=== PATIENT | male | born 1960 | race Caucasian/White ===

== ENCOUNTER 2016-07-01 17:03 | Emergency (ER) | payer MEDICARE, MEDICAID ==
[~2016-07-01] VITALS: Ht 185.4 cm; Wt 153.0 kg
[2016-07-01 17:03] VITALS: Ht 185.4 cm; Wt 153.0 kg
[~2016-07-01 17:03] MED LIST: ATOR20TA18 PO; BACL10TA PO; BETH25TA PO; DIVA500T55 PO; FURO80TA88 PO; GABA-305 PO; HYDR4TAB84 PO; HYDR8TAB27 PO; LEVO100T12 PO; LUBI24CA7 PO; MENT113P3 TOP; METH1TAB46 PO; MICO113C TOP; MORP15TA43 PO; POTA20TA10 PO; RIVA20TA PO; [UNRECOGNIZED DRUG - CODE] PO
--- OUTSIDE RECORDS SUMMARY | 2016-07-01 17:08 | XMS REPORT | Summary of Care ---
Author Author Nadiya Timmons Unknown Address [address], [place] [id number] Phone Unavailable Care Team Providers Care High School Director Name Role Phone Jon Kirkland, FACS, ,, M Unavailable Unavailable Mena Kirkland, Ritesh Unavailable Unavailable Kelin Kirkland, A Unavailable Unavailable Lena Fountain, Andreia Unavailable Unavailable Nic Kirkland, G Unavailable Unavailable Paresh Kirkland, T Unavailable Unavailable Carlos Neville PP Unavailable [facility] ([place]) Unavailable Unavailable Unavailable Functional Status Functional Status Health Issues* Name Dates Details Functional status health issues are not documented Status: Cognitive Status Health Issues* Name Dates Details Cognitive status health issues are not documented Status: Problems Name Dates Details Heartburn Frequently (Weekly / Daily) Status: Active Shortness of breath (786.05, R06.02) Status: Active Edema (782.3, R60.9) Status: Active Cough (786.2, R05) Status: Active Respiratory tract infection (519.8, J98.8) Status: Active Anemia (285.9, D64.9) Status: Active Constipation (564.00, K59.00) Status: Active Pain, low back (724.2, M54.5) Status: Active Pre-operative exam (V72.84, Z01.818) Status: Active Left knee pain (719.46, M25.562) Status: Active Pain and swelling of right lower leg (729.5, M79.661) Status: Active Meningitis (322.9, G03.9) Status: Active Hyperlipidemia (272.4, E78.5) Status: Active Urinary retention (788.20, R33.9) Status: Active Esophageal reflux (530.81, K21.9) Status: Active Hypothyroidism (244.9, E03.9) Status: Active 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 Hypertension (401.9, I10) Status: Active Vena Caval Thrombosis Status: Active Latex allergy, contact dermatitis (692.4, L25.3) Status: Active Depression (311, F32.9) Status: Active BPH (benign prostatic hyperplasia) (600.00, N40.0) Status: Active Insomnia (780.52, G47.00) Status: Active Neurogenic bladder (596.54, N31.9) Status: Active Spinal cord stimulator status (V45.89, Z96.89) Status: Active Cognitive impairment (294.9, R41.89) Status: Active Intractable back pain (724.5, M54.9) Status: Active 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 Quantity: 90 Carlos Neville M.D.* Started 20-Dec-2012 ActiveDivalproex Sodium ER 500 MG Oral Tablet Extended Release 24 Hour TAKE TWO TABLETS BY MOUTH EVERY DAY * Quantity: 60 Refills: 2 Ritesh San M.D.* Started 20-Dec-2012 ActiveAtorvastatin Calcium 20 MG Oral Tablet take one tablet by mouth every day * Quantity: 30 Refills: 10 Ritesh San M.D.* Started 20-Dec-2012 ActiveHYDROmorphone HCl - 2 MG Oral Tablet TAKE 1 TABLET TID FOR LBP * Quantity: 20 Refills: 0 Carlos Neville M.D.* Started 01-Feb-2013 ActiveKlor-Con M20 20 MEQ Oral Tablet Extended Release TAKE 2 TABLET Daily * Quantity: 60 Refills: 11 Ritesh San M.D.* Started 15-Mar-2013 ActiveGabapentin 300 MG Oral Capsule TAKE TWO CAPSULES in the morning, 1 capusle at noon, and 2 capusules at night. * Quantity: 150 Refills: 2 Anderia Paredes* Started 03-May-2013 ActiveFurosemide 80 MG Oral Tablet Take 1 tablet twice daily * Quantity: 60 Refills: 11 Ritesh San M.D.* Started 19-Jun-2013 ActiveXarelto 20 MG Oral Tablet take one tablet by mouth every day * Quantity: 30 Refills: 1 Ritesh San M.D.* Started ActiveMorphine Sulfate ER 15 MG Oral Tablet Extended Release Si PO every 12 hours with a max of 2 per day. Script must last [address] Lucero. MDD:2 per day * Quantity: 60 Refills: 0 Javi Lucero M.D.* Started 28-Mar-2015 ActiveBaclofen 20 MG Oral Tablet TAKE ONE TABLET BY MOUTH THREE TIMES A DAY NEEDED * Quantity: 90 Refills: 2 Javi Lucero M.D.* Started 13-Feb-2014 ActiveAmitiza 24 MCG Oral Capsule TAKE 1 CAPSULE TWICE DAILY WITH FOOD. * Quantity: 60 Refills: 6 Calos Yoder M.D.* Started 20-Feb-2014 ActiveMethenamine Hippurate 1 GM Oral Tablet TAKE 1 TABLET TWICE DAILY. * Quantity: 180 Refills: 3 Chan Webb M.D., FACS, , * Started 10-Apr-2014 ActiveQUEtiapine Fumarate 50 MG Oral Tablet * Refills: 0 ActiveBethanechol Chloride 25 MG Oral Tablet TAKE 1 TABLET 2 TIMES DAILY. 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 Cognitive impairment (294.9, R41.89) Status: Active Degenerative disc disease, lumbar (722.52, M51.36) Status: Active Depression (311, F32.9) Status: Active DVT (deep venous thrombosis) (453.40, I82.409) Status: Active Esophageal reflux (530.81, K21.9) Status: Active 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, M96.1) Status: Active Hyperlipidemia (272.4, E78.5) Status: Active Hypertension (401.9, I10) Status: Active Hypothyroidism (244.9, E03.9) Status: Active Insomnia (780.52, G47.00) Status: Active Intractable back pain (724.5, M54.9) Status: Active Latex allergy, contact dermatitis (692.4, L25.3) Status: Active Meningitis (322.9, G03.9) Status: Active Neurogenic bladder (596.54, N31.9) Status: Active Spinal cord stimulator status (V45.89, Z96.89) Status: Active Urinary retention (788.20, R33.9) Status: Active Vena Caval Thrombosis Status: Active Procedures Procedure Dates Details History of Biopsy Intraspinal Laminectomy Extradural, Sacral History of Skin Debridement Left Leg History of Hip Surgery Left History of Arthroscopy Knee Right History of Hip Surgery Right History of Cath Stent Placement History of Laminectomy Lumbar History of Laminectomy, Excision Intradural Intraspinal Lesion Sacral Procedures not documented Immunization Name Dates Details Pneumo (Pneumovax) Administered on:15-Mar-2013 Flulaval Quadrivalent Intramuscular Suspension Lot #: [id number] Administered on:26-Dec-2013 Zostavax [id number] UNT/0.65ML Subcutaneous Solution Reconstituted Lot #: [id number] Administered on:26-Dec-2013 Prevnar 13 Intramuscular Suspension Lot #: [id number] Administered on:21-May-2014 Family History Mother* Name Dates Details Family history of malignant neoplasm of breast (V16.3, Z80.3) Status: Active Father* Name Dates Details Family history of acute myocardial infarction (V17.3, Z82.49) Status: Active Family history of Prostate cancer (185, C61) Status: Active Social History Name Dates Details Smoking Status* Former smoker Vital Signs Date Test Result Details 11-Apr-2015 10:55 BP Systolic 109 mm[Hg] Status: BP Diastolic 62 mm[Hg] Status: Temperature 97.3 f Status: Heart Rate 96 /min Status: Respiration Rate 18 /min Status: Weight 274 lb Status: Results Date Description Value Details Results not documented Plan of Care Planned Observations* Name Dates Details Planned Goals not documented Goal Planned Encounters* Appointment; Provider: Carlos Neville On 10-Jul-2015 13:30 * Appointment; Provider: Javi Lucero On 11-Jun-2015 13:30 * Appointment; Provider: Chan Webb On 02-May-2015 06:45 * Appointment; Provider: Javi Lucero On 18-Apr-2015 09:30 * Appointment; Provider: Nadiya Dinh On 11-Apr-2015 13:00 * Appointment; Provider: Schedule Radiology On 04-Mar-2015 16:30 * Appointment; Provider: Chan Webb On 08-Feb-2014 11:30 * Appointment; Provider: Carlos Neville On 22-Nov-2007 07:00 * Appointment; Provider: Carlos Neville On 20-Nov-2007 07:00 Instructions * Instructions not documented Encounters Appointment; Chan Webb Encounter Diagnosis: Problem not documented On 01-Apr-2015 07:30 Appointment; Javi Lucero Encounter Diagnosis: Problem not documented On 12-Mar-2015 13:30 Appointment; Misael Colbert Encounter Diagnosis: Problem not documented On 04-Mar-2015 15:55 Appointment; Chan Webb Encounter Diagnosis: Problem not documented On 28-Feb-2015 07:15 Appointment; Chan Webb Encounter Diagnosis: Problem not documented On 29-Jan-2015 16:45 Appointment; Carlos Neville Encounter Diagnosis: Problem not documented On 07-Jan-2015 13:30 Appointment; Chan Webb Encounter Diagnosis: Problem not documented On 25-Dec-2014 07:00 Appointment; Andreia Paredes Encounter Diagnosis: Problem not documented On 04-Dec-2014 11:30 Appointment; Chan Webb Encounter Diagnosis: Problem not documented On 23-Nov-2014 17:15 Appointment; Chan Webb Encounter Diagnosis: Problem not documented On 12:45 Appointment; Carlos Neville Encounter Diagnosis: Problem not documented On 14:45 Appointment; Chan Webb Encounter Diagnosis: Problem not documented On 07:15 Appointment; Andreia Paredes Encounter Diagnosis: Problem not documented On 13:15 Appointment; Andreia Paredes Encounter Diagnosis: Problem not documented On 11:30 Appointment; Carlos Neville Encounter Diagnosis: Problem not documented On 13:30 Appointment; Chan Webb Encounter Diagnosis: Problem not documented On 16-Aug-2014 07:00 Appointment; Carlos Neville Encounter Diagnosis: Problem not documented On 02-Aug-2014 11:15 Appointment; Chan Webb Encounter Diagnosis: Problem not documented On 10-Jul-2014 07:00 Appointment; Carlos Neville Encounter Diagnosis: Problem not documented On 29-Jun-2014 13:15 Appointment; Chan Webb Encounter Diagnosis: Problem not documented On 21-Jun-2014 07:15 Appointment; Carlos Neville Encounter Diagnosis: Problem not documented On 19-Jun-2014 14:00 Appointment; Javi Lucero Encounter Diagnosis: Problem not documented On 31-May-2014 13:45 Appointment; Ritesh San Encounter Diagnosis: Problem not documented On 21-May-2014 13:45 Appointment; Chan Webb Encounter Diagnosis: Problem not documented On 17-May-2014 17:00 Appointment; Ritesh San Encounter Diagnosis: Problem not documented On 03-May-2014 14:00 Appointment; Javi Lucero Encounter Diagnosis: Problem not documented On 24-Apr-2014 08:00 Appointment; Ritesh San Encounter Diagnosis: Problem not documented On 23-Apr-2014 13:15 Appointment; Chan Webb Encounter Diagnosis: Problem not documented On 10-Apr-2014 14:00 Appointment; Ritesh San Encounter Diagnosis: Problem not documented On 21-Feb-2014 13:15 Appointment; Estella Glass Encounter Diagnosis: Problem not documented On 20-Feb-2014 13:15 Appointment; Ritesh San Encounter Diagnosis: Problem not documented On 29-Jan-2014 13:45 Appointment; Ritesh San Encounter Diagnosis: Problem not documented On 26-Dec-2013 14:30 Appointment; Ritesh San Encounter Diagnosis: Problem not documented On 13-Dec-2013 15:30 Appointment; Javi Lucero Encounter Diagnosis: Problem not documented On 20-Nov-2013 11:00 Appointment; Javi Lucero Encounter Diagnosis: Problem not documented On 13-Nov-2013 12:00 Appointment; Ritesh San Encounter Diagnosis: Problem not documented On 07-Nov-2013 13:45 Appointment; Chan Webb Encounter Diagnosis: Problem not documented On 12:45 Appointment; Javi Lucero Encounter Diagnosis: Problem not documented On 11:30 Appointment; Javi Lucero Encounter Diagnosis: Problem not documented On 11:15 Appointment; Ritesh San Encounter Diagnosis: Problem not documented On 11:30 Appointment; Javi Lucero Encounter Diagnosis: Problem not documented On 10:30 Appointment; Ritesh San Encounter Diagnosis: Problem not documented On 13:00 Appointment; Javi Lucero Encounter Diagnosis: Problem not documented On 11:15 Appointment; Javi Lucero Encounter Diagnosis: Problem not documented On 09:00 Appointment; Ritesh San Encounter Diagnosis: Problem not documented On 10:00 Appointment; Ritesh San Encounter Diagnosis: Problem not documented On 16-Aug-2013 10:30 Appointment; Ritesh San Encounter Diagnosis: Problem not documented On 10-Aug-2013 11:15 Appointment; Ritesh San Encounter Diagnosis: Problem not documented On 24-Jul-2013 15:15 Appointment; Javi Lucero Encounter Diagnosis: Problem not documented On 13-Jul-2013 08:00 Appointment; Ritesh San Encounter Diagnosis: Problem not documented On 13-Jun-2013 13:30 Appointment; Ritesh San Encounter Diagnosis: Problem not documented On 03-May-2013 13:00 Appointment; Chan Webb Encounter Diagnosis: Problem not documented On 25-Apr-2013 13:15
--- OUTSIDE RECORDS SUMMARY | 2016-07-01 17:08 | XMS REPORT | Summary of Care ---
Author Author Carlos Neville M.D. Organization Unknown Address [address], [place] [id number] Phone Unavailable Care Team Providers Care Flocculator Operator Name Role Phone Jon Kirkland, FACS, ,, M Unavailable Unavailable Mena Kirkland, Ritesh Unavailable Unavailable Kelin Kirkland, A Unavailable Unavailable Lena Fountain, Andreia Unavailable Unavailable Nic Kirkland, G Unavailable Unavailable Paresh Kirkland, T Unavailable Unavailable Carlos Neville PP Unavailable Unavailable Unavailable Functional Status Functional Status [...] Respiratory tract infection (519.8, J98.8) Status: Active Anticoagulant long-term use (V58.61, Z79.01) Status: Active Anemia (285.9, D64.9) Status: Active Deep vein thrombosis of lower extremity (453.40, I82.409) Status: Active Constipation (564.00, K59.00) Status: Active Pain, low back (724.2, M54.5) Status: Active Pre-operative exam (V72.84, Z01.818) Status: Active Left knee pain (719.46, M25.562) Status: Active Pain and swelling of right lower leg (729.5, M79.604) Status: Active Chronic pain (338.29, G89.29) Status: Active Meningitis (322.9, G03.9) Status: Active Hyperlipidemia (272.4, E78.5) Status: Active Urinary retention (788.20, R33.9) Status: Active Esophageal reflux (530.81, K21.9) Status: Active Hypothyroidism (244.9, E03.9) Status: Active 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 Lucero. * Quantity: 52 Refills: 0 Javi Lucero M.D.* Started 01-Feb-2013 ActiveKlor-Con M20 20 MEQ Oral Tablet Extended Release TAKE 2 TABLET Daily * Quantity: 60 Refills: 11 Ritesh San M.D.* Started 15-Mar-2013 ActiveGabapentin 300 MG Oral Capsule TAKE TWO CAPSULES in the morning, 1 capusle at noon, and 2 capusules at night. * Quantity: 150 Refills: 2 Andreia Paredes* Started 03-May-2013 ActiveFurosemide 80 MG Oral [...] Webb M.D., FACS, , * Started 10-Apr-2014 ActiveEscitalopram Oxalate 10 MG Oral Tablet TAKE 1 TABLET DAILY. * Quantity: 90 Refills: 0 Ritesh San M.D.* Started 04-May-2014 ActiveQUEtiapine Fumarate 50 MG Oral Tablet * [...] on:15-Mar-2013 Flulaval Quadrivalent Intramuscular Suspension Lot #: [id number] Administered on:26-Dec-2013 Zostavax 72361 UNT/0.65ML Subcutaneous Solution Reconstituted Lot #: [id number] Administered on:26-Dec-2013 Prevnar 13 Intramuscular Suspension Lot #: [id number] Administered on:21-May-2014 Family History Mother* Name Dates Details Family history of malignant neoplasm of breast (V16.3, Z80.3) Status: Active Father* Name Dates Details Family history of acute myocardial infarction (V17.3, Z82.49) Status: Active Family history of Prostate cancer (185, C61) Status: Active Social History Name Dates Details Smoking Status* Former smoker Vital Signs Date Test Result Details 04-Mar-2015 16:08 BP Systolic 90 mm[Hg] Status: BP Diastolic 62 mm[Hg] Status: Temperature 97.5 f Status: Heart Rate 90 /min Status: O2 SAT 98 % Status: Results Date Description Value Details 04-Mar-2015 16:42 ULTRASOUND LEG VEINS RIGHT Comments: Exam Date: 2014 16:27Dictation Date: 03/04/2015 16:42 XS LEG VEINS RIGHT (Better) Plan of Care Planned Observations* Name Dates Details Planned Goals not documented Goal Planned Encounters* Appointment; Provider: Carlos Neville On 10-Jul-2015 13:30 * Appointment; Provider: Javi Lucero On 11-Jun-2015 13:30 * Appointment; Provider: Chan Webb On 01-Apr-2015 07:30 * Appointment; Provider: Schedule Radiology On 04-Mar-2015 16:30 * Appointment; Provider: Chan Webb On 08-Feb-2014 11:30 * Appointment; Provider: Carlos Neville On 22-Nov-2007 07:00 * Appointment; Provider: Carlos Neville On 20-Nov-2007 07:00 Instructions * Instructions not documented Encounters Appointment; Javi Lucero Encounter Diagnosis: Problem not [...] not documented On 20-Feb-2014 13:15 Appointment; Ritesh aSn Encounter Diagnosis: Problem not documented On 29-Jan-2014 [...]
--- OUTSIDE RECORDS SUMMARY | 2016-07-01 17:09 | XMS REPORT | Summary of Care ---
Author Author Elizabeth Gonsalez APRN Organization Unknown Address [address], [place] [id number] Phone Unavailable Care Team Providers Care Shaker Repairer Name Role Phone GaryMusa mendez Unavailable Unavailable Archana Stein PA-C Unavailable Unavailable Mena Kirkland, Ritesh Unavailable Unavailable Kelin Kirkland, Nataly Unavailable Unavailable Nixon Kirkland, Lance Unavailable Unavailable Nic Kirkland, G Unavailable Unavailable Paresh Kirkland, T Unavailable Unavailable PCP Not Assigned Unavailable Unavailable [facility] ([place]) Unavailable Unavailable Unavailable Unavailable Functional Status Name Dates Details Functional status health issues are not documented Status: Name Dates Details Cognitive status health issues are not documented Status: Problems Name Dates Details Heartburn Frequently (Weekly / Daily) Status: Active Meningitis (322.9, G03.9) Status: Active Esophageal reflux (530.81, K21.9) Status: Active 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 Vena Caval Thrombosis Status: Active Latex allergy, contact dermatitis (692.4, L25.3) Status: Active Spinal cord stimulator status (V45.89, Z96.89) Status: Active 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2, M54.5) Status: Active Intractable back pain (724.5, M54.9) Status: Active Hyperlipidemia (272.4, E78.5) Status: Active Abnormal glucose (790.29, R73.09) Status: Active Difficulty in walking (719.7, R26.2) Status: Active Peripheral neuropathy (356.9, G62.9) Status: Active Suprapubic catheter (V44.59, Z93.59) Status: Active BPH (benign prostatic hyperplasia) (600.00, N40.0) Status: Active Depression (311, F32.9) Status: Active Hypertension (401.9, I10) Status: Active Hypothyroidism (244.9, E03.9) Status: Active Preop examination (V72.84, Z01.818) Status: Active Neurogenic bladder (596.54, N31.9) Status: Active Anticoagulant long-term use (V58.61, Z79.01) Status: Active Medications Name Dates Details Levothyroxine Sodium 100 MCG Oral Tablet TAKE 1 TABLET DAILY. Quantity: 90 Kelin Kirkland, Carlos A * Start 20-Dec-2012 Active Divalproex Sodium ER 500 MG Oral Tablet Extended Release 24 Hour TAKE TWO TABLETS BY MOUTH EVERY DAY * Quantity: 60 Refills: 2 Ritesh San M.D. * Start 20-Dec-2012 Active Atorvastatin Calcium 20 MG Oral Tablet take one tablet by mouth every day * Quantity: 30 Refills: 10 Ritesh San M.D. * Start 20-Dec-2012 Active Klor-Con M20 20 MEQ Oral Tablet Extended Release TAKE 2 TABLET Daily * Quantity: 60 Refills: 11 Ritesh San M.D. * Start 15-Mar-2013 Active Furosemide 80 MG Oral Tablet Take 1 tablet twice daily * Quantity: 60 Refills: 11 Ritesh San M.D. * Start 19-Jun-2013 Active Morphine Sulfate ER 15 MG Oral Tablet Extended Release Si PO every 12 hours with a max of 2 per day. Script must last 30 days. MDD:2 per day * Quantity: 60 Refills: 0 Carlos Neville M.D. * Start 15-Jan-2014 Active Baclofen 20 MG Oral Tablet TAKE ONE TABLET BY MOUTH THREE TIMES A DAY NEEDED * Quantity: 90 Refills: 2 Nic KirklandJavi * Start 13-Feb-2014 Active Amitiza 24 MCG Oral Capsule TAKE 1 CAPSULE TWICE DAILY WITH FOOD. * Quantity: 60 Refills: 6 Paresh Kirkland, Calos Herrera * Start 20-Feb-2014 Active Methenamine Hippurate 1 GM Oral Tablet TAKE 1 TABLET TWICE DAILY. * Quantity: 180 Refills: 3 Chan Webb * Start 10-Apr-2014 Active Bethanechol Chloride 25 MG Oral Tablet Take one tablet three times daily * Quantity: 270 Refills: 3 Emil VEGAS Amanda * Start 02-Aug-2014 Active HYDROmorphone HCl - 8 MG Oral Tablet TAKE 1 TABLET BID (AM & PM)qty 60 max 2 a day * Quantity: 60 Refills: 0 Carlos Neville M.D. * Start 18-Apr-2015 Active HYDROmorphone HCl - 4 MG Oral Tablet 1 TABLET DAILY (MID-DAY) * Quantity: 30 Refills: 0 Carlos Neville M.D. * Start 07-Aug-2015 Active Simethicone 40 MG/0.6ML Oral Suspension TAKE DIRECTED. * Quantity: 1 Refills: 0 Lance Alicea M.D. * Start Active 30 ML Bottle MiraLax Oral Powder MIX 1 CAPFUL (17GM) IN 8 OUNCES OF WATER, JUICE, OR TEA AND DRINK DAILY. * Refills: 0 Carlos Neville M.D. * Start 07-May-2016 Active Xarelto 20 MG Oral Tablet * Refills: 0 Carlos Neville M.D. * Start 07-May-2016 Active Furosemide 80 MG Oral Tablet TAKE 1 TABLET TWICE DAILY. * Refills: 0 Carlos Neville M.D. * Start 07-May-2016 Active Tylenol 325 MG Oral Tablet ONE TABLET BY MOUTH EVERY FOUR HOURS NEEDED FOR MODERATE PAIN * Refills: 0 Carlos Neville M.D. * Start 07-May-2016 Active Milk of Magnesia 400 MG/5ML Oral Suspension USE DIRECTED. * Refills: 0 Carlos Neville M.D. * Start 07-May-[address] 400-400-40 MG/5ML Oral Suspension USE DIRECTED. * Refills: 0 Carlos Neville M.D. 07-May-2016 Active Allergies and Adverse Reactions Name Dates Details Abilify (Allergy) Status: Active aspirin (Allergy) Status: Active Bactrim (Allergy) Status: Active doxycycline (Allergy) Status: Active ibuprofen (Allergy) Status: Active Keflex TABS (Allergy) Status: Active naproxen (Allergy) Status: Active Novocain SOLN (Allergy) Status: Active nystatin (Allergy) Status: Active Paxil (Allergy) Status: Active Tylenol (Allergy) Status: Active Zithromax TABS (Allergy) Status: Active Zoloft (Allergy) Status: Active Latex (Allergy) Status: Active Past Medical History Name Dates Details Affective bipolar disorder (296.80, F31.9) Status: Active BPH (benign prostatic hyperplasia) (600.00, N40.0) Status: Active Chronic pain (338.29, G89.29) Status: [...] Status: Active Hypothyroidism (244.9, E03.9) Status: Active Intractable back pain (724.5, M54.9) Status: Active Latex allergy, contact dermatitis (692.4, L25.3) Status: Active Meningitis (322.9, G03.9) Status: Active Neurogenic bladder (596.54, N31.9) Status: Active Spinal cord stimulator status (V45.89, Z96.89) Status: Active Vena Caval Thrombosis Status: Active [...] documented Immunization Name Dates Details Pneumo (Pneumovax) on: 15-Mar-2013 Flulaval Quadrivalent Intramuscular Suspension Lot #: [id number] on: 26-Dec-2013 Zostavax 71186 UNT/0.65ML Subcutaneous Solution Reconstituted Lot #: [id number] on: 26-Dec-2013 Prevnar 13 Intramuscular Suspension Lot #: [id number] on: 21-May-2014 Tdap (Adacel) Lot #: [id number] on: 07-Aug-2015 Family History Name Dates Details Family history of malignant neoplasm of breast (V16.3, Z80.3) Status: Active Name Dates Details Family history of acute myocardial infarction (V17.3, Z82.49) Status: Active Family history of Prostate cancer (185, C61) Status: Active Social History Name Dates Details - Status: Name Dates Details Former smoker Vital Signs Date Test Result Details 15-Jun-2016 15:34 BP Systolic 120 mm[Hg] Status: Comments: Location: ; Position: BP Diastolic 76 mm[Hg] Status: Comments: Location: ; Position: Heart Rate 75 /min Status: Comments: Location: ; Weight 325.0 lb Status: Physical Findings 97 Status: Comments: O2 Saturation Body Mass Index Calculated 42.88 kg/m2 Status: Body Surface Area Calculated 2.64 m2 Status: Results Date Description Value Details 15-Jun-2016 14:00 Comprehensive Metabolic Panel 1212 SODIUM 140 mmol/L Range: 133-144 POTASSIUM 3.9 mmol/L Range: 3.5-5.1 CHLORIDE 102 mmol/L Range: 98-110 CARBON DIOXIDE 33.0 mmol/L Range: 23.0-33.0 ANION GAP 5 mmol/L (Below low threshold) Range: 6-16 BUN 11 mg/dL Range: 7-18 CREATININE, SERUM 0.78 mg/dL Range: 0.70-1.30 BUN:CREATININE RATIO 14 EST GFR, >60 ml/min Range: >60 EST GFR, NON-AFR TUVALUAN >60 ml/min Range: >60 Comments: EST GFR is reported in ml/min per 1.73 m2 of body surface area. ----- GLUCOSE 118 mg/dL (Above high threshold) Range: 70-100 ALK PHOSPHATASE 77 U/L Range: 46-116 TOTAL BILIRUBIN 0.50 mg/dL Range: 0.20-1.00 AST 20 U/L Range: 8-35 ALT 33 U/L Range: 16-63 ALBUMIN 3.1 g/dL (Below low threshold) Range: 3.4-5.0 TOTAL PROTEIN 7.2 g/dL Range: 6.4-8.2 A/G RATIO 0.8 units (Below low threshold) Range: 1.0-1.8 CALCIUM 8.2 mg/dL (Below low threshold) Range: 8.5-10.1 14:32 ECG/ EKG Preop Electro CardioGram 14:42 Urinalysis, Reflex to Microscopic or Culture PRN 8005 pH 7.5 Range: 5.0-7.5 SP GRAVITY 1.015 Range: 1.010-1.030 APPEARANCE CLEAR Range: Clear COLOR YELLOW Range: Straw-Yellow PROTEIN NEGATIVE mg/dL Range: Negative-Trace GLUCOSE NEGATIVE mg/dL Range: Negative KETONE NEGATIVE mg/dL Range: Negative BILIRUB NEGATIVE Range: Negative BLOOD NEGATIVE Range: Negative UROBIL 1.0 EU/dL Range: 0.2-1.0 NITRITE NEGATIVE Range: Negative LEUK MODERATE (Abnormal) Range: Negative 14:42 Urine Microscopic UMIC WBC 3-5 /HPF Range: 0-5 RBC 0-2 /HPF Range: 0-2 15:35 CBC w/ Auto Diff 7150 WBC 6.6 K/uL Range: 4.5-11.0 RBC 4.75 mil/uL Range: 4.20-5.40 HGB 14.2 g/dL Range: 14.0-18.0 HCT 42.3 % Range: 42.0-53.0 MCV 89.1 fL Range: 80.0-99.0 MCH 29.9 pg Range: 27.3-32.5 MCHC 33.6 % Range: 32.0-36.0 RDW 16.4 % (Above high threshold) Range: 11.6-14.8 PLATELETS 321 K/uL Range: 150-400 MPV 7.2 fL Range: 6.0-11.0 %NEUTRO 55.0 % Range: 37.0-80.0 %LYMPHS 30.1 % Range: 13.0-50.0 %MONO 7.0 % Range: 0.0-12.0 %EOS 4.5 % Range: 0.0-7.0 %BASO 0.9 % Range: 0.0-2.5 %ENDY 2.5 % Range: 0.0-5.0 NEUTRO 3.6 K/uL Range: 2.0-6.9 LYMPHS 2.0 K/uL Range: 0.6-3.4 MONOS 0.5 K/uL Range: 0.0-0.9 EOS 0.3 K/uL Range: 0.0-0.7 BASO 0.1 K/uL Range: 0.0-0.2 15:52 XRay CHEST-PA & LAT Comments: Exam Date: 06/15/2016 13:13Dictation Date: 06/15/2016 15:52 X CHEST PA & LAT Plan of Care Name Dates Details Planned Observations Planned Goals not documented Planned Encounters Appointment; Provider: Carlos Neville M.D. On 06-Aug-2016 08:15 Appointment; Provider: Chan Webb M.D., FACS, On 18-Jun-2016 11:30 Interventions Provided Labs/Procedures/Imaging* CBC w/ Auto Diff 7150; Done: 15Jun2016 03:15PM * XRay CHEST-PA & LAT; Done: 15Jun2016 03:52PM Instructions Name Dates Details Instructions not documented Encounters Appointment; Elizabeth Gonsalez A.P.R.N. Encounter Diagnosis: Problem not documented On 15-Jun-2016 14:30 Appointment; Carlos Neville M.D. Encounter Diagnosis: Problem not documented On 07-May-2016 08:00 Appointment; Chan Webb M.D., FACS, Encounter Diagnosis: Problem not documented On 06-May-2016 13:30 Appointment; Chan Webb M.D., FACS, Encounter Diagnosis: Problem not documented On 01-May-2016 07:00 Appointment; Carmine Geronimo DPM Encounter Diagnosis: Problem not documented On 17-Apr-2016 11:30 Appointment; Carlos Neville M.D. Encounter Diagnosis: Problem not documented On 09-Apr-2016 10:00 Appointment; Chan Webb M.D., FACS, Encounter Diagnosis: Problem not documented On 02-Mar-2016 17:15 Appointment; Carlos Neville M.D. Encounter Diagnosis: Problem not documented On 27-Feb-2016 08:45 Appointment; Carlos Neville M.D. Encounter Diagnosis: Problem not documented On 10-Feb-2016 13:00 Appointment; Carmine Geronimo DPM Encounter Diagnosis: Problem not documented On 07-Feb-2016 08:00 Appointment; Carmine Geronimo DPM Encounter Diagnosis: Problem not documented On 31-Jan-2016 13:30 Appointment; Chan Webb M.D., FACS, Encounter Diagnosis: Problem not documented On 27-Jan-2016 13:30 Appointment; Carlos Neville M.D. Encounter Diagnosis: Problem not documented On 14-Jan-2016 13:30 Appointment; Chan Webb M.D., FACS, Encounter Diagnosis: Problem not documented On 23-Dec-2015 13:30 Appointment; Carlos Neville M.D. Encounter Diagnosis: Problem not documented On 03-Dec-2015 13:30 Appointment; Carlos Neville M.D. Encounter Diagnosis: Problem not documented On 18-Nov-2015 14:15 Appointment; Chan Webb M.D., FACS, Encounter Diagnosis: Problem not documented On 18-Nov-2015 13:30 Appointment; Chan Webb M.D., FACS, Encounter Diagnosis: Problem not documented On 10:45 Appointment; Chan Webb M.D., FACS, Encounter Diagnosis: Problem not documented On 06:45 Appointment; Carlos Neville M.D. Encounter Diagnosis: Problem not documented On 14:00 Appointment; Chan Webb M.D., FACS, Encounter Diagnosis: Problem not documented On 09:30 Appointment; Chan Webb M.D., FACS, Encounter Diagnosis: Problem not documented On 17:00 Appointment; Elijah Dang D.O. Encounter Diagnosis: Problem not documented On 10:25 Appointment; Carlos Neville M.D. Encounter Diagnosis: Problem not documented On 07-Aug-2015 13:30 Appointment; Chan Webb M.D., FACS, Encounter Diagnosis: Problem not documented On 05-Aug-2015 17:00 Appointment; Carlos Neville M.D. Encounter Diagnosis: Problem not documented On 10-Jul-2015 13:00 Appointment; Chan Webb M.D., FACS, Encounter Diagnosis: Problem not documented On 08-Jul-2015 13:30 Appointment; Carlos Neville M.D. Encounter Diagnosis: Problem not documented On 17-Jun-2015 13:00 Appointment; Javi Lucero M.D. Encounter Diagnosis: Problem not documented On 11-Jun-2015 13:30 Appointment; Chan Webb M.D., FACS, Encounter Diagnosis: Problem not documented On 11-Jun-2015 07:30 Appointment; Calos Yoder M.D. Encounter Diagnosis: Problem not documented On 01-May-2015 13:45 Appointment; Javi Lucero M.D. Encounter Diagnosis: Problem not documented On 18-Apr-2015 09:30 Appointment; Chan Webb M.D., FACS, Encounter Diagnosis: Problem not documented On 01-Apr-2015 07:30 Appointment; Javi Lucero M.D. Encounter Diagnosis: Problem not documented On 12-Mar-2015 13:30 Appointment; Misael Colbert M.D. Encounter Diagnosis: Problem not documented On 04-Mar-2015 15:55 Appointment; Chan Webb M.D., FACS, Encounter Diagnosis: Problem not documented On 28-Feb-2015 07:15 Appointment; Chan Webb M.D., FACS, Encounter Diagnosis: Problem not documented On 29-Jan-2015 16:45 Appointment; Carlos Neville M.D. Encounter Diagnosis: Problem not documented On 07-Jan-2015 13:30 Appointment; Chan Webb M.D., FACS, Encounter Diagnosis: Problem not documented On 25-Dec-2014 07:00 Appointment; Andreia Paredes P.A. Encounter Diagnosis: Problem not documented On 04-Dec-2014 11:30 Appointment; Chan Webb M.D., FACS, Encounter Diagnosis: Problem not documented On 23-Nov-2014 17:15 Appointment; Chan Webb M.D., FACS, Encounter Diagnosis: Problem not documented On 12:45 Appointment; Carlos Neville M.D. Encounter Diagnosis: Problem not documented On 14:45 Appointment; Chan Webb M.D.,BEREKET, Encounter Diagnosis: Problem not documented On 07:15 Appointment; Andreia Paredes P.A. Encounter Diagnosis: Problem not documented On 13:15 Appointment; Andreia Paredes P.A. Encounter Diagnosis: Problem not documented On 11:30 Appointment; Carlos Neville M.D. Encounter Diagnosis: Problem not documented On 13:30 Appointment; Chan Webb M.D.,BEREKET, Encounter Diagnosis: Problem not documented On 16-Aug-2014 07:00 Appointment; Carlos Neville M.D. Encounter Diagnosis: Problem not documented On 02-Aug-2014 11:15 Appointment; hCan Webb M.D.,BEREKET, Encounter Diagnosis: Problem not documented On 10-Jul-2014 07:00 Appointment; Carlos Neville M.D. Encounter Diagnosis: Problem not documented On 29-Jun-2014 13:15 Appointment; Chan Webb M.D.,BEREKET, Encounter Diagnosis: Problem not documented On 21-Jun-2014 07:15 Appointment; Carlos Neville M.D. Encounter Diagnosis: Problem not documented On 19-Jun-2014 14:00
--- OUTSIDE RECORDS SUMMARY | 2016-07-01 17:09 | XMS REPORT | Summary of Care ---
Author Author Kelin Kirkland, Carlos Ingram Organization Unknown Address [address], [place] [id number] Phone Unavailable Care Team Providers Care Location Manager Name Role Phone Jon Kirkland, BEREKET, ,, M Unavailable Unavailable Emil VEGAS, Archana Unavailable Unavailable Mena Kirkland, Ritesh Unavailable Unavailable Kelin Kirkland, A Unavailable Unavailable Nixon Kirkland, Lance Unavailable Unavailable Nic Kirkland, G Unavailable Unavailable Paresh Kirkland, T Unavailable Unavailable Carlos Neville Unavailable Unavailable [facility] ([place]) Unavailable Unavailable Unavailable Unavailable Functional Status Name [...] Active Chronic pain (338.29, G89.29) Status: Active Depression (311, F32.9) Status: Active Former smoker (V15.82, Z87.891) Status: Active Neurogenic bladder (596.54, N31.9) Status: Active Cognitive impairment (294.9, R41.89) Status: Active Affective bipolar disorder (296.80, F31.9) Status: Active Acute embolism and thrombosis of unspecified deep veins of unspecified lower extremity (453.40, I82.409) Status: Active BPH (benign prostatic hyperplasia) (600.00, N40.0) Status: Active Anticoagulant long-term use (V58.61, Z79.01) Status: Active Opioid dependence (304.00, F11.20) Status: Active Low back pain (724.2, M54.5) Status: Active Intractable back pain (724.5, M54.9) Status: Active Difficulty in walking (719.7, R26.2) Status: Active Great toe pain, right (729.5, M79.674) Status: Active Ingrowing nail (703.0, L60.0) Status: Active Hyperlipidemia (272.4, E78.5) Status: Active Hypertension (401.9, I10) Status: Active Hypothyroidism (244.9, E03.9) Status: Active Abnormal glucose (790.29, R73.09) Status: Active Medications Name Dates Details Levothyroxine Sodium 100 MCG Oral Tablet TAKE 1 TABLET DAILY. Quantity: 90 Carlos Neville M.D. A * Start 20-Dec-2012 Active Divalproex Sodium [...] Quantity: 60 Refills: 0 Carlos Neville M.D. Start 15-Jan-2014 Active Baclofen 20 MG Oral Tablet TAKE ONE TABLET BY MOUTH THREE TIMES A DAY NEEDED * Quantity: 90 Refills: 2 Javi Lucero M.D. * Start 13-Feb-2014 Active Amitiza 24 MCG Oral Capsule TAKE 1 CAPSULE TWICE DAILY WITH FOOD. * Quantity: 60 Refills: 6 Calos Yoder M.D. * Start 20-Feb-2014 Active Methenamine Hippurate 1 GM Oral Tablet TAKE 1 TABLET TWICE DAILY. * Quantity: 180 Refills: 3 Jon Kirkland, BEREKET, , , Chan Vigil * Start 10-Apr-2014 Active Bethanechol Chloride 25 MG Oral Tablet Take one tablet three times daily * Quantity: 270 Refills: 3 Archana Stein PA-C * Start 02-Aug-2014 Active HYDROmorphone HCl - 8 MG Oral Tablet TAKE 1 TABLET BID (AM & PM)qty 60 max 2 a day * Quantity: 60 Refills: 0 Carlos Neville M.D. * Start 18-Apr-2015 Active Fetzima 40 MG Oral Capsule Extended Release 24 Hour Take one tablet daily * Refills: 0 Calos Yoder M.D. * Start 01-May-2015 Active HYDROmorphone HCl - 4 MG Oral Tablet 1 TABLET DAILY (MID-DAY) * Quantity: 30 Refills: 0 Carlos Neville M.D. * Start 07-Aug-2015 Active Simethicone 40 MG/0.6ML Oral Suspension TAKE DIRECTED. * Quantity: 1 Refills: 0 Lance Alicea M.D. * Start Active 30 ML Bottle Allergies and Adverse Reactions Name Dates Details [...] of Laminectomy, Excision Intradural Intraspinal Lesion Sacral CBC w/ Auto Diff 7150 Ordered: 10-Feb-2016 Comprehensive Metabolic Panel 1212 Ordered: 10-Feb-2016 HEMOGLOBIN A1C 3507 Ordered: 10-Feb-2016 Immunization Name Dates Details Pneumo (Pneumovax) on: 15-Mar-2013 Flulaval Quadrivalent Intramuscular Suspension Lot #: [id number] on: 26-Dec-2013 Zostavax 09456 UNT/0.65ML Subcutaneous Solution Reconstituted Lot #: [id number] on: 26-Dec-2013 Prevnar 13 Intramuscular Suspension Lot #: [id number] on: 21-May-2014 Tdap (Adacel) Lot #: [id number] on: 07-Aug-2015 Family History Name Dates Details Family history of malignant neoplasm of breast (V16.3, Z80.3) Status: Active Name Dates Details Family history of acute myocardial infarction (V17.3, Z82.49) Status: Active Family history of Prostate cancer (185, C61) Status: Active Social History Name Dates Details - Status: Name Dates Details Former smoker Vital Signs Date Test Result Details 08-Apr-2016 13:08 BP Systolic 131 mm[Hg] Status: Comments: Location: ; Position: BP Diastolic 89 mm[Hg] Status: Comments: Location: ; Position: Temperature 98.6 f Status: Comments: Method: Heart Rate 81 /min Status: Comments: Location: ; Physical Findings 18 Status: Comments: Respiration Weight 330.4 lb Status: Body Mass Index Calculated 43.59 kg/m2 Status: Body Surface Area Calculated 2.66 m2 Status: Results Date Description Value Details Results not documented Plan of Care Name Dates Details Planned Observations Planned Goals not documented Planned Encounters Appointment; Provider: Chan Webb M.D.|CarlC.SAkhil|BEREKET Kirkland|Marita,BEREKET, On 06-May-2016 13:30 Appointment; Provider: Chan Webb M.D.|Nathaniel.C.SAkhil|Marita,BEREKET|BEREKET Kirkland, On 06-May-2016 07:30 Appointment; Provider: Carmine Geronimo DPM On 17-Apr-2016 11:30 Instructions Name Dates Details Instructions not documented Encounters Appointment; Chan Webb M.D.|CarlC.SAkhil|Marita,BEREKET|Marita,BEREKET, Encounter Diagnosis: Problem not documented On 02-Mar-2016 17:15 Appointment; Carlos Neville M.D. Encounter Diagnosis: Problem not documented On 27-Feb-2016 08:45 Appointment; Carlos Neville M.D. Encounter Diagnosis: Problem not documented On 10-Feb-2016 13:00 Appointment; Carmine Geronimo DPM Encounter Diagnosis: Problem not documented On 07-Feb-2016 08:00 Appointment; Carmine Geronimo DPM Encounter Diagnosis: Problem not documented On 31-Jan-2016 13:30 Appointment; Chan Webb M.D.|Nathaniel.C.S.|Marita,FACS|Marita,FACS, Encounter Diagnosis: Problem not documented On 27-Jan-2016 13:30 Appointment; Carlos Neville M.D. Encounter Diagnosis: Problem not documented On 14-Jan-2016 13:30 Appointment; Chan Webb M.D.|F.A.C.S.|M.DAkhil,BEREKET|MAkhilDAkhil,FACS, Encounter Diagnosis: Problem not documented On 23-Dec-2015 13:30 Appointment; Carlos Neville M.D. Encounter Diagnosis: Problem not documented On 03-Dec-2015 13:30 Appointment; Carlos Neville M.D. Encounter Diagnosis: Problem not documented On 18-Nov-2015 14:15 Appointment; Chan Webb M.D.|F.A.C.S.|Marita,BEREKET|Marita,BEREKET, Encounter Diagnosis: Problem not documented On 18-Nov-2015 13:30 Appointment; Chan Webb M.D.|F.A.C.S.|M.DAkhil,BEREKET|MEun,FACS, Encounter Diagnosis: Problem not documented On 10:45 Appointment; Chan Webb M.D.|F.A.C.S.|M.DAkhil,BEREKET|MEun,FACS, Encounter Diagnosis: Problem not documented On 06:45 Appointment; Carlos Neville M.D. Encounter Diagnosis: Problem not documented On 14:00 Appointment; Chan Webb M.D.|F.A.C.S.|M.DAkhil,BEREKET|MAkhilDAkhil,FACS, Encounter Diagnosis: Problem not documented On 09:30 Appointment; Chan Webb M.D.|F.A.C.S.|MAkhilDAkhil,BEREKET|MAkhilDAkihl,FACS, Encounter Diagnosis: Problem not documented On 17:00 Appointment; Elijah Dang D.O. Encounter Diagnosis: Problem not documented On 10:25 Appointment; Carlos Neville M.D. Encounter Diagnosis: Problem not documented On 07-Aug-2015 13:30 Appointment; Chan Webb M.D.|F.A.C.S.|MAkhilDAkhil,BEREKET|Marita,BEREKET, Encounter Diagnosis: Problem not documented On 05-Aug-2015 17:00 Appointment; Carlos Neville M.D. Encounter Diagnosis: Problem not documented On 10-Jul-2015 13:00 Appointment; Chan Webb M.D.|F.A.C.S.|MkAhilDAkhil,BEREKET|Marita,BEREKET, Encounter Diagnosis: Problem not documented On 08-Jul-2015 13:30 Appointment; Carlos Neville M.D. Encounter Diagnosis: Problem not documented On 17-Jun-2015 13:00 Appointment; Javi Lucero M.D. Encounter Diagnosis: Problem not documented On 11-Jun-2015 13:30 Appointment; Chan Webb M.D.|F.A.C.S.|Marita,BEREKET|Marita,BEREKET, Encounter Diagnosis: Problem not documented On 11-Jun-2015 07:30 Appointment; Calos Yoder M.D. Encounter Diagnosis: Problem not documented On 01-May-2015 13:45 Appointment; Javi Lucero M.D. Encounter Diagnosis: Problem not documented On 18-Apr-2015 09:30 Appointment; Chan Webb M.D.|F.A.C.S.|Marita,JOHANNE,BEREKET, Encounter Diagnosis: Problem not documented On 01-Apr-2015 07:30 Appointment; Javi Lucero M.D. Encounter Diagnosis: Problem not documented On 12-Mar-2015 13:30 Appointment; Misael Colbert M.D. Encounter Diagnosis: Problem not documented On 04-Mar-2015 15:55 Appointment; Chan Webb M.D.|F.A.C.S.|MEun,BEREKET|Marita,BEREKET, Encounter Diagnosis: Problem not documented On 28-Feb-2015 07:15 Appointment; Chan Webb M.D.|F.A.C.S.|ArtemioDAkhil,BEREKET|Marita,BEREKET, Encounter Diagnosis: Problem not documented On 29-Jan-2015 16:45 Appointment; Carlos Neville M.D. Encounter Diagnosis: Problem not documented On 07-Jan-2015 13:30 Appointment; Chan Webb M.D.|F.A.C.S.|MAkhilDAkhil,BEREKET|Marita,BEREKET, Encounter Diagnosis: Problem not documented On 25-Dec-2014 07:00 Appointment; Andreia Paredes P.A. Encounter Diagnosis: Problem not documented On 04-Dec-2014 11:30 Appointment; Chan Webb M.D.|F.A.C.S.|MEun,BEREKET|Marita,FACS, Encounter Diagnosis: Problem not documented On 23-Nov-2014 17:15 Appointment; Chan Webb M.D.|F.A.C.S.|Marita,BEREKET|Marita,BEREKET, Encounter Diagnosis: Problem not documented On 12:45 Appointment; Carlos Neville M.D. Encounter Diagnosis: Problem not documented On 14:45 Appointment; Chan Webb M.D.|F.A.C.S.|Marita,BEREKET|Marita,BEREKET, Encounter Diagnosis: Problem not documented On 07:15 Appointment; Andreia Paredes P.A. Encounter Diagnosis: Problem not documented On 13:15 Appointment; Andreia Paredes P.A. Encounter Diagnosis: Problem not documented On 11:30 Appointment; Carlos Neville M.D. Encounter Diagnosis: Problem not documented On 13:30 Appointment; Chan Webb M.D.|F.A.C.S.|Marita,BEREKET|Marita,BEREKET, Encounter Diagnosis: Problem not documented On 16-Aug-2014 07:00 Appointment; Carlos Neville M.D. Encounter Diagnosis: Problem not documented On 02-Aug-2014 11:15 Appointment; Chan Webb M.D.|F.A.C.S.|Marita,BEREKET|Marita,BEREKET, Encounter Diagnosis: Problem not documented On 10-Jul-2014 07:00 Appointment; Crater, Carlos, M.D. Encounter Diagnosis: Problem not documented On 29-Jun-2014 13:15 Appointment; Chan Webb M.D.|Baldomero|Marita,JOHANNE,BEREKET, Encounter Diagnosis: Problem not documented On 21-Jun-2014 07:15 Appointment; Carlos Neville M.D. Encounter Diagnosis: Problem not documented On 19-Jun-2014 14:00 Appointment; Javi Lucero M.D. Encounter Diagnosis: Problem not documented On 31-May-2014 13:45 Appointment; Ritesh San M.D. Encounter Diagnosis: Problem not documented On 21-May-2014 13:45 Appointment; Chan Webb M.D.|Baldomero|Marita,JOHANNE,BEREKET, Encounter Diagnosis: Problem not documented On 17-May-2014 17:00 Appointment; Ritesh San M.D. Encounter Diagnosis: Problem not documented On 03-May-2014 14:00 Appointment; Javi Lucero M.D. Encounter Diagnosis: Problem not documented On 24-Apr-2014 08:00 Appointment; Ritesh San M.D. Encounter Diagnosis: Problem not documented On 23-Apr-2014 13:15 Appointment; Chan Webb M.D.|Baldomero|Marita,JOHANNE,BEREKET, Encounter Diagnosis: Problem not documented On 10-Apr-2014 14:00"
--- OUTSIDE RECORDS SUMMARY | 2016-07-01 17:09 | XMS REPORT | Summary of Care ---
Author Author Kelin Kirkland, Carlos Ingram Organization Unknown Address [address], [place] [id number] Phone Unavailable Care Team Providers Care Deckhand Name Role Phone Jon Kirkland, FACS, ,, M Unavailable Unavailable Emil VEGAS, Archana Unavailable Unavailable Mena Kirkland, Ritesh Unavailable Unavailable Kelin Kirkland, A Unavailable Unavailable Lena Fountain, Andreia Unavailable Unavailable Nixon Kirkland, Lance Unavailable Unavailable Nic Kirkland, G Unavailable Unavailable Paresh Kirkland, T Unavailable Unavailable Carlos Neville Unavailable Unavailable [facility]) Unavailable Unavailable Unavailable Unavailable Functional Status Name Dates Details Functional status health issues are not documented Status: Name Dates Details Cognitive status health issues are not documented Status: Problems Name Dates Details Heartburn Frequently (Weekly / Daily) Status: Active Anemia (285.9, D64.9) Status: Active Meningitis (322.9, G03.9) Status: Active Esophageal reflux (530.81, K21.9) Status: Active 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 Vena Caval Thrombosis Status: Active Latex allergy, contact dermatitis (692.4, L25.3) Status: Active BPH (benign prostatic hyperplasia) (600.00, N40.0) Status: Active Insomnia (780.52, G47.00) Status: Active Spinal cord stimulator status (V45.89, Z96.89) Status: Active Intractable back pain (724.5, M54.9) Status: Active 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, M96.1) Status: Active Anticoagulant long-term use (V58.61, Z79.01) Status: Active Deep vein thrombosis of lower extremity (453.40, I82.409) Status: Active DVT (deep venous thrombosis) (453.40, I82.409) Status: Active 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11) Status: Active Acute non-recurrent sinusitis, unspecified location (461.9, J01.90) Status: Active Acute bronchitis, unspecified organism (466.0, J20.9) Status: Active Wheezing (786.07, R06.2) Status: Active Edema (782.3, R60.9) Status: Active Affective bipolar disorder (296.80, F31.9) Status: Active CHF (congestive heart failure) (428.0, I50.9) Status: Active Cognitive impairment (294.9, R41.89) Status: Active Neurogenic bladder (596.54, N31.9) Status: Active Medications Name Dates Details Levothyroxine Sodium 100 MCG Oral Tablet TAKE 1 TABLET DAILY. Quantity: 90 Carlos Neville M.D. * Start 20-Dec-2012 Active Divalproex Sodium ER 500 MG Oral Tablet Extended Release 24 Hour TAKE TWO TABLETS BY MOUTH EVERY DAY * Quantity: 60 Refills: 2 Ritesh San M.D. Start 20-Dec-2012 Active Atorvastatin Calcium 20 MG Oral Tablet take one tablet by mouth every day * Quantity: 30 Refills: 10 Ritesh San M.D. * Start 20-Dec-2012 Active Klor-Con M20 20 MEQ Oral Tablet Extended Release TAKE 2 TABLET Daily * Quantity: 60 Refills: 11 Ritesh San M.D. * Start 15-Mar-2013 Active Gabapentin 300 MG Oral Capsule TAKE TWO CAPSULES in the morning, 1 capusle at noon, and 2 capusules at night. * Quantity: 150 Refills: 2 Andreia Castellano * Start 03-May-2013 Active Furosemide 80 MG Oral Tablet Take [...] 8 MG Oral Tablet TAKE 1 TABLET EVERY 12 HOURS NEEDED.qty 60 max 2 a day * Quantity: 60 Refills: 0 Carlos Neville M.D. * Start 18-Apr-2015 Active Fetzima 40 MG Oral Capsule Extended Release 24 Hour Take one tablet daily * Refills: 0 Calos Yoder M.D. * Start 01-May-2015 Active HYDROmorphone HCl - 4 MG Oral Tablet 1 TABLET AT NOON ALONG W/ 8 MG EVERY 12 HOURS PRN * Quantity: 30 Refills: 0 Carlos Neville [...] 15-Mar-2013 Flulaval Quadrivalent Intramuscular Suspension Lot #: [id number] on: 26-Dec-2013 Zostavax 48603 UNT/0.65ML Subcutaneous Solution Reconstituted Lot #: [id number] on: 26-Dec-2013 Prevnar 13 Intramuscular Suspension Lot #: [id number] on: 21-May-2014 Tdap (Adacel) Lot #: [id number] on: 07-Aug-2015 Family History Name Dates Details Family history of malignant neoplasm of breast (V16.3, Z80.3) Status: Active Name Dates Details Family history of acute myocardial infarction (V17.3, Z82.49) Status: Active Family history of Prostate cancer (185, C61) Status: Active Social History Name Dates Details - Status: Name Dates Details Former smoker Vital Signs Date Test Result Details No Known Vitals to report Results Date Description Value Details Results not documented Plan of Care Name Dates Details Planned Observations Planned Goals not documented Planned Encounters Appointment; Provider: Calos Yoder M.D. On 30-Apr-2016 13:30 Appointment; Provider: Chan Webb M.D.|BEREKET Estrada|BEREKET Kirkland, On 29-Apr-2016 13:15 Appointment; Provider: Carlos Neville M.D. On 10-Feb-2016 13:00 Appointment; Provider: Chan Webb M.D.|HarveySBEREKET Garnett|BEREKET Kirkland, On 18-Nov-2015 13:30 Interventions Provided Medication Changes* HYDROmorphone HCl - 8 MG Oral Tablet - Renew Instructions Name Dates Details Instructions not documented Encounters Appointment; Chan Webb M.D.|Baldomero|BEREKET Kirkland|BEREKET Kirkland, Encounter Diagnosis: Problem not documented On 10:45 Appointment; Chan Webb M.D.|F.A.C.S.|MAkhilDAkhil,BEREKET|Marita,FACS, Encounter Diagnosis: Problem not documented On 06:45 Appointment; Carlos Neville M.D. Encounter Diagnosis: Problem not documented On 14:00 Appointment; Chan Webb M.D.|F.A.C.S.|MEun,BEREKET|Marita,FACS, Encounter Diagnosis: Problem not documented On 09:30 Appointment; Chan Webb M.D.|F.A.C.S.|Marita,BEREKET|Marita,FACS, Encounter Diagnosis: Problem not documented On 17:00 Appointment; Elijah Dang D.O. Encounter Diagnosis: Problem not documented On 10:25 Appointment; Carlos Neville M.D. Encounter Diagnosis: Problem not documented On 07-Aug-2015 13:30 Appointment; Chan Webb M.D.|F.A.C.S.|Marita,BEREKET|Marita,BEREKET, Encounter Diagnosis: Problem not documented On 05-Aug-2015 17:00 Appointment; Carlos Neville M.D. Encounter Diagnosis: Problem not documented On 10-Jul-2015 13:00 Appointment; Chan Webb M.D.|F.A.C.S.|Marita,BEREKET|Marita,BEREKET, Encounter Diagnosis: Problem not documented On 08-Jul-2015 13:30 Appointment; Carlos Neville M.D. Encounter Diagnosis: Problem not documented On 17-Jun-2015 13:00 Appointment; Javi Lucero M.D. Encounter Diagnosis: Problem not documented On 11-Jun-2015 13:30 Appointment; Chan Webb M.D.|F.A.C.S.|Marita,JOHANNE,BEREKET, Encounter Diagnosis: Problem not documented On 11-Jun-2015 07:30 Appointment; Calos Yoder M.D. Encounter Diagnosis: Problem not documented On 01-May-2015 13:45 Appointment; Javi Lucero M.D. Encounter Diagnosis: Problem not documented On 18-Apr-2015 09:30 Appointment; Chan Webb M.D.|F.A.C.S.|M.D.,FACS|MEun,FACS, Encounter Diagnosis: Problem not documented On 01-Apr-2015 07:30 Appointment; Javi Lucero M.D. Encounter Diagnosis: Problem not documented On 12-Mar-2015 13:30 Appointment; Misael Colbert M.D. Encounter Diagnosis: Problem not documented On 04-Mar-2015 15:55 Appointment; Chan Webb M.D.|F.A.C.S.|M.DAkhil,FACS|Marita,FACS, Encounter Diagnosis: Problem not documented On 28-Feb-2015 07:15 Appointment; Chan Webb M.D.|F.A.C.S.|MAkhilDAkhil,FACS|MEun,FACS, Encounter Diagnosis: Problem not documented On 29-Jan-2015 16:45 Appointment; Carlos Neville M.D. Encounter Diagnosis: Problem not documented On 07-Jan-2015 13:30 Appointment; Chan Webb M.D.|F.A.C.S.|M.DAkhil,FACS|MAkhilDAkhil,FACS, Encounter Diagnosis: Problem not documented On 25-Dec-2014 07:00 Appointment; Andreia Paredes, Essie Encounter Diagnosis: Problem not documented On 04-Dec-2014 11:30 Appointment; Chan Webb M.D.|F.A.C.S.|M.D.,FACS|MAkhilD.,FACS, Encounter Diagnosis: Problem not documented On 23-Nov-2014 17:15 Appointment; Chan Webb M.D.|F.A.C.S.|M.DAkhil,FACS|MAkhilDAkhil,FACS, Encounter Diagnosis: Problem not documented On 12:45 Appointment; Carlos Neville M.D. Encounter Diagnosis: Problem not documented On 14:45 Appointment; Chan eWbb M.D.|F.A.C.S.|M.D.,FACS|MAkhilDAkhil,FACS, Encounter Diagnosis: Problem not documented On 07:15 Appointment; Anderia Paredes P.A. Encounter Diagnosis: Problem not documented On 13:15 Appointment; Andreia Paredes P.A. Encounter Diagnosis: Problem not documented On 11:30 Appointment; Carlos Neville M.D. Encounter Diagnosis: Problem not documented On 13:30 Appointment; Chan Webb M.D.|F.A.C.S.|MAkhilDAkhil,BEREKET|Marita,BEREKET, Encounter Diagnosis: Problem not documented On 16-Aug-2014 07:00 Appointment; Carlos Neville M.D. Encounter Diagnosis: Problem not documented On 02-Aug-2014 11:15 Appointment; Chan Webb M.D.|F.A.C.S.|Marita,BEREKET|Marita,BEREKET, Encounter Diagnosis: Problem not documented On 10-Jul-2014 07:00 Appointment; Carlos Neville M.D. Encounter Diagnosis: Problem not documented On 29-Jun-2014 13:15 Appointment; Chan Webb M.D.|F.A.C.S.|Marita,BEREKET|Marita,BEREKET, Encounter Diagnosis: Problem not documented On 21-Jun-2014 07:15 Appointment; Carlos Neville M.D. Encounter Diagnosis: Problem not documented On 19-Jun-2014 14:00 Appointment; Javi Lucero M.D. Encounter Diagnosis: Problem not documented On 31-May-2014 13:45 Appointment; Ritesh San M.D. Encounter Diagnosis: Problem not documented On 21-May-2014 13:45 Appointment; Chan Webb M.D.|F.A.C.S.|Marita,BEREKET|Marita,BEREKET, Encounter Diagnosis: Problem not documented On 17-May-2014 17:00 Appointment; Ritesh San M.D. Encounter Diagnosis: Problem not documented On 03-May-2014 14:00 Appointment; Javi Lucero M.D. Encounter Diagnosis: Problem not documented On 24-Apr-2014 08:00 Appointment; Ritesh San M.D. Encounter Diagnosis: Problem not documented On 23-Apr-2014 13:15 Appointment; Chan Webb M.D.|Baldomero|Marita,BEREKET|Marita,BEREKET, Encounter Diagnosis: Problem not documented On 10-Apr-2014 14:00 Appointment; Ritesh San M.D. Encounter Diagnosis: Problem not documented On 21-Feb-2014 13:15 Appointment; Estella Glass M.D. Encounter Diagnosis: Problem not documented On 20-Feb-2014 13:15 Appointment; Ritesh San M.D. Encounter Diagnosis: Problem not documented On 29-Jan-2014 13:45 Appointment; Ritesh San M.D. Encounter Diagnosis: Problem not documented On 26-Dec-2013 14:30 Appointment; Ritesh San M.D. Encounter Diagnosis: Problem not documented On 13-Dec-2013 15:30 Appointment; Javi Lucero M.D. Encounter Diagnosis: Problem not documented On 20-Nov-2013 11:00 Appointment; Javi Lucero M.D. Encounter Diagnosis: Problem not documented On 13-Nov-2013 12:00 Appointment; Ritesh San M.D. Encounter Diagnosis: Problem not documented On 07-Nov-2013 13:45"
--- OUTSIDE RECORDS SUMMARY | 2016-07-01 17:10 | XMS REPORT | Summary of Care ---
Author Author Kelin Kirkland, Carlos Ingram Organization Unknown Address [address], [place] [id number] Phone Unavailable Care Team Providers Care Or Assistant Name Role Phone Jon Kirkland, FACS, ,, M Unavailable Unavailable Emil VEGAS, Archana Unavailable Unavailable Mena Kirkland, Ritesh Unavailable Unavailable Kelin Kirkland, A Unavailable Unavailable Lena Fountain, Andreia Unavailable Unavailable Nixon Kirkland, Lance Unavailable Unavailable Nic Kirkland, G Unavailable Unavailable Paresh Kirkland, T Unavailable Unavailable Carlos Neville Unavailable Unavailable [facility]) Unavailable Unavailable Unavailable Unavailable Functional Status Name [...] Ritesh San M.D. * Start 19-Jun-2013 Active Amitiza 24 MCG Oral Capsule TAKE 1 CAPSULE TWICE DAILY WITH FOOD. * Quantity: 60 Refills: 6 Calos Yoder M.D. * Start 20-Feb-2014 Active Methenamine Hippurate 1 GM Oral Tablet TAKE 1 TABLET TWICE DAILY. * Quantity: 180 Refills: 3 Jon Kirkland, BEREKET, , , Chan Vigil * Start 10-Apr-2014 Active Gabapentin 300 MG Oral Capsule TAKE TWO CAPSULES in the morning, 1 capusle at noon, and 2 capusules at night. * Quantity: 150 Refills: 2 Andreia Castellano * Start 03-May-2013 Active Baclofen 20 MG Oral Tablet TAKE ONE TABLET BY MOUTH THREE TIMES A DAY NEEDED * Quantity: 90 Refills: 2 Javi Lucero M.D. * Start 13-Feb-2014 Active Fetzima 40 MG Oral Capsule Extended Release 24 Hour Take one tablet daily * Refills: 0 Calos Yoder M.D. * Start 01-May-2015 Active Simethicone 40 MG/0.6ML Oral Suspension TAKE DIRECTED. * Quantity: 1 Refills: 0 Lance Alicea M.D. * Start Active 30 ML Bottle Bethanechol Chloride 25 MG Oral Tablet Take one tablet three times daily * Quantity: 270 Refills: 3 Archana Stein PA-C * Start 02-Aug-2014 Active HYDROmorphone HCl - 8 MG Oral Tablet TAKE 1 TABLET EVERY 12 HOURS NEEDED.qty 60 max 2 a day * Quantity: 60 Refills: 0 Carlos Neville M.D. * Start 18-Apr-2015 Active Morphine Sulfate ER 15 MG Oral Tablet Extended Release Si PO every 12 hours with a max of 2 per day. Script must last 30 days. MDD:2 per day * Quantity: 60 Refills: 0 Carlos Neville M.D. * Start 15-Jan-2014 Active HYDROmorphone HCl - 4 MG Oral Tablet 1 TABLET DAILY (MID-DAY) * Quantity: 30 Refills: 0 Carlos Neville M.D. * Start 07-Aug-2015 Active Allergies and Adverse Reactions Name Dates [...] 15-Mar-2013 Flulaval Quadrivalent Intramuscular Suspension Lot #: [id number] on: 26-Dec-2013 Zostavax [id number] UNT/0.65ML Subcutaneous Solution Reconstituted Lot #: [id number] on: 26-Dec-2013 Prevnar 13 Intramuscular Suspension Lot #: [id number] on: 21-May-2014 Tdap (Adacel) Lot #: [id number] on: 07-Aug-2015 Family History Name Dates Details [...] documented Planned Encounters Appointment; Provider: Chan Webb M.D.|JOHANNE Estrada FACS, On 04-May-2016 11:15 Appointment; Provider: Calos Yoder M.D. On 30-Apr-2016 13:30 Appointment; Provider: Carlos Neville M.D. On 10-Feb-2016 13:00 Appointment; Provider: Chan Webb M.D.|JOHANNE Estrada FACS, On 18-Nov-2015 13:30 Interventions Provided Medication Changes* HYDROmorphone HCl - 4 MG Oral Tablet - Renew Instructions Name Dates Details Instructions not documented Encounters Appointment; Chan Webb M.D.|JOHANNE Estrada FACS, Encounter Diagnosis: Problem not documented On 10:45 Appointment; Chan Webb M.D.|LANCE Estrada.,BEREKET, Encounter Diagnosis: Problem not documented On 06:45 Appointment; Calros Neville M.D. Encounter Diagnosis: Problem not documented On 14:00 Appointment; Chan Webb M.D.|FTrupti.C.S.|Marita,BEREKET|Marita,FACS, Encounter Diagnosis: Problem not documented On 09:30 Appointment; Chan Webb M.D.|F.A.C.S.|Marita,BEREKET|Marita,BEREKET, Encounter Diagnosis: Problem not documented On 17:00 Appointment; Elijah Dang D.O. Encounter Diagnosis: Problem not documented On 10:25 Appointment; Carlos Neville M.D. Encounter Diagnosis: Problem not documented On 07-Aug-2015 13:30 Appointment; Chan Webb M.D.|FAkhilA.C.S.|Marita,BEREKET|Marita,BEREKET, Encounter Diagnosis: Problem not documented On 05-Aug-2015 17:00 Appointment; Carlos Neville M.D. Encounter Diagnosis: Problem not documented On 10-Jul-2015 13:00 Appointment; Chan Webb M.D.|Nathaniel.C.S.|Marita,JOHANNE,BEREKET, Encounter Diagnosis: Problem not documented On 08-Jul-2015 [...] documented On 18-Apr-2015 09:30 Appointment; Chan Webb M.D.|F.A.C.S.|M.D.,FACS|MViolet.,FACS, Encounter Diagnosis: Problem not documented On 01-Apr-2015 07:30 Appointment; Javi Lucero M.D. Encounter Diagnosis: Problem not documented On 12-Mar-2015 13:30 Appointment; Misael Colbert M.D. Encounter Diagnosis: Problem not documented On 04-Mar-2015 15:55 Appointment; Chan Webb M.D.|F.A.C.S.|M.DAkhil,FACS|MEun,FACS, Encounter Diagnosis: Problem not documented On 28-Feb-2015 07:15 Appointment; Chan Webb M.D.|F.A.C.S.|MEun,BEREKET|Marita,FACS, Encounter Diagnosis: Problem not documented On 29-Jan-2015 16:45 Appointment; Carlos Neville M.D. Encounter Diagnosis: Problem not documented On 07-Jan-2015 13:30 Appointment; Chan Webb M.D.|F.A.C.S.|MAkhilDAkhil,BEREKET|Marita,FACS, Encounter Diagnosis: Problem not documented On 25-Dec-2014 07:00 Appointment; Andreia Paredes, Essie Encounter Diagnosis: Problem not documented On 04-Dec-2014 11:30 Appointment; Cahn Webb M.D.|F.A.C.S.|M.D.,FACS|MAkhilDAkhil,FACS, Encounter Diagnosis: Problem not documented On 23-Nov-2014 17:15 Appointment; Chan Webb M.D.|F.A.C.S.|M.DAkhil,BEREKET|MEun,FACS, Encounter Diagnosis: Problem not documented On 12:45 Appointment; Carlos Neville M.D. Encounter Diagnosis: Problem not documented On 14:45 Appointment; Chan Webb M.D.|F.A.C.S.|M.D.,FACS|MAkhilDAkhil,FACS, Encounter Diagnosis: Problem not documented On 07:15 Appointment; Andreia Paredes P.A. Encounter Diagnosis: Problem not documented On 13:15 Appointment; Andreia Paredes P.A. Encounter Diagnosis: Problem not documented On 11:30 Appointment; Carlos Neville M.D. Encounter Diagnosis: Problem not documented On 13:30 Appointment; Chan Webb M.D.|F.A.C.S.|MEun,BEREKET|Marita,BEREKET, Encounter Diagnosis: Problem not documented On 16-Aug-2014 07:00 Appointment; Carlos Neville M.D. Encounter Diagnosis: Problem not documented On 02-Aug-2014 11:15 Appointment; Chan Webb M.D.|F.A.C.S.|Marita,BEREKET|Marita,BEREKET, Encounter Diagnosis: Problem not documented On 10-Jul-2014 07:00 Appointment; Carlos Neville M.D. Encounter Diagnosis: Problem not documented On 29-Jun-2014 13:15 Appointment; Chan Webb M.D.|F.A.C.S.|MEun,BEREKET|Marita,BEREKET, Encounter Diagnosis: Problem not documented On 21-Jun-2014 [...] Encounter Diagnosis: Problem not documented On 13-Nov-2013 12:00"
--- OUTSIDE RECORDS SUMMARY | 2016-07-01 17:10 | XMS REPORT | Summary of Care ---
Author Author Carlos Neville M.D. Organization Unknown Address [address], [place] [id number] Phone Unavailable Care Team Providers Care Sample Carrier Name Role Phone Jon Kirkland, FACS, ,, M Unavailable Unavailable Mena Kirkland, Ritesh Unavailable Unavailable Kelin Kirkland, Nataly Unavailable Unavailable Lena Fountain, Andreia Unavailable Unavailable Nic Kirkland, G Unavailable Unavailable Paresh Kirkland, T Unavailable Unavailable Carlos Neville PP Unavailable [facility] [place] Unavailable Unavailable Unavailable Functional Status Functional Status [...] (congestive heart failure) (428.0, I50.9) Status: Active Deep vein thrombosis of lower extremity (453.40, I82.409) Status: Active DVT (deep venous thrombosis) (453.40, I82.409) Status: Active 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, 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: Active Low back pain (724.2, M54.5) Status: Active Degenerative disc disease, lumbar (722.52, M51.36) Status: Active Chronic pain (338.29, G89.29) Status: Active Constipation (564.00, K59.00) Status: Active Edema (782.3, R60.9) Status: Active Opioid dependence (304.00, F11.20) Status: Active Affective bipolar disorder (296.80, F31.9) Status: Active Hypertension (401.9, I10) Status: Active Depression (311, F32.9) Status: Active Hyperlipidemia (272.4, E78.5) Status: Active Medications Name Dates Details Levothyroxine [...] Refills: 10 Ritesh San M.D.* Started 20-Dec-2012 ActiveKlor-Con M20 20 MEQ Oral Tablet Extended [...] Refills: 11 Ritesh San M.D.* Started 19-Jun-2013 ActiveMorphine Sulfate ER 15 MG Oral Tablet Extended Release Si PO every 12 hours with a max of 2 per day. Script must last [address] Lucero. MDD:2 per day * Quantity: 60 Refills: 0 Javi Lucero M.D.* Started 11-Jul-2015 ActiveBaclofen 20 MG Oral Tablet TAKE ONE [...] Webb M.D., FACS, , * Started 10-Apr-2014 ActiveHYDROmorphone HCl - 8 MG Oral Tablet TAKE 1 TABLET EVERY 12 HOURS NEEDED.qty 60 max 2 a day * Quantity: 60 Refills: 0 Javi Lucero M.D.* Started 17-Jul-2015 ActiveCoumadin 5 MG Oral Tablet TAKE 1 TABLET DAILY. * Refills: 0 Carlos Neville M.D.* Started 19-Apr-2015 ActiveLovenox 120 MG/0.8ML Subcutaneous Solution * Refills: 0 Carlos Neville M.D.* Started 19-Apr-2015 ActiveFetzima 40 MG Oral Capsule Extended Release 24 Hour Take one tablet daily * Refills: 0 Calos Yoder M.D.* Started 01-May-2015 Active Allergies and Adverse Reactions Name Dates [...] of Laminectomy, Excision Intradural Intraspinal Lesion Sacral Comprehensive Metabolic Panel 1212 Ordered:17-Jun-2015 Immunization Name Dates Details Pneumo (Pneumovax) Administered on:15-Mar-2013 Flulaval Quadrivalent Intramuscular Suspension Lot #: [id number] Administered on:26-Dec-2013 Zostavax [id number] UNT/0.65ML Subcutaneous Solution Reconstituted Lot #: [id number] Administered on:26-Dec-2013 Prevnar 13 Intramuscular Suspension Lot #: [id number] Administered on:21-May-2014 Family History Mother* Name Dates Details Family history of malignant neoplasm of breast (V16.3, Z80.3) Status: Active Father* Name Dates Details Family history of acute myocardial infarction (V17.3, Z82.49) Status: Active Family history of Prostate cancer (185, C61) Status: Active Social History Name Dates Details Smoking Status* Former smoker Vital Signs Date Test Result Details 10-Jul-2015 13:01 BP Systolic 110 mm[Hg] Status: BP Diastolic 70 mm[Hg] Status: Heart Rate 89 /min Status: O2 SAT 95 % Status: 17-Jun-2015 12:58 BP Systolic 130 mm[Hg] Status: BP Diastolic 72 mm[Hg] Status: Heart Rate 106 /min Status: Weight 281 lb Status: O2 SAT 95 % Status: Body Mass Index Calculated 37.07 kg/m2 Status: Body Surface Area Calculated 2.49 m2 Status: Results Date Description Value Details 08-Jul-2015 14:38 Comprehensive Metabolic Panel 1212 SODIUM 136 mmol/L (Better) Range: 133-144 POTASSIUM 3.4 mmol/L (Below low threshold) Range: 3.5-5.1 CHLORIDE 98 mmol/L (Better) Range: 98-110 CARBON DIOXIDE 30.8 mmol/L (Better) Range: 23.0-33.0 ANION GAP 7 mmol/L (Better) Range: 6-16 BUN 10 mg/dL (Better) Range: 7-18 CREATININE, SERUM 0.81 mg/dL (Better) Range: 0.70-1.30 Comments: Please note new reference ranges effective 2014.----- BUN:CREATININE RATIO 12 (Better) EST GFR, >60 ml/min (Better) Range: >60 EST GFR, NON-AFR MACEDONIAN >60 ml/min (Better) Range: >60 Comments: EST GFR is reported in ml/min per 1.73 m2 of body surface area. For -Bhutanese, please multiple result by 1.2.----- GLUCOSE 110 mg/dL (Above high threshold) Range: 70-100 ALK PHOSPHATASE 102 U/L (Better) Range: 46-116 TOTAL BILIRUBIN 0.50 mg/dL (Better) Range: 0.20-1.00 AST 15 U/L (Better) Range: 8-35 ALT 37 U/L (Better) Range: 16-63 Comments: Please note new reference ranges. Effective 06/07/2014.----- ALBUMIN 3.4 g/dL (Better) Range: 3.4-5.0 TOTAL PROTEIN 7.1 g/dL (Better) Range: 6.4-8.2 A/G RATIO 0.9 units (Below low threshold) Range: 1.0-1.8 CALCIUM 8.8 mg/dL (Better) Range: 8.5-10.1 Plan of Care Planned Observations* Name Dates Details Planned Goals not documented Goal Planned Encounters* Appointment; Provider: Calos Yoder On 30-Apr-2016 13:30 * Appointment; Provider: Javi Lucero On 07-Aug-2015 13:45 * Appointment; Provider: Carlos Neville On 07-Aug-2015 13:30 * Appointment; Provider: Chan Webb On 05-Aug-2015 13:30 * Appointment; Provider: Nadiya Dinh On 11-Apr-2015 13:00 * Appointment; Provider: Schedule Radiology On 04-Mar-2015 16:30 * Appointment; Provider: Chan Webb On 08-Feb-2014 11:30 * Appointment; Provider: Carlos Neville On 22-Nov-2007 07:00 * Appointment; Provider: Carlos Neville On 20-Nov-2007 07:00 Instructions * Instructions not documented Encounters Appointment; Carlos Neville Encounter Diagnosis: Problem not documented On 10-Jul-2015 13:00 Appointment; Chan Webb Encounter Diagnosis: Problem not documented On 08-Jul-2015 13:30 Appointment; Carlos Neville Encounter Diagnosis: Problem not documented On 17-Jun-2015 13:00 Appointment; Javi Lucero Encounter Diagnosis: Problem not documented On 11-Jun-2015 13:30 Appointment; Chan Webb Encounter Diagnosis: Problem not documented On 11-Jun-2015 07:30 Appointment; Calos Yoder Encounter Diagnosis: Problem not documented On 01-May-2015 13:45 Appointment; Javi Lucero Encounter Diagnosis: Problem not documented On 18-Apr-2015 09:30 Appointment; Chan Webb Encounter Diagnosis: Problem not [...] documented On 24-Jul-2013 15:15 Appointment; Javi Lucero Diagnosis: Problem not documented On 13-Jul-2013 08:00
--- OUTSIDE RECORDS SUMMARY | 2016-07-01 17:10 | XMS REPORT ---
Author Author GENERATED, SYSTEM Organization Unknown Address Unknown Phone Unavailable Care Team Providers Care Communications Agent Name Role Phone MD BRYSON, RUDI DAVID [phone] Reason For Visit Reason for Visit from 02/08/2014 10:00 AM:* Pt Stated Reason for Adm : supra pubic catheter placement Chief Complaint NEURO GENIC BLADDER,URINARY RETENTION,SUPRAPUBIC CATHERERI Social History Social History from 02/08/2014 12:41 PM:* Tobacco Use? : Former Smoker Social History from 02/08/2014 10:00 AM:* Tobacco Use? : Former Smoker Functional Status Functional Status from 02/08/2014 1:18 PM:* LOC : Alert Functional Status from 02/08/2014 1:02 PM:* LOC : Alert * Oriented To : Person,Place,Time,Event Functional Status from 02/08/2014 11:33 AM:* LOC : Irritable Functional Status from 02/08/2014 10:00 AM:* LOC : Alert * Oriented To : Person,Place,Time,Event * Weight Bearing Status : Full * Assist Level : Independent * # Assists : Independent Vital Signs Hospital Vital Signs from 02/08/2014 2:30 PM:* Height : 6/1 ft,in * Temperature : 98.5 F * Pulse : 69 * Respirations : 16 * BP : 109/59 Hospital Vital Signs from 02/08/2014 2:25 PM:* Height : 6/1 ft,in Hospital Vital Signs from 02/08/2014 2:00 PM:* Height : 6/1 ft,in * Pulse : 67 * Respirations : 16 * BP : 96/60 Hospital Vital Signs from 02/08/2014 1:45 PM:* Height : 6/1 ft,in * Height : 6/1 ft,in * Pulse : 65 * Pulse : 65 * Respirations : 16 * Respirations : 16 * BP : 97/65 * BP : 97/65 Hospital Vital Signs from 02/08/2014 1:30 PM:* Height : 6/1 ft,in * Pulse : 65 * Respirations : 16 * BP : 102/64 Hospital Vital Signs from 02/08/2014 1:15 PM:* Height : 6/1 ft,in * Pulse : 70 * Respirations : 16 * BP : 102/66 Hospital Vital Signs from 02/08/2014 1:07 PM:* Height : 6/1 ft,in * Temperature : 97.3 F * Pulse : 64 * Respirations : 16 * BP : 102/63 Hospital Vital Signs from 02/08/2014 1:00 PM:* Heart Rate : 59 * Resp Rate : 14 * Systolic BP (mmHg) : 99 * Diastolic BP (mmHg) : 69 * Mean BP (mmHg) : 81 * O2 Saturation (%) : 98 Hospital Vital Signs from 02/08/2014 12:50 PM:* Heart Rate : 64 * Resp Rate : 14 * Systolic BP (mmHg) : 94 * Diastolic BP (mmHg) : 71 * Mean BP (mmHg) : 82 * O2 Saturation (%) : 99 Hospital Vital Signs from 02/08/2014 12:45 PM:* Heart Rate : 61 * Resp Rate : 14 * Systolic BP (mmHg) : 99 * Diastolic BP (mmHg) : 68 * Mean BP (mmHg) : 79 * O2 Saturation (%) : 99 Hospital Vital Signs from 02/08/2014 12:40 PM:* Temp : 98.1 * Heart Rate : 69 * Resp Rate : 9 * Systolic BP (mmHg) : 97 * Diastolic BP (mmHg) : 62 * Mean BP (mmHg) : 76 * O2 Saturation (%) : 99 Hospital Vital Signs from 02/08/2014 12:35 PM:* Heart Rate : 63 * Resp Rate : 12 * Systolic BP (mmHg) : 99 * Diastolic BP (mmHg) : 61 * Mean BP (mmHg) : 74 * O2 Saturation (%) : 99 Hospital Vital Signs from 02/08/2014 12:30 PM:* Heart Rate : 66 * Resp Rate : 12 * Systolic BP (mmHg) : 97 * Diastolic BP (mmHg) : 62 * Mean BP (mmHg) : 71 * O2 Saturation (%) : 98 Hospital Vital Signs from 02/08/2014 12:25 PM:* Heart Rate : 69 * Resp Rate : 12 * Systolic BP (mmHg) : 86 * Diastolic BP (mmHg) : 60 * Mean BP (mmHg) : 72 * O2 Saturation (%) : 97 Hospital Vital Signs from 02/08/2014 12:20 PM:* Heart Rate : 68 * Resp Rate : 10 * Systolic BP (mmHg) : 99 * Diastolic BP (mmHg) : 63 * Mean BP (mmHg) : 73 * O2 Saturation (%) : 98 Hospital Vital Signs from 02/08/2014 12:15 PM:* Heart Rate : 70 * Resp Rate : 8 * Systolic BP (mmHg) : 93 * Diastolic BP (mmHg) : 61 * Mean BP (mmHg) : 72 * O2 Saturation (%) : 96 Hospital Vital Signs from 02/08/2014 12:10 PM:* Heart Rate : 65 * Resp Rate : 6 * Systolic BP (mmHg) : 93 * Diastolic BP (mmHg) : 61 * Mean BP (mmHg) : 70 * O2 Saturation (%) : 98 Hospital Vital Signs from 02/08/2014 12:05 PM:* Heart Rate : 66 * Resp Rate : 9 * Systolic BP (mmHg) : 81 * Diastolic BP (mmHg) : 59 * Mean BP (mmHg) : 60 * O2 Saturation (%) : 97 Hospital Vital Signs from 02/08/2014 12:00 PM:* Temp : 97.8 * Heart Rate : 65 * Resp Rate : 8 * Systolic BP (mmHg) : 87 * Diastolic BP (mmHg) : 60 * Mean BP (mmHg) : 69 * O2 Saturation (%) : 98 Hospital Vital Signs from 02/08/2014 11:55 AM:* Heart Rate : 66 * Resp Rate : 7 * Systolic BP (mmHg) : 99 * Diastolic BP (mmHg) : 62 * Mean BP (mmHg) : 74 * O2 Saturation (%) : 97 Hospital Vital Signs from 02/08/2014 11:50 AM:* Heart Rate : 69 * Resp Rate : 10 * Systolic BP (mmHg) : 91 * Diastolic BP (mmHg) : 61 * Mean BP (mmHg) : 73 * O2 Saturation (%) : 99 Hospital Vital Signs from 02/08/2014 11:45 AM:* Heart Rate : 70 * Resp Rate : 10 * Systolic BP (mmHg) : 104 * Diastolic BP (mmHg) : 70 * Mean BP (mmHg) : 86 * O2 Saturation (%) : 100 Hospital Vital Signs from 02/08/2014 11:40 AM:* Heart Rate : 79 * Resp Rate : 16 * Systolic BP (mmHg) : 96 * Diastolic BP (mmHg) : 68 * Mean BP (mmHg) : 83 * O2 Saturation (%) : 100 Hospital Vital Signs from 02/08/2014 11:35 AM:* Heart Rate : 75 * Resp Rate : 11 * Systolic BP (mmHg) : 111 * Diastolic BP (mmHg) : 101 * Mean BP (mmHg) : 104 * O2 Saturation (%) : 99 Hospital Vital Signs from 02/08/2014 11:33 AM:* Temp : 97.2 * Heart Rate : 79 * Resp Rate : 10 * Systolic BP (mmHg) : 112 * Diastolic BP (mmHg) : 80 * Mean BP (mmHg) : 100 * O2 Saturation (%) : 99 Hospital Vital Signs from 02/08/2014 10:02 AM:* Weight : 110.6/ kg * Height : 6/1 ft,in * Temperature : 97.4 F * Pulse : 58 * Respirations : 18 * BP : 102/77 Hospital Vital Signs from 02/08/2014 10:00 AM:* Weight : 110.6/ kg * Height : 6/1 ft,in Results Problems Encounter Diagnosis No relevant problems exist. Additional Problems * Dizziness Comment:Problem resolved by [facility] upon Discharge, Status: Resolved. * Edema Comment:Problem resolved by [facility] upon Discharge, Status: Resolved. * Edema of Lower Extremity Comment:Problem resolved by [facility] upon Discharge, Status:Resolved. * General Health Deterioration Comment:Problem resolved by [facility] upon Discharge, Status:Resolved. Encounters Encounter Diagnosis No relevant problems exist. Plan of Care Follow-up Appointments from 02/08/2014 12:41 PM:* #1 Office appointment: : Dr. Lerma * #1 Date/Time : 03/20/2014 1:00 PM * Address # 1 : [facility]: [facility], [place], [place]- or Procedures * Completed suprapubic catheter insertion, by MD REZA LERMA, on 2013 11:01 AM * Completed , on 10/21/2012 12:00 AM * Completed , on 10/21/2012 12:00 AM * Completed , on 10/21/2012 12:00 AM * Completed , on 10/21/2012 12:00 AM Immunizations No immunizations administered or ordered. Hospital Course Hospital Discharge Instructions How to care for yourself at home from 02/08/2014 12:41 PM:* Discharge Activity : Activity as tolerated,Do not engage in sports, heavy work or heavy lifting until your physician gives permission * Do not drive or operate machinery for: : 24 hours * Discharge Diet : As before hospitalization,Diet as tolerated * Discharge Wound Care : Keep dressings dry,Notify your physician if the following develops: redness, swelling, drainage or color of drainage changes, odor or increased pain. * Remove dressing in: : Wednesday then leave open to air * Call your doctor if: : Fever over 101 F or severe chills,You have persistent or worsening symptoms * Specific Discharge Teaching Instructions provided: : No * Discharge on Warfarin : No Allergies, Adverse Reactions, Alerts * nystatin causes Severe Hives. * Latex causes Unknown. Onset unsure. * Keflex causes unspecified. * Novocain causes unspecified. * No IV Contrast Allergy. * No Known Food Allergies. Medication Medication reconciliation has not been performed.
--- OUTSIDE RECORDS SUMMARY | 2016-07-01 17:11 | XMS REPORT | Summary of Care ---
Author Author Kelin Kirkland, Carlos Ingram Organization Unknown Address [address], [place] [id number] Phone Unavailable Care Team Providers Care Industrial Order Clerk Name Role Phone Musa Webb Unavailable Unavailable Archana Stein PA-C Unavailable Unavailable Mena Kirkland, Ritesh Unavailable Unavailable Kelin Kirkland, Nataly Unavailable Unavailable Nixon Kirkland, Lance Unavailable Unavailable Nic Kirkland, G Unavailable Unavailable Paresh Kirkland, T Unavailable Unavailable Carlos Neville Unavailable Unavailable [facility] ([place]) Unavailable Unavailable Unavailable Unavailable Functional Status Name [...] Active Peripheral neuropathy (356.9, G62.9) Status: Active Neurogenic bladder (596.54, N31.9) Status: Active Suprapubic catheter (V44.59, Z93.59) Status: Active Depression (311, F32.9) Status: Active Medications Name Dates Details Levothyroxine [...] a day * Quantity: 60 Refills: 0 Kelin Kirkland, Carlos Ingram * Start 18-Apr-2015 Active HYDROmorphone HCl - 4 MG Oral Tablet 1 TABLET DAILY (MID-DAY) * Quantity: 30 Refills: 0 Carlos Neville M.D. * Start 07-Aug-2015 Active Simethicone 40 MG/0.6ML Oral Suspension TAKE DIRECTED. * Quantity: 1 Refills: 0 Nixon Kirkland, Lance * Start Active 30 ML Bottle MiraLax Oral Powder MIX 1 CAPFUL (17GM) IN 8 OUNCES OF WATER, JUICE, OR TEA AND DRINK DAILY. * Refills: 0 Kelin Vigil.Rene.Carlos * Start 07-May-2016 Active Xarelto 20 MG Oral Tablet * Refills: 0 Carlos Neville M.D. * Start 07-May-2016 Active Furosemide 80 MG Oral Tablet TAKE 1 TABLET TWICE DAILY. * Refills: 0 Kelin Vigil.Rene., Carlos Ingram * Start 07-May-2016 Active Tylenol 325 MG Oral Tablet ONE TABLET BY MOUTH EVERY FOUR HOURS NEEDED FOR MODERATE PAIN * Refills: 0 Kelin Vigil.Rene.Carlos * Start 07-May-2016 Active Milk of Magnesia 400 MG/5ML Oral Suspension USE DIRECTED. * Refills: 0 Kelin Vigil.Rene.Carlos * Start 07-May-[address] 400-400-40 MG/5ML Oral Suspension USE DIRECTED. * Refills: 0 Kelin Kirkland, Carlos Ingram * Start 07-May-2016 Active Allergies and Adverse Reactions Name [...] 15-Mar-2013 Flulaval Quadrivalent Intramuscular Suspension Lot #: [id number] on: 26-Dec-2013 Zostavax [id number] UNT/0.65ML Subcutaneous Solution Reconstituted Lot #: [id number] on: 26-Dec-2013 Prevnar 13 Intramuscular Suspension Lot #: [id number] on: 21-May-2014 Tdap (Adacel) Lot #: [id number] on: 07-Aug-2015 Family History Name Dates Details [...] Neville M.D. On 06-Aug-2016 08:15 Appointment; Provider: Cony Buchanan A.P.R.N. On 19-Jun-2016 13:00 Instructions Name Dates Details Instructions not documented Encounters Appointment; Chan Webb M.D.,BEREKET, Encounter Diagnosis: Problem not documented On 06-May-2016 [...] documented On 04-Mar-2015 15:55 Appointment; Chan Webb M.D.,BEREKET, Encounter Diagnosis: Problem not documented On 28-Feb-2015 07:15 Appointment; Chan Webb M.D.,BEREKET, Encounter Diagnosis: Problem not documented On 29-Jan-2015 16:45 Appointment; Carlos Neville M.D. Encounter Diagnosis: Problem not documented On 07-Jan-2015 13:30 Appointment; Chan Webb M.D.,BEREKET, Encounter Diagnosis: Problem not documented On 25-Dec-2014 07:00 Appointment; Andreia Paredes, PSean Encounter Diagnosis: Problem not documented On 04-Dec-2014 11:30 Appointment; Chan Webb M.D., FACS, Encounter Diagnosis: Problem not documented On 23-Nov-2014 17:15 Appointment; Chan Webb M.D.,BEREKET, Encounter Diagnosis: Problem not documented On 12:45 [...] documented On 02-Aug-2014 11:15 Appointment; Chan Webb M.D.,BEREKET, Encounter Diagnosis: Problem not documented On 10-Jul-2014 07:00 Appointment; Carlos Neville M.D. Encounter Diagnosis: Problem not documented On 29-Jun-2014 13:15 Appointment; Chan Webb M.D.,BEREKET, Encounter Diagnosis: Problem not documented On 21-Jun-2014 07:15 Appointment; Carlos Nevlile M.D. Encounter Diagnosis: Problem not documented On 19-Jun-2014 14:00 Appointment; Javi Lucero M.D. Encounter Diagnosis: Problem not documented On 31-May-2014 13:45
--- OUTSIDE RECORDS SUMMARY | 2016-07-01 17:11 | XMS REPORT | Summary of Care ---
Author Author Kelin Kirkland, Carlos Ingram Organization Unknown Address [address] [place], [place] [id number] Phone Unavailable Care Team Providers Care Boat Deckhand Name Role Phone Jon Kirkland, BEREKET, ,, M Unavailable Unavailable Emil VEGAS, Archana Unavailable Unavailable Mena Kirkland, Ritesh Unavailable Unavailable Kelin Kirkland, A Unavailable Unavailable Nixon Kirkland, Lance Unavailable Unavailable Nic Kirkland, G Unavailable Unavailable Paresh Kirkland, T Unavailable Unavailable Carlos Neville Unavailable Unavailable [facility] ([place]) Unavailable Unavailable Unavailable Unavailable Functional Status Name [...] Active Cognitive impairment (294.9, R41.89) Status: Active Hypertension (401.9, I10) Status: Active Hypothyroidism (244.9, E03.9) Status: Active Hyperlipidemia (272.4, E78.5) Status: Active Affective bipolar disorder (296.80, F31.9) Status: Active Acute embolism and thrombosis of unspecified deep veins of unspecified lower extremity (453.40, I82.409) Status: Active BPH (benign prostatic hyperplasia) (600.00, N40.0) Status: Active Anticoagulant long-term use (V58.61, Z79.01) Status: Active Opioid dependence (304.00, F11.20) Status: Active Low back pain (724.2, M54.5) Status: Active Medications Name Dates Details Levothyroxine [...] Quantity: 30 Refills: 10 Ritesh San M.D. Start 20-Dec-2012 Active Klor-Con M20 20 MEQ [...] Quantity: 90 Refills: 2 Javi Lucero M.D. Start 13-Feb-2014 Active Amitiza 24 MCG Oral Capsule TAKE 1 CAPSULE TWICE DAILY WITH FOOD. * Quantity: 60 Refills: 6 Calos Yoder M.D. Start 20-Feb-2014 Active Methenamine Hippurate 1 GM Oral Tablet TAKE 1 TABLET TWICE DAILY. * Quantity: 180 Refills: 3 Jon Kirkland, BEREKET, , , Chan M * Start 10-Apr-2014 Active Bethanechol Chloride 25 [...] Lance * Start Active 30 ML Bottle Allergies [...] 15-Mar-2013 Flulaval Quadrivalent Intramuscular Suspension Lot #: [id number] on: 26-Dec-2013 Zostavax 86383 UNT/0.65ML Subcutaneous Solution Reconstituted Lot #: [id number] on: 26-Dec-2013 Prevnar 13 Intramuscular Suspension Lot #: [id number] on: 21-May-2014 Tdap (Adacel) Lot #: [id number] on: 07-Aug-2015 Family History Name Dates Details [...] documented Planned Encounters Appointment; Provider: Chan Webb M.D.|F.A.C.S.|MEun,BEREKET|Marita,BEREKET, On 04-May-2016 11:15 Appointment; Provider: Calos Yoder M.D. On 30-Apr-2016 13:30 Appointment; Provider: Carlos Neville M.D. On 10-Feb-2016 13:00 Appointment; Provider: Carlos Neville M.D. On 14-Jan-2016 13:30 Interventions Provided Medication Changes* HYDROmorphone HCl - 4 MG Oral Tablet - Renew Instructions Name Dates Details Instructions not documented Encounters Appointment; Chan Webb M.D.|F.A.C.S.|Marita,BEREKET|Marita,BEREKET, Encounter Diagnosis: Problem not documented On 23-Dec-2015 13:30 Appointment; Carlos Neville M.D. Encounter Diagnosis: Problem not documented On 03-Dec-2015 13:30 Appointment; Carlos Neville M.D. Encounter Diagnosis: Problem not documented On 18-Nov-2015 14:15 Appointment; Chan Webb M.D.|F.Nataly.C.S.|Marita,BEREKET|Marita,BEREKET, Encounter Diagnosis: Problem not documented On 18-Nov-2015 13:30 Appointment; Chan Webb M.D.|F.A.C.S.|Marita,BEREKET|Marita,BEREKET, Encounter Diagnosis: Problem not documented On 10:45 Appointment; Chan Webb M.D.|F.A.C.S.|MEun,BEREKET|Marita,BEREKET, Encounter Diagnosis: Problem not documented On 06:45 Appointment; Carlos Neville M.D. Encounter Diagnosis: Problem not documented On 14:00 Appointment; Chan Webb M.D.|F.A.C.S.|aMrita,JOHANNE,BEREKET, Encounter Diagnosis: Problem not documented On 09:30 Appointment; Chan Webb M.D.|F.A.C.S.|Marita,JOHANNE,BEREKET, Encounter Diagnosis: Problem not documented On 17:00 [...] documented On 18-Apr-2015 09:30 Appointment; Chan Webb M.D.|F.A.C.S.|Marita,BEREKET|Marita,BEREKET, Encounter Diagnosis: Problem not documented On 01-Apr-2015 07:30 Appointment; Javi Lucero M.D. Encounter Diagnosis: Problem not documented On 12-Mar-2015 13:30 Appointment; Misael Colbert M.D. Encounter Diagnosis: Problem not documented On 04-Mar-2015 15:55 Appointment; Chan Webb M.D.|F.A.C.S.|Marita,BEREKET|Marita,FACS, Encounter Diagnosis: Problem not documented On 28-Feb-2015 07:15 Appointment; Chan Webb M.D.|F.A.C.S.|M.D.,BEREKET|MAkhilDAkhil,FACS, Encounter Diagnosis: Problem not documented On 29-Jan-2015 16:45 Appointment; Carlos Neville M.D. Encounter Diagnosis: Problem not documented On 07-Jan-2015 13:30 Appointment; Chan Webb M.D.|F.A.C.S.|M.D.,FACS|MAkhilDAkhil,FACS, Encounter Diagnosis: Problem not documented On 25-Dec-2014 07:00 Appointment; Andreia Paredes P.A. Encounter Diagnosis: Problem not documented On 04-Dec-2014 11:30 Appointment; Chan Webb M.D.|F.A.C.S.|M.DAkhil,BEREKET|MEun,FACS, Encounter Diagnosis: Problem not documented On 23-Nov-2014 17:15 Appointment; Chan Webb M.D.|F.A.C.S.|M.DAkhil,BEREKET|MAkhilDAkhil,FACS, Encounter Diagnosis: Problem not documented On 12:45 Appointment; Carlos Neville M.D. Encounter Diagnosis: Problem not documented On 14:45 Appointment; Chan Webb M.D.|F.A.C.S.|M.DAkhil,BEREKET|MAkhilDAkhil,FACS, Encounter Diagnosis: Problem not documented On 07:15 Appointment; Andreia Paredes P.A. Encounter Diagnosis: Problem not documented On 13:15 Appointment; Andreia Paredes P.A. Encounter Diagnosis: Problem not documented On 11:30 Appointment; Carlos Neville M.D. Encounter Diagnosis: Problem not documented On 13:30 Appointment; Chan Webb M.D.|F.A.C.S.|M.DAkhil,BEREKET|MAkhilDAkhil,FACS, Encounter Diagnosis: Problem not documented On 16-Aug-2014 07:00 Appointment; Carlos Neville M.D. Encounter Diagnosis: Problem not documented On 02-Aug-2014 11:15 Appointment; Chan Webb M.D.|Nathaniel.C.SAkhil|Marita,BEREKET|Marita,BEREKET, Encounter Diagnosis: Problem not documented On 10-Jul-2014 07:00 Appointment; Carlos Neville M.D. Encounter Diagnosis: Problem not documented On 29-Jun-2014 13:15 Appointment; Chan Webb M.D.|Logan.A.C.S.|Marita,BEREKET|Marita,BEREKET, Encounter Diagnosis: Problem not documented On 21-Jun-2014 07:15 Appointment; Carlos Neville M.D. Encounter Diagnosis: Problem not documented On 19-Jun-2014 14:00 Appointment; Javi Lucero M.D. Encounter Diagnosis: Problem not documented On 31-May-2014 13:45 Appointment; Ritesh San M.D. Encounter Diagnosis: Problem not documented On 21-May-2014 13:45 Appointment; Chan Webb M.D.|CarlC.S.|Marita,BEREKET|Marita,BEREKET, Encounter Diagnosis: Problem not documented On 17-May-2014 17:00 Appointment; Ritesh San M.D. Encounter Diagnosis: Problem not documented On 03-May-2014 14:00 Appointment; Javi Lucero M.D. Encounter Diagnosis: Problem not documented On 24-Apr-2014 08:00 Appointment; Ritesh San M.D. Encounter Diagnosis: Problem not documented On 23-Apr-2014 13:15 Appointment; Chan Webb M.D.|Nathaniel.C.S.|Marita,BEREKET|Marita,BEREKET, Encounter Diagnosis: Problem not documented On 10-Apr-2014 14:00 Appointment; Ritesh San M.D. Encounter Diagnosis: Problem not documented On 21-Feb-2014 13:15 Appointment; Estella Glass M.D. Encounter Diagnosis: Problem not documented On 20-Feb-2014 13:15 Appointment; Ritesh San M.D. Encounter Diagnosis: Problem not documented On 29-Jan-2014 13:45"
--- OUTSIDE RECORDS SUMMARY | 2016-07-01 17:11 | XMS REPORT ---
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 : Former Smoker Social History from 02/23/2014 2:45 PM:* Tobacco Use? : Former Smoker Social History from 02/21/2014 2:42 PM:* Tobacco Use? : Former Smoker Functional Status Functional Status from 02/23/2014 7:12 AM:* LOC : Alert * Oriented To : Person,Place,Time,Event * Weight Bearing Status : Partial * Assist Level : Partial * # Assists : 1 Functional Status from 02/22/2014 7:40 PM:* LOC : Alert * Oriented To : Person * Weight Bearing Status : Full * Assist Level : Partial * # Assists : 1 Functional Status from 02/22/2014 9:30 AM:* LOC : Alert * Oriented To : Person,Place,Time,Event * Weight Bearing Status : Full * Assist Level : Independent * # Assists : Independent Functional Status from 02/21/2014 9:56 PM:* LOC : Alert * Oriented To : Person,Place,Time * Weight Bearing Status : Full * Assist Level : Partial * # Assists : 2 Functional Status from 02/21/2014 2:42 PM:* LOC : Alert * Oriented To : Person,Place,Event * Weight Bearing Status : Full * Assist Level : Partial * # Assists : 1 Vital Signs Hospital Vital Signs from 02/23/2014 7:16 AM:* Weight : 111.4/ kg * Height : 6/1 ft,in Hospital Vital Signs from 02/23/2014 6:55 AM:* Weight : 111.4/ kg * Height : 6/1 ft,in Hospital Vital Signs from 02/23/2014 4:23 AM:* Height : 6/1 ft,in * Temperature : 97.6 F * Pulse : 62 * BP : 121/77 Hospital Vital Signs from 02/22/2014 5:08 AM:* Height : 6/1 ft,in * Temperature : 97.8 F * Pulse : 65 * Respirations : 20 * BP : 102/69 Hospital Vital Signs from 02/21/2014 2:42 PM:* Weight : 110/ kg * Height : 6/1 ft,in Hospital Vital Signs from 02/21/2014 2:35 PM:* Weight : 110.7/ kg * Height : 6/1 ft,in * Temperature : 97.6 F * Pulse : 60 * Respirations : 16 * BP : 107/71 Results Chemistry from 02/22/2014 11:39 AMVALPROIC ACID 67 MCG/ML (50-100 MCG/ML) Chemistry from 02/22/2014 6:20 AMSODIUM 138 MMOL/L (136-145 MMOL/L) POTASSIUM 3.6 MMOL/L (3.5-5.1 MMOL/L) CHLORIDE 103 MMOL/L (98-107 MMOL/L) TCO2 30.6 MMOL/L (21.0-32.0 MMOL/L) ANION GAP 4.4 MMOL/L L (8.0-16.0 MMOL/L) BUN 10 MG/DL (7-18 MG/DL) CREATININE 0.67 MG/DL (0.63-1.13 MG/DL) BUN/CREATININE RATIO 14.9 (9.1-17.0 ) GLUCOSE 97 MG/DL (65-99 MG/DL) GFR EST NON AFR BHUTANESE >90 ML/MIN GFRA EST AFR AMER >90 ML/MIN CALCIUM 8.8 MG/DL (8.5-10.1 MG/DL) ALBUMIN 3.1 GM/DL L (3.4-5.0 GM/DL) PHOSPHORUS 3.3 MG/DL (2.5-4.9 MG/DL) Chemistry from 02/21/2014 4:24 PMSODIUM 141 MMOL/L (136-145 MMOL/L) POTASSIUM 3.2 MMOL/L L (3.5-5.1 MMOL/L) CHLORIDE 105 MMOL/L (98-107 MMOL/L) TCO2 33.5 MMOL/L H (21.0-32.0 MMOL/L) ANION GAP 2.5 MMOL/L L (8.0-16.0 MMOL/L) BUN 10 MG/DL (7-18 MG/DL) CREATININE 0.82 MG/DL (0.63-1.13 MG/DL) BUN/CREATININE RATIO 12.2 (9.1-17.0 ) GLUCOSE 94 MG/DL (65-99 MG/DL) GFR EST NON AFR BHUTANESE >90 ML/MIN GFRA EST AFR AMER >90 ML/MIN CALCIUM 8.8 MG/DL (8.5-10.1 MG/DL) BILIRUBIN TOTAL 0.40 MG/DL (0.20-1.00 MG/DL) TOTAL PROTEIN 6.5 GM/DL (6.4-8.2 GM/DL) ALBUMIN 3.3 GM/DL L (3.4-5.0 GM/DL) GLOBULIN 3.2 GM/DL (2.3-3.5 GM/DL) A/G RATIO 1.0 MG/DL L (1.5-2.2 MG/DL) ALK PHOS 65 U/L (46-116 U/L) ALT (SGPT) 10 U/L L (12-78 U/L) AST (SGOT) 10 U/L L (15-37 U/L) TSH 2.65 UIU/ML (0.34-4.82 UIU/ML) THYROXINE FREE 0.80 NG/DL (0.59-1.19 NG/DL) VITAMIN B12 401 PG/ML (180-914 PG/ML) Hematology from 02/21/2014 4:24 PMWBC 6.3 X10e3/UL (3.6-11.2 X10e3/UL) RBC 4.35 X10e6/UL (4.06-5.63 X10e6/UL) HEMOGLOBIN 13.3 G/DL (12.5-16.3 G/DL) HEMATOCRIT 40.0 % (36.7-47.1 %) MCV 91.9 FL (80.0-100.0 FL) MCH 30.6 PG (27.0-33.0 PG) MCHC 33.3 G/DL (32.0-36.0 G/DL) RDW 14.3 % (12.3-17.0 %) RDWSD 45.9 (37.1-47.8 ) PLATELET 248 X10e3/UL (159-386 X10e3/UL) MPV 7.6 FL (7.4-10.4 FL) Urinalysis from 02/21/2014 10:00 PMURINE COLOR YELLOW (STRAW/YELL/DK YELL ) URINE APPEARANCE CLEAR (CLEAR ) URINE PH 7.0 (5.0-8.0 ) URINE SPECIFIC GRAVITY <1.005 (<=1.005->=1.030 ) URINE GLUCOSE NEGATIVE MG/DL (NEGATIVE MG/DL) URINE BILIRUBIN NEGATIVE (NEGATIVE ) URINE KETONES NEGATIVE MG/DL (NEGATIVE MG/DL) URINE BLOOD SMALL A (NEGATIVE ) URINE PROTEIN NEGATIVE MG/DL (NEGATIVE MG/DL) URINE UROBILINOGEN 0.2 EU/DL (0.2-1.0 EU/DL) URINE NITRITES NEGATIVE (NEGATIVE ) *URINE LEUKOCYTES LARGE A (NEGATIVE ) MICROSCOPIC EXAM PERFORMED PERFORMED WBC PACKED FIELD /HPF A (0-5 /HPF) RBC 0-1 /HPF (0-1 /HPF) SQUAMOUS EP. CELLS FEW /LPF (NEG-FEW /LPF) MUCOUS THREADS FEW /LPF A (NEGATIVE /LPF) BACTERIA FEW /HPF A (NEGATIVE /HPF) Coagulation from 02/22/2014 6:20 AMPROTHROMBIN TIME 10.9 SECONDS (9.4-11.5 SECONDS) INR 1.0 Microbiology from 02/21/2014 10:00 PM* CULTURE URINE (Preliminary Result) Specimen Number: [id number] Sample Collection Date/Time: 02/21/2014 10:00 PM Specimen Source: Urine Catheter Problems Encounter Diagnosis No relevant problems exist. [...] No relevant problems exist. Plan of Care Procedures * Completed suprapubic catheter insertion, by MD REZA LERMA on 2013 11:01 AM * Completed , on 10/21/2012 12:00 AM * Completed , on 10/21/2012 12:00 AM * Completed , on 10/21/2012 12:00 AM * Completed , on 10/21/2012 12:00 AM Immunizations No immunizations administered or ordered. Hospital Course Hospital Discharge Instructions How to care for yourself at home from 02/23/2014 2:45 PM:* Discharge Activity : Activity as tolerated * Discharge Diet : Modification as given by physician * Discharge Diet: : 4gm Na+ * Call your doctor if: : Fever over 101 F or severe chills,Chest pain or other unexplained symptoms,Tingling or numbness develops,A sudden increase or decrease in weight,You have persistent or worsening symptoms,If you have Heart Failure and you gain 3 pounds within 1 week or your symptoms worsen. (Weigh at home tomorrow morning) Allergies, Adverse Reactions, Alerts * nystatin causes Severe Hives. * Latex causes Unknown. Onset unsure. * Keflex causes unspecified. * Novocain causes unspecified. * IV Contrast Allergy has not been assessed. * No Known Food Allergies. Medication It is the responsibility of the patient or patient technical support representative to confirm the list of medications with either the patient's personal care provider or the patient's follow-up care provider to ensure the patient has an appropriate list of medications to take at home. Discharge medications New medications* ALPRAZolam 0.25 mg Tablet, Ordered By: SIERRA MISHRA RN Directions: 1 tablet oral every four hours PRN anxiety * A NOTE TO / FROM NURSING 1 EACH=1 ORDER Miscellaneous UD, Clinician Dir:DC PREVIOUS ORDER FOR NYSTATIN POWDER DUE TO ALLERGY Additional Instructions: DC PREVIOUS ORDER FOR NYSTATIN POWDER DUE TO ALLERGY * acetaminophen (Mapap (acetaminophen)) 325 mg Tablet, Ordered By: SIERRA MISHRA RN Directions: 2 tablet oral every four hours PRN PAIN * calcium carbonate (Calcium Antacid) 200 mg calcium (500 mg) tablet,chewable, Ordered By: SIERRA MISHRA RN Directions: 2 tab oral three times a day PRN INDIGESTION * calcium acetate-aluminum sulf ([place]) 952 mg-1,347 mg Powder in Packet, Ordered By: SIERRA MISHRA RN Directions: 1 each topical twice a day Additional Instructions: MIX 1 PACKET IN 1 CUP OF WATER APPLY TO GAUZE AND APPLY TO AREA AND LET DRY * cranberry gdni-B-[id number] coag (Azo Cranberry + Probiotic) 250 mg-30 mg-50 million cell Tablet, Ordered By: SIERRA MISHRA RN Directions: 1 tablet oral three times a day Additional Instructions: AUTOSUB * levetiracetam 250 mg Tablet, Ordered By: SIERRA MISHRA RN Directions: 1 tablet oral twice a day Additional Instructions: DO NOT CHEW, BREAK, OR CRUSH. * levofloxacin 500 mg Tablet, Ordered By: SIERRA MISHRA RN Directions: 1 tablet oral daily Additional Instructions: DO NOT GIVE DAIRY PRODUCTS, ANTACIDS, MVI, DIET AIDS OR SUCRALFATE WITHIN 2 HOURS OF * LORazepam 2 mg/mL Syringe, Ordered By: SIERRA MISHRA RN Directions: 0.5 mL intravenous eveery for to six hours for ANXIETY Additional Instructions: GIVE NEEDED FOR SEIZURE ACTIVITY * magnesium hydroxide (Milk of Magnesia) 400 mg/5 mL Suspension, Ordered By: SIERRA MISHRA RN Directions: 30 mL oral daily PRN CONSTIPATION * nicotine (polacrilex) (Nicorelief) 2 mg Gum, Ordered By: SIERRA MISHRA RN Directions: 1 gum oral every one hour for SMOKING CESSATION Additional Instructions: DO NOT GIVE IF PATIENT UNDER AGE 18 OR . * pantoprazole 40 mg tablet,delayed release (DR/EC), Ordered By: SIERRA MISHRA RN Directions: 1 tablet oral daily before breakfast Additional Instructions: AUTOSUB * peg 400-propylene glycol (PF) (Systane (PF)) 0.3 %-0.4 % Dropperette, Ordered By: SIERRA MISHRA RN Directions: 1 drop ophthalmic, both eyes twice a day * peg 400-propylene glycol (PF) (Systane (PF)) 0.3 %-0.4 % Dropperette, Ordered By: SIERRA MISHRA RN Directions: 1 drop ophthalmic, both eyes every four hours PRN * TAMSULOSIN SR CAP (FLOMAX SR CAP) 0.4 MG=1 CAPSULE By Mouth DAILY First Dose Now Directions: oral daily Continued medications* polyethylene glycol 3350 (Miralax) 17 gram Powder in Packet, Ordered By: SIERRA MISHRA RN Directions: 1 packet oral daily * rivaroxaban (Xarelto) 20 mg Tablet, Ordered By: SIERRA MISHRA RN Directions: 1 tablet oral daily * baclofen 20 mg Tablet, Ordered By: SIERRA MISHRA RN Directions: 1 tablet oral three times a day PRN pain * atorvastatin 20 mg Tablet, Ordered By: SIERRA MISHRA RN Directions: 1 tablet oral daily at bedtime * baclofen 10 mg Tablet, Ordered By: SIERRA MISHRA RN Directions: 1 tablet oral three times a day * bethanechol chloride 25 mg Tablet, Ordered By: SIERRA MISHRA RN Directions: 1 tablet oral four times daily * divalproex (Depakote ER) 500 mg Tablet Extended Release 24 hr, Ordered By: SIERRA MISHRA RN Directions: 2 tablet oral daily at bedtime * furosemide 80 mg Tablet, Ordered By: SIERRA MISHRA RN Directions: 1 tablet oral twice a day * gabapentin 300mg Tablet, Ordered By: SIERRA MISHRA RN Directions: 1 tablet oral three times a day * HYDROmorphone 4 mg Tablet, Ordered By: SIERRA MISHRA RN Directions: 1 tablet oral every 6-8 hours PRN low back pain Additional Instructions: 1 po every 6-8 hours with a max of 3 per day * lansoprazole 30 mg capsule,delayed release(DR/EC), Ordered By: SIERRA MISHRA RN Directions: 1 capsule oral daily * levothyroxine 50 mcg Tablet, Ordered By: SIERRA MISHRA RN Directions: 1 tablet oral daily before breakfast * lubiprostone (Amitiza) 24 mcg Capsule, Ordered By: SIERRA MISHRA RN Directions: 1 capsule oral twice a day * morphine (MS Contin) 15 mg Tablet Extended Release, Ordered By: SIERRA MISHRA RN Directions: 1 tablet oral every twelve hours PRN Chronic pain Additional Instructions: 1 PO every 12 hours with a max of 2 per day * potassium chloride (Klor-Con M20) 20 mEq tablet,ER particles/crystals, Ordered By: SIERRA MISHRA RN Directions: 1 tablet oral daily with breakfast * spironolactone 25 mg Tablet, Ordered By: SIERRA MISHRA RN Directions: 1 tablet oral twice a day * tamsuLOSIN 0.4 mg capsule,extended release 24hr, Ordered By: SIERRA MISHRA RN Directions: 1 capsule oral daily * traZODone 50 mg Tablet, Ordered By: SIERRA MISHRA RN Directions: 1 tablet oral daily at bedtime * zolpidem 12.5 mg Tablet,Ext Release Multiphase, Ordered By: SIERRA MISHRA RN Directions: 1 tablet oral daily at bedtime PRN insomnia * ondansetron HCl (Zofran) 4 mg Tablet, Ordered By: SIERRA MISHRA RN Directions: 1 tablet oral every eight hours PRN nausea or vomiting * cranberry conc-ascorbic acid (Cranberry Plus Vitamin C) 500 mg Capsule, Ordered By: SIERRA MISHRA RN Directions: 1 capsule oral three times a day * bethanechol chloride 25 mg Tablet, Ordered By: SIERRA MISHRA RN Directions: 1 tablet oral four times daily * furosemide 80 mg Tablet, Ordered By: SIERRA MISHRA RN Directions: 1 tablet oral twice a day * divalproex 500 mg Tablet Extended Release 24 hr, Ordered By: SIERRA MISHRA RN Directions: 2 tablet oral daily at bedtime * levothyroxine (Synthroid) 50 mcg Tablet, Ordered By: SIERRA MISHRA RN Directions: 1 tablet oral daily before breakfast * lubiprostone (Amitiza) 24 mcg Capsule, Ordered By: SIERRA MISHRA RN Directions: 1 capsule oral twice a day * potassium chloride 20 mEq tablet,ER particles/crystals, Ordered By: SIERRA MISHRA RN Directions: 1 tablet oral daily with breakfast * traZODone 50 mg Tablet, Ordered By: SIERRA MISHRA RN Directions: 1 tablet oral daily at bedtime Changed medications* atorvastatin 20 mg Tablet, Ordered By: SIERRA MISHRA RN Directions: 1 tablet oral daily with dinner * baclofen 20 mg Tablet, Ordered By: SIERRA MISHRA RN Directions: 1 tablet oral three times a day for PAIN * gabapentin 300 mg Capsule, Ordered By: SIERRA MISHRA RN Directions: 2 capsule oral three times a day * HYDROmorphone (Dilaudid) 4 mg Tablet, Ordered By: SIERRA MISHRA RN Directions: 1 tablet oral three times a day for LOW BACK PAIN * morphine 15 mg Tablet Extended Release, Ordered By: SIERRA MISHRA RN Directions: 1 tablet oral twice a day for CHRONIC PAIN * ondansetron HCl 4 mg Tablet, Ordered By: SIERRA MISHRA RN Directions: 1 tablet oral every eight hours PRN NAUSEA OR VOMITING * zolpidem 10 mg Tablet, Ordered By: SIERRA MISHRA RN Directions: 1 tablet oral daily at bedtime Additional Instructions: AUTOSUB FOR FERNANDA MATTSON Stopped medications* None
--- OUTSIDE RECORDS SUMMARY | 2016-07-01 17:11 | XMS REPORT | Continuity of Care Document ---
Author Author [facility] Organization [facility] Address Unknown Phone Unavailable Allergies Active Description Code Type Severity Reaction Onset Reported/Identified Relationship to Patient Clinical Status Yes NKA Drug Allergy N/A N/A Yes KEFLEX 01246 Skin Rashes/Hives 09/19/2012 Yes NOVOCAIN 03476 3 cardiac arrest 09/19/2012 Yes Keflex Drug Allergy Moderate Urticaria (hives) 09/29/2012 Yes No Known Food Allergies Food Allergy N/A N/A 09/29/2012 Yes Novocain Drug Allergy Severe Anaphylaxis 09/29/2012 Yes LATEX 24310 3 Skin Rashes/Hives 06/01/2013 Yes NYSTATIN 85572 2 Skin Rashes/Hives 06/01/2013 Yes ABILIFY 76665 TREMORS 12/25/2015 Yes ASA 04893 2 CONTRAINDICATED WITH XARELTO 12/25/2015 Yes BACTRIM 91998 3 Skin Rashes/Hives 12/25/2015 Yes DOXYCYCLINE 66449 3 Skin Rashes/Hives 12/25/2015 Yes IBUPROFEN 80889 2 CONTRAINDICATED WITH XARELTO 12/25/2015 Yes PAXIL 23607 3 TREMORS 12/25/2015 Yes ZITHROMAX 43976 3 Skin Rashes/Hives 12/25/2015 Yes ZOLOFT 11469 3 TREMORS 12/25/2015 Medications Medication Packaging Start Date Stop Date Route Dosage Sig *FUROSEMIDE 80MG TABLET 12/25/2015 12/24/2016 PO BID&0900, 1600 SODIUM CHLORIDE 0.9% 10ML FLUSH SYRINGE SYR 01/02/20162016 IVP BID&0900,2100 POLYETHYLENE GLYCOL 17GM PKT PKT 01/02/2016 01/01/2017 PO QD& 0900 DOCUSATE SODIUM 100MG CAPSULE CAP 01/02/2016 01/01/2017 PO BID& 0900,2100 LACTATED RINGERS 1000 ML IV SOLN BAG 01/02/2016 01/02/2016 IV PRE-OP MIDAZOLAM 2MG/2ML INJ VL 01/02/2016 01/02/2016 IV PRE-OP fentaNYL 100 MCG/2ML INJ AMP 01/02/2016 01/02/2016 IV PRE-OP LACTATED RINGERS 1000 ML IV SOLN BAG 01/02/2016 01/03/2016 IV PRE-OP VANCOMYCIN 1GM INJ VL 01/02/2016 01/02/2016 IV PRE-OP MIDAZOLAM 2MG/2ML INJ VL 01/02/2016 01/02/2016 IV PRE-OP fentaNYL 100 MCG/2ML INJ AMP 01/02/2016 01/02/2016 IV PRE-OP LIDOCAINE 2% SYRINGE [100MG/5ML] SYR 01/02/2016 01/02/2016 IVP ONCE PROPOFOL 200MG/20ML INJ VL 01/02/2016 01/02/2016 IVP ONCE ONDANSETRON 4MG/2ML INJ VL 01/02/2016 01/02/2016 IVP ONCE ROCURONIUM 50MG/5ML INJ VL 01/02/2016 01/02/2016 IVP ONCE LACTATED RINGERS 1000 ML IV SOLN BAG 01/02/2016 01/02/2016 IV ONCE SODIUM CHLORIDE 0.9% 1000ML IRRIG SOLN EA 01/02/20162015 IRR ONCE BUPIVACAINE W/ EPI 0.25% INJ [10 ML] VL 01/02/2016 01/02/2016 ID ONCE MAGNESIUM HYDROXIDE 2400MG/30ML SUSP EA 01/02/2016 01/01/2017 PO PRN SODIUM CHLORIDE 0.9% W/ KCL 20MEQ 1000ML IV SOLN BAG 01/02/2016 01/01/2017 IV 100ML/HR BISACODYL 10MG SUPPOS. SUP 01/02/2016 01/01/2017 TX* PRN LORazepam 0.5MG TABLET TAB 01/02/2016 01/01/2017 PO Q4HPRN FAMOTIDINE 20 MG TABLET TAB 01/02/2016 01/01/2017 PO BIDPRNN BISACODYL 5MG TABLET TAB 01/02/2016 01/01/2017 PO PRN METOCLOPRAMIDE 10MG/2ML INJ VL 01/02/2016 01/01/2017 IVP [id number] SODIUM CHLORIDE 0.9% 10ML FLUSH SYRINGE SYR 01/02/20162016 IVP PRN SODIUM CHLORIDE 0.9% 5ML FLUSH SYRINGE SYR 01/02/20162016 IVP PRN CEPACOL (BENZOCAINE/MENTHOL) LOZENGE LORRAINE 01/02/2016 01/02/2016 BC Q4HPRN diphenhydrAMINE 50MG/1ML INJ VL 01/02/2016 01/01/2017 IVP Q6HPRN ACETAMINOPHEN 325MG TABLET TAB 01/02/2016 01/01/2017 PO Q4HPRN PHENOL 1.4% THROAT SPRAY [118ML] EA 01/02/2016 01/01/2017 PO PRN hydroMORPHONE 2MG/1ML INJ ML 01/02/2016 01/01/2017 IV [id number] * Ready to Reconcile EA 01/02/2016 01/02/2016 PO ASDIR *METHENAMINE 1GM TABLET 01/02/2016 01/01/2017 PO BID&0900, 2100 *DIVALPROEX ER 500MG TABLET TAB 01/02/2016 01/01/2017 PO HS& 2200 *MORPHINE ER 15MG TABLET TAB 01/02/2016 01/01/2017 PO BID&0900, 2100 *BETHANECHOL 25MG TABLET TAB 01/02/2016 01/01/2017 PO TID&0900, 1500,2200 *hydroMORPHONE 2MG TABLET TAB 01/02/2016 01/01/2017 PO BID&0900 ,2100 *LEVOTHYROXINE 100 MCG TABLET TAB 01/02/2016 01/01/2017 PO QD& 1200 *BACLOFEN 10MG TABLET TAB 01/02/2016 01/03/2016 PO TID&0900,1500 ,2200 *ATORVASTATIN 20MG TABLET TAB 01/02/2016 01/01/2017 PO HS&2200 fentaNYL 100 MCG/2ML INJ AMP 01/02/2016 01/02/2016 IV ONCE hydroMORPHONE 2MG/1ML INJ ML 01/02/2016 01/02/2016 IV ONCE hydroMORPHONE 2MG/1ML INJ ML 01/02/2016 01/02/2016 IV POST-OP hydroMORPHONE 2MG TABLET TAB 01/02/2016 01/02/2016 PO ONCE MORPHINE ER 15MG TABLET TAB 01/02/2016 01/02/2016 PO ONCE VANCOMYCIN 1GM INJ VL 01/03/2016 01/03/2016 PB Q12H&0800,2000 VANCOMYCIN 1GM INJ VL 01/03/2016 01/03/2016 PB Q12H&0800,2000 *BACLOFEN 20MG TABLET 01/03/2016 01/02/2017 PO TID&0900,1500, 2200 VANCOMYCIN 1GM INJ VL 01/03/2016 01/03/2016 PB Q12H&0800,2000 *FUROSEMIDE 80MG TABLET 01/03/2016 01/02/2017 PO BID&0900, 1600 *POTASSIUM CHLORIDE 20MEQ TABLET TAB 01/03/2016 01/02/2017 PO BID&0900,2100 *METHENAMINE 1GM TABLET 01/24/2016 01/02/2016 PO BID&0900, 2100 *BETHANECHOL 25MG TABLET TAB 01/24/2016 01/02/2016 PO TID&0900, 1500,2200 *hydroMORPHONE 2MG TABLET TAB 01/24/2016 01/02/2016 PO BID&0900 ,2100 *POTASSIUM CHLORIDE 20MEQ TABLET TAB 01/24/2016 01/23/2017 PO BID&0900,2100 *LEVOTHYROXINE 100 MCG TABLET TAB 01/24/2016 01/02/2016 PO QD& 1200 *RIVAROXABAN 20MG TABLET 01/24/2016 01/23/2017 PO QD&0900 *DIVALPROEX ER 500MG TABLET TAB 01/24/2016 01/02/2016 PO HS& 2200 *MORPHINE ER 15MG TABLET TAB 01/24/2016 01/02/2016 PO BID&0900, 2100 *BACLOFEN 10MG TABLET TAB 01/24/2016 01/02/2016 PO TID&0900,1500 ,2200 *ATORVASTATIN 20MG TABLET TAB 01/24/2016 01/02/2016 PO HS&2200 * DONT RECONCILE--CHANGE PENDING EA 01/24/2016 01/02/2016 PO PRN Problems Date Dx Coded Attending Type Code Diagnosis Diagnosed By 09/29/2012 Brooke MCCARTHY, Javi Coles 041.49 E. COLI INFECT NEC NOS 09/29/2012 Brooke MCCARTHY, Javi Coles 244.9 HYPOTHYROIDISM NOS 09/29/2012 Javi Cox MD 272.4 HYPERLIPIDEMIA NEC NOS 09/29/2012 Javi Cox MD 276.8 HYPOPOTASSEMIA 09/29/2012 Javi Cox MD 285.1 ACUTE POSTHEMOR ANEMIA 09/29/2012 Javi Cox MD Final 300.00 ANXIETY STATE NOS 09/29/2012 Javi Cox MD Final 311 DEPRESSIVE DISORDER NEC 09/29/2012 Javi Cox MD Final 320.82 GRAM NEG MENINGITIS NEC 09/29/2012 Javi Cox MD Admitting 322.9 MENINGITIS NOS 09/29/2012 Javi Cox MD Final 327.23 OBSTRUCTIVE SLEEP APNEA 09/29/2012 Javi Cox MD Final 530.81 ESOPHAGEAL REFLUX 09/29/2012 Javi Cox MD Final 560.1 PARALYTIC ILEUS 09/29/2012 Javi Cox MD Final 599.0 URINARY TRACT INF NOS 09/29/2012 aJvi Cox MD Final 788.20 RETENTION OF URINE NOS 09/29/2012 Javi Cox MD Final 997.09 NERV SYST SURG COMP NEC 09/29/2012 Javi Cox MD Final 998.59 POSTOP INFECTION NEC 02/27/2015 BRISA VILLARREAL E876 Hypokalemia 02/27/2015 BRISA VILLARREAL G8929 Other chronic pain 02/27/2015 BRISA VILLARREAL M549 Dorsalgia, unspecified 02/27/2015 BRISA VILLARREAL R197 Diarrhea, unspecified 02/27/2015 BRISA VILLARREAL R55 Syncope and collapse 01/03/2016 OCHOA TORRES DF E03.9 Hypothyroidism, unspecified 01/03/2016 OCHOA TORRES DF E66.01 Morbid (severe) obesity due to excess ca 01/03/2016 OCHOA TORRES DF E78.5 Hyperlipidemia, unspecified 01/03/2016 OCHOA TORRES DF G43.909 Migraine, unspecified, not intractable, 01/03/2016 OCHOA TORRES DF I25.10 Atherosclerotic heart disease of [place] 01/03/2016 OCHOA TORRES DF I87.8 Other specified disorders of veins 01/03/2016 OCHOA TORRES DF K21.9 Gastro-esophageal reflux disease without 01/03/2016 OCHOA TORRES DF Z45.42 Encounter for adjustment and management 01/03/2016 OCHOA TORRES DF Z68.41 Body mass index (BMI) 40.0-44.9, adult Procedures Code Description Performed By Performed On SPINAL STRUCT REPAIR NEC Javi Cox MD 10/02/2012 03.02 REOPEN LAMINECTOMY SITE Javi Cox MD 10/11/2012 [id number] 02/20/2015 13620 02/20/2015 42923 02/20/2015 07824 02/20/2015 31418 02/20/2015 56383 02/20/2015 17936 02/20/2015 A9270 02/20/2015 A9270 02/21/2015 [id number] Insertion of Single Array Stimulator Gen OCHOA TORRES Rene 01/02/2016 [id number] Removal of Stimulator Generator from Isai TORRES OCHOA López 01/02/2016 Results Test Result Range CULTURE WOUND - 03/18/16 09:14 CULTURE WOUND Heavy growth NRG ISOLATE1 - 03/18/16 09:14 ORGANISM Klebsiella pneumoniae NRG Ampicillin >=32 NRG Ampicillin/sulbactam =8 NRG Cefazolin <=4 NRG Cefepime <=1 NRG Ceftazidime <=1 NRG Ceftriaxone <=1 NRG Ertapenem <=0.5 NRG ESBL Neg NRG Gentamicin <=1 NRG Levofloxacin <=0.12 NRG Meropenem <=0.25 NRG Piperacillin/tazobactam =8 NRG Tobramycin <=1 NRG Trimethoprim/Sulfa <=20 NRG Aztreonam <=1 NRG Tigecycline =1 NRG ISOLATE2 - 03/18/16 09:14 ORGANISM Pseudomonas aeruginosa NRG Cefepime <=1 NRG Ceftazidime <=1 NRG Gentamicin <=1 NRG Levofloxacin >=8 NRG Meropenem <=0.25 NRG Piperacillin/tazobactam <=4 NRG Tobramycin <=1 NRG URINALYSIS (CULTURE PRN) - 06/11/16 16:10 *URINE APPEARANCE CLOUDY CLEAR *URINE BILIRUBIN NEGATIVE NEGATIVE *URINE BLOOD LARGE NEGATIVE *URINE GLUCOSE NEGATIVE NEGATIVE *URINE KETONES NEGATIVE NEGATIVE *URINE LEUKOCYTES MODERATE NEGATIVE *URINE NITRITES NEGATIVE NEGATIVE URINE PH 7.0 5.0-8.0 *URINE PROTEIN 100 NEGATIVE URINE SPECIFIC GRAVITY 1.015 <=1.005->= 1.030 *URINE UROBILINOGEN 0.2 0.2-1.0 *URINE COLOR YELLOW STRAW/YELL/DK YELL URINE MICROSCOPIC - 06/11/16 16:10 WBC PACKED FIELD /[HPF] 0-5 RBC PACKED FIELD /[HPF] 0-1 MICROSCOPIC EXAM PERFORMED PERFORMED NRG SQUAMOUS EP. CELLS FEW /[LPF] NEG-FEW BACTERIA MODERATE /[HPF] NEGATIVE CULTURE URINE - 06/11/16 16:10 CULTURE URINE 50,000-100,000 cfu/ml NRG ISOLATE1 - 06/11/16 16:10 ORGANISM Pseudomonas aeruginosa NRG Cefepime =2 NRG Ceftazidime =4 NRG Gentamicin =8 NRG Levofloxacin =2 NRG Meropenem <=0.25 NRG Piperacillin/tazobactam <=4 NRG Tobramycin <=1 NRG Encounters ACCT No. Visit Date/Time Discharge Status Pt. Type Provider Facility Loc./Unit Complaint [id number] 03/11/2012 00:00:00 2011 00:00:00 JESU Brenner MD [facility] JUAN A [id number] 01/13/2012 00:00:00 2011 00:00:00 JESU Brenner MD [facility] JUAN A
--- NOTE | 2016-07-01 17:12 | NUR ---
PROVIDER DR Patria ODELL IN TO SEE PATIENT.
--- OUTSIDE RECORDS SUMMARY | 2016-07-01 17:12 | XMS REPORT | Summary of Care ---
Author Author Kelin Kirkland, Carlos Ingram Organization Unknown Address [address] [place], [place] [id number] Phone Unavailable Care Team Providers Care Blindmaker Name Role Phone Jon Kirkland, FACS, ,, M Unavailable Unavailable Mena Kirkland, Ritesh Unavailable Unavailable Kelin Kirkland, Nataly Unavailable Unavailable Lena Fountain, Andreia Unavailable Unavailable Alton Davidson, L Unavailable Unavailable Nixon Kirkland, Lance Unavailable Unavailable Nic Kirkland, G Unavailable Unavailable Paresh Kirkland, T Unavailable Unavailable Carlos Neville PP Unavailable [facility] (MD) RP Unavailable Unavailable Unavailable Functional Status Functional Status [...] Affective bipolar disorder (296.80, F31.9) Status: Active Depression (311, F32.9) Status: Active [...] Status: Active Wheezing (786.07, R06.2) Status: Active Medications Name Dates Details Levothyroxine [...] * Quantity: 60 Refills: 0 Carlos Neville M.D.* Started 15-Jan-2014 ActiveBaclofen 20 MG Oral Tablet TAKE ONE [...] * Quantity: 60 Refills: 0 Carlos Neville M.D.* Started 18-Apr-2015 ActiveFetzima 40 MG Oral Capsule Extended Release 24 Hour Take one tablet daily * Refills: 0 Calos Yoder M.D.* Started 01-May-2015 ActiveHYDROmorphone HCl - 4 MG Oral Tablet 1 TABLET AT NOON ALONG W/ 8 MG EVERY 12 HOURS PRN * Quantity: 30 Refills: 0 Carlos Neville M.D.* Started 07-Aug-2015 ActivePEG-3350/Electrolytes 236 GM Oral Solution Reconstituted MIX AND DRINK DIRECTED PER COLONOSCOPY INSTRUCTIONS. * Quantity: 1 Refills: 0 Lance Alicea M.D.* Started 19-Aug-2015 [id number] ML Bottle Xarelto 20 MG Oral Tablet Take 1 tablet daily * Quantity: 1 Refills: 0 Elijah Dang D.O.* Started Ended ActivePEG 3350/Electrolytes 240 GM Oral Solution Reconstituted TAKE DIRECTED. * Quantity: 1 Refills: 0 Lance Alicea M.D.* Started [id number] ML Bottle Simethicone 40 MG/0.6ML Oral Suspension TAKE DIRECTED. * Quantity: 1 Refills: 0 Lance Alicea M.D.* Started [id number] ML Bottle Allergies and Adverse Reactions Name Dates Details Abilify Status: Active aspirin Status: Active Bactrim Status: Active doxycycline Status: Active ibuprofen Status: Active Keflex TABS Status: Active naproxen Status: Active Novocain SOLN Status: Active nystatin Status: Active Paxil Status: Active Tylenol Status: Active Zithromax TABS Status: Active Zoloft Status: Active Latex Status: Active Past Medical [...] of Laminectomy, Excision Intradural Intraspinal Lesion Sacral Colonoscopy- Screening or Dx Ordered:07-Aug-2015 ULTRASOUND RENAL SONO Ordered: Immunization Name Dates Details Pneumo (Pneumovax) Administered on:15-Mar-2013 Flulaval Quadrivalent Intramuscular Suspension Lot #: [id number] Administered on:26-Dec-2013 Zostavax 51878 UNT/0.65ML Subcutaneous Solution Reconstituted Lot #: [id number] Administered on:26-Dec-2013 Prevnar 13 Intramuscular Suspension Lot #: [id number] Administered on:21-May-2014 Tdap (Adacel) Lot #: [id number] Administered on:07-Aug-2015 Family History Mother* Name Dates Details Family history of malignant neoplasm of breast (V16.3, Z80.3) Status: Active Father* Name Dates Details Family history of acute myocardial infarction (V17.3, Z82.49) Status: Active Family history of Prostate cancer (185, C61) Status: Active Social History Name Dates Details Smoking Status* Former smoker Vital Signs Date Test Result Details 10:34 BP Systolic 112 mm[Hg] Status: BP Diastolic 70 mm[Hg] Status: Temperature 98.6 f Status: Heart Rate 102 /min Status: O2 SAT 97 % Status: Results Date Description Value Details Results not documented Plan of Care Planned Observations* Name Dates Details Planned Goals not documented Goal Planned Encounters* Appointment; Provider: Calos Yoder On 30-Apr-2016 13:30 * Appointment; Provider: Chan Webb On 06:45 * Appointment; Provider: Carlos Neville On 14:00 * Appointment; Provider: Lance Alicea On 08:00 * Appointment; Provider: Chan Webb On 09:30 * Appointment; Provider: Schedule Radiology On 09:00 * Appointment; Provider: aNdiya Dinh On 11-Apr-2015 13:00 * Appointment; Provider: [facility] On 04-Mar-2015 16:30 * Appointment; Provider: Chan Webb On 08-Feb-2014 11:30 * Appointment; Provider: Carlos Neville On 22-Nov-2007 07:00 * Appointment; Provider: Carlos Neville On 20-Nov-2007 07:00 Instructions * Instructions not documented Encounters Appointment; Chan Webb Encounter Diagnosis: Problem not documented On 17:00 Appointment; Elijah Dang Encounter Diagnosis: Problem not documented On 10:25 Appointment; Carlos Neville Encounter Diagnosis: Problem not documented On 07-Aug-2015 13:30 Appointment; Chan Webb Encounter Diagnosis: Problem not documented On 05-Aug-2015 17:00 Appointment; Carlos Neville Encounter Diagnosis: Problem not [...] not documented On 12:45 Appointment; Javi Lucero Diagnosis: Problem not documented On 11:30 Appointment; Javi Lucreo Encounter Diagnosis: Problem not documented On 11:15 Appointment; Ritesh San Encounter Diagnosis: Problem not documented On 11:30 Appointment; Javi Lucero Diagnosis: Problem not documented On 10:30 Appointment; Ritesh San Encounter Diagnosis: Problem not documented On 13:00 Appointment; Javi Lucero Encounter Diagnosis: Problem not documented On 11:15
--- OUTSIDE RECORDS SUMMARY | 2016-07-01 17:12 | XMS REPORT ---
Author Author GENERATED, SYSTEM Organization Unknown Address Unknown Phone Unavailable Care Team Providers Care Cloth Beamer Name Role Phone MD NEVILLE TIMOTHY [phone] Reason For Visit Reason for Visit from 12/23/2015 9:11 PM:* Pt Stated Reason for Adm : Cellulitis , Reccuring LLE Wound Chief Complaint CELLULITIS LEFT LEG Social History Social History from 12/30/2015 12:11 PM:* Tobacco Use? : Former Smoker Social History from 12/24/2015 11:45 AM:* Tobacco Use? : Former Smoker Social History from 12/23/2015 9:11 PM:* Tobacco Use? : Former Smoker Functional Status Functional Status from 12/30/2015 12:02 PM:* Oriented To : Person,Place,Time, Event Functional Status from 12/30/2015 8:05 AM:* LOC : Alert * Oriented To : Person,Place,Time * Weight Bearing Status : Full * Assist Level : Partial * # Assists : 1 Functional Status from 12/29/2015 7:51 PM:* LOC : Alert * Oriented To : Person,Place,Time * Weight Bearing Status : Partial * Assist Level : Partial * # Assists : 1 Functional Status from 12/29/2015 7:21 AM:* LOC : Alert * Oriented To : Person,Place,Time,Event * Weight Bearing Status : Full * Assist Level : Partial * # Assists : 2 Functional Status from 12/28/2015 7:47 PM:* LOC : Alert * Oriented To : Person,Place,Time,Event * Weight Bearing Status : Full * Assist Level : Partial * # Assists : 1 Functional Status from 12/28/2015 8:53 AM:* LOC : Alert * Oriented To : Person,Place,Time,Event * Weight Bearing Status : Full * Assist Level : Partial * # Assists : 1 Functional Status from 12/27/2015 7:59 PM:* LOC : Alert * Oriented To : Person,Place,Time,Event * Weight Bearing Status : Full * Assist Level : Partial * # Assists : 1 Functional Status from 12/27/2015 8:55 AM:* LOC : Alert * Oriented To : Person,Place,Time,Event * Weight Bearing Status : Full * Assist Level : Partial * # Assists : 1 Functional Status from 12/26/2015 6:50 PM:* LOC : Alert * Oriented To : Person,Place,Time,Event * Weight Bearing Status : Full * Assist Level : Partial * # Assists : 1 Functional Status from 12/26/2015 9:15 AM:* LOC : Alert * Oriented To : Person,Place,Time,Event * Weight Bearing Status : Full * Assist Level : Independent * # Assists : 1 Functional Status from 12/25/2015 7:10 PM:* LOC : Alert * Oriented To : Person,Place,Time,Event * Weight Bearing Status : Full * Assist Level : Partial * # Assists : 1 Functional Status from 12/25/2015 8:37 AM:* LOC : Alert * Oriented To : Person,Place,Time,Event * Weight Bearing Status : Full * Assist Level : Independent * # Assists : 1 Functional Status from 12/24/2015 11:33 PM:* LOC : Alert * Oriented To : Person,Place,Time,Event * Weight Bearing Status : Full * Assist Level : Partial * # Assists : 2 Functional Status from 12/24/2015 4:07 PM:* LOC : Alert * Oriented To : Person,Place,Time,Event * Weight Bearing Status : Full * Assist Level : Partial * # Assists : 2 Functional Status from 12/24/2015 9:15 AM:* # Assists : 1 Functional Status from 12/24/2015 7:52 AM:* LOC : Alert * Oriented To : Person,Place,Time * Weight Bearing Status : Full * Assist Level : Partial * # Assists : 2 Functional Status from 12/24/2015 7:17 AM:* # Assists : 1 Functional Status from 12/23/2015 9:11 PM:* LOC : Alert * Oriented To : Person,Place,Time,Event * Weight Bearing Status : Full * Assist Level : Independent * # Assists : 1 Vital Signs Hospital Vital Signs from 12/30/2015 10:57 AM:* Height : 6/1 ft,in * Temperature : 96.3 F * Pulse : 75 * Respirations : 18 * BP : 125/56 Hospital Vital Signs from 12/30/2015 8:43 AM:* Height : 6/1 ft,in * Temperature : 98.2 F * Pulse : 90 * Respirations : 16 * BP : 134/86 Hospital Vital Signs from 12/29/2015 11:00 PM:* Height : 6/1 ft,in * Temperature : 98.0 F * Pulse : 81 * Respirations : 16 * BP : 133/68 Hospital Vital Signs from 12/29/2015 5:26 PM:* Height : 6/1 ft,in * Temperature : 97.9 F * Pulse : 74 * Respirations : 16 * BP : 132/96 Hospital Vital Signs from 12/29/2015 2:15 PM:* Height : 6/1 ft,in * Temperature : 97.3 F * Pulse : 88 * Respirations : 16 * BP : 95/54 Hospital Vital Signs from 12/29/2015 10:29 AM:* Height : 6/1 ft,in * Temperature : 97.36 F * Pulse : 90 * Respirations : 16 * BP : 122/98 Hospital Vital Signs from 12/29/2015 7:28 AM:* Height : 6/1 ft,in * Temperature : 97.1 F * Pulse : 76 * Respirations : 18 * BP : 113/66 Hospital Vital Signs from 12/29/2015 2:57 AM:* Height : 6/1 ft,in * Temperature : 97.1 F * Pulse : 78 * Respirations : 18 * BP : 127/72 Hospital Vital Signs from 12/28/2015 10:49 PM:* Height : 6/1 ft,in * Temperature : 97.8 F * Pulse : 72 * Respirations : 18 * BP : 127/59 Hospital Vital Signs from 12/28/2015 6:28 PM:* Height : 6/1 ft,in * Temperature : 98.2 F * Pulse : 88 * Respirations : 18 * BP : 124/83 Hospital Vital Signs from 12/28/2015 2:29 PM:* Height : 6/1 ft,in * Temperature : 97.2 F * Pulse : 79 * Respirations : 18 * BP : 135/86 Hospital Vital Signs from 12/28/2015 10:27 AM:* Height : 6/1 ft,in * Temperature : 97.0 F * Pulse : 86 * Respirations : 18 * BP : 138/86 Hospital Vital Signs from 12/28/2015 7:36 AM:* Height : 6/1 ft,in * Temperature : 96.5 F * Pulse : 84 * Respirations : 18 * BP : 123/83 Hospital Vital Signs from 12/28/2015 3:57 AM:* Height : 6/1 ft,in * Temperature : 97 F * Pulse : 70 * Respirations : 18 * BP : 120/79 Hospital Vital Signs from 12/27/2015 9:41 PM:* Height : 6/1 ft,in * Temperature : 96.6 F * Pulse : 84 * Respirations : 22 * BP : 140/75 Hospital Vital Signs from 12/27/2015 7:46 PM:* Height : 6/1 ft,in * Temperature : 98.1 F * Pulse : 86 * Respirations : 21 * BP : 132/74 Hospital Vital Signs from 12/27/2015 1:51 PM:* Height : 6/1 ft,in * Temperature : 98.6 F * Pulse : 90 * Respirations : 20 * BP : 127/71 Hospital Vital Signs from 12/27/2015 11:42 AM:* Height : 6/1 ft,in * Temperature : 97.3 F * Pulse : 83 * Respirations : 18 * BP : 130/70 Hospital Vital Signs from 12/27/2015 7:22 AM:* Height : 6/1 ft,in * Temperature : 97.8 F * Pulse : 68 * Respirations : 20 * BP : 138/78 Hospital Vital Signs from 12/27/2015 2:42 AM:* Height : 6/1 ft,in * Temperature : 97.4 F * Pulse : 70 * Respirations : 16 * BP : 115/63 Hospital Vital Signs from 12/26/2015 10:13 PM:* Height : 6/1 ft,in * Temperature : 96.9 F * Pulse : 74 * Respirations : 16 * BP : 123/60 Hospital Vital Signs from 12/26/2015 7:39 PM:* Height : 6/1 ft,in * Temperature : 97.6 F * Pulse : 76 * Respirations : 18 * BP : 125/69 Hospital Vital Signs from 12/26/2015 4:11 PM:* Height : 6/1 ft,in * Temperature : 97.5 F * Pulse : 71 * Respirations : 18 * BP : 125/70 Hospital Vital Signs from 12/26/2015 1:25 PM:* Height : 6/1 ft,in * Temperature : 96.7 F * Pulse : 75 * Respirations : 18 * BP : 136/77 Hospital Vital Signs from 12/26/2015 10:07 AM:* Height : 6/1 ft,in Hospital Vital Signs from 12/26/2015 7:18 AM:* Height : 6/1 ft,in * Temperature : 97.2 F * Pulse : 78 * Respirations : 18 * BP : 145/83 Hospital Vital Signs from 12/25/2015 10:02 PM:* Height : 6/1 ft,in * Temperature : 97.0 F * Pulse : 83 * Respirations : 18 * BP : 113/69 Hospital Vital Signs from 12/25/2015 7:18 PM:* Height : 6/1 ft,in * Temperature : 96.9 F * Pulse : 84 * Respirations : 18 * BP : 120/73 Hospital Vital Signs from 12/25/2015 2:28 PM:* Height : 6/1 ft,in * Temperature : 97.6 F * Pulse : 85 * Respirations : 18 * BP : 118/61 Hospital Vital Signs from 12/25/2015 10:17 AM:* Height : 6/1 ft,in * Temperature : 96.3 F * Pulse : 78 * Respirations : 14 * BP : 116/67 Hospital Vital Signs from 12/25/2015 7:15 AM:* Height : 6/1 ft,in * Temperature : 96.7 F * Pulse : 76 * Respirations : 14 * BP : 137/75 Hospital Vital Signs from 12/25/2015 2:57 AM:* Height : 6/1 ft,in * Temperature : 97.5 F * Pulse : 91 * Respirations : 14 * BP : 102/69 Hospital Vital Signs from 12/24/2015 10:52 PM:* Height : 6/1 ft,in * Temperature : 96.1 F * Pulse : 86 * Respirations : 18 * BP : 111/59 Hospital Vital Signs from 12/24/2015 6:35 PM:* Height : 6/1 ft,in * Temperature : 97.6 F * Pulse : 79 * Respirations : 18 * BP : 118/69 Hospital Vital Signs from 12/24/2015 2:13 PM:* Height : 6/1 ft,in * Temperature : 97.6 F * Pulse : 77 * Respirations : 18 * BP : 110/69 Hospital Vital Signs from 12/24/2015 10:53 AM:* Height : 6/1 ft,in Hospital Vital Signs from 12/24/2015 10:36 AM:* Height : 6/1 ft,in * Temperature : 97.5 F * Pulse : 74 * Respirations : 18 * BP : 118/73 Hospital Vital Signs from 12/24/2015 7:19 AM:* Height : 6/1 ft,in * Temperature : 97.6 F * Pulse : 82 * Respirations : 18 * BP : 131/88 Hospital Vital Signs from 12/23/2015 10:40 PM:* Height : 6/1 ft,in * Temperature : 97.7 F * Pulse : 82 * Respirations : 18 * BP : 129/77 Hospital Vital Signs from 12/23/2015 9:11 PM:* Weight : 153.5/ kg * Height : 6/1 ft,in Hospital Vital Signs from 12/23/2015 9:00 PM:* Weight : 153.5/ kg * Height : 6/1 ft,in * Temperature : 98.9 F * Pulse : 78 * Respirations : 18 * BP : 172/77 Results Chemistry from 12/30/2015 5:45 AMSODIUM 138 MMOL/L (136-145 MMOL/L) POTASSIUM 3.7 MMOL/L (3.5-5.1 MMOL/L) CHLORIDE 101 MMOL/L (98-107 MMOL/L) TCO2 30.0 MMOL/L (21.0-32.0 MMOL/L) *ANION GAP 7.0 MMOL/L L (8.0-16.0 MMOL/L) BUN 18 MG/DL (7-18 MG/DL) CREATININE 0.89 MG/DL (0.70-1.30 MG/DL) *BUN/CREATININE RATIO 20.2 H (9.1-17.0 ) GLUCOSE 91 MG/DL (65-99 MG/DL) *GFR EST NON AFR TRINIDADIAN >90 ML/MIN *GFR EST AFR AMER >90 ML/MIN CALCIUM 9.3 MG/DL (8.5-10.1 MG/DL) Chemistry from 12/29/2015 11:47 AMVANCOMYCIN TROUGH 15.6 MCG/ML H (5.0-10.0 MCG/ ML) Chemistry from 12/29/2015 6:33 AMSODIUM 140 MMOL/L (136-145 MMOL/L) POTASSIUM 4.0 MMOL/L (3.5-5.1 MMOL/L) CHLORIDE 102 MMOL/L (98-107 MMOL/L) TCO2 33.1 MMOL/L H (21.0-32.0 MMOL/L) *ANION GAP 4.9 MMOL/L L (8.0-16.0 MMOL/L) BUN 17 MG/DL (7-18 MG/DL) CREATININE 1.05 MG/DL (0.70-1.30 MG/DL) *BUN/CREATININE RATIO 16.2 (9.1-17.0 ) GLUCOSE 91 MG/DL (65-99 MG/DL) *GFR EST NON AFR TRINIDADIAN 80 ML/MIN *GFR EST AFR AMER >90 ML/MIN CALCIUM 8.6 MG/DL (8.5-10.1 MG/DL) Chemistry from 12/28/2015 6:24 AMSODIUM 140 MMOL/L (136-145 MMOL/L) POTASSIUM 3.3 MMOL/L L (3.5-5.1 MMOL/L) CHLORIDE 102 MMOL/L (98-107 MMOL/L) TCO2 32.6 MMOL/L H (21.0-32.0 MMOL/L) *ANION GAP 5.4 MMOL/L L (8.0-16.0 MMOL/L) BUN 18 MG/DL (7-18 MG/DL) CREATININE 0.95 MG/DL (0.70-1.30 MG/DL) *BUN/CREATININE RATIO 18.9 H (9.1-17.0 ) GLUCOSE 90 MG/DL (65-99 MG/DL) *GFR EST NON AFR TRINIDADIAN 90 ML/MIN *GFR EST AFR AMER >90 ML/MIN CALCIUM 9.1 MG/DL (8.5-10.1 MG/DL) Chemistry from 12/27/2015 6:49 PMVANCOMYCIN TROUGH 25.5 MCG/ML H (5.0-10.0 MCG/ML ) Chemistry from 12/27/2015 6:29 AMSODIUM 141 MMOL/L (136-145 MMOL/L) POTASSIUM 3.6 MMOL/L (3.5-5.1 MMOL/L) CHLORIDE 104 MMOL/L (98-107 MMOL/L) TCO2 31.4 MMOL/L (21.0-32.0 MMOL/L) *ANION GAP 5.6 MMOL/L L (8.0-16.0 MMOL/L) BUN 15 MG/DL (7-18 MG/DL) CREATININE 0.82 MG/DL (0.70-1.30 MG/DL) *BUN/CREATININE RATIO 18.3 H (9.1-17.0 ) GLUCOSE 96 MG/DL (65-99 MG/DL) *GFR EST NON AFR TRINIDADIAN >90 ML/MIN *GFR EST AFR AMER >90 ML/MIN CALCIUM 8.8 MG/DL (8.5-10.1 MG/DL) Chemistry from 12/26/2015 6:05 AMSODIUM 140 MMOL/L (136-145 MMOL/L) POTASSIUM 3.6 MMOL/L (3.5-5.1 MMOL/L) CHLORIDE 104 MMOL/L (98-107 MMOL/L) TCO2 32.7 MMOL/L H (21.0-32.0 MMOL/L) *ANION GAP 3.3 MMOL/L L (8.0-16.0 MMOL/L) BUN 17 MG/DL (7-18 MG/DL) CREATININE 0.94 MG/DL (0.70-1.30 MG/DL) *BUN/CREATININE RATIO 18.1 H (9.1-17.0 ) GLUCOSE 100 MG/DL H (65-99 MG/DL) *GFR EST NON AFR TRINIDADIAN >90 ML/MIN *GFR EST AFR AMER >90 ML/MIN CALCIUM 8.6 MG/DL (8.5-10.1 MG/DL) Chemistry from 12/25/2015 7:06 PMVANCOMYCIN TROUGH 13.8 MCG/ML H (5.0-10.0 MCG/ML ) Problems Encounter Diagnosis * Cellulitis Status:Active. * Chronic Pain Status:Active. * Fall Risk Status:Active. Additional Problems * Bipolar Disorder Comment:Problem resolved by [facility] upon Discharge, Status:Resolved. * Bipolar Disorder Comment:Problem resolved by [facility] upon Discharge, Status:Resolved. * Candidiasis Comment:Problem resolved by [facility] upon Discharge, Status:Resolved. * Congestive Heart Failure Comment:Problem resolved by [facility] upon Discharge, Status:Resolved. * Depression Comment:Problem resolved by [facility] upon Discharge, Status :Resolved. * Dizziness Comment:Problem resolved by [facility] upon Discharge, Status: Resolved. * Edema Comment:Problem resolved by [facility] upon Discharge, Status: Resolved. * Edema of Lower Extremity Comment:Problem resolved by [facility] upon Discharge, Status:Resolved. * General Health Deterioration Comment:Problem resolved by [facility] upon Discharge, Status:Resolved. * Generalized-onset Seizures Comment:Problem resolved by [facility] upon Discharge, Status:Resolved. * History of Deep Vein Thrombosis Comment:Problem resolved by [facility] upon Discharge, Status:Resolved. * History of Hypothyroidism Comment:Problem resolved by [facility] upon Discharge, Status:Resolved. Encounters Encounter Diagnosis * Cellulitis Status:Active. * Chronic Pain Status:Active. * Fall Risk Status:Active. Plan of Care Follow-up Appointments from 12/30/2015 12:11 PM:* #1 Office appointment: : Dr Neville * Address # 1 : [facility] Millicent Pulido MD- [phone] or * #2 Office appointment: : Dr Simmons Treatment Plan from 12/30/2015 12:15 PM:* Care Management Note : still have yet to get CO orders back. 2nd message left for Dr Neville. Treatment Plan from 12/30/2015 10:45 AM:* Care Management Note : Patient scheduled discharge today to [facility] in [place]. Patient and his spouse aware of discharge plan and spouse plans to provide transportation when patient is able to discharge. MANISH phoned and spoke with Tari at [facility] who also in aware of discharge and gave MANISH a fax number of [phone] which was relayed to unit aid. No other needs or concerns at this time. Patient is a high risk for hospital readmit. Treatment Plan from 12/30/2015 9:53 AM:* Care Management Note : Dr Neville is discharging back to the CO. Elizabeth FUNES stopped IV antibiotics. CO orders faxed to Dr Neville's office and called ad left a message for nurse. await orders back . patient must get 1200 antibiotics before discharge. Minor HAMMOND aware. Treatment Plan from 12/27/2015 1:08 PM:* Care Management Note : labs and vital signs noted. 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 continues IV Vancomycin. Infectious Disease still following - Minor HAMMOND states that she talked with Elizabeth FUNES and he maybe able to switch to PO antibiotics on Wednesday and discharge. Treatment Plan from 12/27/2015 10:45 AM:* Care Management Note : SW spoke with patient's spouse per phone call regarding options for snf placement. Plan at this time would be for patient to return to [facility] as that is where patient is from currently. Spouse requested that SW look for placement closer to [place] as the distance was wearing on them both. SW phoned all facilities in [facility], [facility], [facility] and received a no response from them. SW made multiple calls to [facility] with no call back. Spouse aware of situation and will continue with plan at this time for patient to return to [place] at discharge. Contact information remains in room, SW will continue to assist as needed. Treatment Plan from 12/25/2015 8:37 AM:* Care Management Note : talked with Dr Neville - he is not anticipating discharge today. patient still is requiring IV antibiotics (Vancomycin and Zosyn) and monitoring for cellulitis. Infectious Disease following. meets inpatient status for further treatment of cellulitis with a stay extending past 2 midnights. See orders. Treatment Plan from 12/24/2015 10:35 AM:* Care Management Note : SW spoke with patient regarding possible needs at discharge. Patient stated that he was a resident at [facility] and he plans to return there at discharge. SW phoned [facility] and spoke with Tari Greene who stated they anticipated being able to readmit patient. SW sent per fax requested information to Tari. No other needs or concerns at this time. Contact information left in patient's room, SW will continue to assist as needed. Treatment Plan from 12/24/2015 10:00 AM:* Care Management Note : Admission status: Outpatient observation Patient presented to ER for complaints of a reoccurring open wound LLE with edema - started with in the last 3 days. Patient does have significant history of infection, etc - see H&P/ER record. labs and vital signs noted. K+ 3.3. Glucose 132. Ca 8.4. Consulted Infectious Disease and skin/wound for evaluation. SP cath. Monitor I/ o. Cultures pending. Follow labs. IV Vancomycin. IV Lasix BID for edema. Tylenol given in addition to scheduled meds for pain management. patient meets outpatient observation status at this time. Procedures * Completed Screening Colonoscopy, by MD FERNIE BRIDGES, on 09/23/2015 8:34 AM * Completed Procedure Code: 38607 Procedure Name: not valued, on 09/23/2015 12: 00 AM * Completed suprapubic catheter insertion, by MD REZA LERMA, on 2013 11:01 AM * Completed Procedure Code: 47849 Procedure Name: not valued, on 02/08/2014 12: 00 AM * Completed , on 10/21/2012 12:00 AM * Completed , on 10/21/2012 12:00 AM Immunizations * INFLUEN VACC 2015-(GLAXO) (FLUARIX 2015-17 (GLAXO), [facility], Lot # [id number]); Administered 12/30/2015 2:10 PM; 1 DOSE=0.5 ML, INTRAMUSCL Hospital Course Hospital Discharge Instructions How to care for yourself at home from 12/30/2015 12:11 PM:* Discharge Activity : Activity as tolerated,May Shower * Do not drive or operate machinery for: : with a walker/cane * Discharge Diet : Modification as given by physician * Discharge Diet: : low fat,low cholesterol, no added salt * Call your doctor if: : Fever over 101 F or severe chills,Chest pain or other unexplained symptoms,Tingling or numbness develops,A sudden increase or decrease in weight,You have persistent or worsening symptoms,If you have Heart Failure and you gain 3 pounds within 1 week or your symptoms worsen. (Weigh at home tomorrow morning) * Specific Discharge Teaching Instructions provided: : No * Discharge on Warfarin : No Allergies, Adverse Reactions, Alerts * naproxen causes Moderate Diarrhea. Onset moderate. * ibuprofen causes Moderate Diarrhea. Onset moderate. * aspirin causes Moderate Diarrhea. Onset Moderate. * Zithromax causes Severe Hives. Onset acute. * Bactrim causes Severe Hives. Onset acute. * doxycycline causes Severe Hives. Onset Acute. * Zoloft causes tremors. * Paxil causes tremors. * Abilify causes pass out. * nystatin causes Severe Hives. * Latex causes Unknown. Onset unsure. * Keflex causes unspecified. * Novocain causes unspecified. * No IV Contrast Allergy. * No Known Food Allergies. Medication It is the responsibility of the patient or patient sales representative education courses to confirm the list of medications with either the patient's personal care provider or the patient's follow-up care provider to ensure the patient has an appropriate list of medications to take at home. Discharge medications Continued medications* atorvastatin 20 mg Tablet, Ordered By: BHAKTI NEVILLE MD Directions: 1 tablet oral daily at bedtime * baclofen 20 mg Tablet, Ordered By: BHAKTI NEVILLE MD Directions: 1 tablet oral three times a day for pain * bethanechol chloride 25 mg Tablet, Ordered By: BHAKTI NEVILLE MD Directions: 1 tablet oral three times a day * Clortrimazole Amtofungal cream 1% topically BID to mouth sores PRN * divalproex 500 mg Tablet Extended Release 24 hr, Ordered By: BHAKTI NEVILLE MD Directions: 2 tablet oral daily at bedtime * furosemide 80 mg Tablet, Ordered By: BHAKTI NEVILLE MD Directions: 1 tablet oral twice a day for htn * morphine 15 mg Tablet Extended Release, Ordered By: BHAKTI NEVILLE MD Directions: 1 tablet oral every twelve hours * methenamine hippurate 1 gram Tablet, Ordered By: BHAKTI NEVILLE MD Directions: 1 tablet oral twice a day * potassium chloride 20 mEq tablet,ER particles/crystals, Ordered By: BHAKTI NEVILLE MD Directions: 1 tablet oral twice a day * rivaroxaban (Xarelto) 20 mg Tablet, Ordered By: BHAKTI NEVILLE MD Directions: 1 tablet oral daily with dinner Changed medications* hedswwct-vntwobngrAt-ksxxucnuT (Triple Antibiotic) 3.5 mg- 400 unit-5,000 unit/gram Ointment, Ordered By: BHAKTI NEVILLE MD Directions: 1 application topical twice a day PRN SP catheter site Stopped medications* HYDROmorphone 4 mg Tablet Directions: 1 tablet oral daily mid day * HYDROmorphone 8 mg Tablet Directions: 1 tablet oral twice a day morning and evening * levothyroxine (Synthroid) 100 mcg Tablet Directions: 1 tablet oral daily afternoon for hypothyroidism * Gold shi powder topiclly as needed for rash in groin * Jergens Ultra Healing Lotion topically as needed to facial/scalp dryness after shaving and Lower left leg dryness * lubiprostone (Amitiza) 24 mcg Capsule Directions: 1 capsule oral twice a day
--- OUTSIDE RECORDS SUMMARY | 2016-07-01 17:12 | XMS REPORT | Summary of Care ---
Author Author Kelin Kirkland, Carlos Ingram Organization Unknown Address [address], [place] [id number] Phone Unavailable Care Team Providers Care Desizing Machine Offbearer Name Role Phone Jon Kirkland, FACS, ,, M Unavailable Unavailable Emil VEGAS, Archana Unavailable Unavailable Mena Kirkland, Ritesh Unavailable Unavailable Kelin Kirkland, A Unavailable Unavailable Lena Fountain, Andreia Unavailable Unavailable Nixon Kirkland, Lance Unavailable Unavailable Nic Kirkland, G Unavailable Unavailable Paresh Kirkland, T Unavailable Unavailable Carlos Neville Unavailable Unavailable [facility]) Unavailable Unavailable Unavailable Unavailable Functional Status [...] Anticoagulant long-term use (V58.61, Z79.01) Status: Active DVT (deep venous thrombosis) (453.40, I82.409) Status: Active 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, 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: Active Low back pain (724.2, M54.5) Status: Active Degenerative disc disease, lumbar (722.52, M51.36) Status: Active Chronic pain (338.29, G89.29) Status: Active Constipation (564.00, K59.00) Status: Active Opioid dependence (304.00, F11.20) Status: Active Depression (311, F32.9) Status: Active Former smoker (V15.82, Z87.891) Status: Active Encounter for screening colonoscopy (V76.51, Z12.11) Status: Active Colon cancer screening (V76.51, Z12.11) Status: Active Acute non-recurrent sinusitis, unspecified location (461.9, J01.90) Status: Active Acute bronchitis, unspecified organism (466.0, J20.9) Status: Active Wheezing (786.07, R06.2) Status: Active Edema (782.3, R60.9) Status: Active Neurogenic bladder (596.54, N31.9) Status: Active Affective bipolar disorder (296.80, F31.9) Status: Active Cognitive impairment (294.9, R41.89) Status: Active Acute embolism and thrombosis of unspecified deep veins of unspecified lower extremity (453.40, I82.409) Status: Active Hypertension (401.9, I10) Status: Active Hypothyroidism (244.9, E03.9) Status: Active Hyperlipidemia (272.4, E78.5) Status: Active Pre-operative exam (V72.84, Z01.818) Status: Active Medications Name Dates Details Levothyroxine [...] TABLET Daily * Quantity: 60 Refills: 11 Ritseh San M.D. * Start 15-Mar-2013 Active Gabapentin [...] , Chan Vigil * Start 10-Apr-2014 Active Baclofen 20 MG Oral Tablet TAKE [...] per day * Quantity: 60 Refills: 0 Kelin Kirkland, Carlos Ingram * Start 15-Jan-2014 Active HYDROmorphone HCl - 4 MG Oral Tablet 1 TABLET DAILY (MID-DAY) * Quantity: 30 Refills: 0 Crater Carlos Kirkland Start 07-Aug-2015 Active Allergies and Adverse Reactions [...] of Laminectomy, Excision Intradural Intraspinal Lesion Sacral ECG/ EKG Preop Pendin21-Nov-2015 CBC w/ Auto Diff 7150 Ordered: 21-Nov-2015 Comprehensive Metabolic Panel 1212 Ordered: 21-Nov-2015 PROTIME PANEL 7000 Ordered: 21-Nov-2015 PTT 7500 Ordered: 21-Nov-2015 Urinalysis, Reflex to Microscopic or Culture PRN 8005 Ordered: 21-Nov-2015 Immunization Name Dates Details Pneumo (Pneumovax) on: 15-Mar-2013 Flulaval Quadrivalent Intramuscular Suspension Lot #: [id number] on: 26-Dec-2013 Zostavax 75036 UNT/0.65ML Subcutaneous Solution Reconstituted Lot #: [id number] on: 26-Dec-2013 Prevnar 13 Intramuscular Suspension Lot #: [id number] on: 21-May-2014 Tdap (Adacel) Lot #: [id number] on: 07-Aug-2015 Family History Name Dates Details Family history of malignant neoplasm of breast (V16.3, Z80.3) Status: Active Name Dates Details Family history of acute myocardial infarction (V17.3, Z82.49) Status: Active Family history of Prostate cancer (185, C61) Status: Active Social History Name Dates Details - Status: Name Dates Details Former smoker Vital Signs Date Test Result Details 18-Nov-2015 14:03 BP Systolic 130 mm[Hg] Status: Comments: Location: ; Position: BP Diastolic 84 mm[Hg] Status: Comments: Location: ; Position: Heart Rate 86 /min Status: Comments: Location: ; Physical Findings 97 Status: Comments: O2 Saturation Results Date Description Value Details Results not documented Plan of Care Name Dates Details Planned Observations Planned Goals not documented Planned Encounters Appointment; Provider: Chan Webb M.D.|BEREKET Estrada|Marita,BEREKET, On 04-May-2016 11:15 Appointment; Provider: Calos Yoder M.D. On 30-Apr-2016 13:30 Appointment; Provider: Carlos Neville M.D. On 10-Feb-2016 13:00 Appointment; Provider: Carlos Neville M.D. On 30-Dec-2015 13:30 Appointment; Provider: Chan Webb M.D.|F.A.C.S.|MEun,BEREKET|Marita,BEREKET, On 23-Dec-2015 13:30 Appointment; Provider: Carlos Neville M.D. On 03-Dec-2015 13:30 Interventions Provided Medication Changes* HYDROmorphone HCl - 4 MG Oral Tablet - Renew Instructions Name Dates Details Instructions not documented Encounters Appointment; Carlos Neville M.D. Encounter Diagnosis: Problem not documented On 18-Nov-2015 14:15 Appointment; Chan Webb M.D.|F.A.C.S.|Marita,BEREKET|Marita,FACS, Encounter Diagnosis: Problem not documented On 18-Nov-2015 13:30 Appointment; Chan Webb M.D.|F.A.C.S.|Marita,BEREKET|Marita,FACS, Encounter Diagnosis: Problem not documented On 10:45 Appointment; Chan Webb M.D.|F.A.C.S.|MEun,BEREKET|Marita,FACS, Encounter Diagnosis: Problem not documented On 06:45 Appointment; Carlos Neville M.D. Encounter Diagnosis: Problem not documented On 14:00 Appointment; Chan Webb M.D.|F.A.C.S.|Marita,BEREKET|MEun,FACS, Encounter Diagnosis: Problem not documented On 09:30 Appointment; Chan Webb M.D.|F.A.C.S.|MEun,BEREKET|MEun,FACS, Encounter Diagnosis: Problem not documented On 17:00 Appointment; Elijah Dang D.O. Encounter Diagnosis: Problem not documented On 10:25 Appointment; Carlos Neville M.D. Encounter Diagnosis: Problem not documented On 07-Aug-2015 13:30 Appointment; Chan Webb M.D.|F.A.C.S.|MAkhilDAkhil,BEREKET|Marita,FACS, Encounter Diagnosis: Problem not documented On 05-Aug-2015 17:00 Appointment; Carlos Neville M.D. Encounter Diagnosis: Problem not documented On 10-Jul-2015 13:00 Appointment; Chan Webb M.D.|F.A.C.S.|MEun,BEREKET|Marita,BEREKET, Encounter Diagnosis: Problem not documented On 08-Jul-2015 13:30 Appointment; Carlos Neville M.D. Encounter Diagnosis: Problem not documented On 17-Jun-2015 13:00 Appointment; Javi Lucero M.D. Encounter Diagnosis: Problem not documented On 11-Jun-2015 13:30 Appointment; Chan Webb M.D.|F.A.C.S.|MEun,BEREKET|Marita,BEREKET, Encounter Diagnosis: Problem not documented On 11-Jun-2015 [...] documented On 28-Feb-2015 07:15 Appointment; Chan Webb M.D.|F.A.C.S.|MAkhilDAkhil,BEREKET|Marita,BEREKET, Encounter Diagnosis: Problem not documented On 29-Jan-2015 16:45 Appointment; Carlos Neville M.D. Encounter Diagnosis: Problem not documented On 07-Jan-2015 13:30 Appointment; Chan Webb M.D.|F.A.C.S.|MAkhilDAkhil,BEREKET|Marita,FACS, Encounter Diagnosis: Problem not documented On 25-Dec-2014 07:00 Appointment; Andreia Paredes P.A. Encounter Diagnosis: Problem not documented On 04-Dec-2014 11:30 Appointment; Chan Webb M.D.|F.A.C.S.|Marita,BEREKET|Marita,BEREKET, Encounter Diagnosis: Problem not documented On 23-Nov-2014 17:15 Appointment; Chan Webb M.D.|F.A.C.S.|Marita,BEREKET|Marita,BEREKET, Encounter Diagnosis: Problem not documented On 12:45 Appointment; Carlos Neville M.D. Encounter Diagnosis: Problem not documented On 14:45 Appointment; Chan Webb M.D.|F.Nataly.C.S.|Marita,JOHANNE,BEREKET, Encounter Diagnosis: Problem not documented On 07:15 Appointment; Andreia Paredes P.A. Encounter Diagnosis: Problem not documented On 13:15 Appointment; Andreia Paredes P.A. Encounter Diagnosis: Problem not documented On 11:30 Appointment; Carlos Neville M.D. Encounter Diagnosis: Problem not documented On 13:30 Appointment; Chan Webb M.D.|Logan.A.C.S.|Marita,JOHANNE,BEREKET, Encounter Diagnosis: Problem not documented On 16-Aug-2014 07:00 Appointment; Carlos Neville M.D. Encounter Diagnosis: Problem not documented On 02-Aug-2014 11:15 Appointment; Chan Webb M.D.|F.A.C.S.|Marita,JOHANNE,BEREKET, Encounter Diagnosis: Problem not documented On 10-Jul-2014 07:00 Appointment; Carlos Neville M.D. Encounter Diagnosis: Problem not documented On 29-Jun-2014 13:15 Appointment; Chan Webb M.D.|F.A.C.S.|Marita,JOHANNE,BEREKET, Encounter Diagnosis: Problem not documented On 21-Jun-2014 07:15 Appointment; Carlos Neville M.D. Encounter Diagnosis: Problem not documented On 19-Jun-2014 14:00 Appointment; Javi Lucero M.D. Encounter Diagnosis: Problem not documented On 31-May-2014 13:45 Appointment; Ritesh San M.D. Encounter Diagnosis: Problem not documented On 21-May-2014 13:45 Appointment; Chan Webb M.D.|Nathaniel.C.SAkhil|Marita,BEREKET|Marita,BEREKET, Encounter Diagnosis: Problem not documented On 17-May-2014 17:00 Appointment; Ritesh San M.D. Encounter Diagnosis: Problem not documented On 03-May-2014 14:00 Appointment; Javi Lucero M.D. Encounter Diagnosis: Problem not documented On 24-Apr-2014 08:00 Appointment; Ritesh San M.D. Encounter Diagnosis: Problem not documented On 23-Apr-2014 13:15 Appointment; Chan Webb M.D.|Logan.A.C.SAkhil|Marita,BEREKET|Marita,FACS, Encounter Diagnosis: Problem not documented On 10-Apr-2014 [...] Encounter Diagnosis: Problem not documented On 13-Dec-2013 15:30"
--- OUTSIDE RECORDS SUMMARY | 2016-07-01 17:12 | XMS REPORT | Summary of Care ---
Author Author Nic Kirkland, Javi Harrison Unknown Address [address], [place] [id number] Phone Unavailable Care Team Providers Care Senior Net Web Developer Name Role Phone Jon Kirkland, FACS, ,, M Unavailable Unavailable Mena Kirkland, Ritesh Unavailable Unavailable Kelin Kirkland, A Unavailable Unavailable Lena Fountain, Andreia Unavailable Unavailable Nic Kirkland, Henry Unavailable Unavailable Paresh Kirkland, T Unavailable Unavailable Carlos Neville PP Unavailable Unavailable Unavailable Functional Status Functional Status Health Issues* Name Dates Details Functional status health issues are not documented Status: Cognitive Status Health Issues* Name Dates Details Cognitive status health issues are not documented Status: Problems Name Dates Details 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 Vena Caval Thrombosis Status: Active Heartburn Frequently (Weekly / Daily) Status: Active Meningitis (322.9, G03.9) Status: Active Shortness of breath (786.05, R06.02) Status: Active Hyperlipidemia (272.4, E78.5) Status: Active Hypothyroidism (244.9, E03.9) Status: Active Latex allergy, contact dermatitis (692.4, L25.3) Status: Active Insomnia (780.52, G47.00) Status: Active Edema (782.3, R60.9) Status: Active Cough (786.2, R05) Status: Active Respiratory tract infection (519.8, J98.8) Status: Active Anticoagulant long-term use (V58.61, Z79.01) Status: Active Hypertension (401.9, I10) Status: Active BPH (benign prostatic hyperplasia) (600.00, N40.0) Status: Active Anemia (285.9, D64.9) Status: Active Deep vein thrombosis of lower extremity (453.40, I82.409) Status: Active Cognitive impairment (294.9, R41.89) Status: Active Spinal cord stimulator status (V45.89, Z96.89) Status: Active Esophageal reflux (530.81, K21.9) Status: Active Constipation (564.00, K59.00) Status: Active CHF (congestive heart failure) (428.0, I50.9) Status: Active DVT (deep venous thrombosis) (453.40, I82.409) Status: Active Chronic pain (338.29, G89.29) Status: Active Affective bipolar disorder (296.80, F31.9) Status: Active Depression (311, F32.9) Status: Active Intractable back pain (724.5, M54.9) Status: Active Neurogenic bladder (596.54, N31.9) Status: Active Urinary retention (788.20, R33.9) Status: Active Pain, low back (724.2, M54.5) Status: Active 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 May use 1 po TID prn for breakthrough pain for total dose of 12 mg/day or 6 tablets in [address] Lucero * Quantity: 180 Refills: 0 Javi Lucero M.D.* Started 23-Jan-2015 ActiveKlor-Con M20 20 MEQ Oral Tablet Extended [...] 60 Refills: 0 Javi Lucero M.D.* Started 26-Feb-2015 ActiveBaclofen 20 MG Oral Tablet TAKE ONE TABLET BY MOUTH THREE TIMES A DAY NEEDED * Quantity: 90 Refills: 0 Andreia Paredes* Started 13-Feb-2014 ActiveAmitiza 24 MCG Oral Capsule [...] Zithromax TABS Status: Active Latex Status: Active Procedures Procedure Dates Details History [...] on:15-Mar-2013 Flulaval Quadrivalent Intramuscular Suspension Lot #: [id number] Administered on:26-Dec-2013 Zostavax 18907 UNT/0.65ML Subcutaneous Solution Reconstituted Lot #: [id number] Administered on:26-Dec-2013 Prevnar 13 Intramuscular Suspension Lot #: [id number] Administered on:21-May-2014 Family History Mother* Name Dates [...] 13:30 * Appointment; Provider: Javi Lucero On 12-Mar-2015 13:30 * Appointment; Provider: Chan Webb On 28-Feb-2015 07:15 * Appointment; Provider: Chan Webb On 08-Feb-2014 [...] Diagnosis: Problem not documented On 25-Apr-2013 13:15 Appointment; Ritesh San Encounter Diagnosis: Problem not documented On 15-Mar-2013 14:00 Appointment; Chan Webb Encounter Diagnosis: Problem not documented On 07-Mar-2013 10:00
--- OUTSIDE RECORDS SUMMARY | 2016-07-01 17:13 | XMS REPORT ---
Author Author GENERATED, SYSTEM Organization Unknown Address Unknown Phone Unavailable Care Team Providers Care Straw Hat Plunger Operator Name Role Phone MD MIKAYLA BHAKTI PP [phone] Reason For Visit Chief Complaint PROBLEMS WITH CATH Social History Functional Status Vital Signs Results Urinalysis from 06/11/2016 4:10 PM*URINE COLOR YELLOW (STRAW/YELL/DK YELL ) *URINE APPEARANCE CLOUDY A (CLEAR ) URINE PH 7.0 (5.0-8.0 ) URINE SPECIFIC GRAVITY 1.015 (<=1.005->=1.030 ) *URINE GLUCOSE NEGATIVE MG/DL (NEGATIVE MG/DL) *URINE BILIRUBIN NEGATIVE (NEGATIVE ) *URINE KETONES NEGATIVE MG/DL (NEGATIVE MG/DL) *URINE BLOOD LARGE A (NEGATIVE ) *URINE PROTEIN 100 MG/DL A (NEGATIVE MG/DL) *URINE UROBILINOGEN 0.2 EU/DL (0.2-1.0 EU/DL) *URINE NITRITES NEGATIVE (NEGATIVE ) *URINE LEUKOCYTES MODERATE A (NEGATIVE ) *MICROSCOPIC EXAM PERFORMED PERFORMED *WBC URINE PACKED FIELD /HPF A (0-5 /HPF) *RBC URINE PACKED FIELD /HPF A (0-1 /HPF) *SQUAMOUS EP. CELLS FEW /LPF (NEG-FEW /LPF) *BACTERIA MODERATE /HPF A (NEGATIVE /HPF) Problems Encounter Diagnosis No relevant problems exist. Additional Problems * Bipolar Disorder Comment:Problem resolved by [facility] upon Discharge, Status:Resolved. * Bipolar Disorder Comment:Problem resolved by [facility] upon Discharge, Status:Resolved. * Candidiasis Comment:Problem resolved by [facility] upon Discharge, Status:Resolved. * Cellulitis Comment:Problem resolved by [facility] upon Discharge, Status :Resolved. * Chronic Pain Comment:Problem resolved by [facility] upon Discharge, [...] by [facility] upon Discharge, Status:Resolved. * Fall Risk Comment:Problem resolved by [facility] upon Discharge, Status: Resolved. * Fall Risk Comment:Problem resolved by [facility] upon Discharge, Status: Resolved. * General Health Deterioration Comment:Problem resolved by [facility] upon Discharge, Status:Resolved. * Generalized-onset Seizures Comment:Problem resolved by [facility] upon Discharge, Status:Resolved. * History of Deep Vein Thrombosis Comment:Problem resolved by [facility] upon Discharge, Status:Resolved. * History of Hypothyroidism Comment:Problem resolved by [facility] upon Discharge, Status:Resolved. Encounters Encounter Diagnosis No relevant problems exist. Plan of Care Procedures * Completed Procedure Code: 1879384 Procedure Name: not valued, on 03/31/2016 12: 00 AM * Completed Procedure Code: 7200433 Procedure Name: not valued, on 03/24/2016 12:00 AM * Completed Procedure Code: 4P1913T Procedure Name: not valued, on 12/30/2015 12 :00 AM * Completed Screening Colonoscopy, by MD YULIANA FERNIE, on 09/23/2015 8:34 AM * Completed Procedure Code: 75924 Procedure Name: not valued, on 09/23/2015 12: 00 AM * Completed suprapubic catheter insertion, by MD REZA LERMA, on 2013 11:01 AM * Completed Procedure Code: 89224 Procedure Name: not valued, on 02/08/2014 12: 00 AM * Completed , on 10/21/2012 12:00 AM * Completed , on 10/21/2012 12:00 AM Immunizations * Influenza, seasonal, injectable ([employer]ARM, Lot # [id number]); Administered 12/29 2:10 PM; 1 DOSE=0.5 ML, INTRAMUSCL Hospital Course Hospital Discharge Instructions Allergies, Adverse Reactions, Alerts * naproxen causes [...] assessed. * No Known Food Allergies. Medication Medication reconciliation has not been performed.
--- OUTSIDE RECORDS SUMMARY | 2016-07-01 17:13 | XMS REPORT ---
Author Author GENERATED, SYSTEM Organization Unknown Address Unknown Phone Unavailable Care Team Providers Care Assistant Plant Control Operator Name Role Phone MD DEGROOT TIMOTHY [phone] Reason For Visit Chief Complaint LT LOWER LEG Social History Functional Status Vital Signs Results Microbiology from 03/18/2016 9:14 AM* CULTURE WOUND Specimen Number: [id number] Sample Collection Date/Time: 03/18/2016 9:14 AM Specimen Source: Leg Left Lower *GRAM STAIN: Moderate Epithelial cells Few WBC's Rare Gram negative bacilli CULTURE WOUND: Klebsiella pneumoniae Heavy growth Pseudomonas aeruginosa Heavy growth *ISOLATE1: Klebsiella pneumoniae *ISOLATE2: Pseudomonas aeruginosa 1 2 Comment Result Value Klebsiella pneumoniae Pseudomonas aeruginosa Result Status Final Result Final Result Ampicillin >=32 R Ampicillin/sulbactam =8 S Aztreonam <=1 S Cefazolin <=4 S Cefepime <=1 S <=1 S Ceftazidime <=1 S <=1 S Ceftriaxone <=1 S Ertapenem <=0.5 S ESBL Neg - Gentamicin <=1 S <=1 S Levofloxacin <=0.12 S >=8 R Meropenem <=0.25 S <=0.25 S Piperacillin/tazobactam =8 S <=4 S Tigecycline =1 S Tobramycin <=1 S <=1 S Trimethoprim/Sulfa <=20 S * *GRAM STAIN Specimen Number: [id number] Sample Collection Date/Time: 03/18/2016 9:14 AM Specimen Source: Leg Left Lower *GRAM STAIN: Moderate Epithelial cells Few WBC's Rare Gram negative bacilli CULTURE WOUND: Klebsiella pneumoniae Heavy growth Pseudomonas aeruginosa Heavy growth *ISOLATE1: Klebsiella pneumoniae *ISOLATE2: Pseudomonas aeruginosa 1 2 Comment Result Value Klebsiella pneumoniae Pseudomonas aeruginosa Result Status Final Result Final Result Ampicillin >=32 R Ampicillin/sulbactam =8 S Aztreonam <=1 S Cefazolin <=4 S Cefepime <=1 S <=1 S Ceftazidime <=1 S <=1 S Ceftriaxone <=1 S Ertapenem <=0.5 S ESBL Neg - Gentamicin <=1 S <=1 S Levofloxacin <=0.12 S >=8 R Meropenem <=0.25 S <=0.25 S Piperacillin/tazobactam =8 S <=4 S Tigecycline =1 S Tobramycin <=1 S <=1 S Trimethoprim/Sulfa <=20 S Problems Encounter Diagnosis No relevant problems exist. [...] of Care Procedures * Completed Procedure Code: [id number] Procedure Name: not valued, on 12/30/2015 12 :00 AM * Completed Screening Colonoscopy, by MD FERNIE BRIDGES, on 09/23/2015 8:34 AM * Completed Procedure Code: 29380 Procedure Name: not valued, on 09/23/2015 12: 00 AM * Completed suprapubic catheter insertion, by MD REZA LERMA on 2013 11:01 AM * Completed Procedure Code: 15094 Procedure Name: not valued, on 02/08/2014 12: 00 AM * Completed , on 10/21/2012 12:00 AM * Completed , on 10/21/2012 12:00 AM Immunizations * Influenza, seasonal, injectable ([employer] PHARM, Lot # [id number]); Administered 12/29 2:10 [...]
--- OUTSIDE RECORDS SUMMARY | 2016-07-01 17:13 | XMS REPORT | Summary of Care ---
Author Author Carlos Neville M.D. Organization Unknown Address [address], [place] [id number] Phone Unavailable Care Team Providers Care Cushion Filler Name Role Phone Jon Kirkland, FACS, ,, M Unavailable Unavailable Mena Kirkland, Ritesh Unavailable Unavailable Kelin Kirkland, Nataly Unavailable Unavailable Lena Fountain, Andreia Unavailable Unavailable Nic Kirkland, G Unavailable Unavailable Paresh Kirkland, T Unavailable Unavailable Carlos Neville PP Unavailable [facility] Unavailable Unavailable Unavailable Functional Status Functional Status [...] DAY * Quantity: 60 Refills: 2 Ritesh aSn M.D.* Started 20-Dec-2012 ActiveAtorvastatin Calcium 20 MG Oral Tablet take one tablet by mouth every day * Quantity: 30 Refills: 10 Ritehs San M.D.* Started 20-Dec-2012 ActiveKlor-Con M20 20 [...] on:15-Mar-2013 Flulaval Quadrivalent Intramuscular Suspension Lot #: [id number] Administered on:26-Dec-2013 Zostavax 65849 UNT/0.65ML Subcutaneous Solution Reconstituted Lot #: [id number] Administered on:26-Dec-2013 Prevnar 13 Intramuscular Suspension Lot #: [id number] Administered on:21-May-2014 Family History Mother* Name Dates [...] /min Status: O2 SAT 95 % Status: Results Date Description Value Details 08-Jul-2015 [...] ml/min (Better) Range: >60 EST GFR, NON-AFR [place] >60 ml/min (Better) Range: >60 Comments: EST GFR is reported in ml/min per 1.73 m2 of body surface area. For -[place], please multiple result by 1.2.----- GLUCOSE 110 [...] * Appointment; Provider: Chan Webb On 05-Aug-2015 17:00 * Appointment; Provider: Nadiya Dinh On 11-Apr-2015 [...] not documented On 02-Aug-2014 11:15 Appointment; Chan eWbb Encounter Diagnosis: Problem not documented On 10-Jul-2014 [...]
--- OUTSIDE RECORDS SUMMARY | 2016-07-01 17:13 | XMS REPORT | Summary of Care ---
Author Author Kelin Kirkland, Carlos Ingram Organization Unknown Address [address], [place] [id number] Phone Unavailable Care Team Providers Care Busgirl Name Role Phone Musa Webb Unavailable Unavailable Archana Stein PA-C Unavailable Unavailable Mena Kirkland, Ritesh Unavailable Unavailable Kelin Kirkland, Nataly Unavailable Unavailable Nixon Kirkland, Lance Unavailable Unavailable Nic Kirkland, G Unavailable Unavailable Paresh Kirkland, T Unavailable Unavailable Carlos Neville Unavailable Unavailable [facility] Unavailable Unavailable Unavailable Unavailable Functional Status Name [...] 15-Mar-2013 Flulaval Quadrivalent Intramuscular Suspension Lot #: [id number] on: 26-Dec-2013 Zostavax 25492 UNT/0.65ML Subcutaneous Solution Reconstituted Lot #: [id number] on: 26-Dec-2013 Prevnar 13 Intramuscular Suspension Lot #: [id number] on: 21-May-2014 Tdap (Adacel) Lot #: [id number] on: 07-Aug-2015 Family History Name Dates Details [...]
--- OUTSIDE RECORDS SUMMARY | 2016-07-01 17:14 | XMS REPORT | Summary of Care ---
Author Author Misael Colbert M.D. Unknown Address [address], [place] [id number] Phone Unavailable Care Team Providers Care Water Control Supervisor Name Role Phone Jon Kirkland, FACS, ,, [...] right lower leg (729.5, M79.604) Status: Active Vena Caval Thrombosis Status: Active Urinary retention (788.20, R33.9) Status: Active Spinal cord stimulator status (V45.89, Z96.89) Status: Active Neurogenic bladder (596.54, N31.9) Status: Active Meningitis (322.9, G03.9) Status: Active Latex allergy, contact dermatitis (692.4, L25.3) Status: Active Intractable back pain (724.5, M54.9) Status: Active Insomnia (780.52, G47.00) Status: Active Hypothyroidism (244.9, E03.9) Status: Active Hypertension (401.9, I10) Status: Active Hyperlipidemia (272.4, E78.5) Status: Active 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, M96.1) Status: Active Esophageal reflux (530.81, K21.9) Status: Active DVT (deep venous thrombosis) (453.40, I82.409) Status: Active Depression (311, F32.9) Status: Active Degenerative disc disease, lumbar (722.52, M51.36) Status: Active Cognitive impairment (294.9, R41.89) Status: Active 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 * Quantity: 150 Refills: 2 Andreia ParedesAAkhil* Started 03-May-2013 ActiveFurosemide 80 MG Oral Tablet [...] NEEDED * Quantity: 90 Refills: 0 Andreia ParedesAAkhil* Started 13-Feb-2014 ActiveAmitiza 24 MCG Oral Capsule [...] on:15-Mar-2013 Flulaval Quadrivalent Intramuscular Suspension Lot #: [id number] Administered on:26-Dec-2013 Zostavax [id number] UNT/0.65ML Subcutaneous Solution Reconstituted Lot #: [id number] Administered on:26-Dec-2013 Prevnar 13 Intramuscular Suspension Lot #: [id number] Administered on:21-May-2014 Family History Mother* Name Dates [...] Neville On 10-Jul-2015 13:30 * Appointment; Provider: Chan Webb On 01-Apr-2015 07:30 * Appointment; Provider: Javi Lucero On 12-Mar-2015 13:30 * Appointment; Provider: Schedule Radiology On 04-Mar-2015 16:30 * Appointment; Provider: Chan Webb On 08-Feb-2014 11:30 * Appointment; Provider: Carlos Neville On 22-Nov-2007 07:00 * Appointment; Provider: Carlos Neville On 20-Nov-2007 07:00 Instructions * Instructions not documented Encounters Appointment; Misael Colbert Encounter Diagnosis: Problem not [...] Problem not documented On 29-Jun-2014 13:15 Appointment; Cahn Webb Encounter Diagnosis: Problem not documented On [...]
--- OUTSIDE RECORDS SUMMARY | 2016-07-01 17:14 | XMS REPORT | Summary of Care ---
Author Author Kelin Kirkland, Carlos Ingram Organization Unknown Address [address], [place] [id number] Phone Unavailable Care Team Providers Care Roll Forming Machine Operator Name Role Phone Musa Webb Unavailable Unavailable Archana Stein PA-C Unavailable Unavailable Mena Kirkland, Ritesh Unavailable Unavailable Kelin Kirkland, Nataly Unavailable Unavailable Nixon Kirkland, Lance Unavailable Unavailable Nic Kirkland, G Unavailable Unavailable Paresh Kirkland, T Unavailable Unavailable Carlos Neville Unavailable Unavailable [facility] ([place]) Unavailable Unavailable Unavailable Unavailable Functional Status Name [...] Active Suprapubic catheter (V44.59, Z93.59) Status: Active Medications Name Dates Details Levothyroxine [...] 15-Mar-2013 Flulaval Quadrivalent Intramuscular Suspension Lot #: [id number] on: 26-Dec-2013 Zostavax 39885 UNT/0.65ML Subcutaneous Solution Reconstituted Lot #: [id number] on: 26-Dec-2013 Prevnar 13 Intramuscular Suspension Lot #: [id number] on: 21-May-2014 Tdap (Adacel) Lot #: [id number] on: 07-Aug-2015 Family History Name Dates Details [...] Provider: Cony Buchanan A.P.R.N. On 19-Jun-2016 13:00 Interventions Provided Medication Changes* HYDROmorphone HCl - 4 MG Oral Tablet - Renew * HYDROmorphone HCl - 8 MG Oral Tablet - Renew * Morphine Sulfate ER 15 MG Oral Tablet Extended Release - Renew Instructions Name Dates Details Instructions not documented Encounters Appointment; Carlos Neville M.D. Encounter Diagnosis: Problem not documented On 07-May-2016 08:00 Appointment; Chan Webb M.D.,BEREKET, Encounter Diagnosis: Problem not documented On 06-May-2016 13:30 Appointment; Chan Webb M.D.,BEREKET, Encounter Diagnosis: Problem not documented On 01-May-2016 [...] not documented On 10:45 Appointment; Chan Webb M.D.,BEREKET, Encounter Diagnosis: Problem not documented On 06:45 [...] documented On 07-Aug-2015 13:30 Appointment; Chan Webb M.D.,BEREKET, Encounter Diagnosis: Problem not documented On 05-Aug-2015 [...] documented On 04-Dec-2014 11:30 Appointment; Chan Webb M.D.,BEREKET, Encounter Diagnosis: Problem not documented On 23-Nov-2014 17:15 Appointment; Chan Webb M.D., FACS, Encounter Diagnosis: Problem not documented On 12:45 Appointment; Carlos Neville M.D. Encounter Diagnosis: Problem not documented On 14:45 Appointment; Chan Webb M.D., FACS, Encounter Diagnosis: Problem not documented On 07:15 [...]
--- NOTE | 2016-07-01 17:15 | ERPDOC ---
Departure Disposition Decision Date: Jul 01, 2016 (SHADE ODELL MD) Disposition Decision Date: Jul 01, 2016 Disposition Decision Time: 20:04 (JANIYA BRIDGES MD) Disposition: 01 DISCHARGED HOME, SELF-CARE Impression Impression (SHADE ODELL MD) Impression: Primary Impression: Contusion Additional Impression: Fall Severity: Moderate (JANIYA BRIDGES MD) Condition: Improved Seen By: Physician only (JANIYA BRIDGES MD) Referrals: PIPER WELDON (PCP) BHAKTI DEGROOT (Family) Patient Instructions: Fall Prevention (ED) Problems/Meds/Labs Reviewed?: Yes Medications reviewed and manag: Yes (JANIYA BRIDGES MD) Additional Instructions: Follow-up as needed Follow up care ordered?: Yes Mental Status: Alert (JANIYA BRIDGES MD) HPI - Fall/Injury General Chief Complaint: Fall Stated Complaint: FALL Time Seen by Provider: 17:08 Source: patient, EMS, RN notes reviewed, old records Exam Limitations: no limitations (SHADE ODELL MD) Time Seen by Provider: 20:03 (JANIYA BRIDGES MD) HPI - Fall/Injury Initial Comments This patient who is well known to me comes in via EMS after having a fall. He is quite disabled from severe osteoarthritis and degenerative disc disease in his back as resides in a care home. He was in his recliner and was trying to get up when the recliner slipped backwards and he suddenly fell down. landing on his left hip/buttocks. He complains of severe left hip pain, mostly posteriorly and severe lumbar back pain. He has had both hips previously replaced. His pain radiates from his spine down to his left posterior leg. Occurred At: home Onset: Rapid Pain Scale: Now & Worst: 10/10 Injuries/Pain Location: back, lower extremity Context: slipped Modifying Factors: IMPROVES WITH: pain medication, WORSE WITH: movement Associated Symptoms: trouble walking Hx of Similar Symptoms: Yes (SHADE ODELL MD) Allergies: Coded Allergies: procaine (Verified Allergy, Severe, HEART STOPPED, 07/01/16) Cephalexin Monohydrate (Verified Allergy, Unknown, HIVES, 07/01/16) azithromycin (Unverified Allergy, Unknown, 07/01/16) PER H&P DATED 06-29-14 latex (Unverified Allergy, Unknown, HIVES, 07/01/16) nystatin (Unverified Allergy, Unknown, HIVES, 07/01/16) NSAIDS (Non-Steroidal Anti-Inflamma (Verified Adverse Reaction, Unknown, contraindicated due to other meds he is on, 07/01/16) acetaminophen (Unverified Adverse Reaction, Unknown, CONTRAINDICATED DUE TO MEDS HE IS ON, 07/01/16) aripiprazole (Unverified Adverse Reaction, Unknown, ALTERED MENTAL STATUS , 07/01/16) fluoxetine (Unverified Adverse Reaction, Unknown, DIMINISHED COGNITION, 07/01/16) paroxetine (Unverified Adverse Reaction, Unknown, ALTERED MENTAL STATUS, ) sertraline (Unverified Adverse Reaction, Unknown, ALTERED MENTAL STATUS, ) Uncoded Allergies: NOVACAINE (Allergy, Severe, CARDIAC ARREST, 01/04/08) Past History Patient Surgical History S/P Bilat ALISON S/P R TKA Hx of Laminectomy of lumbar spine. Hx of Laminectomy with excision of intradural spinal lesion / sacral level. Hx of Cardiac Stent placment. Arthroscopy Rt knee. Debridement of left lower extremity wound with hx of MRSA. 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 - - took over a year to close up in wound care) Hematologic: DVT Psychological: bipolar, dementia, depression (SHADE ODELL MD) Surgical History General: back Cardiac: cardiac cath Joint: hip, knee (SHADE ODELL MD) Family History Family PMH: FOUND: [place], diabetes, hypertension (SHADE ODELL MD) Vaccines Hx Influenza Vaccination: Yes (NOV 2013/APR 2014) Hx Pneumococcal Vaccination: Yes (APR 2013) (SHADE ODELL MD) Social History Smoking Status: Unknown if ever smoked Substance Use Type: does not use Alcohol Intake: none Sexuality: female partner Housing: care home (SHADE ODELL MD) Record Review Pertinent history updated: Yes (SHADE ODELL MD) Review of Systems Constitutional Constitutional: DENIES: appetite decrease, chills, dizziness, fever, weakness ( SHADE ODELL MD) Eyes General: DENIES: pain Lids/Accessories: DENIES: erythema Vision: DENIES: blurring (SHADE ODELL MD) ENMT Ears: DENIES: pain Hearing: DENIES: hearing loss Balance: DENIES: vertigo Sinuses: DENIES: congestion, rhinorrhea Mouth/Throat: DENIES: sore throat Teeth: DENIES: pain (SHADE ODELL MD) Cardiovascular Cardiac: DENIES: chest pain Rhythm/Rate: DENIES: palpitations Vascular: DENIES: pedal edema, unilateral swelling (SHADE ODELL MD) Pulmonary Respiratory: DENIES: cough, dyspnea, sputum (SHADE ODELL MD) GI Upper Abdomen: DENIES: heartburn/indigestion, nausea, vomiting Lower Abdomen: DENIES: blood in stool, constipation, diarrhea (SHADE ODELL MD) General: other (chronic Diaz), DENIES: dysuria, hematuria Male: DENIES: hesitancy (SHADE ODELL MD) Musculoskeletal General: pain, see HPI Comments complains of generalized osteoarthritis that is so severe he is on Dilaudid 8 mg TID and Morphine 15 mg BID for pain. (SHADE ODELL MD) Integumentary Skin: rash Comments rash on abdomen and extremities that he thinks is from allergy to the detergent that his care home is using on his clothes. (SHADE ODELL MD) Neurological General: DENIES: headache, memory disturbances, seizures, syncope (SHADE ODELL MD) Psychiatric Psychiatric: DENIES: anxiety, depression (SHADE ODELL MD) Endocrine Endocrine: DENIES: heat/cold intolerance (SHADE ODELL MD) Hematologic/Lymphatic Hematologic/Lymphatic: DENIES: anemia, easy bruising (SHADE ODELL MD) Allergic/Immunological Allergic/Immunoligical: DENIES: hives (SHADE ODELL MD) All other Systems All Other Systems: Reviewed and Negative (SHADE ODELL MD) Physical Exam General General Nourishment: well nourished, well developed, appears stated age, adult , obese, acute distress General Body Habitus: well groomed (SHADE ODELL MD) Vitals and Pain First Documented Vital Signs Date Time Temp Pulse Resp B/P Pulse Ox O2 Delivery O2 Flow Rate FiO2 07/01/16 17:03 97.9 79 16 134/84 98 Room Air (JANIYA BRIDGES MD) Vitals and Pain Weight: Kilograms: Height (feet): 6 Height (inches): 1.00 Triage Pain Scale: (SHADE ODELL MD) RN VS reviewed by Provider: Yes Comments in obvious distress despite MS 7.5 mg en route (SHADE ODELL MD) Normal Exams: Head: Normocephalic w/o trauma Eyes: Pupils are PERRLA w/ EOMI, No scleral icterus, irritation, or foreign bodies noted ENMT: No facial trauma, nasal exudates, pharyngeal erythema, or exudates are noted Dental: No fractured, loose, or missing teeth noted Chest/Resp: Clear all to, with good airflow, and symmetry bilaterally CV: Regular rate and rhythm, without murmur or gallop, Pulses 2+ all extremities, capillary refill, <2 seconds all ext., no pedal edema noted Abdomen: Bowel sounds positive, soft, non-tender, non-distended, no hepatosplenomegaly, masses or bruits noted Neurologic: Patient is alert, and oriented, cranial nerves, motor/sensory/ cerebellar, exams w/o gross deficits, to observation Psychiatric: Patient exhibits, appropriate attention, emotion and affect (SHADE ODELL MD) Musculoskeletal (brief) Musculoskeletal Brief: FOUND: spasm, tenderness Comments tender over lumbar spine midline, paravertebral spasm. Tender over posterior hip and with lateral pressure on iliac crests. Mild tenderness with palpation over symphysis pubis. (SHADE ODELL MD) Progress Results/Orders Orders Procedure Category Date Status Time Hip Left 2 View RAD 07/01/[address] Lumbar Spine W/O CT 07/01/16 Taken Contrast Normal Saline (Normal PHA 07/01/16 Complete Saline Iv) 17:30 Hydromorphone PHA 07/01/16 Complete (Dilaudid) 17:30 Ondansetron Inj PHA 07/01/16 Complete (Zofran) 17:30 Hydromorphone PHA 07/01/16 Complete (Dilaudid) 18:45 (JANIYA BRIDGES MD) Medications Current ED Medications Sodium Chloride (Normal Saline IV) 1,000 ml @ 500 mls/hr Q2H ONCE IV Last administered on 07/01/16 17:33; Start 07/01/16 at 17:30; Stop 07/01/16 at 19:29; Status DC Hydromorphone HCl (Dilaudid) 2 mg O ONCE IV Last administered on 07/01/16 17: 32; Start 07/01/16 at 17:30; Stop 07/01/16 at 17:31; Status DC Ondansetron HCl (Zofran) 4 mg O ONCE IV Last administered on 07/01/16 17:32; Start 07/01/16 at 17:30; Stop 07/01/16 at 17:31; Status DC Hydromorphone HCl (Dilaudid) 8 mg O ONCE PO Last administered on 07/01/16 18: 49; Start 07/01/16 at 18:45; Stop 07/01/16 at 18:46; Status DC (JANIYA BRIDGES MD) Progress Progress Imaging ordered. Pain meds given. Care transferred to Dr Bridges at 1800. (SHADE ODELL MD) Progress CT scan returned negative. X-ray returned negative. Patient was given Dilaudid 8 mg oral dose for his evening dose. He normally takes this 3 times daily. He is being discharged back to assisted care. Follow-up as needed. (JANIYA BRIDGES MD) SHADE ODELL MD Jul 01, 2016 17:15 JANIYA BRIDGES MD Jul 01, 2016 20:05
--- OUTSIDE RECORDS SUMMARY | 2016-07-01 17:15 | XMS REPORT | Summary of Care ---
Author Author Kelin Kirkland, Carlos Ingram Organization Unknown Address [address] [place], [place] [id number] Phone Unavailable Care Team Providers Care Manager Ui Name Role Phone Jon Kirkland, BEREKET, ,, M Unavailable Unavailable Emil VEGAS, Archana Unavailable Unavailable Mena Kirkland, Ritesh Unavailable Unavailable Kelin Kirkland, A Unavailable Unavailable Nixon Kirkland, Lance Unavailable Unavailable Grazyna HUNTER, Carmine Unavailable Unavailable Nic Kirkland, G Unavailable Unavailable Paresh Kirkland, T Unavailable Unavailable Carlos Neville Unavailable Unavailable [facility] ([place]) Unavailable Unavailable Unavailable Unavailable Functional Status Name [...] Low back pain (724.2, M54.5) Status: Active Hypertension (401.9, I10) Status: Active Hyperlipidemia (272.4, E78.5) Status: Active Hypothyroidism (244.9, E03.9) Status: Active Intractable back pain (724.5, M54.9) Status: Active Difficulty in walking (719.7, R26.2) Status: Active Great toe pain, right (729.5, M79.674) Status: Active Ingrowing nail (703.0, L60.0) Status: Active Medications Name Dates Details Levothyroxine [...] NEEDED * Quantity: 90 Refills: 2 Nic Kirkland Javi Figueroa * Start 13-Feb-2014 Active Amitiza 24 MCG Oral Capsule TAKE 1 CAPSULE TWICE DAILY WITH FOOD. * Quantity: 60 Refills: 6 Paresh KirklandCalos Javier * Start 20-Feb-2014 Active Methenamine Hippurate 1 GM Oral Tablet TAKE 1 TABLET TWICE DAILY. * Quantity: 180 Refills: 3 Jon Kirkland, BEREKET, , , Chan M * Start 10-Apr-2014 Active Fetzima 40 MG Oral Capsule Extended Release 24 Hour Take one tablet daily * Refills: 0 Paresh Kirkland Calos Javier * Start 01-May-2015 Active Simethicone 40 MG/0.6ML Oral Suspension TAKE DIRECTED. * Quantity: 1 Refills: 0 Lance Alicea M.D. * Start Active 30 ML Bottle HYDROmorphone HCl - 8 MG Oral Tablet TAKE 1 TABLET BID (AM & PM)qty 60 max 2 a day * Quantity: 60 Refills: 0 Carlos Neville M.D. * Start 18-Apr-2015 Active HYDROmorphone HCl - 4 MG Oral Tablet 1 TABLET DAILY (MID-DAY) * Quantity: 30 Refills: 0 Carlos Neville M.D. * Start 07-Aug-2015 Active Bethanechol Chloride 25 MG Oral Tablet Take one tablet three times daily * Quantity: 270 Refills: 3 Archana Stein PA-C * Start 02-Aug-2014 Active Allergies and Adverse Reactions Name [...] Intraspinal Lesion Sacral Comprehensive Metabolic Panel 1212 Ordered: 31-Jan-2016 LIPID PROFILE 1184 Ordered: 31-Jan-2016 PSA ( PROSTATE SPECIFIC ANTIGEN) 3100 Ordered: 31-Jan-2016 THYROID STIM. HORMONE 3602 Ordered: 31-Jan-2016 Immunization Name Dates Details Pneumo (Pneumovax) on: 15-Mar-2013 Flulaval Quadrivalent Intramuscular Suspension Lot #: [id number] on: 26-Dec-2013 Zostavax 86019 UNT/0.65ML Subcutaneous Solution Reconstituted Lot #: [id number] on: 26-Dec-2013 Prevnar 13 Intramuscular Suspension Lot #: [id number] on: 21-May-2014 Tdap (Adacel) Lot #: [id number] on: 07-Aug-2015 Family History Name Dates Details Family history of malignant neoplasm of breast (V16.3, Z80.3) Status: Active Name Dates Details Family history of acute myocardial infarction (V17.3, Z82.49) Status: Active Family history of Prostate cancer (185, C61) Status: Active Social History Name Dates Details - Status: Name Dates Details Former smoker Vital Signs Date Test Result Details 14-Jan-2016 13:19 BP Systolic 114 mm[Hg] Status: Comments: Location: ; Position: BP Diastolic 68 mm[Hg] Status: Comments: Location: ; Position: Heart Rate 90 /min Status: Comments: Location: ; Physical Findings 96 Status: Comments: O2 Saturation Results Date Description Value Details 03-Feb-2016 08:51 CBC w/ Manual Diff 7225 Comments: SIGNED ORDER FILED IN HOUSECALL FOLDER. TO BE DRAWN AT [facility] WBC 5.9 K/uL Range: 4.5-11.0 RBC 4.89 mil/uL Range: 4.20-5.40 HGB 14.2 g/dL Range: 14.0-18.0 HCT 43.1 % Range: 42.0-53.0 MCV 88.2 fL Range: 80.0-99.0 MCH 29.1 pg Range: 27.3-32.5 MCHC 33.0 % Range: 32.0-36.0 RDW 14.9 % (Above high threshold) Range: 11.6-14.8 PLATELETS 240 K/uL Range: 150-400 MPV 7.1 fL Range: 6.0-11.0 NEUTRO 3.3 K/uL Range: 2.0-6.9 SEGS 49 % Range: 37-80 BANDS 0 % Range: 0-7 LYMPH 37 % Range: 13-50 MONO 9 % Range: 0-12 EOSIN 5 % Range: 0-7 BASO 0 % Range: 0-3 ASHLEE LYMPH 0 % Range: 0-0 META 0 % Range: 0-0 MYELO 0 % Range: 0-0 PRO 0 % Range: 0-0 BLAST 0 % Range: 0-0 NUC RBC 0 /100 WBC Range: 0-0 SMUDGE 0 /100 WBC PLATELET Adequate Range: Adequate 09:02 C REACTIVE PROTEIN, CRP 2030 Comments: SIGNED ORDER FILED IN HOUSECALL FOLDER. TO BE DRAWN AT [facility] C REACTIVE PROTEIN 2.7 mg/dL (Above high threshold) Range: 0.0-0.9 09:02 VANCOMYCIN 3016 Comments: SIGNED ORDER FILED IN HOUSECALL FOLDER. TO BE DRAWN AT [facility] VANCOMYCIN 10.1 ng/mL Range: 0.0-50.0 Comments: TROUGH RANGE: 5-10 ng/mLA wider trough reference range of 5-20 may be appropriate in some clinical situations.----- 09:02 BASIC METABOLIC PROFILE 1210 Comments: SIGNED ORDER FILED IN HOUSECALL FOLDER. TO BE DRAWN AT [facility] SODIUM 138 mmol/L Range: 133-144 POTASSIUM 3.8 mmol/L Range: 3.5-5.1 CHLORIDE 100 mmol/L Range: 98-110 CARBON DIOXIDE 30.8 mmol/L Range: 23.0-33.0 ANION GAP 7 mmol/L Range: 6-16 BUN 13 mg/dL Range: 7-18 CREATININE, SERUM 0.85 mg/dL Range: 0.70-1.30 EST GFR, >60 ml/min Range: >60 EST GFR, NON-AFR [place] >60 ml/min Range: >60 Comments: EST GFR is reported in ml/min per 1.73 m2 of body surface area. ----- BUN:CREATININE RATIO 15 GLUCOSE 87 mg/dL Range: 70-100 CALCIUM 8.7 mg/dL Range: 8.5-10.1 09:08 ERYTHROCYTE SED RATE 7800 Comments: SIGNED ORDER FILED IN HOUSECALL FOLDER. TO BE DRAWN AT [facility] ERYTHROCYTE SED RATE 6 mm/60 min. Range: 0-15 Plan of Care Name Dates Details Planned Observations Planned Goals not documented Planned Encounters Appointment; Provider: Chan Webb M.D.|[place] Garnett|BEREKET Kirkland, On 04-May-2016 11:15 Appointment; Provider: Calos Yoder M.D. On 30-Apr-2016 13:30 Appointment; Provider: Carmine Geronimo DPM On 17-Apr-2016 11:30 Appointment; Provider: Chan Webb M.D.|BEREKET Estrada|BEREKET Kirkland, On 02-Mar-2016 17:15 Appointment; Provider: Carlos Neville M.D. On 10-Feb-2016 13:00 Interventions Provided Labs/Procedures/Imaging* Comprehensive Metabolic Panel 1212; To be Done: 31 Jan 2016 * LIPID PROFILE 1184; To be Done: 31 Jan 2016 * PSA ( PROSTATE SPECIFIC ANTIGEN) 3100; To be Done: 31 Jan 2016 * THYROID STIM. HORMONE 3602; To be Done: 31 Jan 2016 Instructions Name Dates Details Instructions not documented Encounters Appointment; Chan Webb M.D.|F.Nataly.C.S.|Marita,JOHANNE,BEREKET, Encounter Diagnosis: Problem not documented On 27-Jan-2016 13:30 Appointment; Carlos Neville M.D. Encounter Diagnosis: Problem not documented On 14-Jan-2016 13:30 Appointment; Chan Webb M.D.|F.A.C.S.|Marita,JOHANNE,BEREKET, Encounter Diagnosis: Problem not documented On 23-Dec-2015 13:30 Appointment; Carlos Neville M.D. Encounter Diagnosis: Problem not documented On 03-Dec-2015 13:30 Appointment; Carlos Neville M.D. Encounter Diagnosis: Problem not documented On 18-Nov-2015 14:15 Appointment; Chan Webb M.D.|F.Nataly.C.S.|Marita,JOHANNE,BEREKET, Encounter Diagnosis: Problem not documented On 18-Nov-2015 13:30 Appointment; Chan Webb M.D.|F.Nataly.C.S.|Marita,BEREKET|Marita,BEREKET, Encounter Diagnosis: Problem not documented On 10:45 Appointment; Chan Webb M.D.|F.A.C.S.|Marita,JOHANNE,BEREKET, Encounter Diagnosis: Problem not documented On 06:45 Appointment; Carlos Neville M.D. Encounter Diagnosis: Problem not documented On 14:00 Appointment; Chan Webb M.D.|F.A.C.S.|Marita,JOHANNE,BEREKET, Encounter Diagnosis: Problem not documented On 09:30 Appointment; Chan Webb M.D.|F.A.C.S.|MAkihlDAkhil,BEREKET|Marita,BEREKET, Encounter Diagnosis: Problem not documented On 17:00 Appointment; Elijah Dang D.O. Encounter Diagnosis: Problem not documented On 10:25 Appointment; Carlos Neville M.D. Encounter Diagnosis: Problem not documented On 07-Aug-2015 13:30 Appointment; Chan Webb M.D.|F.A.C.S.|MEun,BEREKET|Marita,BEREKET, Encounter Diagnosis: Problem not documented On 05-Aug-2015 [...] documented On 04-Mar-2015 15:55 Appointment; Chan Webb M.D.|F.A.C.S.|M.D.,BEREKET|Marita,FACS, Encounter Diagnosis: Problem not documented On 28-Feb-2015 07:15 Appointment; Chan Webb M.D.|F.A.C.S.|M.DAkhil,BEREKET|Marita,BEREKET, Encounter Diagnosis: Problem not documented On 29-Jan-2015 16:45 Appointment; Carlos Neville M.D. Encounter Diagnosis: Problem not documented On 07-Jan-2015 13:30 Appointment; Chan Webb M.D.|F.A.C.S.|M.DAkhil,BEREKET|Marita,FACS, Encounter Diagnosis: Problem not documented On 25-Dec-2014 07:00 Appointment; Andreia Paredes P.A. Encounter Diagnosis: Problem not documented On 04-Dec-2014 11:30 Appointment; Chan Webb M.D.|F.A.C.S.|MAkhilDAkhil,BEREKET|Marita,FACS, Encounter Diagnosis: Problem not documented On 23-Nov-2014 17:15 Appointment; Chan Webb M.D.|F.A.C.S.|M.D.,BEREKET|Marita,BEREKET, Encounter Diagnosis: Problem not documented On 12:45 Appointment; Carlos Neville M.D. Encounter Diagnosis: Problem not documented On 14:45 Appointment; Chan Webb M.D.|F.A.C.S.|M.DAkhil,BEREKET|Marita,BEREKET, Encounter Diagnosis: Problem not documented On 07:15 Appointment; Andreia Paredes P.A. Encounter Diagnosis: Problem not documented On 13:15 Appointment; Andreia Paredes P.A. Encounter Diagnosis: Problem not documented On 11:30 Appointment; Carlos Neville M.D. Encounter Diagnosis: Problem not documented On 13:30 Appointment; Chan Webb M.D.|F.A.C.S.|M.DAkhil,BEREKET|Marita,BEREKET, Encounter Diagnosis: Problem not documented On 16-Aug-2014 [...] documented On 23-Apr-2014 13:15 Appointment; Chan Webb M.D.|F.A.C.S.|Marita,BEREKET|Marita,BEREKET, Encounter Diagnosis: Problem not documented On 10-Apr-2014 14:00 Appointment; Ritesh San M.D. Encounter Diagnosis: Problem not documented On 21-Feb-2014 13:15 Appointment; Estella Glass M.D. Encounter Diagnosis: Problem not documented On 20-Feb-2014 13:15"
--- OUTSIDE RECORDS SUMMARY | 2016-07-01 17:15 | XMS REPORT | Summary of Care ---
Author Author Kelin Kirkland, Carlos Ingram Organization Unknown Address [address], [place] [address] Phone Unavailable Care Team Providers Care Hot Patcher Name Role Phone Musa Webb Unavailable Unavailable Emil VEGAS, Archana Unavailable Unavailable Mena Kirkland, Ritesh Unavailable Unavailable Kelin Kirkland, Nataly Unavailable Unavailable Nixon Kirkland, Lance Unavailable Unavailable Nic Kirkland, G Unavailable Unavailable Paresh Kirkland, T Unavailable Unavailable Carlos Neville Unavailable Unavailable [facility] ([place]) Unavailable Unavailable Unavailable Unavailable Functional Status [...] Active Peripheral neuropathy (356.9, G62.9) Status: Active Medications Name Dates Details Levothyroxine [...] 3 Chan Webb * Start 10-Apr-2014 Active Baclofen 20 MG Oral Tablet TAKE ONE TABLET BY MOUTH THREE TIMES A DAY NEEDED * Quantity: 90 Refills: 2 Nic KirklandJavi * Start 13-Feb-2014 Active Fetzima 40 MG Oral Capsule Extended Release 24 Hour Take one tablet daily * Refills: 0 Paresh Kirkland Calos Herrera * Start 01-May-2015 Active Simethicone 40 MG/0.6ML Oral Suspension TAKE DIRECTED. * Quantity: 1 Refills: 0 Nixon KirklandLance * Start Active 30 ML Bottle Bethanechol Chloride 25 MG Oral Tablet Take one tablet three times daily * Quantity: 270 Refills: 3 Archana Stein PA-C * Start 02-Aug-2014 Active HYDROmorphone HCl - 4 MG Oral Tablet 1 TABLET DAILY (MID-DAY) * Quantity: 30 Refills: 0 Carlos Neville M.D. * Start 07-Aug-2015 Active Morphine Sulfate ER 15 MG Oral Tablet Extended Release Si PO every 12 hours with a max of 2 per day. Script must last 30 days. MDD:2 per day * Quantity: 60 Refills: 0 Carlos Neville M.D. * Start 15-Jan-2014 Active HYDROmorphone HCl - 8 MG Oral Tablet TAKE 1 TABLET BID (AM & PM)qty 60 max 2 a day * Quantity: 60 Refills: 0 Carlos Neville M.D. * Start 18-Apr-2015 Active Allergies and Adverse Reactions Name Dates [...] 15-Mar-2013 Flulaval Quadrivalent Intramuscular Suspension Lot #: [id number] on: 26-Dec-2013 Zostavax 33431 UNT/0.65ML Subcutaneous Solution Reconstituted Lot #: [id number] on: 26-Dec-2013 Prevnar 13 Intramuscular Suspension Lot #: [id number] on: 21-May-2014 Tdap (Adacel) Lot #: [id number] on: 07-Aug-2015 Family History Name Dates Details [...] Encounters Appointment; Provider: Carlos Neville M.D. On 02-Jul-2016 10:15 Appointment; Provider: Chan Webb M.D., FACS, On 06-May-2016 13:30 Appointment; Provider: Chan Webb M.D.,BEREKET, On 06-May-2016 07:30 Interventions Provided Medication Changes* HYDROmorphone HCl - 8 MG Oral Tablet - Renew * Morphine Sulfate ER 15 MG Oral Tablet Extended Release - Renew Instructions Name Dates Details Instructions not documented Encounters Appointment; Carmine Geronimo DPM Encounter Diagnosis: Problem [...] documented On 18-Apr-2015 09:30 Appointment; Chan Webb M.D.,BEREKET, Encounter Diagnosis: Problem not documented On 01-Apr-2015 [...] not documented On 07:15 Appointment; Andreia Paredes PAkhilAAkhil Encounter Diagnosis: Problem not documented On 13:15 Appointment; Andreia Paredes PAkhilAAkhil Encounter Diagnosis: Problem not documented On 11:30 Appointment; Carlos Neville M.D. Encounter Diagnosis: Problem not documented On 13:30 Appointment; Chan Webb M.D., FACS, Encounter Diagnosis: Problem not documented On 16-Aug-2014 [...] documented On 21-May-2014 13:45 Appointment; Chan Webb M.D.,BEREKET, Encounter Diagnosis: Problem not documented On 17-May-2014 17:00 Appointment; Ritesh San M.D. Encounter Diagnosis: Problem not documented On 03-May-2014 14:00 Appointment; Javi Lucero M.D. Encounter Diagnosis: Problem not documented On 24-Apr-2014 08:00 Appointment; Ritesh San M.D. Encounter Diagnosis: Problem not documented On 23-Apr-2014 13:15
--- OUTSIDE RECORDS SUMMARY | 2016-07-01 17:15 | XMS REPORT | Summary of Care ---
Author Author Kelin Kirkland, Carlos Ingram Organization Unknown Address [address], [place] [id number] Phone Unavailable Care Team Providers Care Contact Lens Technician Name Role Phone Jon Kirkland, BEREKET, ,, M Unavailable Unavailable Emil VEGAS, Archana Unavailable Unavailable Mena Kirkland, Ritesh Unavailable Unavailable Kelin Kirkland, A Unavailable Unavailable Nixon Kirkland, Lance Unavailable Unavailable Nic Kirkland, G Unavailable Unavailable Paresh Kirkland, T Unavailable Unavailable Carlos Neville Unavailable Unavailable [facility] ([place]) Unavailable Unavailable Unavailable Unavailable Functional Status Name [...] Intractable back pain (724.5, M54.9) Status: Active Medications Name Dates Details Levothyroxine Sodium 100 MCG Oral Tablet TAKE 1 TABLET DAILY. Quantity: 90 Carlso Neville M.D. * Start 20-Dec-2012 Active Divalproex [...] 15-Mar-2013 Flulaval Quadrivalent Intramuscular Suspension Lot #: [id number] on: 26-Dec-2013 Zostavax 61313 UNT/0.65ML Subcutaneous Solution Reconstituted Lot #: [id number] on: 26-Dec-2013 Prevnar 13 Intramuscular Suspension Lot #: [id number] on: 21-May-2014 Tdap (Adacel) Lot #: [id number] on: 07-Aug-2015 Family History Name Dates Details [...] documented Planned Encounters Appointment; Provider: Chan Webb M.D.|CarlCAkhilSAkhil|JOHANNE Kirkland FACS, On 04-May-2016 11:15 Appointment; Provider: Calos Yoder M.D. On 30-Apr-2016 13:30 Appointment; Provider: Carlos Neville M.D. On 10-Feb-2016 13:00 Appointment; Provider: Chan Webb M.D.|CarlCAkhilSJOHANNE Garnett FACS, On 27-Jan-2016 13:30 Interventions Provided Medication Changes* HYDROmorphone HCl - 4 MG Oral Tablet - Renew * HYDROmorphone HCl - 8 MG Oral Tablet - Renew Instructions Name Dates Details Instructions not documented Encounters Appointment; Carlos Neville M.D. Encounter Diagnosis: Problem not documented On 14-Jan-2016 13:30 Appointment; Chan Webb M.D.|CarlC.S.|JOHANNE Kirkland,BEREKET, Encounter Diagnosis: Problem not documented On 23-Dec-2015 13:30 Appointment; Carlos Neville M.D. Encounter Diagnosis: Problem not documented On 03-Dec-2015 13:30 Appointment; Carlos Neville M.D. Encounter Diagnosis: Problem not documented On 18-Nov-2015 14:15 Appointment; Chan Webb M.D.|CarlC.S.|JOHANNE Kirkland,BEREKET, Encounter Diagnosis: Problem not documented On 18-Nov-2015 13:30 Appointment; Chan Webb M.D.|Nathaniel.C.S.|JOHANNE Kirkland,BEREKET, Encounter Diagnosis: Problem not documented On 10:45 Appointment; Chan Webb M.D.|Nathaniel.C.S.|JOHANNE Kirkland,BEREKET, Encounter Diagnosis: Problem not documented On 06:45 Appointment; Carlos Neville M.D. Encounter Diagnosis: Problem not documented On 14:00 Appointment; Chan Webb M.D.|F.A.C.S.|Marita,BEREKET|Marita,BEREKET, Encounter Diagnosis: Problem not documented On 09:30 [...] documented On 18-Apr-2015 09:30 Appointment; Chan Webb M.D.|F.A.C.S.|M.D.,FACS|M.D.,FACS, Encounter Diagnosis: Problem not documented On 01-Apr-2015 07:30 Appointment; Javi Lucero M.D. Encounter Diagnosis: Problem not documented On 12-Mar-2015 13:30 Appointment; Misael Colbert M.D. Encounter Diagnosis: Problem not documented On 04-Mar-2015 15:55 Appointment; Chan Webb M.D.|F.Nataly.C.S.|MAkhilDAkhil,BEREKET|MEun,FACS, Encounter Diagnosis: Problem not documented On 28-Feb-2015 07:15 Appointment; Chan Webb M.D.|F.A.C.S.|MEun,BEREKET|Marita,FACS, Encounter Diagnosis: Problem not documented On 29-Jan-2015 16:45 Appointment; Carlos Neville M.D. Encounter Diagnosis: Problem not documented On 07-Jan-2015 13:30 Appointment; Chan Webb M.D.|F.A.C.S.|M.DAkhil,BEREKET|MAkhilDAkhil,FACS, Encounter Diagnosis: Problem not documented On 25-Dec-2014 07:00 Appointment; Andreia Paredes, PSean Encounter Diagnosis: Problem not documented On 04-Dec-2014 11:30 Appointment; Chan Webb M.D.|F.A.C.S.|MEun,BEREKET|MAkhilDAkhil,FACS, Encounter Diagnosis: Problem not documented On 23-Nov-2014 17:15 Appointment; Chan Webb M.D.|F.A.C.S.|M.DAkhil,BEREKET|MAkhilDAkhli,FACS, Encounter Diagnosis: Problem not documented On 12:45 Appointment; Carlos Neville M.D. Encounter Diagnosis: Problem not documented On 14:45 Appointment; Chan Webb M.D.|F.A.C.S.|MAkhilDAkhil,BEREKET|MEun,FACS, Encounter Diagnosis: Problem not documented On 07:15 [...] documented On 29-Jun-2014 13:15 Appointment; Chan Webb M.D.|F.Nataly.C.S.|Marita,BEREKET|Marita,BEREKET, Encounter Diagnosis: Problem not documented On 21-Jun-2014 [...]
--- OUTSIDE RECORDS SUMMARY | 2016-07-01 17:16 | XMS REPORT | Summary of Care ---
Author Author Archana Stein PA-C Organization Unknown Address [address], [place] [phone] Phone Unavailable Care Team Providers Care Gasket Inspector Name Role Phone Musa Webb Unavailable Unavailable Archana Stein PA-C Unavailable Unavailable Mena Kirkland, Ritesh Unavailable Unavailable Kelin Kirkland, A Unavailable Unavailable Nixon Kirkland, Lance Unavailable Unavailable Nic Kirkland, G Unavailable Unavailable Paresh Kirkland, T Unavailable Unavailable Carlos Neville Unavailable Unavailable [facility] ([place]) Unavailable Unavailable Unavailable Unavailable Functional Status Name [...] KirklandLance * Start Active 30 ML Bottle HYDROmorphone HCl - 4 MG Oral Tablet [...] 15-Mar-2013 Flulaval Quadrivalent Intramuscular Suspension Lot #: [id number] on: 26-Dec-2013 Zostavax 18352 UNT/0.65ML Subcutaneous Solution Reconstituted Lot #: [id number] on: 26-Dec-2013 Prevnar 13 Intramuscular Suspension Lot #: [id number] on: 21-May-2014 Tdap (Adacel) Lot #: [id number] on: 07-Aug-2015 Family History Name Dates Details [...] Provider: Carlos Neville M.D. On 02-Jul-2016 10:15 Instructions Name Dates Details Instructions not documented Encounters Appointment; Chan Webb M.D., FACS, Encounter Diagnosis: [...] documented On 18-Nov-2015 14:15 Appointment; Chan Webb M.D.,BEREKET, Encounter Diagnosis: Problem not documented On 18-Nov-2015 13:30 Appointment; Chan Webb M.D., FACS, Encounter Diagnosis: Problem not documented On 10:45 Appointment; Chan Webb M.D.,BEREKET, Encounter Diagnosis: Problem not documented On 06:45 Appointment; Carlos Neville M.D. Encounter Diagnosis: Problem not documented On 14:00 Appointment; Chan Wbeb M.D.,BEREKET, Encounter Diagnosis: Problem not documented On 09:30 [...] not documented On 25-Dec-2014 07:00 Appointment; Andreia Pardees P.A. Encounter Diagnosis: Problem not documented On 04-Dec-2014 11:30 Appointment; Chan Webb M.D.,BEREKET, Encounter Diagnosis: Problem not documented On 23-Nov-2014 17:15 Appointment; Chan Webb M.D.,BEREKET, Encounter Diagnosis: Problem not documented On 12:45 Appointment; Carlos Neville M.D. Encounter Diagnosis: Problem not documented On 14:45 Appointment; Chan Webb M.D.,BEREKET, Encounter Diagnosis: Problem not documented On 07:15 Appointment; Andreia Paredes PSean Encounter Diagnosis: Problem not documented On 13:15 [...]
--- OUTSIDE RECORDS SUMMARY | 2016-07-01 17:16 | XMS REPORT | Summary of Care ---
Author Author Archana Stein PA-C Organization Unknown Address [address] [place], [place] [id number] Phone Unavailable Care Team Providers Care Meter Reader Chief Name Role Phone Jon Kirkland, BEREKET, ,, M Unavailable Unavailable Archana Stein PA-C Unavailable Unavailable Mena Kirkland, Ritesh Unavailable Unavailable Kelin Kirkland, A Unavailable Unavailable Lena Fountain, Andreia Unavailable Unavailable Nixon Kirkland, Lance Unavailable Unavailable Nic Kirkland, G Unavailable Unavailable Paresh Kirkland, T Unavailable Unavailable Carlos Neville Unavailable Unavailable [facility] ([place]) Unavailable Unavailable Unavailable Unavailable Functional Status Name [...] Carlos Neville M.D. * Start 20-Dec-2012 Active Klor-Con M20 [...] Kirkland, Carlos Ingram * Start 15-Jan-2014 Active Baclofen 20 MG Oral Tablet TAKE ONE TABLET BY MOUTH THREE TIMES A DAY NEEDED * Quantity: 90 Refills: 2 Javi Lucero M.D. * Start 13-Feb-2014 Active Amitiza 24 MCG Oral Capsule TAKE 1 CAPSULE TWICE DAILY WITH FOOD. * Quantity: 60 Refills: 6 Paresh Kirkland, Calos Herrera * Start 20-Feb-2014 Active Bethanechol Chloride 25 MG Oral Tablet Take one tablet three times daily * Quantity: 270 Refills: 3 Archana Stein PA-C * Start 02-Aug-2014 Active Fetzima 40 MG Oral Capsule Extended Release 24 Hour Take one tablet daily * Refills: 0 Calos Yoder M.D. * Start 01-May-2015 Active PEG-3350/Electrolytes 236 GM Oral Solution Reconstituted MIX AND DRINK DIRECTED PER COLONOSCOPY INSTRUCTIONS. * Quantity: 1 Refills: 0 Nixon Kirkland, Lance * Start 19-Aug-2015 Active 4000 ML Bottle PEG 3350/Electrolytes 240 GM Oral Solution Reconstituted TAKE DIRECTED. * Quantity: 1 Refills: 0 Nixon Kirkland, Lance * Start Active 4000 ML Bottle Simethicone 40 MG/0.6ML Oral Suspension TAKE DIRECTED. * Quantity: 1 Refills: 0 Lance Alicea M.D. * Start Active 30 ML Bottle HYDROmorphone HCl - 4 MG Oral Tablet 1 TABLET AT NOON ALONG W/ 8 MG EVERY 12 HOURS PRN * Quantity: 30 Refills: 0 Carlos Neville M.D. * Start 07-Aug-2015 Active HYDROmorphone HCl - 8 MG Oral Tablet TAKE 1 TABLET EVERY 12 HOURS NEEDED.qty 60 max 2 a day * Quantity: 60 Refills: 0 Kelin Kirkland, Carlos Ingram * Start 18-Apr-2015 Active Methenamine Hippurate 1 GM Oral Tablet TAKE 1 TABLET TWICE DAILY. * Quantity: 180 Refills: 3 Jon Kirkland FACS, , , Chan M * Start 10-Apr-2014 Active Atorvastatin Calcium 20 MG Oral Tablet take one tablet by mouth every day * Quantity: 30 Refills: 10 Ritesh San M.D. * Start 20-Dec-2012 Active Divalproex Sodium ER 500 MG Oral Tablet Extended Release 24 Hour TAKE TWO TABLETS BY MOUTH EVERY DAY * Quantity: 60 Refills: 2 Ritesh San M.D. * Start 20-Dec-2012 Active Allergies and Adverse Reactions Name Dates [...] 15-Mar-2013 Flulaval Quadrivalent Intramuscular Suspension Lot #: [id number] on: 26-Dec-2013 Zostavax 13071 UNT/0.65ML Subcutaneous Solution Reconstituted Lot #: [id number] on: 26-Dec-2013 Prevnar 13 Intramuscular Suspension Lot #: [id number] on: 21-May-2014 Tdap (Adacel) Lot #: [id number] on: 07-Aug-2015 Family History Name Dates Details Family history of malignant neoplasm of breast (V16.3, Z80.3) Status: Active Name Dates Details Family history of acute myocardial infarction (V17.3, Z82.49) Status: Active Family history of Prostate cancer (185, C61) Status: Active Social History Name Dates Details - Status: Name Dates Details Former smoker Vital Signs Date Test Result Details 13:13 BP Systolic 118 mm[Hg] Status: Comments: Location: ; Position: BP Diastolic 68 mm[Hg] Status: Comments: Location: ; Position: Heart Rate 78 /min Status: Comments: Location: ; Weight 312 lb Status: Physical Findings 95 Status: Comments: O2 Saturation Body Mass Index Calculated 41.16 kg/m2 Status: Body Surface Area Calculated 2.6 m2 Status: Results Date Description Value Details 10:10 Colonoscopy Abnormal- Polyps Range: 0 11:14 CBC w/ Auto Diff 7150 Comments: Fastin hours WBC 5.4 K/uL Range: 4.5-11.0 RBC 4.90 mil/uL Range: 4.20-5.40 HGB 14.9 g/dL Range: 14.0-18.0 HCT 44.5 % Range: 42.0-53.0 MCV 90.6 fL Range: 80.0-99.0 MCH 30.4 pg Range: 27.3-32.5 MCHC 33.6 % Range: 32.0-36.0 RDW 15.5 % (Above high threshold) Range: 11.6-14.8 PLATELETS 309 K/uL Range: 150-400 MPV 6.9 fL Range: 6.0-11.0 %NEUTRO 58.0 % Range: 37.0-80.0 %LYMPHS 30.4 % Range: 13.0-50.0 %MONO 6.6 % Range: 0.0-12.0 %EOS 2.8 % Range: 0.0-7.0 %BASO 0.3 % Range: 0.0-2.5 %ENDY 1.9 % Range: 0.0-5.0 NEUTRO 3.1 K/uL Range: 2.0-6.9 LYMPHS 1.6 K/uL Range: 0.6-3.4 MONOS 0.4 K/uL Range: 0.0-0.9 EOS 0.2 K/uL Range: 0.0-0.7 BASO 0.0 K/uL Range: 0.0-0.2 11:34 Comprehensive Metabolic Panel 1212 Comments: Fastin hours SODIUM 138 mmol/L Range: 133-144 POTASSIUM 3.5 mmol/L Range: 3.5-5.1 CHLORIDE 98 mmol/L Range: 98-110 CARBON DIOXIDE 29.1 mmol/L Range: 23.0-33.0 ANION GAP 11 mmol/L Range: 6-16 BUN 10 mg/dL Range: 7-18 CREATININE, SERUM 0.82 mg/dL Range: 0.70-1.30 Comments: Please note new reference ranges effective 2014.----- BUN:CREATININE RATIO 12 EST GFR, >60 ml/min Range: >60 EST GFR, NON-AFR UGANDAN >60 ml/min Range: >60 Comments: EST GFR is reported in ml/min per 1.73 m2 of body surface area. For -Cymro, please multiple result by 1.2.----- GLUCOSE 103 mg/dL (Above high threshold) Range: 70-100 Comments: Variance from previous testing noted.----- ALK PHOSPHATASE 83 U/L Range: 46-116 TOTAL BILIRUBIN 0.90 mg/dL Range: 0.20-1.00 AST 23 U/L Range: 8-35 ALT 31 U/L Range: 16-63 Comments: Please note new reference ranges. Effective 06/07/2014.----- ALBUMIN 3.6 g/dL Range: 3.4-5.0 TOTAL PROTEIN 7.9 g/dL Range: 6.4-8.2 A/G RATIO 0.8 units (Below low threshold) Range: 1.0-1.8 CALCIUM 8.7 mg/dL Range: 8.5-10.1 Plan of Care Name Dates Details Planned Observations Planned Goals not documented Planned Encounters Appointment; Provider: Calos Yoder M.D. On 30-Apr-2016 13:30 Appointment; Provider: Chan Webb M.D.|CarlC.SJOHANNE Garnett,BEREKET, On 29-Apr-2016 13:15 Appointment; Provider: Carlos Neville M.D. On 10-Feb-2016 13:00 Appointment; Provider: Chan Webb M.D.|CarlC.SJOHANNE Garnett FACS, On 18-Nov-2015 13:30 Interventions Provided Medication Changes* Bethanechol Chloride 25 MG Oral Tablet - Renew with Changes Instructions Name Dates Details Instructions not documented Encounters Appointment; Chan Webb M.D.|CarlCAkhilSAkhil|JOHANNE Kirkland FACS, Encounter Diagnosis: Problem not documented On 06:45 Appointment; Carlos Neville M.D. Encounter Diagnosis: Problem not documented On 14:00 Appointment; Chan Webb M.D.|Kemal.SAkhil|JOHANNE Kirkland FACS, Encounter Diagnosis: Problem not documented On 09:30 Appointment; Chan Webb M.D.|CarlC.SAkhil|JOHANNE Kirkland,BEREKET, Encounter Diagnosis: Problem not documented On 17:00 [...] not documented On 01-May-2015 13:45 Appointment; Javi uLcero M.D. Encounter Diagnosis: Problem not documented On 18-Apr-2015 09:30 Appointment; Chan Webb M.D.|F.A.C.S.|MEun,BEREKET|Marita,BEREKET, Encounter Diagnosis: Problem not documented On 01-Apr-2015 07:30 Appointment; Javi Luceor M.D. Encounter Diagnosis: Problem not documented On 12-Mar-2015 13:30 Appointment; Misael Colbert M.D. Encounter Diagnosis: Problem not documented On 04-Mar-2015 15:55 Appointment; Chan Webb M.D.|F.A.C.S.|MAkhilDAkhil,BEREKET|Marita,BEREKET, Encounter Diagnosis: Problem not documented On 28-Feb-2015 07:15 Appointment; Chan Webb M.D.|F.A.C.S.|MAkhilDAkhil,BEREKET|Marita,BEREKET, Encounter Diagnosis: Problem not documented On 29-Jan-2015 16:45 Appointment; Carlos Neville M.D. Encounter Diagnosis: Problem not documented On 07-Jan-2015 13:30 Appointment; Chan Webb M.D.|F.A.C.S.|MAkhilDAkhil,BEREKET|Marita,FACS, Encounter Diagnosis: Problem not documented On 25-Dec-2014 07:00 Appointment; Andreia Paredes P.A. Encounter Diagnosis: Problem not documented On 04-Dec-2014 11:30 Appointment; Chan Webb M.D.|F.A.C.S.|MEun,BEREKET|Marita,BEREKET, Encounter Diagnosis: Problem not documented On 23-Nov-2014 17:15 Appointment; Chan Webb M.D.|F.A.C.S.|MEun,BEREKET|MEun,FACS, Encounter Diagnosis: Problem not documented On 12:45 Appointment; Carlos Neville M.D. Encounter Diagnosis: Problem not documented On 14:45 Appointment; Chan Webb M.D.|F.A.C.S.|MAkhilDAkhil,BEREKET|Marita,BEREKET, Encounter Diagnosis: Problem not documented On 07:15 Appointment; Andreia Paredes P.A. Encounter Diagnosis: Problem not documented On 13:15 Appointment; Andreia Paredes P.A. Encounter Diagnosis: Problem not documented On 11:30 Appointment; Carlos Nevilel M.D. Encounter Diagnosis: Problem not documented On 13:30 Appointment; Chan Webb M.D.|F.A.C.S.|MAkhilDAkhil,BEREKET|Marita,BEREKET, Encounter Diagnosis: Problem not documented On 16-Aug-2014 07:00 Appointment; Carlos Neville M.D. Encounter Diagnosis: Problem not documented On 02-Aug-2014 11:15 Appointment; Chan Webb M.D.|Logan.Nataly.C.S.|MEun,BEREKET|Marita,BEREKET, Encounter Diagnosis: Problem not documented On 10-Jul-2014 07:00 Appointment; Carlos Neville M.D. Encounter Diagnosis: Problem not documented On 29-Jun-2014 13:15 Appointment; Chan Webb M.D.|Logan.Nataly.C.SAkhil|Marita,BEREKET|Marita,BERKEET, Encounter Diagnosis: Problem not documented On 21-Jun-2014 07:15 Appointment; Carlos Neville M.D. Encounter Diagnosis: Problem not documented On 19-Jun-2014 14:00 Appointment; Javi Lucero M.D. Encounter Diagnosis: Problem not documented On 31-May-2014 13:45 Appointment; Ritesh San M.D. Encounter Diagnosis: Problem not documented On 21-May-2014 13:45 Appointment; Chan Webb M.D.|Logan.Nataly.C.S.|Marita,BEREKET|Marita,BEREKET, Encounter Diagnosis: Problem not documented On 17-May-2014 17:00 Appointment; Ritesh San M.D. Encounter Diagnosis: Problem not documented On 03-May-2014 14:00 Appointment; Javi Lucero M.D. Encounter Diagnosis: Problem not documented On 24-Apr-2014 08:00 Appointment; Ritesh San M.D. Encounter Diagnosis: Problem not documented On 23-Apr-2014 13:15 Appointment; Chan Webb M.D.|Logan.Nataly.C.S.|Marita,BEREKET|Marita,BEREKET, Encounter Diagnosis: Problem not documented On 10-Apr-2014 [...] documented On 07-Nov-2013 13:45 Appointment; Chan Webb M.D.|Baldomero|Marita,BEREKET|Marita,BEREKET, Encounter Diagnosis: Problem not documented On 12:45"
--- OUTSIDE RECORDS SUMMARY | 2016-07-01 17:17 | XMS REPORT | Summary of Care ---
Author Author Carlos Neville M.D. Organization Unknown Address [address] [place], [place] [id number] Phone Unavailable Care Team Providers Care Premium Cancellation Clerk Name Role Phone Jon Kirkland, FACS, ,, [...] right lower leg (729.5, M79.661) Status: Active Chronic pain (338.29, G89.29) Status: [...] on:15-Mar-2013 Flulaval Quadrivalent Intramuscular Suspension Lot #: [id number] Administered on:26-Dec-2013 Zostavax 71153 UNT/0.65ML Subcutaneous Solution Reconstituted Lot #: [id number] Administered on:26-Dec-2013 Prevnar 13 Intramuscular Suspension Lot #: [id number] Administered on:21-May-2014 Family History Mother* Name Dates [...] Problem not documented On 07-Jan-2015 13:30 Appointment; Chna Webb Encounter Diagnosis: Problem not documented On [...] not documented On 19-Jun-2014 14:00 Appointment; Javi Luecro Encounter Diagnosis: Problem not documented On 31-May-2014 [...]
--- OUTSIDE RECORDS SUMMARY | 2016-07-01 17:17 | XMS REPORT | Summary of Care ---
Author Author Elijah Dang D.O. Organization Unknown Address [address] [place], [place] [address] Phone Unavailable Care Team Providers Care District Sales Manager Name Role Phone Jon Kirkland, FACS, ,, M Unavailable Unavailable Mena Kirkland, Ritesh Unavailable Unavailable Kelin Kirkland, A Unavailable Unavailable Lena Fountain, Andreia Unavailable Unavailable Alton Davidson, Tomasa Unavailable Unavailable Nixon Kirkland, Lance Unavailable Unavailable Nic Kirkland, G Unavailable Unavailable Paresh Kirkland, T Unavailable Unavailable Carlos Neville PP Unavailable [facility] RP Unavailable Unavailable Unavailable Functional Status Functional [...] TAKE 1 TABLET DAILY. Quantity: 90 Carlos Nevilel M.D.* Started 20-Dec-2012 ActiveDivalproex Sodium ER 500 [...] Refills: 0 Lance Alicea M.D.* Started 19-Aug-2015 Ouaatx1854 ML Bottle Xarelto 20 MG Oral Tablet Take 1 tablet daily * Quantity: 1 Refills: 0 Elijah Dang D.O.* Started Ended ActiveLevofloxacin 500 MG Oral Tablet Take 1 tablet daily * Quantity: 7 Refills: 0 Elijah Dang D.O.* Started Ended Active Allergies and Adverse Reactions Name Dates [...] Lesion Sacral Colonoscopy- Screening or Dx Ordered:07-Aug-2015 Immunization Name Dates Details Pneumo (Pneumovax) Administered on:15-Mar-2013 Flulaval Quadrivalent Intramuscular Suspension Lot #: [id number] Administered on:26-Dec-2013 Zostavax 26081 UNT/0.65ML Subcutaneous Solution Reconstituted Lot #: [id number] Administered on:26-Dec-2013 Prevnar 13 Intramuscular Suspension Lot #: [id number] Administered on:21-May-2014 Tdap (Adacel) Lot #: [id number] Administered on:07-Aug-2015 Family History Mother* Name Dates [...] /min Status: O2 SAT 97 % Status: 07-Aug-2015 13:55 BP Systolic 114 mm[Hg] Status: BP Diastolic 72 mm[Hg] Status: Heart Rate 96 /min Status: O2 SAT 96 % Status: Results Date Description Value Details 05-Aug-2015 11:15 CBC w/ Auto Diff 7150 WBC 9.3 K/uL (Better) Range: 4.5-11.0 RBC 4.86 mil/uL (Better) Range: 4.20-5.40 HGB 14.9 g/dL (Better) Range: 14.0-18.0 HCT 43.7 % (Better) Range: 42.0-53.0 MCV 89.9 fL (Better) Range: 80.0-99.0 MCH 30.7 pg (Better) Range: 27.3-32.5 MCHC 34.2 % (Better) Range: 32.0-36.0 RDW 14.9 % (Above high threshold) Range: 11.6-14.8 PLATELETS 268 K/uL (Better) Range: 150-400 MPV 7.9 fL (Better) Range: 6.0-11.0 %NEUTRO 76.9 % (Better) Range: 37.0-80.0 %LYMPHS 14.2 % (Better) Range: 13.0-50.0 %MONO 6.0 % (Better) Range: 0.0-12.0 %EOS 1.6 % (Better) Range: 0.0-7.0 %BASO 0.2 % (Better) Range: 0.0-2.5 %ENDY 1.0 % (Better) Range: 0.0-5.0 NEUTRO 7.2 K/uL (Above high threshold) Range: 2.0-6.9 LYMPHS 1.3 K/uL (Better) Range: 0.6-3.4 MONOS 0.6 K/uL (Better) Range: 0.0-0.9 EOS 0.2 K/uL (Better) Range: 0.0-0.7 BASO 0.0 K/uL (Better) Range: 0.0-0.2 11:41 Comprehensive Metabolic Panel 1212 SODIUM 136 mmol/L (Better) Range: 133-144 POTASSIUM 3.7 mmol/L (Better) Range: 3.5-5.1 CHLORIDE 99 mmol/L (Better) Range: 98-110 CARBON DIOXIDE 26.8 mmol/L (Better) Range: 23.0-33.0 ANION GAP 10 mmol/L (Better) Range: 6-16 BUN 10 mg/dL (Better) Range: 7-18 CREATININE, SERUM 0.76 mg/dL (Better) Range: 0.70-1.30 Comments: Please note new reference ranges effective 2014.----- BUN:CREATININE RATIO 13 (Better) EST GFR, >60 ml/min (Better) Range: >60 EST GFR, NON-AFR VENEZUELAN >60 ml/min (Better) Range: >60 Comments: EST GFR is reported in ml/min per 1.73 m2 of body surface area. For -Qat[place], please multiple result by 1.2.----- GLUCOSE 99 mg/dL (Better) Range: 70-100 ALK PHOSPHATASE 80 U/L (Better) Range: 46-116 TOTAL BILIRUBIN 0.90 mg/dL (Better) Range: 0.20-1.00 AST 23 U/L (Better) Range: 8-35 ALT 30 U/L (Better) Range: 16-63 Comments: Please note new reference ranges. Effective 06/07/2014.----- ALBUMIN 3.4 g/dL (Better) Range: 3.4-5.0 TOTAL PROTEIN 7.5 g/dL (Better) Range: 6.4-8.2 A/G RATIO 0.8 units (Below low threshold) Range: 1.0-1.8 CALCIUM 8.6 mg/dL (Better) Range: 8.5-10.1 Plan of Care Planned Observations* Name Dates Details Planned Goals not documented Goal Planned Encounters* Appointment; Provider: Calos Yoder On 30-Apr-2016 13:30 * Appointment; Provider: Carlos Neville On 14:00 * Appointment; Provider: Lance Alicea On 08:00 * Appointment; Provider: Chan Webb On 17:00 * Appointment; Provider: Nadiya Dinh On 11-Apr-2015 13:00 * Appointment; Provider: [facility] On 04-Mar-2015 16:30 * Appointment; Provider: Chan Webb On 08-Feb-2014 11:30 * Appointment; Provider: Carlos Neville On 22-Nov-2007 07:00 * Appointment; Provider: Carlos Neville On 20-Nov-2007 07:00 Instructions * Instructions not documented Encounters Appointment; Elijah Dang Encounter Diagnosis: Problem not [...]
--- OUTSIDE RECORDS SUMMARY | 2016-07-01 17:18 | XMS REPORT ---
Author Author GENERATED, SYSTEM Organization Unknown Address Unknown Phone Unavailable Care Team Providers Care Weekend Caregiver Name Role Phone MD NEVILLE TIMOTHY [phone] Reason For Visit Reason for Visit from [...] Smoker Functional Status Functional Status from 12/30/2015 8:05 AM:* LOC [...] MG/DL (65-99 MG/DL) *GFR EST NON AFR EMIRATI >90 ML/MIN *GFR EST AFR AMER >90 [...] MG/DL (65-99 MG/DL) *GFR EST NON AFR EMIRATI 80 ML/MIN *GFR EST AFR AMER >90 [...] MG/DL (65-99 MG/DL) *GFR EST NON AFR EMIRATI 90 ML/MIN *GFR EST AFR AMER >90 [...] MG/DL (65-99 MG/DL) *GFR EST NON AFR EMIRATI >90 ML/MIN *GFR EST AFR AMER >90 [...] H (65-99 MG/DL) *GFR EST NON AFR EMIRATI >90 ML/MIN *GFR EST AFR AMER >90 [...] * Fall Risk Status:Active. Plan of Care Treatment Plan from 12/27/2015 1:08 PM:* Care Management Note : labs and vital signs noted. 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 continues IV Vancomycin. Infectious Disease still following - Minor MANISH states that she talked with Elizabeth FUNES and he maybe able to switch to PO antibiotics on Wednesday and discharge. Treatment Plan from 12/27/2015 10:45 AM:* Care Management Note : MANISH spoke with patient's spouse per phone call regarding options for [place] [facility] [place]. Plan at this time would be for patient to return to [facility] as that is where patient is from currently. Spouse requested that SW look for placement closer to [place] as the distance was wearing on them both. MANISH phoned all facilities in [facility], [facility] and received a no response from them. MANISH made multiple calls to [facility] with no call back. Spouse aware of situation and will continue with plan at this time for patient to return to [place] at discharge. Contact information remains in room, [...] 12/24/2015 10:35 AM:* Care Management Note : MANISH spoke with patient regarding possible needs at discharge. Patient stated that he was a resident at [facility] and he plans to return there at discharge. MANISH phoned [facility] and spoke with [facility] who stated they anticipated being able to readmit patient. MANISH sent per fax requested information to Tari. No other needs or concerns at this time. Contact information left in patient's room, MANISH will continue to assist as needed. Treatment [...] 09/23/2015 8:34 AM * Completed Procedure Code: 75706 Procedure Name: not valued, on 09/23/2015 12: 00 AM * Completed suprapubic catheter insertion, by MD REZA LERMA, on 2013 11:01 AM * Completed Procedure Code: 79486 Procedure Name: not valued, on 02/08/2014 12: 00 AM * Completed , on 10/21/2012 12:00 AM * Completed , on 10/21/2012 12:00 AM Immunizations No immunizations administered or ordered. Hospital Course Hospital Discharge Instructions How to care for yourself at home from 12/30/2015 12:11 PM:* Call your doctor if: : Fever over 101 F or severe chills,Chest pain or other unexplained symptoms, Tingling or numbness develops,A sudden increase or decrease in weight,You have persistent or worsening symptoms,If you have Heart Failure and you gain 3 pounds within 1 week or your symptoms worsen. (Weigh at home tomorrow morning) Allergies, Adverse Reactions, Alerts * naproxen causes [...] the responsibility of the patient or patient jewelry sales representative to confirm the list of medications [...] tablet oral daily with dinner Changed medications* matvkozd-zvymhlfixJu-hwlshykmK (Triple Antibiotic) 3.5 mg- 400 unit-5,000 unit/gram [...]
--- OUTSIDE RECORDS SUMMARY | 2016-07-01 17:18 | XMS REPORT | Summary of Care ---
Author Author Nic Kirkland, Javi Harrison Unknown Address [address] [place], [place] [address] Phone Unavailable Care Team Providers Care Deli Cutter Slicer Name Role Phone Jon Kirkland, FACS, ,, M Unavailable Unavailable Mena Kirkland, Ritesh Unavailable Unavailable Kelin Kirkland, A Unavailable Unavailable Lena Fountain, Andreia Unavailable Unavailable Nic Kirkland, Henry Unavailable Unavailable Paresh Kirkland, T Unavailable Unavailable Carlos Neville PP Unavailable [facility] [place] Unavailable Unavailable Unavailable Functional Status Functional [...] Status: Active Meningitis (322.9, G03.9) Status: Active Urinary retention (788.20, R33.9) Status: [...] 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, M96.1) Status: Active Affective bipolar disorder (296.80, F31.9) Status: Active Anticoagulant long-term use (V58.61, Z79.01) Status: Active CHF (congestive heart failure) (428.0, I50.9) Status: Active Chronic pain (338.29, G89.29) Status: Active Deep vein thrombosis of lower extremity (453.40, I82.409) Status: Active Opioid dependence (304.00, F11.20) Status: Active Low back pain (724.2, M54.5) Status: Active Degenerative disc disease, lumbar (722.52, M51.36) Status: Active DVT (deep venous thrombosis) (453.40, I82.409) Status: Active Hyperlipidemia (272.4, E78.5) Status: Active Hypertension (401.9, I10) Status: Active 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 * Refills: 0 * Started 02-Aug-2014 ActiveHYDROmorphone HCl - 8 MG Oral Tablet TAKE 1 TABLET EVERY 12 HOURS NEEDED.qty 60 max 2 a day * Quantity: 60 Refills: 0 Javi Lucero M.D.* Started 18-May-2015 ActiveCoumadin 5 MG Oral Tablet TAKE 1 TABLET DAILY. * Refills: 0 Carlos Neville M.D.* Started 19-Apr-2015 ActiveLovenox 120 MG/0.8ML Subcutaneous Solution * Refills: 0 Carlos Neville M.D.* Started 19-Apr-2015 ActiveFetzima 40 MG Oral Capsule Extended Release 24 Hour Take one tablet daily * Refills: 0 Calos Yoder M.D.* Started 01-May-2015 ActiveMS Contin 15 MG Oral Tablet Extended Release USE DIRECTED * Refills: 0 Calos Yoder M.D.* Started [...] of Laminectomy, Excision Intradural Intraspinal Lesion Sacral Drug Screen Pain Management 8400 Ordered:18-Apr-2015 Immunization Name Dates Details Pneumo (Pneumovax) Administered on:15-Mar-2013 Flulaval Quadrivalent Intramuscular Suspension Lot #: [id number] Administered on:26-Dec-2013 Zostavax 86265 UNT/0.65ML Subcutaneous Solution Reconstituted Lot #: [id number] Administered on:26-Dec-2013 Prevnar 13 Intramuscular Suspension Lot #: [id number] Administered on:21-May-2014 Family History Mother* Name Dates Details Family history of malignant neoplasm of breast (V16.3, Z80.3) Status: Active Father* Name Dates Details Family history of acute myocardial infarction (V17.3, Z82.49) Status: Active Family history of Prostate cancer (185, C61) Status: Active Social History Name Dates Details Smoking Status* Former smoker Vital Signs Date Test Result Details 01-May-2015 13:54 BP Systolic 102 mm[Hg] Status: BP Diastolic 70 mm[Hg] Status: Heart Rate 80 /min Status: Height 73 in Status: Weight 266 lb Status: Body Mass Index Calculated 35.09 kg/m2 Status: Body Surface Area Calculated 2.43 m2 Status: 11-Apr-2015 10:55 BP Systolic 109 mm[Hg] Status: BP Diastolic 62 mm[Hg] Status: Temperature 97.3 f Status: Heart Rate 96 /min Status: Respiration Rate 18 /min Status: Weight 274 lb Status: Results Date Description Value Details 22-Apr-2015 11:38 Drug Screen PM, Alcohol Metabolites [id number] Comments: [place] performed at: [facility], [address], [place], [address], Checker/Stocker: Kiersten Zuluaga Ph.D.[facility] Collection Date/Time: Results Received Date/Time: [id number] Reported Date/Time: Alcohol Metabolites NEGATIVE ng/mL (Better) Range: <500 Comments: [AP]----- Please note: SEE NOTE (Better) Comments: * These results are for medical treatment only Analysis was performed as non-forensic testing *For assistance with interpreting these drug results,please contact a [place] ToxicologySpecialist: [phone] ( ),M-F, 8am-6pm EST.[AP]----- 15:24 PROTIME PANEL 7000 PROTIME 15.1 secs (Above high threshold) Range: 12.0-14.9 INR 1.20 (Better) 16:47 Drug Screen PM, Tramadol [id number] Comments: [place] [facility] at: , [facility], [address] [place] [address], [address], [place], [address], Checker/Stocker: Kiersten Zuluaga Ph.D.[facility] Collection Date/Time: [id number] Results Received Date/Time : [id number] Reported Date/Time: [id number] performed at: , [facility], [address] [place] [address], [address], [place], [address], Checker/Stocker: Kiersten Zuluaga Ph.D.[facility] Collection Date/Time: [id number] Results Received Date/Time : [id number] Reported Date/Time: Desmethyltramadol NEGATIVE ng/mL (Better) Range: <100 Comments: [AP]----- Tramadol NEGATIVE ng/mL (Better) Range: <100 Comments: [AP]----- 23-Apr-2015 08:36 Drug Screen PM, Meperidine [id number] Comments: [facility] performed at: , [facility], [address] [place] [address], [address], [place], [address], Checker/Stocker: Kiersten Zuluaga Ph.D.[facility] Collection Date/Time: [id number] Results Received Date/Time: [id number] Reported Date/Time: [id number] performed at: , [facility], [address] [place] [address], [address], [place], [address], Checker/Stocker: Kiersten Zuluaga Ph.D.[facility] Collection Date/Time: [id number] Results Received Date/Time: [id number] Reported Date/Time: [id number] performed at: , [facility], [address] [place] [address], [address], [place], [address], Checker/Stocker: Kiersten Zuluaga Ph.D.[facility] Collection Date/Time: [id number] Results Received Date/Time: [id number] Reported Date/Time: Meperidine NEGATIVE ng/mL (Better) Range: <100 Comments: [AP]----- Normeperidine NEGATIVE ng/mL (Better) Range: <100 Comments: [AP]----- 14:55 Drug Screen PM, Fentanyl [id number] Comments: [facility] performed at: [facility], [address] [place] [address], [address], [place], [address], Checker/Stocker: Avaz Ph.D.[facility] Collection Date/Time: [id number] Results Received Date/Time : [id number] Reported Date/Time: [id number] performed at: [facility], [address] [place] [address], [address], [place], [place], [address] [place] [address], Checker/Stocker: Avaz Ph.D.[facility] Collection Date/Time: [id number] Results Received Date/Time : [id number] Reported Date/Time: [id number] performed at: [facility], [address] [place] [address], [address], [place], [address], Checker/Stocker: Avaz Ph.D.[facility] Collection Date/Time: [id number] Results Received Date/Time : [id number] Reported Date/Time: [id number] performed at: [facility], [address] [place] [address], [address], [place], [address], Checker/Stocker: Avaz Ph.D.[facility] Collection Date/Time: [id number] Results Received Date/Time : [id number] Reported Date/Time: [id number] Fentanyl NEGATIVE ng/mL (Better) Range: <0.5 Comments: [AP]----- Norfentanyl NEGATIVE ng/mL (Better) Range: <0.5 Comments: [AP]----- 24-Apr-2015 09:01 Drug Screen PM Profile 1 [id number] Comments: [facility] performed at: [facility], [address] [place] [address], [address], [place], [address], Checker/Stocker: Kiersten Zuluaga Ph.D.[facility] Collection Date/Time: [id number] Results Received Date/Time: [id number] Reported Date/Time: [id number] performed at: , [facility], [address] [place] [address], [address], [place], [place], [address] [place] [address], Checker/Stocker: Kiersten Zuluaga Ph.D.[facility] Collection Date/Time: [id number] Results Received Date/Time: [id number] Reported Date/Time: [id number] performed at: , [facility], [address] [place] [address], [address], [place], [place], [address] [place] [address], Checker/Stocker: Kiersten Zuluaga Ph.D.[facility] Collection Date/Time: [id number] Results Received Date/Time: [id number] Reported Date/Time: [id number] performed at: , [facility], [address] [place] [address], [address], [place], [place], [address] [place] [address], Checker/Stocker: Kiersten Zuluaga Ph.D.[facility] Collection Date/Time: [id number] Results Received Date/Time: [id number] Reported Date/Time: [id number] performed at: [facility], [address] [place] [address], [address], [place], [place], [address] [place] [address], Checker/Stocker: Kiersten Zuluaga Ph.D.[facility] Collection Date/Time: [id number] Results Received Date/Time: [id number] Reported Date/Time: [id number] Management Profile 1 w/ Confirmation, Urine Drug 1 MorphinePain Management Profile 1 w/ Confirmation, Urine Drug 2 DilaudidPain Management Profile 1 w/ Confirmation, Urine Drug 3 No Answer GivenPain Management Profile 1 w/ Confirmation, Urine Drug 4 No Answer GivenPain Management Profile 1 w/ Confirmation, Urine Drug 5 No Answer Given Prescribed Drug 1 Morphine (Better) Comments: [AP]----- Prescribed Drug 2 Dilaudid(TM) (Better) Comments: [AP]----- Creatinine 42.2 mg/dL (Better) Range: > or=20.0 Comments: [AP]----- pH 6.99 (Better) Range: 4.5 - 9.0 Comments: [AP]----- Oxidant NEGATIVE mcg/mL (Better) Range: <200 Comments: [AP]----- Amphetamines NEGATIVE ng/mL (Better) Range: <500 Comments: [AP]----- medMATCH Amphetamines CONSISTENT (Better) Comments: [AP]----- Barbiturates NEGATIVE ng/mL (Better) Range: <300 Comments: [AP]----- medMATCH Barbiturates CONSISTENT (Better) Comments: [AP]----- Benzodiazepines NEGATIVE ng/mL (Better) Range: <100 Comments: [AP]----- medMATCH Benzodiazepines CONSISTENT (Better) Comments: [AP]----- Marijuana Metabolite NEGATIVE ng/mL (Better) Range: <20 Comments: [AP]----- medMATCH Marijuana Metab CONSISTENT (Better) Comments: [AP]----- Cocaine Metabolite NEGATIVE ng/mL (Better) Range: <150 Comments: [AP]----- medMATCH Cocaine Metab CONSISTENT (Better) Comments: [AP]----- Methadone NEGATIVE ng/mL (Better) Range: <100 Comments: [AP]----- medMATCH Methadone CONSISTENT (Better) Comments: [AP]----- Opiates POSITIVE ng/mL (Abnormal) Range: <100 Comments: [AP]----- Codeine NEGATIVE ng/mL (Better) Range: <50 Comments: [AP]----- medMATCH Codeine CONSISTENT (Better) Comments: [AP]----- Hydrocodone NEGATIVE ng/mL (Better) Range: <50 Comments: [AP]----- medMATCH Hydrocodone CONSISTENT (Better) Comments: [AP]----- Hydromorphone 1266 ng/mL (Above high threshold) Range: <50 Comments: [AP]----- medMATCH Hydromorphone CONSISTENT (Better) Comments: Hydromorphone is a metabolite of hydrocodone as wellas a prescribed drug.[AP]----- Morphine 6877 ng/mL (Above high threshold) Range: <50 Comments: [AP]----- medMATCH Morphine CONSISTENT (Better) Comments: Morphine is a metabolite of codeine as well as a prescribed drug.Low concentrations of morphine have been observed followingingestion of products containing poppy seeds.[AP]----- Norhydrocodone NEGATIVE ng/mL (Better) Range: <50 Comments: [AP]----- medMATCH Norhydrocodone CONSISTENT (Better) Comments: [AP]----- Oxycodone NEGATIVE ng/mL (Better) Range: <100 Comments: [AP]----- medMATCH Oxycodone CONSISTENT (Better) Comments: [AP]----- Phencyclidine NEGATIVE ng/mL (Better) Range: <25 Comments: [AP]----- medMATCH Phencyclidine CONSISTENT (Better) Comments: [AP]----- COMMENT SEE NOTE (Better) Comments: medMATCH comments are: - present when drug test results may be the result of metabolism of one or more drugs or when results are inconsistent with prescribed medication(s) listed. - may be blank when drug results are consistent with prescribed medication(s) listed.[AP]----- 29-Apr-2015 10:29 PROTIME PANEL 7000 PROTIME 30.8 secs (Above high threshold) Range: 12.0-14.9 INR 2.94 (Better) 01-May-2015 08:48 PROTIME PANEL 7000 PROTIME 36.0 secs (Above high threshold) Range: 12.0-14.9 INR 3.57 (Better) Plan of Care Planned Observations* Name Dates Details Planned Goals not documented Goal Planned Encounters* Appointment; Provider: Calos Yoder On 30-Apr-2016 13:30 * Appointment; Provider: Carlos Neville On 10-Jul-2015 13:30 * Appointment; Provider: Javi Lucero On 11-Jun-2015 13:30 * Appointment; Provider: Javi Lucero On 21-May-2015 15:00 * Appointment; Provider: Nadiya Dinh On 11-Apr-2015 13:00 * Appointment; Provider: [facility] On 04-Mar-2015 16:30 * Appointment; Provider: Chan Webb On 08-Feb-2014 11:30 * Appointment; Provider: Carlos Neville On 22-Nov-2007 07:00 * Appointment; Provider: Carlos Neville On 20-Nov-2007 07:00 Instructions * Instructions not documented Encounters Appointment; Calos Yoder Encounter Diagnosis: Problem not [...]
--- OUTSIDE RECORDS SUMMARY | 2016-07-01 17:18 | XMS REPORT | Summary of Care ---
Author Author Grazyna HUNTER, Carmine Organization Unknown Address [address] [place], [place] [id number] Phone Unavailable Care Team Providers Care Loan Closer Name Role Phone Jon Kirkland, BEREKET, ,, M Unavailable Unavailable Emil VEGAS, Archana Unavailable Unavailable Mena Kirkland, Ritesh Unavailable Unavailable Kelin Kirkland, A Unavailable Unavailable Nixon Kirkland, Lance Unavailable Unavailable Carmine Geronimo DPM Unavailable Unavailable Nic Kirkland, G Unavailable Unavailable Paresh Kirkland, T Unavailable Unavailable Carlos Neville Unavailable Unavailable [facility] ([place]) Unavailable Unavailable Unavailable Unavailable Functional Status Name [...] Ritesh San M.D. * Start 20-Dec-2012 Active Furosemide 80 MG Oral Tablet Take [...] M.D. * Start Active 30 ML Bottle Klor-Con M20 20 MEQ Oral Tablet Extended Release TAKE 2 TABLET Daily * Quantity: 60 Refills: 11 Ritesh San M.D. * Start 15-Mar-2013 Active Allergies and Adverse Reactions Name Dates [...] 15-Mar-2013 Flulaval Quadrivalent Intramuscular Suspension Lot #: [id number] on: 26-Dec-2013 Zostavax 75461 UNT/0.65ML Subcutaneous Solution Reconstituted Lot #: [id number] on: 26-Dec-2013 Prevnar 13 Intramuscular Suspension Lot #: [id number] on: 21-May-2014 Tdap (Adacel) Lot #: [id number] on: 07-Aug-2015 Family History Name Dates Details [...] IN HOUSECALL FOLDER. TO BE DRAWN AT [facility] WBC 5.9 K/uL Range: 4.5-11.0 RBC 4.89 [...] IN HOUSECALL FOLDER. TO BE DRAWN AT [facility] C REACTIVE PROTEIN 2.7 mg/dL (Above high [...] >60 ml/min Range: >60 EST GFR, NON-AFR TONGAN >60 ml/min Range: >60 Comments: EST GFR [...] 17-Apr-2016 11:30 Appointment; Provider: Chan Webb M.D.|BEREKET Estrada|BEERKET Kirkland, On 02-Mar-2016 17:15 Appointment; Provider: Carlos Neville M.D. On 10-Feb-2016 13:00 Instructions Name Dates Details Instructions not documented Encounters Appointment; Carmine Geronimo DPM Encounter Diagnosis: Problem not documented On 31-Jan-2016 13:30 Appointment; Chan Webb M.D.|F.A.C.S.|Marita,BEREKET|Marita,BEREKET, Encounter Diagnosis: Problem not documented On 27-Jan-2016 13:30 Appointment; Carlos Neville M.D. Encounter Diagnosis: Problem not documented On 14-Jan-2016 13:30 Appointment; Chan Webb M.D.|F.A.C.S.|Marita,BEREKET|Marita,BEREKET, Encounter Diagnosis: Problem not documented On 23-Dec-2015 13:30 Appointment; Carlos Neville M.D. Encounter Diagnosis: Problem not documented On 03-Dec-2015 13:30 Appointment; Carlos Neville M.D. Encounter Diagnosis: Problem not documented On 18-Nov-2015 14:15 Appointment; Chan Webb M.D.|F.A.C.S.|Marita,BEREKET|Marita,BEREKET, Encounter Diagnosis: Problem not documented On 18-Nov-2015 13:30 Appointment; Chan Webb M.D.|F.A.C.S.|Marita,JOHANNE,BEREKET, Encounter Diagnosis: Problem not documented On 10:45 Appointment; Chan Webb M.D.|F.A.C.S.|MAkhilDAkhil,BEREKET|Marita,BEREKET, Encounter Diagnosis: Problem not documented On 06:45 Appointment; Carlos Neville M.D. Encounter Diagnosis: Problem not documented On 14:00 Appointment; Chan Webb M.D.|F.A.C.S.|MEun,JOHANNE,BEREKET, Encounter Diagnosis: Problem not documented On 09:30 Appointment; Chan Webb M.D.|F.A.C.S.|MAkhilDAkhil,BEREKET|Marita,BEREKET, Encounter Diagnosis: Problem not documented On 17:00 [...] documented On 18-Apr-2015 09:30 Appointment; Chan Webb M.D.|F.A.C.S.|MEun,JOHANNE,BEREKET, Encounter Diagnosis: Problem not documented On 01-Apr-2015 07:30 Appointment; Javi Lucero M.D. Encounter Diagnosis: Problem not documented On 12-Mar-2015 13:30 Appointment; Misael Colbert M.D. Encounter Diagnosis: Problem not documented On 04-Mar-2015 15:55 Appointment; Chan Webb M.D.|F.A.C.S.|MEun,BEREKET|Marita,BEREKET, Encounter Diagnosis: Problem not documented On 28-Feb-2015 07:15 Appointment; Chan Webb M.D.|F.A.C.S.|M.D.,BEREKET|Marita,BEREKET, Encounter Diagnosis: Problem not documented On 29-Jan-2015 [...] Diagnosis: Problem not documented On 14:45 Appointment; Cahn Webb M.D.|F.A.C.S.|MAkhilDAkhil,BEREKET|MEun,BEREKET, Encounter Diagnosis: Problem not documented On 07:15 [...] documented On 02-Aug-2014 11:15 Appointment; Chan Webb M.D.|F.A.C.S.|MEun,BEREKET|Marita,BEREKET, Encounter Diagnosis: Problem not documented On 10-Jul-2014 07:00 Appointment; Carlos Neville M.D. Encounter Diagnosis: Problem not documented On 29-Jun-2014 13:15 Appointment; Chan Webb M.D.|Logan.Nataly.C.S.|Marita,BEREKET|Marita,BEREKET, Encounter Diagnosis: Problem not documented On 21-Jun-2014 [...]
--- OUTSIDE RECORDS SUMMARY | 2016-07-01 17:18 | XMS REPORT | Summary of Care ---
Author Author Nic Kirkland, Javi Harrison Unknown Address [address] [place], [place] [id number] Phone Unavailable Care Team Providers Care Barrel Racer Name Role Phone Jon Kirkland, FACS, ,, [...] (deep venous thrombosis) (453.40, I82.409) Status: Active Medications Name Dates [...] per day*Must last [address] Luceor. * Quantity: 120 Refills: 0 Javi Lucero M.D.* Started 01-Feb-2013 [...] DAY NEEDED * Quantity: 90 Refills: 0 Javi Lucero M.D.* Started 13-Feb-2014 ActiveAmitiza 24 [...] on:15-Mar-2013 Flulaval Quadrivalent Intramuscular Suspension Lot #: [id number] Administered on:26-Dec-2013 Zostavax 07168 UNT/0.65ML Subcutaneous Solution Reconstituted Lot #: [id number] Administered on:26-Dec-2013 Prevnar 13 Intramuscular Suspension Lot #: [id number] Administered on:21-May-2014 Family History Mother* Name Dates [...]
--- OUTSIDE RECORDS SUMMARY | 2016-07-01 17:19 | XMS REPORT | Summary of Care ---
Author Author Kelin Kirkland, Carlos Ingram Organization Unknown Address [address] [place], [place] [address] Phone Unavailable Care Team Providers Care Direct Of Real Estate Name Role Phone Jon Kirkland, FACS, ,, M Unavailable Unavailable Mena Kirkland, Ritesh Unavailable Unavailable Kelin Kirkland, Nataly Unavailable Unavailable Lena Fountain, Andreia Unavailable Unavailable Alton Davidson, L Unavailable Unavailable Nixon Kirkland, Lacne Unavailable Unavailable Nic Kirkland, G Unavailable Unavailable Paresh Kirkland, T Unavailable Unavailable Carlos Neville PP Unavailable [facility] Unavailable Unavailable Unavailable Functional Status Functional [...] twice daily * Quantity: 60 Refills: 11 Ritseh San M.D.* Started 19-Jun-2013 ActiveMorphine Sulfate ER [...] Refills: 0 Lance Alicea M.D.* Started 19-Aug-2015 Egodit7065 ML Bottle Xarelto 20 MG Oral Tablet Take 1 tablet daily * Quantity: 1 Refills: 0 Elijah Dang D.O.* Started Ended ActiveLevofloxacin 500 MG Oral Tablet Take 1 tablet daily * Quantity: 7 Refills: 0 Elijah Dang D.O.* Started Ended ActivePEG 3350/Electrolytes 240 GM Oral Solution Reconstituted TAKE DIRECTED. * Quantity: 1 Refills: 0 Lance Alicea M.D.* Started Lryqgm2228 ML Bottle Simethicone 40 MG/0.6ML Oral Suspension TAKE DIRECTED. * Quantity: 1 Refills: 0 Lance Alicea M.D.* Started Jwqcxi36 ML Bottle Allergies and Adverse Reactions Name [...] on:15-Mar-2013 Flulaval Quadrivalent Intramuscular Suspension Lot #: [id number] Administered on:26-Dec-2013 Zostavax 20112 UNT/0.65ML Subcutaneous Solution Reconstituted Lot #: [id number] Administered on:26-Dec-2013 Prevnar 13 Intramuscular Suspension Lot #: [id number] Administered on:21-May-2014 Tdap (Adacel) Lot #: [id number] Administered on:07-Aug-2015 Family History Mother* Name Dates [...] not documented On 01-Apr-2015 07:30 Appointment; Javi Luecro Encounter Diagnosis: Problem not documented On 12-Mar-2015 [...]
--- OUTSIDE RECORDS SUMMARY | 2016-07-01 17:19 | XMS REPORT | Continuity of care Document ---
Author Author GENERATED, SYSTEM Organization Unknown Address Unknown Phone Unavailable Purpose Hospital Course Allergies, Adverse Reactions, Alerts * Latex causes Unknown. Onset unsure. * Keflex causes unspecified. * Novocain causes unspecified. * IV Contrast Allergy has not been assessed. * No Known Food Allergies. Problems * Edema Status:Active. * Edema of Lower Extremity Status:Active. Procedures No relevant procedures performed. Medication Medication reconciliation has not been performed. Results
--- OUTSIDE RECORDS SUMMARY | 2016-07-01 17:19 | XMS REPORT | Summary of Care ---
Author Author Nadiya Timmons Unknown Address [address] [place], [place] [id number] Phone Unavailable Care Team Providers Care Icd 9 Coder Name Role Phone Jon Kirkland, FACS, ,, M Unavailable Unavailable Mena Kirkland, Ritesh Unavailable Unavailable Kelin Kirkland, A Unavailable Unavailable Lena Fountain, Andreia Unavailable Unavailable Nic Kirkland, G Unavailable Unavailable Paresh Kirkland, T Unavailable Unavailable Carlos Neville PP Unavailable [facility] ([place]) Unavailable Unavailable Unavailable Functional Status Functional [...] (deep venous thrombosis) (453.40, I82.409) Status: Active Affective bipolar disorder (296.80, F31.9) [...] 60 Refills: 0 Javi Lucero M.D.* Started 18-Apr-2015 ActiveCoumadin 5 MG Oral Tablet TAKE 1 TABLET DAILY. * Refills: 0 Carlos Neville M.D.* Started 19-Apr-2015 ActiveLovenox 120 MG/0.8ML Subcutaneous Solution * Refills: 0 Carlos Neville M.D.* Started 19-Apr-2015 Active Allergies and Adverse Reactions Name Dates [...] Sacral Drug Screen Pain Management 8400 Ordered:18-Apr-2015 PROTIME PANEL 7000 Ordered:22-Apr-2015 Immunization Name Dates Details Pneumo (Pneumovax) Administered on:15-Mar-2013 Flulaval Quadrivalent Intramuscular Suspension Lot #: [id number] Administered on:26-Dec-2013 Zostavax 35163 UNT/0.65ML Subcutaneous Solution Reconstituted Lot #: [id number] Administered on:26-Dec-2013 Prevnar 13 Intramuscular Suspension Lot #: [id number] Administered on:21-May-2014 Family History Mother* Name Dates [...] 22-Apr-2015 11:38 Drug Screen PM, Alcohol Metabolites [id number] Comments: Oncopeptides performed at: [facility] [address], [place], [address], Beef Ribber: Kiersten Zuluaga Ph.D.Quest Collection Date/Time: [id number] Results Received Date/Time: [id number] Reported Date/Time: Alcohol Metabolites NEGATIVE ng/mL (Better) Range: <500 Comments: [AP]----- Please note: SEE NOTE (Better) Comments: * These results are for medical treatment only Analysis was performed as non-forensic testing *For assistance with interpreting these drug results,please contact a [facility] ToxicologySpecialist: [phone] ( ),M-F, 8am-6pm EST.[AP]----- Plan of Care Planned Observations* Name Dates Details Planned Goals not documented Goal Planned Encounters* Appointment; Provider: Carlos Neville On 10-Jul-2015 13:30 * Appointment; Provider: Javi Lucero On 11-Jun-2015 13:30 * Appointment; Provider: Chan Webb On 02-May-2015 06:45 * Appointment; Provider: Calos Yoder On 01-May-2015 13:45 * Appointment; Provider: Nadiya Dinh On 11-Apr-2015 [...]
--- OUTSIDE RECORDS SUMMARY | 2016-07-01 17:19 | XMS REPORT | Continuity of care Document ---
Author Author GENERATED, SYSTEM Organization Unknown Address Unknown Phone Unavailable Purpose Hospital Course Allergies, Adverse Reactions, Alerts * Keflex causes unspecified. * Novocain causes unspecified. * Latex Allergy has not been assessed. * IV Contrast Allergy has not been assessed. * No Known Food Allergies. Problems No relevant problems exist. Procedures No relevant procedures performed. Medication Medication reconciliation has not been performed. Results CT Scan from 07/08/2013 2:19 [facility] CEREBRAL W/O CONTRAST DATE OF EXAM: Jul 08 2013 3:08AM Proc: CT 0001 - CT CEREBRAL W/O CONTRAST CPT Code(s): 67086-; ; ; INDICATION / CLINICAL HISTORY: \E\Head pain, fall FINDINGS: There is no evidence of intracranial mass, midline shift or abnormal extraaxial fluid collection. There is no evidence of cerebral edema, hydrocephalus, intracranial hemorrhage or evidence of acute infarct. The bony structures appear intact without evidence of acute fracture. The mastoid air cells and visualized paranasal sinuses appear clear. IMPRESSION: Unremarkable CT of the head. CT Scan from 07/08/2013 3:35 [facility] SPINE LUMBAR W/O CONTRAST DATE OF EXAM: Jul 08 2013 4:25AM Proc: CT 0062 - CT SPINE LUMBAR W/O CONTRAST CPT Code(s): 82759-; ; ; INDICATION / CLINICAL HISTORY: Fall and back pain. FINDINGS: There are postsurgical changes of laminectomy at L4 and L5 with posterior spinal fixation of L4 through S1. There is graft material at L5-S1 with persistent lucency between the graft material and inferior endplate of L5. The surgical hardware appears intact. 1. L3-L4, there is mild generalized disk bulging without significant spinal stenosis. 2. At L4-L5, there is mild to moderate foraminal stenosis secondary to disk bulging and hypertrophic facet disease. There are postsurgical changes of laminectomy and fusion without significant central spinal stenosis. 3. At L5-S1, there is moderate left and mild right neuroforaminal stenosis owing to disk bulging and hypertrophic facet disease. There are postsurgical changes of laminectomy and fusion without significant central spinal stenosis. IMPRESSION: 1. Note is made of tortuous vessel in the expected location of the IVC. 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 The possibility of collateral vessels owing to IVC obstruction, is less likely, however, is not excluded. Correlation with CT of the abdomen and pelvis with contrast could be obtained for further evaluation as clinically indicated. 2. No evidence of acute fracture or subluxation. 3. Postsurgical changes of posterior spinal fixation of L4 through S1. There is incomplete fusion of the graft material and inferior plate of L5 noted. END VIEW: CT SPINE THORACIC W/O CONTRAST DATE OF EXAM: Jul 08 2013 4:25AM Proc: CT 0072 - CT SPINE THORACIC W/O CONTRAST CPT Code(s): 95725-; ; ; INDICATION / CLINICAL HISTORY: Fall and back pain. FINDINGS: Alignment and vertebral body heights are within normal limits. There is no evidence of acute fracture or subluxation. There is mild degenerative disk disease at T10-T11 without significant spinal stenosis. Note is made of prominent azygos and hemiazygos veins. This is of uncertain etiology on this study. IMPRESSION: 1. No evidence of acute fracture or subluxation. 2. 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 Other pathologic causes of azygos dilatation such as congestive heart failure, constrictive pericarditis, IVC obstruction, portal hypertension or right ventricular strain in tricuspid insufficiency are less likely, but not entirely excluded. END VIEW: DX Radiology from 07/08/2013 3:34 AMPELVIS 1/2 VIEWS DATE OF EXAM: Jul 08 2013 4:08AM Proc: DG 0084 - PELVIS 1/2 VIEWS CPT Code(s): 61338-; ; ; INDICATION / CLINICAL HISTORY: Fall FINDINGS: There are postsurgical changes of bilateral hip arthroplasties, which appear intact. No acute fracture or dislocation is seen. There are also postsurgical changes of lumbosacral spinal fusion. IMPRESSION: 1. No evidence of acute fracture or dislocation. 2. Intact bilateral hip arthroplasty.
[2016-07-01] MEDS ORDERED: ACET325T51 PO (17:20)
--- OUTSIDE RECORDS SUMMARY | 2016-07-01 17:20 | XMS REPORT ---
Author Author GENERATED, SYSTEM Organization Unknown Address Unknown Phone Unavailable Care Team Providers Care Maintenance Mechanic Supervisor Name Role Phone MD BRYSON, RUDI PP [phone] Reason For Visit Chief Complaint DISLODGED CATHETER Social History Functional Status Vital Signs Results Problems Encounter Diagnosis No relevant problems exist. Additional Problems * Edema Status:Active. * Edema of Lower Extremity Status:Active. Encounters Encounter Diagnosis No relevant problems exist. Plan of Care Procedures No relevant procedures performed. Immunizations No immunizations administered or ordered. Hospital Course Hospital Discharge Instructions Allergies, Adverse Reactions, Alerts * Latex causes Unknown. Onset unsure. * Keflex causes unspecified. * Novocain causes unspecified. * IV Contrast Allergy has not been assessed. * No Known Food Allergies. Medication Medication reconciliation has not been performed.
--- OUTSIDE RECORDS SUMMARY | 2016-07-01 17:20 | XMS REPORT | Summary of Care ---
Author Author Kelin Kirkland, Carlos Ingram Organization Unknown Address [address] [place], [place] [address] Phone Unavailable Care Team Providers Care Fire Crew Worker Name Role Phone Musa Webb Unavailable Unavailable Emil VEGAS, Archana Unavailable Unavailable Mena Kirkland, Ritesh Unavailable Unavailable Kelin Kirkland, Nataly Unavailable Unavailable Nixon Kirkland, Lance Unavailable Unavailable Nic Kirkland, G Unavailable Unavailable Paresh Kirkland, T Unavailable Unavailable Carlos Neville Unavailable Unavailable [facility] ([place]) Unavailable Unavailable Unavailable Unavailable Functional Status Name [...] TABLET DAILY. Quantity: 90 Carlos Neville M.D. Start 20-Dec-2012 Active Divalproex Sodium ER 500 [...] FOOD. * Quantity: 60 Refills: 6 Paresh Kirkland Calos Herrera * Start 20-Feb-2014 Active Methenamine [...] 15-Mar-2013 Flulaval Quadrivalent Intramuscular Suspension Lot #: [id number] on: 26-Dec-2013 Zostavax 44160 UNT/0.65ML Subcutaneous Solution Reconstituted Lot #: [id number] on: 26-Dec-2013 Prevnar 13 Intramuscular Suspension Lot #: [id number] on: 21-May-2014 Tdap (Adacel) Lot #: [id number] on: 07-Aug-2015 Family History Name Dates Details [...] On 06-May-2016 13:30 Appointment; Provider: Chan Webb M.D., FACS, On 06-May-2016 07:30 Interventions Provided Medication Changes* [...] documented On 25-Dec-2014 07:00 Appointment; Andreia Paredes, P.AAkhil Encounter Diagnosis: Problem not documented On 04-Dec-2014 11:30 Appointment; Chan Webb M.D.,BEREKET, Encounter Diagnosis: Problem not documented On 23-Nov-2014 17:15 Appointment; Chan Webb M.D.,BEREKET, Encounter Diagnosis: Problem not documented On 12:45 Appointment; Carlos Neville M.D. Encounter Diagnosis: Problem not documented On 14:45 Appointment; Chan Webb M.D.,BEREKET, Encounter Diagnosis: Problem not documented On 07:15 Appointment; Andreia Paredes, P.AAkhil Encounter Diagnosis: Problem not documented On 13:15 Appointment; Andreia Paredes, P.AAkhil Encounter Diagnosis: Problem not documented On 11:30 Appointment; Carlos Neville M.D. Encounter Diagnosis: Problem not documented On 13:30 Appointment; Chan Webb M.D.,BEREKET, Encounter Diagnosis: Problem not documented On 16-Aug-2014 07:00 Appointment; Carlos Neville M.D. Encounter Diagnosis: Problem not documented On 02-Aug-2014 11:15 Appointment; Chan Webb M.D., FACS, Encounter Diagnosis: Problem not documented On 10-Jul-2014 [...]
--- OUTSIDE RECORDS SUMMARY | 2016-07-01 17:20 | XMS REPORT | Summary of Care ---
Author Author Kelin Kirkland, Carlos Ingram Organization Unknown Address [address], [place] [address] Phone Unavailable Care Team Providers Care Sample Wrapper Name Role Phone Jon Kirkland, FACS, ,, M Unavailable Unavailable Emil VEGAS, Archana Unavailable Unavailable Mena Kirkland, Ritesh Unavailable Unavailable Kelin Kirkland, A Unavailable Unavailable Lena Fountain, Andreia Unavailable Unavailable Nixon Kirkland, Lance Unavailable Unavailable Nic Kirkland, G Unavailable Unavailable Paresh Kirkland, T Unavailable Unavailable Carlos Neville Unavailable Unavailable [facility] ([place]) Unavailable Unavailable Unavailable Unavailable Functional Status Name [...] Status: Active Constipation (564.00, K59.00) Status: Active Depression (311, F32.9) Status: Active [...] of Laminectomy, Excision Intradural Intraspinal Lesion Sacral Urinalysis, Reflex to Microscopic or Culture PRN [id number] Ordered: 21-Nov-2015 Immunization Name Dates Details Pneumo (Pneumovax) on: 15-Mar-2013 Flulaval Quadrivalent Intramuscular Suspension Lot #: [id number] on: 26-Dec-2013 Zostavax 80703 UNT/0.65ML Subcutaneous Solution Reconstituted Lot #: [id number] on: 26-Dec-2013 Prevnar 13 Intramuscular Suspension Lot #: [id number] on: 21-May-2014 Tdap (Adacel) Lot #: [id number] on: 07-Aug-2015 Family History Name Dates Details Family history of malignant neoplasm of breast (V16.3, Z80.3) Status: Active Name Dates Details Family history of acute myocardial infarction (V17.3, Z82.49) Status: Active Family history of Prostate cancer (185, C61) Status: Active Social History Name Dates Details - Status: Name Dates Details Former smoker Vital Signs Date Test Result Details 03-Dec-2015 13:05 BP Systolic 112 mm[Hg] Status: Comments: Location: ; Position: BP Diastolic 68 mm[Hg] Status: Comments: Location: ; Position: Heart Rate 88 /min Status: Comments: Location: ; Physical Findings 96 Status: Comments: O2 Saturation 18-Nov-2015 14:03 BP Systolic 130 mm[Hg] Status: Comments: Location: ; Position: BP Diastolic 84 mm[Hg] Status: Comments: Location: ; Position: Heart Rate 86 /min Status: Comments: Location: ; Physical Findings 97 Status: Comments: O2 Saturation Results Date Description Value Details 03-Dec-2015 12:39 ECG/ EKG Preop Electro CardioGram 12:59 CBC w/ Auto Diff 7150 WBC 5.5 K/uL Range: 4.5-11.0 RBC 5.08 mil/uL Range: 4.20-5.40 HGB 15.4 g/dL Range: 14.0-18.0 HCT 46.3 % Range: 42.0-53.0 MCV 91.1 fL Range: 80.0-99.0 MCH 30.4 pg Range: 27.3-32.5 MCHC 33.3 % Range: 32.0-36.0 RDW 14.7 % Range: 11.6-14.8 PLATELETS 385 K/uL Range: 150-400 MPV 7.8 fL Range: 6.0-11.0 %NEUTRO 64.4 % Range: 37.0-80.0 %LYMPHS 22.9 % Range: 13.0-50.0 %MONO 7.5 % Range: 0.0-12.0 %EOS 2.7 % Range: 0.0-7.0 %BASO 0.5 % Range: 0.0-2.5 %ENDY 2.0 % Range: 0.0-5.0 NEUTRO 3.5 K/uL Range: 2.0-6.9 LYMPHS 1.3 K/uL Range: 0.6-3.4 MONOS 0.4 K/uL Range: 0.0-0.9 EOS 0.2 K/uL Range: 0.0-0.7 BASO 0.0 K/uL Range: 0.0-0.2 13:03 PROTIME PANEL 7000 PROTIME 14.4 secs Range: 12.0-14.9 INR 1.13 13:03 PTT 7500 PTT 31.0 secs Range: 23.0-34.7 13:34 Comprehensive Metabolic Panel 1212 SODIUM 137 mmol/L Range: 133-144 POTASSIUM 3.6 mmol/L Range: 3.5-5.1 CHLORIDE 100 mmol/L Range: 98-110 CARBON DIOXIDE 30.3 mmol/L Range: 23.0-33.0 ANION GAP 7 mmol/L Range: 6-16 BUN 12 mg/dL Range: 7-18 CREATININE, SERUM 0.84 mg/dL Range: 0.70-1.30 Comments: Please note new reference ranges effective 2014.----- BUN:CREATININE RATIO 14 EST GFR, >60 ml/min Range: >60 EST GFR, NON-AFR LUXEMBOURGER >60 ml/min Range: >60 Comments: EST GFR is reported in ml/min per 1.73 m2 of body surface area. ----- GLUCOSE 103 mg/dL (Above high threshold) Range: 70-100 ALK PHOSPHATASE 91 U/L Range: 46-116 TOTAL BILIRUBIN 0.60 mg/dL Range: 0.20-1.00 AST 26 U/L Range: 8-35 ALT 33 U/L Range: 16-63 Comments: Please note new reference ranges. Effective 06/07/2014.----- ALBUMIN 3.5 g/dL Range: 3.4-5.0 TOTAL PROTEIN 7.9 g/dL Range: 6.4-8.2 A/G RATIO 0.8 units (Below low threshold) Range: 1.0-1.8 CALCIUM 9.1 mg/dL Range: 8.5-10.1 Plan of Care Name Dates Details Planned Observations Planned Goals not documented Planned Encounters Appointment; Provider: Chan Webb M.D.|JOHANNE Estrada,BEREKET, On 04-May-2016 11:15 Appointment; Provider: Calos Yoder M.D. On 30-Apr-2016 13:30 Appointment; Provider: Carlos Neville M.D. On 10-Feb-2016 13:00 Appointment; Provider: Carlos Neville M.D. On 30-Dec-2015 13:30 Appointment; Provider: Chan Webb M.D.|JOHANNE Estrada,BEREKET, On 23-Dec-2015 13:30 Instructions Name Dates Details Instructions not documented Encounters Appointment; Carlos Neville M.D. Encounter Diagnosis: Problem not documented On 18-Nov-2015 14:15 Appointment; Chan Webb M.D.|[place]|Marita,JOHANNE,BEREKET, Encounter Diagnosis: Problem not documented On 18-Nov-2015 13:30 Appointment; Chan Webb M.D.|[place]|Marita,JOHANNE,BEREKET, Encounter Diagnosis: Problem not documented On 10:45 Appointment; Chan Webb M.D.|[place]|Marita,JOHANNE,BEREKET, Encounter Diagnosis: Problem not documented On 06:45 Appointment; Carlos Neville M.D. Encounter Diagnosis: Problem not documented On 14:00 Appointment; Chan Webb M.D.|[place]|Marita,JOHANNE,BEREKET, Encounter Diagnosis: Problem not documented On 09:30 [...] documented On 10-Jul-2015 13:00 Appointment; Chan Webb M.D.|F.Nataly.C.S.|Marita,BEREKET|Marita,BEREKET, Encounter Diagnosis: Problem not documented On 08-Jul-2015 13:30 Appointment; Carlos Neville M.D. Encounter Diagnosis: Problem not documented On 17-Jun-2015 13:00 Appointment; Javi Lucero M.D. Encounter Diagnosis: Problem not documented On 11-Jun-2015 13:30 Appointment; Chan Webb M.D.|Logan.Nataly.C.S.|Marita,BEREKET|Marita,BEREKET, Encounter Diagnosis: Problem not documented On 11-Jun-2015 [...] documented On 04-Mar-2015 15:55 Appointment; Chan Webb M.D.|F.A.C.S.|M.D.,BEREKET|MEun,FACS, Encounter Diagnosis: Problem not documented On 28-Feb-2015 07:15 Appointment; Chan Webb M.D.|F.A.C.S.|M.D.,BEREKET|MEun,FACS, Encounter Diagnosis: Problem not documented On 29-Jan-2015 16:45 Appointment; Carlos Neville M.D. Encounter Diagnosis: Problem not documented On 07-Jan-2015 13:30 Appointment; Chan Webb M.D.|F.A.C.S.|MAkhilDAkhil,BEREKET|MEun,FACS, Encounter Diagnosis: Problem not documented On 25-Dec-2014 07:00 Appointment; Andreia Paredes P.A. Encounter Diagnosis: Problem not documented On 04-Dec-2014 11:30 Appointment; Chan Webb M.D.|F.A.C.S.|M.D.,BEREKET|MEun,FACS, Encounter Diagnosis: Problem not documented On 23-Nov-2014 17:15 Appointment; Chan Webb M.D.|F.A.C.S.|MAkhilDAkhil,BEREKET|MEun,FACS, Encounter Diagnosis: Problem not documented On 12:45 Appointment; Carlos Neville M.D. Encounter Diagnosis: Problem not documented On 14:45 Appointment; Chan Webb M.D.|F.A.C.S.|M.D.,BEREKET|MEun,FACS, Encounter Diagnosis: Problem not documented On 07:15 Appointment; Andreia Paredes, P.AAkhil Encounter Diagnosis: Problem not documented On 13:15 Appointment; Andreia Paredes P.AAkhil Encounter Diagnosis: Problem not documented On 11:30 Appointment; Carlos Neville M.D. Encounter Diagnosis: Problem not documented On 13:30 Appointment; Chan Webb M.D.|F.A.C.S.|MEun,BEREKET|Marita,BEREKET, Encounter Diagnosis: Problem not documented On 16-Aug-2014 07:00 Appointment; Carlos Neville M.D. Encounter Diagnosis: Problem not documented On 02-Aug-2014 11:15 Appointment; Chan Webb M.D.|SahilA.C.S.|Marita,BEREKET|Marita,BEREKET, Encounter Diagnosis: Problem not documented On 10-Jul-2014 07:00 Appointment; Carlos Neville M.D. Encounter Diagnosis: Problem not documented On 29-Jun-2014 13:15 Appointment; Chan Webb M.D.|Logan.A.C.S.|Marita,BEREKET|Marita,BREEKET, Encounter Diagnosis: Problem not documented On 21-Jun-2014 07:15 Appointment; Carlos Neville M.D. Encounter Diagnosis: Problem not documented On 19-Jun-2014 14:00 Appointment; Javi Lucero M.D. Encounter Diagnosis: Problem not documented On 31-May-2014 13:45 Appointment; Ritesh San M.D. Encounter Diagnosis: Problem not documented On 21-May-2014 13:45 Appointment; Chan Webb M.D.|Logan.A.C.S.|Marita,BEREKET|Marita,BEREKET, Encounter Diagnosis: Problem not documented On 17-May-2014 17:00 Appointment; Ritesh San M.D. Encounter Diagnosis: Problem not documented On 03-May-2014 14:00 Appointment; Javi Lucero M.D. Encounter Diagnosis: Problem not documented On 24-Apr-2014 08:00 Appointment; Ritesh San M.D. Encounter Diagnosis: Problem not documented On 23-Apr-2014 13:15 Appointment; Chan Webb M.D.|FAkhilA.C.S.|Marita,BEREKET|Marita,BEREKET, Encounter Diagnosis: Problem not documented On 10-Apr-2014 [...]
--- OUTSIDE RECORDS SUMMARY | 2016-07-01 17:20 | XMS REPORT | Summary of Care ---
Author Author Elizabeth Gonsalez APRN Organization Unknown Address [address], [place] [address] Phone Unavailable Care Team Providers Care Drag Car Racer Name Role Phone Jon Musa Unavailable Unavailable Archana Stein PA-C Unavailable Unavailable Mena Kirkland, Ritesh Unavailable Unavailable Kelin Kirkland, Nataly Unavailable Unavailable Nixon Kirkland, Lance Unavailable Unavailable Elizabeth Gonsalez APRN Unavailable Unavailable Nic Kirkland, Henry Unavailable Unavailable Paresh Kirkland, T Unavailable Unavailable PCP Not Assigned Unavailable Unavailable [facility] ([place]) Unavailable Unavailable Unavailable Unavailable Functional Status [...] Quantity: 60 Refills: 11 Ritesh San M.D. Start 19-Jun-2013 Active Morphine Sulfate ER 15 [...] NEEDED * Quantity: 90 Refills: 2 Nic Kirkland, Javi Figueroa * Start 13-Feb-2014 Active Amitiza 24 MCG Oral Capsule TAKE 1 CAPSULE TWICE DAILY WITH FOOD. * Quantity: 60 Refills: 6 Paresh Kirkland, Calos Gordon * Start 20-Feb-2014 Active Methenamine Hippurate 1 GM Oral Tablet TAKE 1 TABLET TWICE DAILY. * Quantity: 180 Refills: 3 ShantaChan gordon * Start 10-Apr-2014 Active Bethanechol Chloride 25 [...] DIRECTED. * Refills: 0 Carlos Neville M.D. Start 07-May-2016 Active Allergies and Adverse Reactions [...] 15-Mar-2013 Flulaval Quadrivalent Intramuscular Suspension Lot #: [id number] on: 26-Dec-2013 Zostavax 71332 UNT/0.65ML Subcutaneous Solution Reconstituted Lot #: [id number] on: 26-Dec-2013 Prevnar 13 Intramuscular Suspension Lot #: [id number] on: 21-May-2014 Tdap (Adacel) Lot #: [id number] on: 07-Aug-2015 Family History Name Dates Details [...] >60 ml/min Range: >60 EST GFR, NON-AFR TUNISIAN >60 ml/min Range: >60 Comments: EST GFR [...] FACS, On 18-Jun-2016 11:30 Interventions Provided Labs/Procedures/Imaging* ECG/ EKG Preop; Done: Jun 15 2016 2:32PM Instructions Name Dates Details Instructions not documented [...] documented On 18-Nov-2015 13:30 Appointment; Chan Webb M.D.,BEREKET, Encounter Diagnosis: Problem not documented On 10:45 Appointment; Chan Webb M.D., FACS, Encounter Diagnosis: Problem not documented On 06:45 Appointment; Carlos Neville M.D. Encounter Diagnosis: Problem not documented On 14:00 Appointment; Chan Webb M.D.,BEREKET, Encounter Diagnosis: Problem not documented On 09:30 Appointment; Chan Webb M.D.,BEREKET, Encounter Diagnosis: Problem not documented On 17:00 [...]
--- OUTSIDE RECORDS SUMMARY | 2016-07-01 17:21 | XMS REPORT | Summary of Care ---
Author Author Carlos Neville M.D. Organization Unknown Address [address], [place] [address] Phone Unavailable Care Team Providers Care Manager Estate Name Role Phone Jon Kirkland, FACS, ,, M Unavailable Unavailable Mena Kirkland, Ritesh Unavailable Unavailable Kelin Kirkland, Nataly Unavailable Unavailable Lena Fountain, Andreia Unavailable Unavailable Nic Kirkland, G Unavailable Unavailable Paresh Kirkland, T Unavailable Unavailable Carlos Neville PP Unavailable [facility] ([place]) Unavailable Unavailable Unavailable Functional Status Functional Status [...] Intraspinal Lesion Sacral Comprehensive Metabolic Panel 1212 Ordered:30-Jul-2015 Immunization Name Dates Details Pneumo (Pneumovax) Administered on:15-Mar-2013 Flulaval Quadrivalent Intramuscular Suspension Lot #: [id number] Administered on:26-Dec-2013 Zostavax 23303 UNT/0.65ML Subcutaneous Solution Reconstituted Lot #: [id number] Administered on:26-Dec-2013 Prevnar 13 Intramuscular Suspension Lot #: [id number] Administered on:21-May-2014 Family History Mother* Name Dates [...] ml/min (Better) Range: >60 EST GFR, NON-AFR MARSHALLESE >60 ml/min (Better) Range: >60 Comments: EST GFR is reported in ml/min per 1.73 m2 of body surface area. For -Japanese, please multiple result by 1.2.----- GLUCOSE 110 [...] 1.0-1.8 CALCIUM 8.8 mg/dL (Better) Range: 8.5-10.1 24-Jul-2015 17:17 VALPROIC ACID 3012 Comments: SIGNED ORDER IS FILED IN DRAWER VALPROIC ACID 57.00 ug/mL (Better) Range: 50.00-100.00 Dose NOT KNOWN AT THIS TIME (Better) 05-Aug-2015 11:15 CBC w/ Auto Diff 7150 [...] 0.0-0.7 BASO 0.0 K/uL (Better) Range: 0.0-0.2 Plan of Care Planned Observations* Name Dates Details Planned Goals not documented Goal Planned Encounters* Appointment; Provider: Calos Yoder On 30-Apr-2016 13:30 * Appointment; Provider: Carlos Neville On 07-Aug-2015 [...] * Instructions not documented Encounters Appointment; Carlos Nveille Encounter Diagnosis: Problem not documented On 10-Jul-2015 [...]
--- OUTSIDE RECORDS SUMMARY | 2016-07-01 17:21 | XMS REPORT | Summary of Care ---
Author Author Carlos Neville M.D. Organization Unknown Address [address], [place] [address] Phone Unavailable Care Team Providers Care Face Man Name Role Phone Jon Kirkland, FACS, ,, M Unavailable Unavailable Mena Kirkland, Ritesh Unavailable Unavailable Kelin Kirkland, Nataly Unavailable Unavailable Lena Fountain, Adnreia Unavailable Unavailable Nic Kirkland, G Unavailable Unavailable Paresh Kirkland, T Unavailable Unavailable Carlos Neville PP Unavailable [facility] ([place]) Unavailable Unavailable Unavailable Functional Status Functional Status [...] for screening colonoscopy (V76.51, Z12.11) Status: Active Medications Name Dates Details Levothyroxine [...] Refills: 0 Carlos Neville M.D.* Started 07-Aug-2015 Active Allergies and Adverse Reactions Name [...] Intraspinal Lesion Sacral Colonoscopy- Screening or Dx Pendin07-Aug-2015 Immunization Name Dates Details Pneumo (Pneumovax) Administered on:15-Mar-2013 Flulaval Quadrivalent Intramuscular Suspension Lot #: [id number] Administered on:26-Dec-2013 Zostavax 16825 UNT/0.65ML Subcutaneous Solution Reconstituted Lot #: [id number] Administered on:26-Dec-2013 Prevnar 13 Intramuscular Suspension Lot #: [id number] Administered on:21-May-2014 Tdap (Adacel) Lot #: [id number] Administered on:07-Aug-2015 Family History Mother* Name Dates Details Family history of malignant neoplasm of breast (V16.3, Z80.3) Status: Active Father* Name Dates Details Family history of acute myocardial infarction (V17.3, Z82.49) Status: Active Family history of Prostate cancer (185, C61) Status: Active Social History Name Dates Details Smoking Status* Former smoker Vital Signs Date Test Result Details 07-Aug-2015 13:55 BP Systolic 114 mm[Hg] Status: BP Diastolic 72 mm[Hg] Status: Heart Rate 96 /min Status: O2 SAT 96 % Status: 10-Jul-2015 13:01 BP Systolic 110 mm[Hg] Status: BP Diastolic 70 mm[Hg] Status: Heart Rate 89 /min Status: O2 SAT 95 % Status: Results Date Description Value Details 24-Jul-2015 17:17 VALPROIC ACID 3012 Comments: SIGNED [...] ml/min (Better) Range: >60 EST GFR, NON-AFR LAO >60 ml/min (Better) Range: >60 Comments: EST GFR is reported in ml/min per 1.73 m2 of body surface area. For -Indonesian, please multiple result by 1.2.----- GLUCOSE 99 [...] Carlos Neville On 14:00 * Appointment; Provider: Chan Webb On 17:00 [...] Problem not documented On 10:00 Appointment; Ritesh aSn Encounter Diagnosis: Problem not documented On 16-Aug-2013 10:30 Appointment; Ritesh San Encounter Diagnosis: Problem not documented On 10-Aug-2013 11:15
--- OUTSIDE RECORDS SUMMARY | 2016-07-01 17:21 | XMS REPORT | Summary of Care ---
Author Author Emil VEGAS, Archana Organization Unknown Address [address] [place], [place] [id number] Phone Unavailable Care Team Providers Care Wire Splicer Name Role Phone Jon Kirkland, FACS, ,, M Unavailable Unavailable Mena Kirkland, Ritesh Unavailable Unavailable Kelin Kirkland, A Unavailable Unavailable Lena Fountain, Andreia Unavailable Unavailable Alton Davidson, L Unavailable Unavailable Nixon Kirkland, Lance Unavailable Unavailable Nic Kirkland, G Unavailable Unavailable Paresh Kirkland, T Unavailable Unavailable Carlos Neville PP Unavailable [facility] Unavailable Unavailable Unavailable Functional Status Functional [...] Status: Active Wheezing (786.07, R06.2) Status: Active Neurogenic bladder (596.54, N31.9) Status: Active Edema (782.3, R60.9) Status: Active Medications Name Dates Details Levothyroxine [...] Refills: 0 Lance Alicea M.D.* Started 19-Aug-2015 [id number] ML Bottle Xarelto 20 MG Oral Tablet Take 1 tablet daily * Quantity: 1 Refills: 0 Elijah Dang D.O.* Started Ended ActivePEG 3350/Electrolytes 240 GM Oral Solution Reconstituted TAKE DIRECTED. * Quantity: 1 Refills: 0 Lance Alieca M.D.* Started [id number] ML Bottle Simethicone 40 MG/0.6ML Oral Suspension TAKE DIRECTED. * Quantity: 1 Refills: 0 Lance Alicea M.D.* Started [id number] ML Bottle Allergies and Adverse Reactions Name [...] on:15-Mar-2013 Flulaval Quadrivalent Intramuscular Suspension Lot #: [id number] Administered on:26-Dec-2013 Zostavax 92606 UNT/0.65ML Subcutaneous Solution Reconstituted Lot #: [id number] Administered on:26-Dec-2013 Prevnar 13 Intramuscular Suspension Lot #: [id number] Administered on:21-May-2014 Tdap (Adacel) Lot #: [id number] Administered on:07-Aug-2015 Family History Mother* Name Dates [...] % Status: Results Date Description Value Details 08:57 ULTRASOUND RENAL SONO Comments: Exam Date: 2015 08:24Dictation Date: 09/16/2015 08:57 XS RENAL LIMITED (Better) Plan of Care Planned Observations* Name Dates Details Planned Goals not documented Goal Planned Encounters* Appointment; Provider: Calos Yoder On 30-Apr-2016 13:30 * Appointment; Provider: Chan Webb On 06:45 * Appointment; Provider: Carlos Neville On 14:00 * Appointment; Provider: Lance Alicea On 08:00 * Appointment; Provider: Schedule Radiology On 09:00 * Appointment; Provider: Nadiya Dinh On 11-Apr-2015 13:00 * Appointment; Provider: Schedule Radiology On 04-Mar-2015 16:30 * Appointment; Provider: Chan Webb On 08-Feb-2014 11:30 * Appointment; Provider: Carlos Neville On 22-Nov-2007 07:00 * Appointment; Provider: Carlos Neville On 20-Nov-2007 07:00 Instructions * Instructions not documented Encounters Appointment; Chan Webb Encounter Diagnosis: Problem not documented On 09:30 Appointment; Chan Webb Encounter Diagnosis: Problem [...] not documented On 10-Apr-2014 14:00 Appointment; Ritesh Sna Encounter Diagnosis: Problem not documented On 21-Feb-2014 [...]
--- OUTSIDE RECORDS SUMMARY | 2016-07-01 17:22 | XMS REPORT ---
Author Author GENERATED, SYSTEM Organization Unknown Address Unknown Phone Unavailable Care Team Providers Care Camera Mechanic Name Role Phone MD DEGROOT TIMOTHY [phone] Reason For Visit Reason for Visit from 09/23/2015 6:20 AM:* Pt Stated Reason for Adm : colonoscoopy Chief Complaint SCREENING COLONOSCOPY,COLONOSCOPY Social History Social History from 09/23/2015 9:37 AM:* Tobacco Use? : Former Smoker Social History from 09/23/2015 6:20 AM:* Tobacco Use? : Former Smoker Functional Status Functional Status from 09/23/2015 9:33 AM:* LOC : Alert Functional Status from 09/23/2015 9:20 AM:* LOC : Alert * Oriented To : Person,Place,Time,Event Functional Status from 09/23/2015 8:49 AM:* LOC : Alert * Oriented To : Person,Place,Event Functional Status from 09/23/2015 6:20 AM:* LOC : Alert * Oriented To : Person,Place,Time,Event * Weight Bearing Status : Partial * Assist Level : Independent * # Assists : Independent Vital Signs Hospital Vital Signs from 09/23/2015 9:40 AM:* Height : 6/1 ft,in * Temperature : 97.3 F * Pulse : 93 * Respirations : 18 * BP : 124/76 Hospital Vital Signs from 09/23/2015 9:25 AM:* Height : 6/1 ft,in * Temperature : 97.3 F * Pulse : 79 * Respirations : 16 * BP : 118/75 Hospital Vital Signs from 09/23/2015 9:20 AM:* Heart Rate : 87 * Resp Rate : 8 * Systolic BP (mmHg) : 118 * Diastolic BP (mmHg) : 86 * Mean BP (mmHg) : 97 * O2 Saturation (%) : 96 Hospital Vital Signs from 09/23/2015 9:15 AM:* Temp : 98.1 * Heart Rate : 82 * Resp Rate : 13 * O2 Saturation (%) : 94 Hospital Vital Signs from 09/23/2015 9:10 AM:* Heart Rate : 109 * Resp Rate : 26 * Systolic BP (mmHg) : 124 * Diastolic BP (mmHg) : 87 * Mean BP (mmHg) : 95 * O2 Saturation (%) : 95 Hospital Vital Signs from 09/23/2015 9:05 AM:* Heart Rate : 89 * Resp Rate : 19 * Systolic BP (mmHg) : 111 * Diastolic BP (mmHg) : 68 * Mean BP (mmHg) : 77 * O2 Saturation (%) : 93 Hospital Vital Signs from 09/23/2015 9:00 AM:* Temp : 98.5 * Heart Rate : 91 * Resp Rate : 10 * Systolic BP (mmHg) : 98 * Diastolic BP (mmHg) : 63 * Mean BP (mmHg) : 76 * O2 Saturation (%) : 97 Hospital Vital Signs from 09/23/2015 8:55 AM:* Heart Rate : 95 * Resp Rate : 16 * Systolic BP (mmHg) : 96 * Diastolic BP (mmHg) : 68 * Mean BP (mmHg) : 76 * O2 Saturation (%) : 98 Hospital Vital Signs from 09/23/2015 8:50 AM:* Heart Rate : 89 * Resp Rate : 12 * Systolic BP (mmHg) : 98 * Diastolic BP (mmHg) : 60 * Mean BP (mmHg) : 82 * O2 Saturation (%) : 97 Hospital Vital Signs from 09/23/2015 8:49 AM:* Temp : 98.3 Hospital Vital Signs from 09/23/2015 6:35 AM:* Weight : 148/ kg * Height : 6/1 ft,in * Temperature : 98.1 F * Pulse : 81 * Respirations : 18 * BP : 138/84 Hospital Vital Signs from 09/23/2015 6:20 AM:* Weight : 148/ kg * Height : 6/1 ft,in Results Problems Encounter Diagnosis * Fall Risk Status:Active. Additional Problems * [...] upon Discharge, Status:Resolved. Encounters Encounter Diagnosis * Fall Risk Status:Active. Plan of Care Follow-up Appointments from 09/23/2015 9:37 AM:* #1 Office appointment: : Follow up as needed Procedures * Completed Screening Colonoscopy, by MD FERNIE BRIDGES, on 09/23/2015 8:34 AM * Completed suprapubic catheter insertion, by MD REZA LERMA, on 2013 11:01 AM * Completed Procedure Code: [id number] Procedure Name: not valued, on 02/08/2014 12: 00 AM * Completed , on 10/21/2012 12:00 AM * Completed , on 10/21/2012 12:00 AM Immunizations No immunizations administered or ordered. Hospital Course Hospital Discharge Instructions How to care for yourself at home from 09/23/2015 9:37 AM:* Discharge Activity : Activity as tolerated,May Shower,Do not engage in sports, heavy work or heavy lifting until your physician gives permission * Discharge Diet : As before hospitalization,Diet as tolerated * Discharge Diet: : Avoid greasy and spicy foods for 24 hours as they may cause nausea * Call your doctor if: : Fever over 101 F or severe chills,Chest pain or other unexplained symptoms,Tingling or numbness develops,A sudden increase or decrease in weight,You have persistent or worsening symptoms * Specific Discharge Teaching Instructions provided: : No * Discharge on Warfarin : No Allergies, Adverse Reactions, Alerts * Zoloft causes tremors. * Paxil causes tremors. * Abilify causes pass out. * nystatin causes Severe Hives. * Latex causes Unknown. Onset unsure. * Keflex causes unspecified. * Novocain causes unspecified. * No IV Contrast Allergy. * No Known Food Allergies. Medication Medication reconciliation has not been performed.
--- OUTSIDE RECORDS SUMMARY | 2016-07-01 17:22 | XMS REPORT | Summary of Care ---
Author Author Nic Kirkland, Javi Harrison Unknown Address [address] [place], [place] [address] Phone Unavailable Care Team Providers Care Supervisor Seaming Name Role Phone Jon Kirkland, FACS, ,, M Unavailable Unavailable Mena Kirkland, Ritesh Unavailable Unavailable Keiln Kirkland, A Unavailable Unavailable Lena Fountain, Andreia Unavailable Unavailable Nic Kirkland, Henry Unavailable Unavailable Paresh Kirkland, T Unavailable Unavailable Carlos Neville PP Unavailable [facility] ([place]) RP Unavailable Unavailable Unavailable Functional Status Functional [...] right lower leg (729.5, M79.661) Status: Active Vena Caval Thrombosis Status: Active [...] Status: Active Hyperlipidemia (272.4, E78.5) Status: Active Esophageal reflux (530.81, K21.9) Status: Active Depression (311, F32.9) Status: Active Cognitive impairment (294.9, R41.89) Status: Active 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 BPH (benign prostatic hyperplasia) (600.00, N40.0) Status: Active 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, [...] 30 Refills: 1 Ritesh San M.D.* Started ActiveBaclofen 20 MG Oral Tablet TAKE ONE [...] Refills: 0 Javi Lucero M.D.* Started 18-Apr-2015 Active Allergies and Adverse Reactions Name [...] on:15-Mar-2013 Flulaval Quadrivalent Intramuscular Suspension Lot #: [id number] Administered on:26-Dec-2013 Zostavax 09477 UNT/0.65ML Subcutaneous Solution Reconstituted Lot #: [id number] Administered on:26-Dec-2013 Prevnar 13 Intramuscular Suspension Lot #: [id number] Administered on:21-May-2014 Family History Mother* Name Dates [...] Webb On 02-May-2015 06:45 * Appointment; Provider: Nadiya Dinh On 11-Apr-2015 13:00 * Appointment; Provider: Schedule Radiology On 04-Mar-2015 16:30 * Appointment; Provider: Chan Webb On 08-Feb-2014 11:30 * Appointment; Provider: Carlos Neville On 22-Nov-2007 07:00 * Appointment; Provider: Carlos Neville On 20-Nov-2007 07:00 Instructions * Instructions not documented Encounters Appointment; Elijah Dang Encounter Diagnosis: Problem not documented On 18-Apr-2015 11:00 Appointment; Javi Lucero Encounter Diagnosis: Problem [...]
--- OUTSIDE RECORDS SUMMARY | 2016-07-01 17:22 | XMS REPORT ---
Author Author GENERATED, SYSTEM Organization Unknown Address Unknown Phone Unavailable Care Team Providers Care Pest Locator Name Role Phone MD DEGROOT TIMOTHY PP [phone] Reason For Visit Chief Complaint LT LOWER [...] of Care Procedures * Completed Procedure Code: 5342964 Procedure Name: not valued, on 03/31/2016 12: 00 AM * Completed Procedure Code: [id number] Procedure Name: not valued, on 03/24/2016 12:00 AM * Completed Procedure Code: [id number] Procedure Name: not valued, on 12/30/2015 12 :00 AM * Completed Screening Colonoscopy, by MD FERNIE BRIDGES, on 09/23/2015 8:34 AM * Completed Procedure Code: 23934 Procedure Name: not valued, on 09/23/2015 12: 00 AM * Completed suprapubic catheter insertion, by MD REZA LERMA, on 2013 11:01 AM * Completed Procedure Code: 08436 Procedure Name: not valued, on 02/08/2014 12: 00 AM * Completed , on 10/21/2012 12:00 AM * Completed , on 10/21/2012 12:00 AM Immunizations * Influenza, seasonal, injectable ([employer]ARM, Lot # [id number]); Administered 12/29 2:10 [...]
--- OUTSIDE RECORDS SUMMARY | 2016-07-01 17:22 | XMS REPORT | Summary of Care ---
Author Author Nic Kirkland, Javi Harrison Unknown Address [address] [place], [place] [address] Phone Unavailable Care Team Providers Care Water Plant Operator Name Role Phone Jon Kirkland, FACS, ,, M Unavailable Unavailable Mena Kirlkand, Ritesh Unavailable Unavailable Kelin Kirkland, A Unavailable Unavailable Lena Fountain, Andreia Unavailable Unavailable Nic Kirkland, Henry Unavailable Unavailable Paresh Kirkland, T Unavailable Unavailable Carlos Neville PP Unavailable [facility] ([place]) RP Unavailable Unavailable Unavailable Functional Status Functional [...] Active Opioid dependence (304.00, F11.20) Status: Active Medications Name Dates Details Levothyroxine [...] on:15-Mar-2013 Flulaval Quadrivalent Intramuscular Suspension Lot #: [id number] Administered on:26-Dec-2013 Zostavax 59624 UNT/0.65ML Subcutaneous Solution Reconstituted Lot #: [id number] Administered on:26-Dec-2013 Prevnar 13 Intramuscular Suspension Lot #: [id number] Administered on:21-May-2014 Family History Mother* Name Dates [...]
--- OUTSIDE RECORDS SUMMARY | 2016-07-01 17:23 | XMS REPORT | Summary of Care ---
Author Author Kelin Kirkland, Carlos Ingram Organization Unknown Address [address], [place] [address] Phone Unavailable Care Team Providers Care Reflesher Name Role Phone Jon Kirkland, FACS, ,, M Unavailable Unavailable Mena Kirkland, Ritesh Unavailable Unavailable Kelin Kirkland, Nataly Unavailable Unavailable Lena Fountain, Andreia Unavailable Unavailable Nixon Kirkland, Lance Unavailable Unavailable Nic Kirkland, G Unavailable Unavailable Paresh Kirkland, T Unavailable Unavailable Carlos Neville PP Unavailable [facility] ([place]) Unavailable Unavailable Unavailable Functional Status Functional Status [...] Refills: 11 Ritesh San M.D.* Started 15-Mar-2013 ActiveFurosemide 80 MG Oral Tablet Take 1 tablet twice daily * Quantity: 60 Refills: 11 Ritesh San M.D.* Started 19-Jun-2013 ActiveAmitiza 24 MCG Oral Capsule TAKE 1 CAPSULE TWICE DAILY WITH FOOD. * Quantity: 60 Refills: 6 Calos Yoder M.D.* Started 20-Feb-2014 ActiveMethenamine Hippurate 1 GM Oral Tablet TAKE 1 TABLET TWICE DAILY. * Quantity: 180 Refills: 3 Chan Webb M.D., FACS, , * Started 10-Apr-2014 ActiveGabapentin 300 MG Oral Capsule TAKE TWO CAPSULES in the morning, 1 capusle at noon, and 2 capusules at night. * Quantity: 150 Refills: 2 Andreia Paredes* Started 03-May-2013 ActiveBaclofen 20 MG Oral Tablet TAKE ONE TABLET BY MOUTH THREE TIMES A DAY NEEDED * Quantity: 90 Refills: 2 Javi Lucero M.D.* Started 13-Feb-2014 ActiveFetzima 40 MG Oral Capsule Extended Release 24 Hour Take one tablet daily * Refills: 0 Calos Yoder M.D.* Started 01-May-2015 ActivePEG-3350/Electrolytes 236 GM Oral Solution Reconstituted MIX AND DRINK DIRECTED PER COLONOSCOPY INSTRUCTIONS. * Quantity: 1 Refills: 0 Lance Alicea M.D.* Started 19-Aug-2015 [id number] ML Bottle PEG 3350/Electrolytes 240 GM Oral Solution Reconstituted TAKE DIRECTED. * Quantity: 1 Refills: 0 Lance Alicea M.D.* Started [id number] ML Bottle Simethicone 40 MG/0.6ML Oral Suspension TAKE DIRECTED. * Quantity: 1 Refills: 0 Lance Alicea M.D.* Started Mhiwra49 ML Bottle HYDROmorphone HCl - 8 MG Oral Tablet TAKE 1 TABLET EVERY 12 HOURS NEEDED.qty 60 max 2 a day * Quantity: 60 Refills: 0 Carlos Neville M.D.* Started 18-Apr-2015 ActiveHYDROmorphone HCl - 4 MG Oral Tablet 1 TABLET AT NOON ALONG W/ 8 MG EVERY 12 HOURS PRN * Quantity: 30 Refills: 0 Carlos Neville M.D.* Started 07-Aug-2015 ActiveMorphine Sulfate ER 15 MG Oral Tablet Extended Release Si PO every 12 hours with a max of 2 per day. Script must last 30 days. MDD:2 per day * Quantity: 60 Refills: 0 Carlos Neville M.D.* Started 15-Jan-2014 Active Allergies and Adverse Reactions Name Dates [...] on:15-Mar-2013 Flulaval Quadrivalent Intramuscular Suspension Lot #: [id number] Administered on:26-Dec-2013 Zostavax 14909 UNT/0.65ML Subcutaneous Solution Reconstituted Lot #: [id number] Administered on:26-Dec-2013 Prevnar 13 Intramuscular Suspension Lot #: [id number] Administered on:21-May-2014 Tdap (Adacel) Lot #: [id number] Administered on:07-Aug-2015 Family History Mother* Name Dates Details Family history of malignant neoplasm of breast (V16.3, Z80.3) Status: Active Father* Name Dates Details Family history of acute myocardial infarction (V17.3, Z82.49) Status: Active Family history of Prostate cancer (185, C61) Status: Active Social History Name Dates Details Smoking Status* Former smoker Vital Signs Date Test Result Details 13:13 BP Systolic 118 mm[Hg] Status: BP Diastolic 68 mm[Hg] Status: Heart Rate 78 /min Status: Weight 312 lb Status: O2 SAT 95 % Status: Body Mass Index Calculated 41.16 kg/m2 Status: Body Surface Area Calculated 2.6 m2 Status: Results Date Description Value Details 08:57 ULTRASOUND RENAL SONO Comments: Exam Date: 2015 08:24Dictation Date: 09/16/2015 08:57 XS RENAL LIMITED (Better) 11:44 CBC w/ Auto Diff 7150 WBC 5.8 K/uL (Better) Range: 4.5-11.0 RBC 4.87 mil/uL (Better) Range: 4.20-5.40 HGB 14.8 g/dL (Better) Range: 14.0-18.0 HCT 44.0 % (Better) Range: 42.0-53.0 MCV 90.4 fL (Better) Range: 80.0-99.0 MCH 30.3 pg (Better) Range: 27.3-32.5 MCHC 33.6 % (Better) Range: 32.0-36.0 RDW 15.4 % (Above high threshold) Range: 11.6-14.8 PLATELETS 319 K/uL (Better) Range: 150-400 MPV 7.8 fL (Better) Range: 6.0-11.0 %NEUTRO 60.5 % (Better) Range: 37.0-80.0 %LYMPHS 26.7 % (Better) Range: 13.0-50.0 %MONO 6.8 % (Better) Range: 0.0-12.0 %EOS 4.4 % (Better) Range: 0.0-7.0 %BASO 0.3 % (Better) Range: 0.0-2.5 %ENDY 1.3 % (Better) Range: 0.0-5.0 NEUTRO 3.5 K/uL (Better) Range: 2.0-6.9 LYMPHS 1.5 K/uL (Better) Range: 0.6-3.4 MONOS 0.4 K/uL (Better) Range: 0.0-0.9 EOS 0.3 K/uL (Better) Range: 0.0-0.7 BASO 0.0 K/uL (Better) Range: 0.0-0.2 11:53 ECG/ EKG Preop Electro CardioGram (Better) 12:11 Comprehensive Metabolic Panel 1212 SODIUM 133 mmol/L (Better) Range: 133-144 POTASSIUM 3.5 mmol/L (Better) Range: 3.5-5.1 CHLORIDE 92 mmol/L (Below low threshold) Range: 98-110 CARBON DIOXIDE 31.8 mmol/L (Better) Range: 23.0-33.0 ANION GAP 9 mmol/L (Better) Range: 6-16 BUN 10 mg/dL (Better) Range: 7-18 CREATININE, SERUM 0.81 mg/dL (Better) Range: 0.70-1.30 Comments: Please note new reference ranges effective 2014.----- BUN:CREATININE RATIO 12 (Better) EST GFR, >60 ml/min (Better) Range: >60 EST GFR, NON-AFR POLISH >60 ml/min (Better) Range: >60 Comments: EST GFR is reported in ml/min per 1.73 m2 of body surface area. For -Andorran, please multiple result by 1.2.----- GLUCOSE 177 mg/dL (Above high threshold) Range: 70-100 ALK PHOSPHATASE 93 U/L (Better) Range: 46-116 TOTAL BILIRUBIN 0.50 mg/dL (Better) Range: 0.20-1.00 AST 24 U/L (Better) Range: 8-35 ALT 46 U/L (Better) Range: 16-63 Comments: Please note new reference ranges. Effective 06/07/2014.----- ALBUMIN 3.3 g/dL (Below low threshold) Range: 3.4-5.0 TOTAL PROTEIN 7.3 g/dL (Better) Range: 6.4-8.2 A/G RATIO 0.8 units (Below low threshold) Range: 1.0-1.8 CALCIUM 8.7 mg/dL (Better) Range: 8.5-10.1 12:49 XRay CHEST-PA & LAT Comments: Exam Date: 09/20/2015 11: 42Dictation Date: 09/20/2015 12:49 X CHEST PA & LAT (Better) -September-2015 10:10 Colonoscopy Abnormal- Polyps (Better) Range: 0 -September-2015 11:14 CBC w/ Auto Diff 7150 Comments: Fastin hours WBC 5.4 K/uL (Better) Range: 4.5-11.0 RBC 4.90 mil/uL (Better) Range: 4.20-5.40 HGB 14.9 g/dL (Better) Range: 14.0-18.0 HCT 44.5 % (Better) Range: 42.0-53.0 MCV 90.6 fL (Better) Range: 80.0-99.0 MCH 30.4 pg (Better) Range: 27.3-32.5 MCHC 33.6 % (Better) Range: 32.0-36.0 RDW 15.5 % (Above high threshold) Range: 11.6-14.8 PLATELETS 309 K/uL (Better) Range: 150-400 MPV 6.9 fL (Better) Range: 6.0-11.0 %NEUTRO 58.0 % (Better) Range: 37.0-80.0 %LYMPHS 30.4 % (Better) Range: 13.0-50.0 %MONO 6.6 % (Better) Range: 0.0-12.0 %EOS 2.8 % (Better) Range: 0.0-7.0 %BASO 0.3 % (Better) Range: 0.0-2.5 %ENDY 1.9 % (Better) Range: 0.0-5.0 NEUTRO 3.1 K/uL (Better) Range: 2.0-6.9 LYMPHS 1.6 K/uL (Better) Range: 0.6-3.4 MONOS 0.4 K/uL (Better) Range: 0.0-0.9 EOS 0.2 K/uL (Better) Range: 0.0-0.7 BASO 0.0 K/uL (Better) Range: 0.0-0.2 11:34 Comprehensive Metabolic Panel 1212 Comments: Fastin hours SODIUM 138 mmol/L (Better) Range: 133-144 POTASSIUM 3.5 mmol/L (Better) Range: 3.5-5.1 CHLORIDE 98 mmol/L (Better) Range: 98-110 CARBON DIOXIDE 29.1 mmol/L (Better) Range: 23.0-33.0 ANION GAP 11 mmol/L (Better) Range: 6-16 BUN 10 mg/dL (Better) Range: 7-18 CREATININE, SERUM 0.82 mg/dL (Better) Range: 0.70-1.30 Comments: Please note new reference ranges effective 2014.----- BUN:CREATININE RATIO 12 (Better) EST GFR, >60 ml/min (Better) Range: >60 EST GFR, NON-AFR POLISH >60 ml/min (Better) Range: >60 Comments: EST GFR is reported in ml/min per 1.73 m2 of body surface area. For -Andorran, please multiple result by 1.2.----- GLUCOSE 103 mg/dL (Above high threshold) Range: 70-100 Comments: Variance from previous testing noted.----- ALK PHOSPHATASE 83 U/L (Better) Range: 46-116 TOTAL BILIRUBIN 0.90 mg/dL (Better) Range: 0.20-1.00 AST 23 U/L (Better) Range: 8-35 ALT 31 U/L (Better) Range: 16-63 Comments: Please note new reference ranges. Effective 06/07/2014.----- ALBUMIN 3.6 g/dL (Better) Range: 3.4-5.0 TOTAL PROTEIN 7.9 g/dL (Better) Range: 6.4-8.2 A/G RATIO 0.8 units (Below low threshold) Range: 1.0-1.8 CALCIUM 8.7 mg/dL (Better) Range: 8.5-10.1 Plan of Care Planned Observations* Name Dates Details Planned Goals not documented Goal Planned Encounters* Appointment; Provider: Calos Yoder On 30-Apr-2016 13:30 * Appointment; Provider: Chan Webb On 10:45 * Appointment; Provider: Chan Webb On 06:45 * Appointment; Provider: Lance Alicea On 08:00 [...]
--- OUTSIDE RECORDS SUMMARY | 2016-07-01 17:23 | XMS REPORT | Summary of Care ---
Author Author Carlos Neville M.D. Organization Unknown Address [address], [place] [address] Phone Unavailable Care Team Providers Care Supplemental Manager Name Role Phone Jon Kirkland, FACS, ,, M Unavailable Unavailable Mena Kirkland, Ritesh Unavailable Unavailable Kelin Kirkland, Nataly Unavailable Unavailable Lena Fountain, Andreia Unavailable Unavailable Nic Kirkland, G Unavailable Unavailable Paresh Kirkland, T Unavailable Unavailable Carlos Neville PP Unavailable [facility] ([place]) Unavailable Unavailable Unavailable Functional Status Functional Status Health Issues* Name Dates Details Functional status health issues are not documented Status: Cognitive Status Health Issues* Name Dates Details Cognitive status health issues are not documented Status: Problems Name Dates Details Heartburn Frequently (Weekly / Daily) Status: Active Anemia (285.9, D64.9) Status: Active Vena Caval Thrombosis Status: Active Spinal cord stimulator status (V45.89, Z96.89) Status: Active Neurogenic bladder (596.54, N31.9) Status: Active Meningitis (322.9, G03.9) Status: Active Latex allergy, contact dermatitis (692.4, L25.3) Status: Active Intractable back pain (724.5, M54.9) Status: Active Insomnia (780.52, G47.00) Status: Active Hypothyroidism (244.9, E03.9) Status: Active 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, M96.1) Status: Active Esophageal reflux (530.81, K21.9) Status: Active Cognitive impairment (294.9, R41.89) Status: [...] Status: Active Hyperlipidemia (272.4, E78.5) Status: Active Former smoker (V15.82, Z87.891) Status: Active Medications Name Dates Details Levothyroxine [...] on:15-Mar-2013 Flulaval Quadrivalent Intramuscular Suspension Lot #: [id number] Administered on:26-Dec-2013 Zostavax 05152 UNT/0.65ML Subcutaneous Solution Reconstituted Lot #: [id number] Administered on:26-Dec-2013 Prevnar 13 Intramuscular Suspension Lot #: [id number] Administered on:21-May-2014 Family History Mother* Name Dates [...] ml/min (Better) Range: >60 EST GFR, NON-AFR EMIRATI >60 ml/min (Better) Range: >60 Comments: EST GFR is reported in ml/min per 1.73 m2 of body surface area. For -Honduran, please multiple result by 1.2.----- GLUCOSE 110 [...] ml/min (Better) Range: >60 EST GFR, NON-AFR EMIRATI >60 ml/min (Better) Range: >60 Comments: EST GFR is reported in ml/min per 1.73 m2 of body surface area. For -Honduran, please multiple result by 1.2.----- GLUCOSE 99 [...] 13:30 * Appointment; Provider: Chan Webb On 17:00 * Appointment; Provider: Carlos Neville On 07-Aug-2015 13:30 * Appointment; Provider: Nadiya Dinh On [...] not documented On 10-Apr-2014 14:00 Appointment; Ritesh aSn Encounter Diagnosis: Problem not documented On 21-Feb-2014 [...]
--- OUTSIDE RECORDS SUMMARY | 2016-07-01 17:23 | XMS REPORT | Summary of Care ---
Author Author Kelin Kirkland, Carlos Ingram Organization Unknown Address [address], [place] [id number] Phone Unavailable Care Team Providers Care Pediatric Dental Hygienist Name Role Phone Jon Kirkland, FACS, ,, M Unavailable Unavailable Mena Kirkland, Ritesh Unavailable Unavailable Kelin Kirkland, Nataly Unavailable Unavailable Lena Fountain, Andreia Unavailable Unavailable Nixon Kirkland, Lance Unavailable Unavailable Nic Kirkland, G Unavailable Unavailable Paresh Kirkland, T Unavailable Unavailable Carlos Neville PP Unavailable [facility] ([place]) Unavailable Unavailable Unavailable Functional Status Functional Status [...] Refills: 0 Lance Alicea M.D.* Started 19-Aug-2015 Klmazm8988 ML Bottle PEG 3350/Electrolytes 240 GM Oral Solution Reconstituted TAKE DIRECTED. * Quantity: 1 Refills: 0 Lance Alicea M.D.* Started Hsowtq2586 ML Bottle Simethicone 40 MG/0.6ML Oral Suspension TAKE DIRECTED. * Quantity: 1 Refills: 0 Lance Alicea M.D.* Started Koofwx73 ML Bottle HYDROmorphone HCl - 8 MG [...] Lesion Sacral Colonoscopy- Screening or Dx Ordered:07-Aug-2015 CBC w/ Auto Diff 7150 Ordered: Comprehensive Metabolic Panel 1212 Ordered: Immunization Name Dates Details Pneumo (Pneumovax) Administered on:15-Mar-2013 Flulaval Quadrivalent Intramuscular Suspension Lot #: [id number] Administered on:26-Dec-2013 Zostavax 49577 UNT/0.65ML Subcutaneous Solution Reconstituted Lot #: [id number] Administered on:26-Dec-2013 Prevnar 13 Intramuscular Suspension Lot #: [id number] Administered on:21-May-2014 Tdap (Adacel) Lot #: [id number] Administered on:07-Aug-2015 Family History Mother* Name Dates [...] to report Results Date Description Value Details 08:57 ULTRASOUND [...] ml/min (Better) Range: >60 EST GFR, NON-AFR URUGUAYAN >60 ml/min (Better) Range: >60 Comments: EST GFR is reported in ml/min per 1.73 m2 of body surface area. For -Filipino, please multiple result by 1.2.----- GLUCOSE 177 [...] 12:49 X CHEST PA & LAT (Better) 10:10 Colonoscopy Abnormal- Polyps (Better) Range: 0 Plan of Care Planned Observations* Name Dates [...]
--- OUTSIDE RECORDS SUMMARY | 2016-07-01 17:23 | XMS REPORT | Summary of Care ---
Author Author Nixon Kirkland, Lance Harrison Unknown Address [address], [place] [address] Phone Unavailable Care Team Providers Care Varnishing Unit Operator Name Role Phone Jon Kirkland, FACS, ,, M Unavailable Unavailable Mena Kirkland, Ritesh Unavailable Unavailable Kelin Kirkland, A Unavailable Unavailable Lena Fountain, Andreia Unavailable Unavailable Alton Davidson, L Unavailable Unavailable Nixon Kirkland, Lance Unavailable Unavailable Nic Kirkland, G Unavailable Unavailable Paresh Kirkland, T Unavailable Unavailable Carlos Neville PP Unavailable [facility] ([place]) RP Unavailable Unavailable Unavailable Functional Status Functional [...] TABLET Daily * Quantity: 60 Refills: 11 iRtesh San M.D.* Started 15-Mar-2013 ActiveGabapentin 300 MG [...] Refills: 0 Lance Alicea M.D.* Started 19-Aug-2015 Qwoizs9787 ML Bottle Xarelto 20 MG Oral Tablet Take 1 tablet daily * Quantity: 1 Refills: 0 Elijah Dang D.O.* Started Ended ActivePEG 3350/Electrolytes 240 GM Oral Solution Reconstituted TAKE DIRECTED. * Quantity: 1 Refills: 0 Lance Alicea M.D.* Started Liqjbf3603 ML Bottle Simethicone 40 MG/0.6ML Oral Suspension TAKE DIRECTED. * Quantity: 1 Refills: 0 Lance Alicea M.D.* Started Whvvsx32 ML Bottle Allergies and Adverse Reactions Name [...] Lesion Sacral Colonoscopy- Screening or Dx Ordered:07-Aug-2015 ECG/ EKG Preop Pendin CBC w/ Auto Diff 7150 Ordered: Comprehensive Metabolic Panel 1212 Ordered: XRay CHEST-PA & LAT Ordered: Immunization Name Dates Details Pneumo (Pneumovax) Administered on:15-Mar-2013 Flulaval Quadrivalent Intramuscular Suspension Lot #: [id number] Administered on:26-Dec-2013 Zostavax 03577 UNT/0.65ML Subcutaneous Solution Reconstituted Lot #: [id number] Administered on:26-Dec-2013 Prevnar 13 Intramuscular Suspension Lot #: [id number] Administered on:21-May-2014 Tdap (Adacel) Lot #: [id number] Administered on:07-Aug-2015 Family History Mother* Name Dates [...]
[2016-07-01] MEDS ORDERED: MAGN400O4 PO (17:24)
[2016-07-01] MEDS ORDERED: MAG-37 PO (17:24)
[2016-07-01] MEDS ORDERED: ONDA-56 PO (17:24)
[2016-07-01] MEDS ORDERED: ACET-62 PO (17:24)
--- OUTSIDE RECORDS SUMMARY | 2016-07-01 17:24 | XMS REPORT | Summary of Care ---
Author Author Nadiya Timmons Unknown Address [address], [place] [address] Phone Unavailable Care Team Providers Care Real Estate Assistant Name Role Phone Jon Kirkland, FACS, [...] Active Chronic pain (338.29, G89.29) Status: Active Medications Name Dates Details Levothyroxine [...] on:15-Mar-2013 Flulaval Quadrivalent Intramuscular Suspension Lot #: [id number] Administered on:26-Dec-2013 Zostavax 27656 UNT/0.65ML Subcutaneous Solution Reconstituted Lot #: [id number] Administered on:26-Dec-2013 Prevnar 13 Intramuscular Suspension Lot #: [id number] Administered on:21-May-2014 Family History Mother* Name Dates [...]
--- OUTSIDE RECORDS SUMMARY | 2016-07-01 17:24 | XMS REPORT | Summary of Care ---
Author Author Nic Kirkland, Javi Harrison Unknown Address [address] [place], [place] [address] Phone Unavailable Care Team Providers Care Certified Respiratory Therapist Name Role Phone Jon Kirkland, FACS, ,, M Unavailable Unavailable Mena Kirkland, Ritesh Unavailable Unavailable Kelin Kirkland, A Unavailable Unavailable Lena Fountain, Andreia Unavailable Unavailable Nic Kirkland, Henry Unavailable Unavailable Paresh Kirkland, T Unavailable Unavailable Carlos Neville PP Unavailable [facility] ([place]) RP Unavailable Unavailable Unavailable Functional Status Functional [...] on:15-Mar-2013 Flulaval Quadrivalent Intramuscular Suspension Lot #: [id number] Administered on:26-Dec-2013 Zostavax 59982 UNT/0.65ML Subcutaneous Solution Reconstituted Lot #: [id number] Administered on:26-Dec-2013 Prevnar 13 Intramuscular Suspension Lot #: [id number] Administered on:21-May-2014 Family History Mother* Name Dates [...]
--- OUTSIDE RECORDS SUMMARY | 2016-07-01 17:24 | XMS REPORT | Summary of Care ---
Author Author Kelin Kirkland, Carlos Ingram Organization Unknown Address [address], [place] [id number] Phone Unavailable Care Team Providers Care Supervisor Electronics Processing Name Role Phone Jon Kirkland, FACS, ,, M Unavailable Unavailable Mena Kirkland, Ritesh Unavailable Unavailable Kelin Kirkland, Nataly Unavailable Unavailable Lena Fountain, Andreia Unavailable Unavailable Nixon Kirkland, Lance Unavailable Unavailable Nic Kirkland, G Unavailable Unavailable Paresh Kirkland, T Unavailable Unavailable Carlos Neville PP Unavailable [facility] ([place]) Unavailable Unavailable Unavailable Functional Status Functional Status [...] Colon cancer screening (V76.51, Z12.11) Status: Active Medications Name Dates [...] Refills: 0 Carlos Neville M.D.* Started 18-Apr-2015 ActiveCoumadin 5 MG Oral [...] Refills: 0 Lance Alicea M.D.* Started 19-Aug-2015 Yetprz0611 ML Bottle Allergies and Adverse Reactions Name [...] on:15-Mar-2013 Flulaval Quadrivalent Intramuscular Suspension Lot #: [id number] Administered on:26-Dec-2013 Zostavax 40760 UNT/0.65ML Subcutaneous Solution Reconstituted Lot #: [id number] Administered on:26-Dec-2013 Prevnar 13 Intramuscular Suspension Lot #: [id number] Administered on:21-May-2014 Tdap (Adacel) Lot #: [id number] Administered on:07-Aug-2015 Family History Mother* Name Dates [...] ml/min (Better) Range: >60 EST GFR, NON-AFR MARTINIQUAIS >60 ml/min (Better) Range: >60 Comments: EST GFR is reported in ml/min per 1.73 m2 of body surface area. For -Prydeinig, please multiple result by 1.2.----- GLUCOSE 99 [...]
--- OUTSIDE RECORDS SUMMARY | 2016-07-01 17:24 | XMS REPORT ---
Author Author GENERATED, SYSTEM Organization Unknown Address Unknown Phone Unavailable Care Team Providers Care [employer] Social [employer] Tutor Name Role Phone MD BRYSON, RUDI [phone] Reason For Visit Reason for Visit from 03/10/2014 9:30 PM:* Pt Stated Reason for Adm : Seizures Chief Complaint SEIZURE,SUICIDAL Social History Social History from 03/11/2014 3:23 PM:* Tobacco Use? : Former Smoker Social History from 03/10/2014 9:30 PM:* Tobacco Use? : Former Smoker Functional Status Functional Status from 03/11/2014 8:10 AM:* LOC : Alert * Oriented To : Person,Place,Event * Weight Bearing Status : Full * Assist Level : Independent * # Assists : 1 Functional Status from 03/10/2014 9:30 PM:* LOC : Alert * Oriented To : Person,Place,Time * Weight Bearing Status : Full * Assist Level : Dependent * # Assists : 1 Vital Signs Hospital Vital Signs from 03/11/2014 9:00 AM:* Heart Rate : 79 * Resp Rate : 11 * Systolic BP (mmHg) : 104 * Diastolic BP (mmHg) : 68 * Mean BP (mmHg) : 76 * O2 Saturation (%) : 97 Hospital Vital Signs from 03/11/2014 8:10 AM:* Temp : 98.1 * Heart Rate : 83 * Heart Rate : 88 * Resp Rate : 11 * Systolic BP (mmHg) : 104 * Diastolic BP (mmHg) : 76 * Mean BP (mmHg) : 85 * O2 Saturation (%) : 96 Hospital Vital Signs from 03/11/2014 8:00 AM:* Heart Rate : 76 * Resp Rate : 13 * Systolic BP (mmHg) : 97 * Diastolic BP (mmHg) : 79 * Mean BP (mmHg) : 84 * O2 Saturation (%) : 97 Hospital Vital Signs from 03/11/2014 5:00 AM:* Heart Rate : 64 * Resp Rate : 12 * Systolic BP (mmHg) : 99 * Diastolic BP (mmHg) : 67 * Mean BP (mmHg) : 79 * O2 Saturation (%) : 94 Hospital Vital Signs from 03/11/2014 4:00 AM:* Heart Rate : 61 * Resp Rate : 11 * Systolic BP (mmHg) : 109 * Diastolic BP (mmHg) : 74 * Mean BP (mmHg) : 84 * O2 Saturation (%) : 98 Hospital Vital Signs from 03/11/2014 3:00 AM:* Temp : 97.6 * Heart Rate : 56 * Resp Rate : 8 * Systolic BP (mmHg) : 93 * Diastolic BP (mmHg) : 58 * Mean BP (mmHg) : 77 * O2 Saturation (%) : 94 Hospital Vital Signs from 03/11/2014 2:00 AM:* Heart Rate : 59 * Resp Rate : 12 * Systolic BP (mmHg) : 90 * Diastolic BP (mmHg) : 61 * Mean BP (mmHg) : 68 * O2 Saturation (%) : 96 Hospital Vital Signs from 03/11/2014 1:00 AM:* Heart Rate : 71 * Resp Rate : 12 * Systolic BP (mmHg) : 95 * Diastolic BP (mmHg) : 76 * Mean BP (mmHg) : 82 * O2 Saturation (%) : 94 Hospital Vital Signs from 03/11/2014 12:00 AM:* Heart Rate : 78 * Resp Rate : 10 * Systolic BP (mmHg) : 107 * Diastolic BP (mmHg) : 77 * Mean BP (mmHg) : 89 * O2 Saturation (%) : 98 Hospital Vital Signs from 03/10/2014 11:00 PM:* Heart Rate : 78 * Resp Rate : 15 * Systolic BP (mmHg) : 121 * Diastolic BP (mmHg) : 91 * Mean BP (mmHg) : 104 * O2 Saturation (%) : 100 Hospital Vital Signs from 03/10/2014 10:00 PM:* Temp : 97.8 * Heart Rate : 70 * Resp Rate : 12 * Systolic BP (mmHg) : 106 * Diastolic BP (mmHg) : 72 * Mean BP (mmHg) : 82 * O2 Saturation (%) : 95 Hospital Vital Signs from 03/10/2014 9:54 PM:* Heart Rate : 69 * Resp Rate : 11 * O2 Saturation (%) : 98 Hospital Vital Signs from 03/10/2014 9:30 PM:* Weight : 111.4/ kg * Height : 6/1 ft,in Results Chemistry from 03/11/2014 3:56 AMSODIUM 137 MMOL/L (136-145 MMOL/L) POTASSIUM 3.8 MMOL/L (3.5-5.1 MMOL/L) CHLORIDE 103 MMOL/L (98-107 MMOL/L) TCO2 32.6 MMOL/L H (21.0-32.0 MMOL/L) ANION GAP 1.4 MMOL/L L (8.0-16.0 MMOL/L) BUN 11 MG/DL (7-18 MG/DL) CREATININE 0.74 MG/DL (0.63-1.13 MG/DL) BUN/CREATININE RATIO 14.9 (9.1-17.0 ) GLUCOSE 95 MG/DL (65-99 MG/DL) GFR EST NON AFR CYMRO >90 ML/MIN GFRA EST AFR AMER >90 ML/MIN CALCIUM 9.0 MG/DL (8.5-10.1 MG/DL) BILIRUBIN TOTAL 0.30 MG/DL (0.20-1.00 MG/DL) TOTAL PROTEIN 6.8 GM/DL (6.4-8.2 GM/DL) ALBUMIN 3.4 GM/DL (3.4-5.0 GM/DL) GLOBULIN 3.4 GM/DL (2.3-3.5 GM/DL) A/G RATIO 1.0 MG/DL L (1.5-2.2 MG/DL) ALK PHOS 74 U/L (46-116 U/L) ALT (SGPT) 13 U/L (12-78 U/L) AST (SGOT) 10 U/L L (15-37 U/L) MAGNESIUM 2.1 MG/DL (1.8-2.4 MG/DL) Hematology from 03/11/2014 3:56 AMWBC 6.7 X10e3/UL (3.6-11.2 X10e3/UL) RBC 4.16 X10e6/UL (4.06-5.63 X10e6/UL) HEMOGLOBIN 12.9 G/DL (12.5-16.3 G/DL) HEMATOCRIT 38.3 % (36.7-47.1 %) MCV 92.2 FL (80.0-100.0 FL) MCH 31.1 PG (27.0-33.0 PG) MCHC 33.8 G/DL (32.0-36.0 G/DL) RDW 14.5 % (12.3-17.0 %) RDWSD 46.4 (37.1-47.8 ) PLATELET 260 X10e3/UL (159-386 X10e3/UL) MPV 7.7 FL (7.4-10.4 FL) CT Scan from 03/11/2014 6:00 AMCT CEREBRAL W/O CONTRAST (Preliminary Result) DATE OF EXAM: Mar 11 2014 6:37AM Proc: CT 0001 - CT CEREBRAL W/O CONTRAST CPT Code(s): 08895-; ; ; INDICATION / CLINICAL HISTORY: Seizure. Suicidal. COMPARISON: July 08, 2013. FINDINGS: The ventricles are normal in size and configuration. There is no mass effect or midline shift. No intracranial hemorrhage or abnormal extraaxial fluid collections are demonstrated. The visualized paranasal sinuses are well aerated. IMPRESSION: Negative head CT. Problems Encounter Diagnosis * Bipolar Disorder Comment:Problem resolved by [facility] upon Discharge, Status:Resolved. * Congestive Heart Failure Comment:Problem resolved by [facility] upon Discharge, Status:Resolved. * Depression Comment:Problem resolved by [facility] upon Discharge, Status :Resolved. * History of Deep Vein Thrombosis Comment:Problem resolved by [facility] upon Discharge, Status:Resolved. * History of Hypothyroidism Comment:Problem resolved by [facility] upon Discharge, Status:Resolved. Additional Problems * Candidiasis Comment:Problem resolved by [facility] upon Discharge, Status:Resolved. * Dizziness Comment:Problem resolved by [facility] upon Discharge, Status: Resolved. * Edema Comment:Problem resolved by [facility] upon Discharge, Status: Resolved. * Edema of Lower Extremity Comment:Problem resolved by [facility] upon Discharge, Status:Resolved. * General Health Deterioration Comment:Problem resolved by [facility] upon Discharge, Status:Resolved. * Generalized-onset Seizures Comment:Problem resolved by [facility] upon Discharge, Status:Resolved. Encounters Encounter Diagnosis * Bipolar Disorder Comment:Problem resolved by [facility] upon Discharge, Status:Resolved. * Congestive Heart Failure Comment:Problem resolved by [facility] upon Discharge, Status:Resolved. * Depression Comment:Problem resolved by [facility] upon Discharge, Status :Resolved. * History of Deep Vein Thrombosis Comment:Problem resolved by [facility] upon Discharge, Status:Resolved. * History of Hypothyroidism Comment:Problem resolved by [facility] upon Discharge, Status:Resolved. Plan of Care Treatment Plan from 03/11/2014 11:48 AM:* Care Management Note : Patient admitted under inpatient status after presenting to the ED with possible seizures et postictal state. POC includes neuro consult, Keppra IV et EEG. Psych also consulted. Meets medical necessity for inpatient status with an anticipated LOS > 2 midnights. Procedures * Completed suprapubic catheter insertion, by MD REZA LERMA, on 2013 11:01 AM * Completed Procedure Code: 61791 Procedure Name: not valued, on 02/08/2014 12: 00 AM * Completed Procedure Code: 47005 Procedure Name: not valued, on 02/08/2014 12: 00 AM * Completed , on 10/21/2012 12:00 AM * Completed , on 10/21/2012 12:00 AM * Completed , on 10/21/2012 12:00 AM * Completed , on 10/21/2012 12:00 AM Immunizations No immunizations administered or ordered. Hospital Course Hospital Discharge Instructions How to care for yourself at home from 03/11/2014 3:23 PM:* Discharge Activity : Activity as tolerated,May Shower * Discharge Diet : As before hospitalization * Call your doctor if: : Fever [...] of the patient or patient sales representative public utilities to confirm the list of medications with either the patient's personal care provider or the patient's follow-up care provider to ensure the patient has an appropriate list of medications to take at home. Preliminary list - medication reconciliation not completed. Discharge medications Continued medications* atorvastatin 20 mg Tablet, Ordered By: RUDI MASSEY MD Directions: 1 tablet oral daily at bedtime * baclofen 20 mg Tablet, Ordered By: RUDI MASSEY MD Directions: 1 tablet oral three times a day * divalproex (Depakote) 500 mg tablet,delayed release (DR/EC), Ordered By: RUDI MASSEY MD Directions: 2 tablet oral daily * gabapentin 300 mg Capsule, Ordered By: RUDI MASSEY MD Directions: 2 capsule oral three times a day * lansoprazole 30 mg capsule,delayed release(DR/EC), Ordered By: RUDI MASSEY MD Directions: 1 capsule oral daily * levothyroxine (Synthroid) 50 mcg Tablet, Ordered By: RUDI MASSEY MD Directions: 1 tablet oral daily before breakfast * lubiprostone (Amitiza) 24 mcg Capsule, Ordered By: RUDI MASSEY MD Directions: 1 capsule oral twice a day * morphine 15 mg Tablet Extended Release, Ordered By: RUDI MASSEY MD Directions: 1 tablet oral twice a day * ondansetron 4 mg tablet,disintegrating, Ordered By: RUDI MASSEY MD Directions: 1 tablet oral every eight hours PRN nausea or vomiting * rivaroxaban (Xarelto) 20 mg Tablet, Ordered By: RUDI MASSEY MD Directions: 1 tablet oral daily * traZODone 50 mg Tablet, Ordered By: RUDI MASSEY MD Directions: 1 tablet oral daily at bedtime * morphine 15 mg Tablet Extended Release, Ordered By: RUDI MASSEY MD Directions: 1 tablet oral twice a day * levothyroxine (Synthroid) 50 mcg Tablet, Ordered By: RUDI MASSEY MD Directions: 1 tablet oral daily before breakfast Changed medications* HYDROmorphone 4 mg Tablet, Ordered By: RUDI MASSEY MD Directions: 1 tablet oral three times a day * potassium chloride (Klor-Con) 20 mEq Packet, Ordered By: RUDI MASSEY MD Directions: 1 tablet oral daily * zolpidem 10 mg Tablet, Ordered By: RUDI MASSEY MD Directions: 1 tablet oral daily at bedtime PRN insomnia Additional Instructions: FOR SLEEP * rivaroxaban (Xarelto) 10 mg Tablet, Ordered By: RUDI MASSEY MD Directions: 1 tablet oral daily with dinner Additional Instructions: *DO NOT CRUSH* *GIVE WITH EVENING MEAL* * potassium chloride 20 mEq tablet,ER particles/crystals, Ordered By: RUDI MASSEY MD Directions: 1 tablet oral daily with breakfast Stopped medications* furosemide 80 mg Tablet Directions: 1 tablet oral twice a day * tamsuLOSIN (FLOmax) 0.4 mg capsule,extended release 24hr * bethanechol chloride (Urecholine) 25 mg Tablet Directions: 1 tablet oral four times daily * cranberry extract-vit C 500mg Directions: 1 capsule oral three times a day
--- OUTSIDE RECORDS SUMMARY | 2016-07-01 17:24 | XMS REPORT ---
Author Author GENERATED, SYSTEM Organization Unknown Address Unknown Phone Unavailable Care Team Providers Care Seismographer Name Role Phone MD BRYSON, RUDI PP [phone] Reason For Visit Reason for Visit from 03/12/2014 12:16 PM:* Pt Stated Reason for Adm : SI with plan Reason for Visit from 03/11/2014 4:17 PM:* Pt Stated Reason for Adm : SI with plan Chief Complaint MOOD D/O NOS Social History Social History from 03/21/2014 2:46 PM:* Tobacco Use? : Former Smoker Social History from 03/12/2014 12:16 PM:* Tobacco Use? : Former Smoker Social History from 03/11/2014 4:17 PM:* Tobacco Use? : Former Smoker Functional Status Functional Status from 03/21/2014 9:15 AM:* LOC : Alert * Oriented To : Person,Place,Time,Event * Weight Bearing Status : Full * Assist Level : Independent * # Assists : Independent Functional Status from 03/20/2014 8:03 PM:* LOC : Alert * Oriented To : Person,Place,Time,Event * Weight Bearing Status : Full * Assist Level : Independent * # Assists : Independent Functional Status from 03/20/2014 9:19 AM:* LOC : Alert * Oriented To : Person,Place,Time,Event * Weight Bearing Status : Full * Assist Level : Independent * # Assists : Independent Functional Status from 03/19/2014 8:05 PM:* LOC : Alert * Oriented To : Person,Place,Time,Event * Weight Bearing Status : Full * Assist Level : Independent * # Assists : Independent Functional Status from 03/19/2014 9:05 AM:* LOC : Alert * Oriented To : Person,Place,Time,Event * Weight Bearing Status : Full * Assist Level : Independent * # Assists : Independent Functional Status from 03/18/2014 8:03 PM:* LOC : Alert * Oriented To : Person,Place,Time,Event * Weight Bearing Status : Full * Assist Level : Independent * # Assists : Independent Functional Status from 03/18/2014 7:50 AM:* LOC : Alert * Oriented To : Person,Place,Time,Event * Weight Bearing Status : Full * Assist Level : Independent * # Assists : Independent Functional Status from 03/17/2014 8:06 PM:* LOC : Alert * Oriented To : Person,Place,Time,Event * Weight Bearing Status : Full * Assist Level : Independent * # Assists : Independent Functional Status from 03/17/2014 9:15 AM:* LOC : Alert * Oriented To : Person,Place,Time,Event * Weight Bearing Status : Full * Assist Level : Independent * # Assists : Independent Functional Status from 03/16/2014 8:05 PM:* LOC : Alert * Oriented To : Person,Place,Time,Event * Weight Bearing Status : Full * Assist Level : Independent * # Assists : Independent Functional Status from 03/16/2014 9:22 AM:* LOC : Alert * Oriented To : Person,Place,Time,Event * Weight Bearing Status : Full * Assist Level : Independent * # Assists : Independent Functional Status from 03/15/2014 8:49 PM:* LOC : Alert * Oriented To : Person,Place,Time,Event * Weight Bearing Status : Full * Assist Level : Independent * # Assists : Independent Functional Status from 03/15/2014 9:08 AM:* LOC : Alert * Oriented To : Person,Place,Time,Event * Weight Bearing Status : Full * Assist Level : Independent * # Assists : Independent Functional Status from 03/14/2014 7:46 PM:* LOC : Alert * Oriented To : Person,Place,Time,Event * Weight Bearing Status : Full * Assist Level : Independent * # Assists : Independent Functional Status from 03/14/2014 9:40 AM:* LOC : Alert * Oriented To : Person,Place,Time,Event * Weight Bearing Status : Full * Assist Level : Independent * # Assists : Independent Functional Status from 03/13/2014 8:06 PM:* LOC : Alert * Oriented To : Person,Place,Time,Event * Weight Bearing Status : Full * Assist Level : Independent * # Assists : Independent Functional Status from 03/13/2014 9:16 AM:* LOC : Alert * Oriented To : Person,Place,Time,Event * Weight Bearing Status : Full * Assist Level : Independent * # Assists : Independent Functional Status from 03/12/2014 8:00 PM:* LOC : Alert * Oriented To : Person,Place,Time,Event * Weight Bearing Status : Full * Assist Level : Partial * # Assists : 1 Functional Status from 03/12/2014 1:20 PM:* Oriented To : Person,Place,Time Functional Status from 03/12/2014 1:05 PM:* Oriented To : Person,Place,Time, Event Functional Status from 03/11/2014 8:02 PM:* LOC : Drowsy * Oriented To : Person * Weight Bearing Status : Full * Assist Level : Independent * # Assists : Independent Functional Status from 03/11/2014 4:17 PM:* LOC : Alert * Oriented To : Person,Place,Time,Event * Weight Bearing Status : Full * Assist Level : Partial * # Assists : 1 Vital Signs Hospital Vital Signs from 03/21/2014 11:16 AM:* Weight : 118.0/ kg * Height : 6/1 ft,in Hospital Vital Signs from 03/21/2014 6:04 AM:* Weight : 118.0/ kg * Height : 6/1 ft,in * Temperature : 98.3 F * Pulse : 68 * Respirations : 20 * BP : 101/59 Hospital Vital Signs from 03/20/2014 6:03 AM:* Height : 6/1 ft,in * Temperature : 97.9 F * Pulse : 64 * Respirations : 20 * BP : 89/62 Hospital Vital Signs from 03/19/2014 5:49 AM:* Weight : 113.6/ kg * Height : 6/1 ft,in * Temperature : 98.6 F * Pulse : 68 * Respirations : 18 * BP : 99/64 Hospital Vital Signs from 03/18/2014 6:08 AM:* Height : 6/1 ft,in * Temperature : 97.8 F * Pulse : 70 * Respirations : 18 * BP : 96/65 Hospital Vital Signs from 03/17/2014 6:16 AM:* Height : 6/1 ft,in * Temperature : 98.6 F * Pulse : 69 * Respirations : 20 * BP : 110/75 Hospital Vital Signs from 03/16/2014 10:22 AM:* Height : 6/1 ft,in Hospital Vital Signs from 03/16/2014 6:59 AM:* Height : 6/1 ft,in * Temperature : 98.4 F * Pulse : 56 * Respirations : 18 * BP : 91/60 Hospital Vital Signs from 03/15/2014 6:37 AM:* Height : 6/1 ft,in * Temperature : 98.4 F * Pulse : 67 * Respirations : 20 * BP : 113/54 Hospital Vital Signs from 03/14/2014 7:04 AM:* Weight : 110.3/ kg * Height : 6/1 ft,in * Temperature : 98.4 F * Pulse : 62 * Respirations : 18 * BP : 112/77 Hospital Vital Signs from 03/13/2014 6:28 AM:* Height : 6/1 ft,in * Temperature : 98.4 F * Pulse : 61 * Respirations : 22 * BP : 102/65 Hospital Vital Signs from 03/12/2014 9:35 AM:* Weight : 110.6/ kg * Height : 6/1 ft,in Hospital Vital Signs from 03/12/2014 5:54 AM:* Weight : 110.6/ kg * Height : 6/1 ft,in * Temperature : 98.2 F * Pulse : 65 * Respirations : 18 * BP : 109/73 Hospital Vital Signs from 03/11/2014 4:17 PM:* Weight : 11.6/ kg * Height : 6/1 ft,in Hospital Vital Signs from 03/11/2014 4:15 PM:* Weight : 11.6/ kg * Height : 6/1 ft,in * Temperature : 98.0 F * Pulse : 74 * Respirations : 20 * BP : 106/71 Results Chemistry from 03/20/2014 9:22 PMVALPROIC ACID 52 MCG/ML (50-100 MCG/ML) Chemistry from 03/13/2014 6:24 AMGLUCOSE (FASTING) 85 MG/DL (65-99 MG/DL) Problems Encounter Diagnosis No relevant problems exist. [...] exist. Plan of Care Follow-up Appointments from 03/21/2014 2:46 PM:* #1 Office appointment: : Intake M-F 8:30-3:30 Thurs 10:30-3:30 * Address # 1 : [facility]: [address], [address], [place] - Procedures * Completed suprapubic catheter insertion, by MD REZA LERMA, on 2013 11:01 AM * Completed Procedure Code: 02160 Procedure Name: not valued, on 02/08/2014 12: 00 AM * Completed Procedure Code: 82602 Procedure Name: not valued, on 02/08/2014 12: 00 AM * Completed , on 10/21/2012 12:00 AM * Completed , on 10/21/2012 12:00 AM * Completed , on 10/21/2012 12:00 AM * Completed , on 10/21/2012 12:00 AM Immunizations No immunizations administered or ordered. Hospital Course Hospital Discharge Instructions How to care for yourself at home from 03/21/2014 2:46 PM:* Discharge Activity : Activity as tolerated,May Shower * Discharge Diet : Modification as given by physician * Discharge Diet: : Cardiac * Call your doctor if: : Fever over 101 F or severe chills,Chest pain or other unexplained symptoms,Tingling or numbness develops,A sudden increase or decrease in weight,You have persistent or worsening symptoms,If you have Heart Failure and you gain 3 pounds within 1 week or your symptoms worsen. (Weigh at home tomorrow morning) Allergies, Adverse Reactions, Alerts * Zoloft causes tremors. * Paxil causes tremors. * Abilify causes pass out. * nystatin causes Severe Hives. * Latex causes Unknown. Onset unsure. * Keflex causes unspecified. * Novocain causes unspecified. * No IV Contrast Allergy. * No Known Food Allergies. Medication It is the responsibility of the patient or patient construction representative to confirm the list of medications with either the patient's personal care provider or the patient's follow-up care provider to ensure the patient has an appropriate list of medications to take at home. Discharge medications New medications* escitalopram (LexAPRO) 20 mg Tablet, Ordered By: MAURISIO GUSMAN, PAC Directions: 1 tablet oral daily Additional Instructions: . * hydrocortisone 0.5 % Cream, Ordered By: MAURISIO GUSMAN, PAC Directions: 1 application topical twice a day Additional Instructions: APPLY THIN FILM TO FACIAL RASH * levetiracetam 500 mg Tablet, Ordered By: MAURISIO GUSMAN, PAC Directions: 1 tablet oral twice a day for seizures * pantoprazole 40 mg tablet,delayed release (DR/EC), Ordered By: MAURISIO GUSMAN, PAC Directions: 1 tablet oral daily before breakfast for GERD * QUEtiapine (SEROquel) 200 mg Tablet, Ordered By: MAURISIO GUSMAN, PAC Directions: 1 tablet oral daily at bedtime for depression Continued medications* atorvastatin 20 mg Tablet, Ordered By: MAURISIO GUSMAN , PAC Directions: 1 tablet oral daily at bedtime * lubiprostone (Amitiza) 24 mcg Capsule, Ordered By: MAURISIO GUSMAN, PAC Directions: 1 capsule oral twice a day Changed medications* baclofen 20 mg Tablet, Ordered By: MAURISIO GUSMAN, PAC Directions: 1 tablet oral three times a day for pain * bethanechol chloride 25 mg Tablet, Ordered By: MAURISIO GUSMAN, PAC Directions: 1 tablet oral four times daily for pain * divalproex (Depakote) 500 mg tablet,delayed release (DR/EC), Ordered By: MAURISIO GUSMAN, PAC Directions: 1 tablet oral twice a day * furosemide 80 mg Tablet, Ordered By: MAURISIO GUSMAN, PAC Directions: 1 tablet oral daily for htn * gabapentin 300 mg Capsule, Ordered By: MAURISIO GUSMAN, PAC Directions: 1 capsule oral three times a day for pain * HYDROmorphone (Dilaudid) 8 mg Tablet, Ordered By: ADELA FUNEZ Directions: 1 tablet oral every six hours PRN pain Additional Instructions: MAX OF 3 DOSES PER DAY * levothyroxine (Synthroid) 50 mcg Tablet, Ordered By: ADELA FUNEZ Directions: 1 tablet oral daily before breakfast for hypothyroidism * morphine 15 mg Tablet Extended Release, Ordered By: ADELA FUNEZ Directions: 1 tablet oral twice a day for pain * potassium chloride 20 mEq tablet,ER particles/crystals, Ordered By: ADELA FUNEZ Directions: 1 tablet oral daily with breakfast for hypokalemia * rivaroxaban (Xarelto) 20 mg Tablet, Ordered By: ADELA FUNEZ Directions: 1 tablet oral daily with dinner for blood thinner Additional Instructions: *DO NOT CRUSH* *GIVE WITH EVENING MEAL* Stopped medications* cranberry extract-vit C 500mg Capsule Directions: 1 capsule oral three times a day * lansoprazole 30 mg capsule,delayed release(DR/EC) Directions: 1 capsule oral daily * ondansetron 4 mg tablet,disintegrating Directions: 1 tablet oral every eight hours PRN nausea or vomiting * tamsuLOSIN (FLOmax) 0.4 mg capsule,extended release 24hr * traZODone 50 mg Tablet Directions: 1 tablet oral daily at bedtime * zolpidem (Ambien) 12.5mg Tablet Directions: oral daily
--- OUTSIDE RECORDS SUMMARY | 2016-07-01 17:25 | XMS REPORT ---
Author Author GENERATED, SYSTEM Organization Unknown Address Unknown Phone Unavailable Care Team Providers Care Deli Manager Name Role Phone MD MIKAYLA, BHAKTI PP [phone] Reason For Visit Chief Complaint UNRESPONSIVE Social History Functional Status Vital Signs Results Chemistry from 02/20/2015 11:27 PMSODIUM 137 MMOL/L (136-145 MMOL/L) POTASSIUM 3.2 MMOL/L L (3.5-5.1 MMOL/L) CHLORIDE 102 MMOL/L (98-107 MMOL/L) TCO2 28.8 MMOL/L (21.0-32.0 MMOL/L) *ANION GAP 6.2 MMOL/L L (8.0-16.0 MMOL/L) BUN 13 MG/DL (7-18 MG/DL) CREATININE 0.88 MG/DL (0.70-1.30 MG/DL) *BUN/CREATININE RATIO 14.8 (9.1-17.0 ) GLUCOSE 107 MG/DL H (65-99 MG/DL) *GFR EST NON AFR RWANDAN >90 ML/MIN *GFRA EST AFR AMER >90 ML/MIN CALCIUM 8.9 MG/DL (8.5-10.1 MG/DL) TROPONIN-I <0.04 (SEE BELOW ) Hematology from 02/20/2015 11:27 PMWBC 7.6 X10e3/UL (3.6-11.2 X10e3/UL) RBC 4.31 X10e6/UL (4.06-5.63 X10e6/UL) HEMOGLOBIN 12.8 G/DL (12.5-16.3 G/DL) HEMATOCRIT 38.5 % (36.7-47.1 %) *MCV 89.4 FL (80.0-100.0 FL) *MCH 29.7 PG (27.0-33.0 PG) *MCHC 33.2 G/DL (32.0-36.0 G/DL) *RDW 14.4 % (12.3-17.0 %) PLATELET 472 X10e3/UL H (159-386 X10e3/UL) *MPV 7.3 FL L (7.4-10.4 FL) AUTOMATED DIFF PERFORMED SEGS 72.2 % *LYMPHOCYTES 17.0 % *MONOCYTES 8.8 % *EOSINOPHILS 1.7 % *BASOPHILS 0.3 % *ABSOLUTE NEUTROPHILS 5.50 X10e3/UL (1.80-7.80 X10e3/UL) *ABSOLUTE LYMPHOCYTES 1.30 X10e3/UL (1.00-3.00 X10e3/UL) *ABSOLUTE MONOCYTES 0.70 X10e3/UL (0.30-1.00 X10e3/UL) *ABSOLUTE EOSINOPHILS 0.10 X10e3/UL (0.00-0.50 X10e3/UL) *ABSOLUTE BASOPHILS 0.00 X10e3/UL (0.00-0.20 X10e3/UL) Problems Encounter Diagnosis No relevant problems exist. [...] 2013 11:01 AM * Completed Procedure Code: 66668 Procedure Name: not valued, on 02/08/2014 12: 00 AM * Completed , on 10/21/2012 12:00 AM * Completed , on 10/21/2012 12:00 AM Immunizations No immunizations administered or ordered. Hospital Course Hospital Discharge Instructions Allergies, Adverse Reactions, Alerts * Zoloft causes tremors. * Paxil causes tremors. * Abilify causes pass out. * nystatin causes Severe Hives. * Latex causes Unknown. Onset unsure. * Keflex causes unspecified. * Novocain causes unspecified. * IV Contrast Allergy has not been assessed. * No Known Food Allergies. Medication Medication reconciliation has not been performed.
--- OUTSIDE RECORDS SUMMARY | 2016-07-01 17:25 | XMS REPORT | Summary of Care ---
Author Author Kelin Kirkland, Carlos Ingram Organization Unknown Address [address], [place] [id number] Phone Unavailable Care Team Providers Care Concrete Handler Name Role Phone Jon Kirkland, FACS, ,, M Unavailable Unavailable Mena Kirkland, Rietsh Unavailable Unavailable Kelin Kirkland, Nataly Unavailable Unavailable Lena Fountain, Andreia Unavailable Unavailable Alton Davidson, L Unavailable Unavailable Nixon Kirkland, Lance Unavailable Unavailable Nic Kirkland, G Unavailable Unavailable Paresh Kirkland, T Unavailable Unavailable Carlos Neville PP Unavailable [facility] ([place]) RP Unavailable Unavailable Unavailable Functional Status Functional [...] Refills: 0 Lance Alicea M.D.* Started 19-Aug-2015 [id number] ML Bottle Xarelto 20 MG Oral Tablet Take 1 tablet daily * Quantity: 1 Refills: 0 Elijah Dang D.O.* Started Ended ActivePEG 3350/Electrolytes 240 GM Oral Solution Reconstituted TAKE DIRECTED. * Quantity: 1 Refills: 0 Lance Alicea M.D.* Started [id number] ML Bottle Simethicone 40 MG/0.6ML Oral Suspension TAKE DIRECTED. * Quantity: 1 Refills: 0 Lance Alicea M.D.* Started [id number] ML Bottle Allergies and Adverse Reactions Name [...] on:15-Mar-2013 Flulaval Quadrivalent Intramuscular Suspension Lot #: [id number] Administered on:26-Dec-2013 Zostavax [id number] UNT/0.65ML Subcutaneous Solution Reconstituted Lot #: [id number] Administered on:26-Dec-2013 Prevnar 13 Intramuscular Suspension Lot #: [id number] Administered on:21-May-2014 Tdap (Adacel) Lot #: [id number] Administered on:07-Aug-2015 Family History Mother* Name Dates [...]
--- OUTSIDE RECORDS SUMMARY | 2016-07-01 17:25 | XMS REPORT | Summary of Care ---
Author Author Kelin Kirkland, Carlos Ingram Organization Unknown Address [address], [place] [id number] Phone Unavailable Care Team Providers Care Associate Professor Of Theatre Name Role Phone Jon Kirkland, FACS, ,, M Unavailable Unavailable Mena Kirkland, Ritesh Unavailable Unavailable Kelin Kirkland, Nataly Unavailable Unavailable Lena Fountain, Andreia Unavailable Unavailable Alton Davidson, L Unavailable Unavailable Nixon Kirkland, Lance Unavailable Unavailable Nic Kirkland, G Unavailable Unavailable Paresh Kirkland, T Unavailable Unavailable Carlos Neville PP Unavailable [facility] ([place]) RP Unavailable Unavailable Unavailable Functional Status [...] PRN * Quantity: 30 Refills: 0 Carlos Neivlle M.D.* Started 07-Aug-2015 ActivePEG-3350/Electrolytes 236 GM Oral Solution Reconstituted MIX AND DRINK DIRECTED PER COLONOSCOPY INSTRUCTIONS. * Quantity: 1 Refills: 0 Lance Alicea M.D.* Started 19-Aug-2015 [id number] ML Bottle Xarelto 20 MG Oral Tablet Take 1 tablet daily * Quantity: 1 Refills: 0 Elijah Dang D.O.* Started Ended ActivePEG 3350/Electrolytes 240 GM Oral Solution Reconstituted TAKE DIRECTED. * Quantity: 1 Refills: 0 Lance Alicea M.D.* Started [id number] ML Bottle Simethicone 40 MG/0.6ML Oral Suspension TAKE DIRECTED. * Quantity: 1 Refills: 0 Lance Alicea M.D.* Started [id number] ML Bottle Allergies and Adverse Reactions Name [...] on:15-Mar-2013 Flulaval Quadrivalent Intramuscular Suspension Lot #: [id number] Administered on:26-Dec-2013 Zostavax 21604 UNT/0.65ML Subcutaneous Solution Reconstituted Lot #: [id number] Administered on:26-Dec-2013 Prevnar 13 Intramuscular Suspension Lot #: [id number] Administered on:21-May-2014 Tdap (Adacel) Lot #: [id number] Administered on:07-Aug-2015 Family History Mother* Name Dates [...] ml/min (Better) Range: >60 EST GFR, NON-AFR ITALIAN >60 ml/min (Better) Range: >60 Comments: EST GFR is reported in ml/min per 1.73 m2 of body surface area. For -Dominican, please multiple result by 1.2.----- GLUCOSE 177 [...]
[2016-07-01] MEDS ORDERED: [UNRECOGNIZED DRUG - CODE] PO (17:26)
[2016-07-01] MEDS ORDERED: POLY119P3 PO ×2 (17:26→17:39)
[2016-07-01] MEDS ORDERED: BISA10SU8 RECTALLY (17:26)
--- OUTSIDE RECORDS SUMMARY | 2016-07-01 17:26 | XMS REPORT | Summary of Care ---
Author Author Kelin Kirkland, Carlos Ingram Organization Unknown Address [address], [place] [id number] Phone Unavailable Care Team Providers Care Podiatrist Name Role Phone Musa Webb Unavailable Unavailable Archana Stein PA-C Unavailable Unavailable Mena Kirkland, Ritesh Unavailable Unavailable Kelin Kirkland, Nataly Unavailable Unavailable Nixon Kirkland, Lance Unavailable Unavailable Nic Kirkland, G Unavailable Unavailable Paresh Kirkland, T Unavailable Unavailable Carlos Neville Unavailable Unavailable [facility] ([place]) Unavailable Unavailable Unavailable Unavailable Functional Status Name [...] 15-Mar-2013 Flulaval Quadrivalent Intramuscular Suspension Lot #: [id number] on: 26-Dec-2013 Zostavax 77237 UNT/0.65ML Subcutaneous Solution Reconstituted Lot #: [id number] on: 26-Dec-2013 Prevnar 13 Intramuscular Suspension Lot #: [id number] on: 21-May-2014 Tdap (Adacel) Lot #: [id number] on: 07-Aug-2015 Family History Name Dates Details [...] Provider: Carlos Neville M.D. On 06-Aug-2016 08:15 Instructions Name Dates Details Instructions not documented [...] documented On 25-Dec-2014 07:00 Appointment; Andreia Paredes PSean Encounter Diagnosis: Problem not documented On 04-Dec-2014 11:30 Appointment; Chan Webb M.D.,BEREKET, Encounter Diagnosis: Problem not documented On 23-Nov-2014 17:15 Appointment; Chan Webb M.D.,BEREKET, Encounter Diagnosis: Problem not documented On 12:45 Appointment; Carlos Neville M.D. Encounter Diagnosis: Problem not documented On 14:45 Appointment; Chan Webb M.D.,BEREKET, Encounter Diagnosis: Problem not documented On 07:15 Appointment; Andreia Paredes, PAkhilAAkhil Encounter Diagnosis: Problem not documented On [...]
--- OUTSIDE RECORDS SUMMARY | 2016-07-01 17:26 | XMS REPORT | Summary of Care ---
Author Author Carlos Neville M.D. Organization Unknown Address [address], [place] [id number] Phone Unavailable Care Team Providers Care Api Developer Name Role Phone Jon Kirkland, FACS, ,, M Unavailable Unavailable Mena Kirkland, Ritesh Unavailable Unavailable Kelin Kirkland, Nataly Unavailable Unavailable Lena Fountain, Andreia Unavailable Unavailable Nic Kirkland, G Unavailable Unavailable Paresh Kirkland, T Unavailable Unavailable Carlos Neville PP Unavailable [facility] ([place]) Unavailable Unavailable Unavailable Functional Status Functional Status Health Issues* Name Dates Details Functional status health issues are not documented Status: Cognitive Status Health Issues* Name Dates Details Cognitive status health issues are not documented Status: Problems Name Dates Details Heartburn Frequently (Weekly / Daily) Status: Active Shortness of breath (786.05, R06.02) Status: Active Edema (782.3, R60.9) Status: Active Respiratory tract infection (519.8, J98.8) Status: Active Anemia (285.9, D64.9) Status: Active Constipation (564.00, K59.00) Status: Active Pain, low back (724.2, M54.5) Status: Active Left knee pain (719.46, M25.562) [...] Active Opioid dependence (304.00, F11.20) Status: Active DVT (deep venous thrombosis) (453.40, [...] 60 Refills: 0 Javi Lucero M.D.* Started 15-Jan-2014 ActiveBaclofen 20 MG Oral Tablet TAKE ONE TABLET BY MOUTH THREE TIMES A DAY NEEDED * Quantity: 90 Refills: 2 Javi Lucero M.D.* Started 13-Feb-2014 ActiveAmitiza 24 MCG Oral Capsule TAKE 1 CAPSULE TWICE DAILY WITH FOOD. * Quantity: 60 Refills: 6 Calos Yodre M.D.* Started 20-Feb-2014 ActiveMethenamine Hippurate 1 GM Oral Tablet TAKE 1 TABLET TWICE DAILY. * Quantity: 180 Refills: 3 Chan Webb M.D., FACS, , * Started 10-Apr-2014 ActiveHYDROmorphone HCl - 8 MG Oral Tablet TAKE 1 TABLET EVERY 12 HOURS NEEDED.qty 60 max 2 a day * Quantity: 60 Refills: 0 Javi Lucero M.D.* Started 17-Jun-2015 ActiveCoumadin 5 MG Oral Tablet TAKE 1 [...] on:15-Mar-2013 Flulaval Quadrivalent Intramuscular Suspension Lot #: [id number] Administered on:26-Dec-2013 Zostavax 58130 UNT/0.65ML Subcutaneous Solution Reconstituted Lot #: [id number] Administered on:26-Dec-2013 Prevnar 13 Intramuscular Suspension Lot #: [id number] Administered on:21-May-2014 Family History Mother* Name Dates Details Family history of malignant neoplasm of breast (V16.3, Z80.3) Status: Active Father* Name Dates Details Family history of acute myocardial infarction (V17.3, Z82.49) Status: Active Family history of Prostate cancer (185, C61) Status: Active Social History Name Dates Details Smoking Status* Former smoker Vital Signs Date Test Result Details 17-Jun-2015 12:58 BP Systolic 130 mm[Hg] Status: [...] 13:45 * Appointment; Provider: Carlos Neville On 10-Jul-2015 13:00 * Appointment; Provider: Chan Webb On 08-Jul-2015 13:30 * Appointment; Provider: Nadiya Dnih On 11-Apr-2015 13:00 * Appointment; Provider: Schedule Radiology On 04-Mar-2015 16:30 * Appointment; Provider: Chan Webb On 08-Feb-2014 11:30 * Appointment; Provider: Carlos Neville On 22-Nov-2007 07:00 * Appointment; Provider: aCrlos Neville On 20-Nov-2007 07:00 Instructions * Instructions not documented Encounters Appointment; Carlos Neville Encounter Diagnosis: Problem not documented On 17-Jun-2015 13:00 Appointment; Javi Lucero Encounter Diagnosis: Problem not documented On 11-Jun-2015 13:30 Appointment; Chan Webb Encounter Diagnosis: Problem not documented On 11-Jun-2015 07:30 Appointment; Calos Yoder Encounter Diagnosis: Problem not documented On 01-May-2015 13:45 Appointment; Javi Lucreo Encounter Diagnosis: Problem not documented On 18-Apr-2015 [...]
--- OUTSIDE RECORDS SUMMARY | 2016-07-01 17:26 | XMS REPORT | Summary of Care ---
Author Author Kelin Kirkland, Carlos Ingram Organization Unknown Address [address], [place] [id number] Phone Unavailable Care Team Providers Care Patrol Inspector Name Role Phone Jon Kirkland, BEREKET, ,, M Unavailable Unavailable Emil VEGAS, Archana Unavailable Unavailable Mena Kirkland, Ritesh Unavailable Unavailable Kelin Kirkland, A Unavailable Unavailable Nixon Kirkland, Lance Unavailable Unavailable Nic Kirkland, G Unavailable Unavailable Paresh Kirkland, T Unavailable Unavailable Carlos Neville Unavailable Unavailable [facility] ([place]) Unavailable Unavailable Unavailable Unavailable Functional Status [...] 15-Mar-2013 Flulaval Quadrivalent Intramuscular Suspension Lot #: [id number] on: 26-Dec-2013 Zostavax 57025 UNT/0.65ML Subcutaneous Solution Reconstituted Lot #: [id number] on: 26-Dec-2013 Prevnar 13 Intramuscular Suspension Lot #: [id number] on: 21-May-2014 Tdap (Adacel) Lot #: [id number] on: 07-Aug-2015 Family History Name Dates Details Family history of malignant neoplasm of breast (V16.3, Z80.3) Status: Active Name Dates Details Family history of acute myocardial infarction (V17.3, Z82.49) Status: Active Family history of Prostate cancer (185, C61) Status: Active Social History Name Dates Details - Status: Name Dates Details Former smoker Vital Signs Date Test Result Details 27-Feb-2016 08:05 BP Systolic 121 mm[Hg] Status: Comments: Location: ; Position: BP Diastolic 68 mm[Hg] Status: Comments: Location: ; Position: Temperature 98 f Status: Comments: Method: Heart Rate 83 /min Status: Comments: Location: ; Physical Findings 18 Status: Comments: Respiration Weight 328.3 lb Status: Body Mass Index Calculated 43.31 kg/m2 Status: Body Surface Area Calculated 2.66 m2 Status: Results Date Description Value Details Results not documented Plan of Care Name Dates Details Planned Observations Planned Goals not documented Planned Encounters Appointment; Provider: Chan Webb M.D.|CarlC.SBEREKET Garnett|BEREKET Kirkland, On 06-May-2016 13:30 Appointment; Provider: Chan Webb M.D.|CarlC.SBEREKET Garn[place]|BEREKET Kirkland, On 06-May-2016 07:30 Appointment; Provider: Carmine Geronimo DPM On 17-Apr-2016 11:30 Interventions Provided Medication Changes* HYDROmorphone HCl - 4 MG Oral Tablet - Renew * HYDROmorphone HCl - 8 MG Oral Tablet - Renew * Morphine Sulfate ER 15 MG Oral Tablet Extended Release - Renew Instructions Name Dates Details Instructions not documented Encounters Appointment; Chan Webb M.D.|Nathaniel.C.SAkhil|BEREKET Kirkland|BEREKET Kirkland, Encounter Diagnosis: Problem not documented On 02-Mar-2016 17:15 Appointment; Carlos Neville M.D. Encounter Diagnosis: Problem not documented On 27-Feb-2016 08:45 Appointment; Carlos Neville M.D. Encounter Diagnosis: Problem not documented On 10-Feb-2016 13:00 Appointment; Carmine Geronimo DPM Encounter Diagnosis: Problem not documented On 07-Feb-2016 08:00 Appointment; Carmine Geronimo DPM Encounter Diagnosis: Problem not documented On 31-Jan-2016 13:30 Appointment; Chan Webb M.D.|F.A.C.S.|MAkhilDAkhil,BEREKET|Marita,BEREKET, Encounter Diagnosis: Problem not documented On 27-Jan-2016 13:30 Appointment; Carlos Neville M.D. Encounter Diagnosis: Problem not documented On 14-Jan-2016 13:30 Appointment; Chan Webb M.D.|F.A.C.S.|MEun,BEREKET|Marita,BEREKET, Encounter Diagnosis: Problem not documented On 23-Dec-2015 13:30 Appointment; Carlos Neville M.D. Encounter Diagnosis: Problem not documented On 03-Dec-2015 13:30 Appointment; Carlos Neville M.D. Encounter Diagnosis: Problem not documented On 18-Nov-2015 14:15 Appointment; Chan Webb M.D.|F.A.C.S.|Marita,BEREKET|Marita,BEREKET, Encounter Diagnosis: Problem not documented On 18-Nov-2015 13:30 Appointment; Chan Wbeb M.D.|F.A.C.S.|MEun,JOHANNE,BEREKET, Encounter Diagnosis: Problem not documented On 10:45 Appointment; Chan Webb M.D.|F.A.C.S.|MEun,JOHANNE,BEREKET, Encounter Diagnosis: Problem not documented On 06:45 Appointment; Carlos Neville M.D. Encounter Diagnosis: Problem not documented On 14:00 Appointment; Chan Webb M.D.|F.A.C.S.|MAkhilDAkhil,JOHANNE,BEREKET, Encounter Diagnosis: Problem not documented On 09:30 Appointment; Chan Webb M.D.|F.A.C.S.|MAkhilDAkhil,JOHANNE,BEREKET, Encounter Diagnosis: Problem not documented On 17:00 [...] documented On 04-Mar-2015 15:55 Appointment; Chan Webb M.D.|F.A.C.S.|Marita,BEREKET|Marita,BEREKET, Encounter Diagnosis: Problem not documented On 28-Feb-2015 07:15 Appointment; Chan Webb M.D.|F.A.C.S.|Marita,KARINAD.,BEREKET, Encounter Diagnosis: Problem not documented On 29-Jan-2015 16:45 Appointment; Carlos Neville M.D. Encounter Diagnosis: Problem not documented On 07-Jan-2015 13:30 Appointment; Chan Webb M.D.|F.A.C.S.|Marita,BEREKET|Marita,BEREKET, Encounter Diagnosis: Problem not documented On 25-Dec-2014 [...] documented On 02-Aug-2014 11:15 Appointment; Chan Webb M.D.|F.A.C.S.|Marita,ROXANA.D.,BEREKET, Encounter Diagnosis: Problem not documented On 10-Jul-2014 07:00 Appointment; Carlos Neville M.D. Encounter Diagnosis: Problem not documented On 29-Jun-2014 13:15 Appointment; Chan Webb M.D.|CarlC.SAkhil|Marita,BEREKET|Marita,BEREKET, Encounter Diagnosis: Problem not documented On 21-Jun-2014 07:15 Appointment; Carlos Neville M.D. Encounter Diagnosis: Problem not documented On 19-Jun-2014 14:00 Appointment; Javi Lucero M.D. Encounter Diagnosis: Problem not documented On 31-May-2014 13:45 Appointment; Ritesh San M.D. Encounter Diagnosis: Problem not documented On 21-May-2014 13:45 Appointment; Chan Webb M.D.|CarlC.SAkhil|Marita,BEREKET|Marita,BEREKET, Encounter Diagnosis: Problem not documented On 17-May-2014 17:00 Appointment; Ritesh San M.D. Encounter Diagnosis: Problem not documented On 03-May-2014 14:00 Appointment; Javi Lucero M.D. Encounter Diagnosis: Problem not documented On 24-Apr-2014 08:00 Appointment; Ritesh San M.D. Encounter Diagnosis: Problem not documented On 23-Apr-2014 13:15 Appointment; Chan Webb M.D.|Logan.Nataly.C.S.|Marita,BEREKET|Marita,BEREKET, Encounter Diagnosis: Problem not documented On 10-Apr-2014 14:00"
--- OUTSIDE RECORDS SUMMARY | 2016-07-01 17:27 | XMS REPORT | Summary of Care ---
Author Author Carlos Neville M.D. Organization Unknown Address [address], [place] [address] Phone Unavailable Care Team Providers Care Csr Technician Name Role Phone Jon Kirkland, FACS, ,, M Unavailable Unavailable Mena Kirkland, Ritesh Unavailable Unavailable Kelin Kirkland, Nataly Unavailable Unavailable Lena Fountain, Andreia Unavailable Unavailable Nic Kirkland, G Unavailable Unavailable Paresh Kirkland, T Unavailable Unavailable Carlos Neville PP Unavailable [facility] ([place]) Unavailable Unavailable Unavailable Functional Status Functional Status [...] Status: Active Insomnia (780.52, G47.00) Status: Active 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, [...] per day * Quantity: 60 Refills: 0 Cralos Neville M.D.* Started 15-Jan-2014 ActiveBaclofen 20 MG [...] Refills: 0 Calos Yoder M.D.* Started 01-May-2015 ActiveDilaudid 4 MG Oral Tablet 1 TABLET AT NOON ALONG W/ 8 MG EVERY 12 HOURS PRN * Refills: 0 Carlos Neville M.D.* Started 07-Aug-2015 [...] on:15-Mar-2013 Flulaval Quadrivalent Intramuscular Suspension Lot #: [id number] Administered on:26-Dec-2013 Zostavax 97407 UNT/0.65ML Subcutaneous Solution Reconstituted Lot #: [id number] Administered on:26-Dec-2013 Prevnar 13 Intramuscular Suspension Lot #: [id number] Administered on:21-May-2014 Tdap (Adacel) Lot #: [id number] Administered on:07-Aug-2015 Family History Mother* Name Dates [...] ml/min (Better) Range: >60 EST GFR, NON-AFR [place]ORGIAN >60 ml/min (Better) Range: >60 Comments: EST GFR is reported in ml/min per 1.73 m2 of body surface area. For -Hong Konger, please multiple result by 1.2.----- GLUCOSE 99 [...] not documented On 19-Jun-2014 14:00 Appointment; Javi uLcero Encounter Diagnosis: Problem not documented On 31-May-2014 [...]
--- OUTSIDE RECORDS SUMMARY | 2016-07-01 17:27 | XMS REPORT | Summary of Care ---
Author Author Paresh Kirkland, Calos Herrera Organization Unknown Address [address] [place], [place] [id number] Phone Unavailable Care Team Providers Care Exam Proctor Name Role Phone Jon Kirkland, FACS, ,, M Unavailable Unavailable Mena Kirkland, Ritesh Unavailable Unavailable Kelin Kirkland, A Unavailable Unavailable Lena Fountain, Andreia Unavailable Unavailable Nic Kirkland, G Unavailable Unavailable Paresh Kirkland, T Unavailable Unavailable Carlos Neville PP Unavailable [facility] ([place]) Unavailable Unavailable Unavailable Functional Status Functional Status [...] Webb M.D., FACS, , * Started 10-Apr-2014 ActiveBethanechol Chloride 25 [...] on:15-Mar-2013 Flulaval Quadrivalent Intramuscular Suspension Lot #: [id number] Administered on:26-Dec-2013 Zostavax 92751 UNT/0.65ML Subcutaneous Solution Reconstituted Lot #: [id number] Administered on:26-Dec-2013 Prevnar 13 Intramuscular Suspension Lot #: [id number] Administered on:21-May-2014 Family History Mother* Name Dates [...] 22-Apr-2015 11:38 Drug Screen PM, Alcohol Metabolites L80047 Comments: myseekit performed at: [facility], [address], [place], [address], Speaking Unit Assembler: Kiersten Zuluaga Ph.D.[facility] Collection Date/Time: Results Received Date/Time: [id number] Reported Date/Time: Alcohol Metabolites NEGATIVE ng/mL (Better) Range: <500 Comments: [AP]----- Please note: SEE NOTE (Better) Comments: * These results are for medical treatment only Analysis was performed as non-forensic testing *For assistance with interpreting these drug results,please contact a [facility] ToxicologySpecialist: [phone] ( ),M-F, 8am-6pm EST.[AP]----- 15:24 PROTIME PANEL 7000 PROTIME 15.1 secs (Above high threshold) Range: 12.0-14.9 INR 1.20 (Better) 16:47 Drug Screen PM, Tramadol [id number] Comments: myseekit performed at: , [facility], [address] [place] [address], [address], [place], [address], Speaking Unit Assembler: Kiersten Zuluaga Ph.D.[facility] Collection Date/Time: [id number] Results Received Date/Time : [id number] Reported Date/Time: [id number] performed at: , [facility], [address] [place] [address], [address], [place], [address], Speaking Unit Assembler: Kiersten Zuluaga Ph.D.[facility] Collection Date/Time: [id number] Results Received Date/Time : [id number] Reported Date/Time: Desmethyltramadol NEGATIVE ng/mL (Better) Range: <100 Comments: [AP]----- Tramadol NEGATIVE ng/mL (Better) Range: <100 Comments: [AP]----- 23-Apr-2015 08:36 Drug Screen PM, Meperidine [id number] Comments: [facility] performed at: , [facility], [address] [place] [address], [address], [place], [address], Speaking Unit Assembler: Kiersten Zuluaga Ph.D.[facility] Collection Date/Time: [id number] Results Received Date/Time: [id number] Reported Date/Time: [id number] performed at: , [facility], [address] [place] [address], [address], [place], [address], Speaking Unit Assembler: Kiersten Zuluaga Ph.D.[facility] Collection Date/Time: [id number] Results Received Date/Time: [id number] Reported Date/Time: [id number] performed at: , [facility], [address] [place] [address], [address], [place], [address], Speaking Unit Assembler: Kiersten Zuluaga Ph.D.[facility] Collection Date/Time: [id number] Results Received Date/Time: [id number] Reported Date/Time: Meperidine NEGATIVE ng/mL (Better) Range: <100 Comments: [AP]----- Normeperidine NEGATIVE ng/mL (Better) Range: <100 Comments: [AP]----- 14:55 Drug Screen PM, Fentanyl [id number] Comments: [facility] performed at: [facility], [address] [place] [address], [address], [place], [address], Speaking Unit Assembler: Savage IO Ph.D.[facility] Collection Date/Time: [id number] Results Received Date/Time : [id number] Reported Date/Time: [id number] performed at: [facility], [address] [place] [address], [address], [place], [place], [address] [place] [address], Speaking Unit Assembler: Savage IO Ph.D.Quest Collection Date/Time: [id number] Results Received Date/Time : [id number] Reported Date/Time: [id number] performed at: [facility], [address] [place] [address], [address], [place], [address], Speaking Unit Assembler: Savage IO Ph.D.[facility] Collection Date/Time: [id number] Results Received Date/Time : [id number] Reported Date/Time: [id number] performed at: [facility], [address] [place] [address], [address], [place], [address], Speaking Unit Assembler: Savage IO Ph.D.[facility] Collection Date/Time: [id number] Results Received Date/Time : [id number] Reported Date/Time: [id number] Fentanyl NEGATIVE ng/mL (Better) Range: <0.5 Comments: [AP]----- Norfentanyl NEGATIVE ng/mL (Better) Range: <0.5 Comments: [AP]----- 24-Apr-2015 09:01 Drug Screen PM Profile 1 [id number] Comments: [facility] performed at: [facility], [address] [place] [address], [address], [place], [address], Speaking Unit Assembler: Kiersten Zuluaga Ph.D.Quest Collection Date/Time: [id number] Results Received Date/Time: [id number] Reported Date/Time: [id number] performed at: , [facility], [address] [place] [address], [address], [place], [place], [address] [place] [address], Speaking Unit Assembler: Kiersten Zuluaga Ph.D.[facility] Collection Date/Time: [id number] Results Received Date/Time: [id number] Reported Date/Time: [id number] performed at: , [facility], [address] [place] [address], [address], [place], [place], [address] [place] [address], Speaking Unit Assembler: Kiersten Zuluaga Ph.D.Quest Collection Date/Time: [id number] Results Received Date/Time: [id number] Reported Date/Time: [id number] performed at: , [facility], [address] [place] [address], [address], [place], [address] [place] [address], Speaking Unit Assembler: Kiersten Zuluaga Ph.D.[facility] Collection Date/Time: [id number] Results Received Date/Time: [id number] Reported Date/Time: [id number] performed at: [facility], [address] [place] [address], [address], [place], [address] [place] [address], Speaking Unit Assembler: Kiersten Zuluaga Ph.D.[facility] Collection Date/Time: [id number] Results Received Date/Time: [id number] Reported Date/Time: [id number] Management Profile 1 w/ Confirmation, Urine Drug [...] Lucero On 11-Jun-2015 13:30 * Appointment; Provider: Nadiya Dinh On 11-Apr-2015 13:00 * Appointment; Provider: Schedule Radiology On 04-Mar-2015 16:30 * Appointment; Provider: Chan Webb On 08-Feb-2014 11:30 * Appointment; Provider: Calros Neville On 22-Nov-2007 07:00 * Appointment; Provider: [...] Problem not documented On 13:00 Appointment; Javi Lucreo Diagnosis: Problem not documented On 11:15 Appointment; [...]
--- OUTSIDE RECORDS SUMMARY | 2016-07-01 17:27 | XMS REPORT | Summary of Care ---
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 Quantity: 90 Kelin Kirkland, Carlos Ingram * Start 20-Dec-2012 Active Divalproex Sodium ER [...] 15-Mar-2013 Flulaval Quadrivalent Intramuscular Suspension Lot #: [id number] on: 26-Dec-2013 Zostavax 36807 UNT/0.65ML Subcutaneous Solution Reconstituted Lot #: [id number] on: 26-Dec-2013 Prevnar 13 Intramuscular Suspension Lot #: [id number] on: 21-May-2014 Tdap (Adacel) Lot #: [id number] on: 07-Aug-2015 Family History Name Dates Details [...] >60 ml/min Range: >60 EST GFR, NON-AFR THAI >60 ml/min Range: >60 Comments: EST GFR [...] Range: 1.0-1.8 CALCIUM 9.1 mg/dL Range: 8.5-10.1 14:16 Urinalysis, Reflex to Microscopic or Culture PRN 8005 pH 7.5 Range: 5.0-7.5 SP GRAVITY 1.010 Range: 1.010-1.030 APPEARANCE TURBID (Abnormal) Range: Clear COLOR YELLOW Range: Straw-Yellow PROTEIN 30 mg/dL (Abnormal) Range: Negative-Trace GLUCOSE NEGATIVE mg/dL Range: Negative KETONE NEGATIVE mg/dL Range: Negative BILIRUB NEGATIVE Range: Negative BLOOD MODERATE (Abnormal) Range: Negative UROBIL 1.0 EU/dL Range: 0.2-1.0 NITRITE POSITIVE (Abnormal) Range: Negative Comments: Specimen referred to Reference Lab for Culture----- LEUK LARGE (Abnormal) Range: Negative 14:16 Urine Microscopic UMIC WBC TNTC /HPF (Abnormal) Range: 0-5 Comments: Specimen referred to Reference Lab for Culture----- RBC 6-10 /HPF (Abnormal) Range: 0-2 BACTERIA 2+ /HPF (Abnormal) Range: Negative-Trace EPITH 0-2 /HPF Range: 0-10 Plan of Care Name Dates Details Planned Observations Planned Goals not documented Planned Encounters Appointment; Provider: Chan Webb M.D.|BEREKET Estrada|BEREKET Kirkland, On 04-May-2016 11:15 Appointment; Provider: Calos Yoder M.D. On 30-Apr-2016 13:30 Appointment; Provider: Carlos Neville M.D. On 10-Feb-2016 13:00 Appointment; Provider: Carlos Neville M.D. On 30-Dec-2015 13:30 Appointment; Provider: Chan Webb M.D.|BEREKET Estrada|BEREKET Kirkland, On 23-Dec-2015 13:30 Interventions Provided Medication Changes* HYDROmorphone HCl - 8 MG Oral Tablet - Renew * Morphine Sulfate ER 15 MG Oral Tablet Extended Release - Renew Instructions Name Dates Details Instructions not documented Encounters Appointment; Carlos Neville M.D. Encounter Diagnosis: Problem not documented On 03-Dec-2015 13:30 Appointment; Carlos Neville M.D. Encounter Diagnosis: Problem not documented On 18-Nov-2015 14:15 Appointment; Chan Webb M.D.|SeanBEREKET|Marita,BEREKET, Encounter Diagnosis: Problem not documented On 18-Nov-2015 13:30 Appointment; Chan Webb M.D.|F.A.C.S.|Marita,BEREKET|Marita,BEREKET, Encounter Diagnosis: Problem not documented On 10:45 Appointment; Chan Webb M.D.|F.A.C.S.|Marita,BEREKET|Marita,BEREKET, Encounter Diagnosis: Problem not documented On 06:45 Appointment; Carlos Neville M.D. Encounter Diagnosis: Problem not documented On 14:00 Appointment; Chan Webb M.D.|F.Nataly.C.S.|Marita,BEREKET|Marita,BEREKET, Encounter Diagnosis: Problem not documented On 09:30 Appointment; Chan Webb M.D.|F.A.C.S.|Marita,BEREKET|Marita,FACS, Encounter Diagnosis: Problem not documented On 17:00 Appointment; Elijah Dang D.O. Encounter Diagnosis: Problem not documented On 10:25 Appointment; Carlos Neville M.D. Encounter Diagnosis: Problem not documented On 07-Aug-2015 13:30 Appointment; Chan Webb M.D.|F.A.C.S.|Marita,JOHANNE,BEREKET, Encounter Diagnosis: Problem not documented On 05-Aug-2015 17:00 Appointment; Carlos Neville M.D. Encounter Diagnosis: Problem not documented On 10-Jul-2015 13:00 Appointment; Chan Webb M.D.|F.A.C.S.|Marita,JOHANNE,BEREKET, Encounter Diagnosis: Problem not documented On 08-Jul-2015 13:30 Appointment; Carlos Nevlile M.D. Encounter Diagnosis: Problem not documented On 17-Jun-2015 13:00 Appointment; Javi Lucero M.D. Encounter Diagnosis: Problem not documented On 11-Jun-2015 13:30 Appointment; Chan Webb M.D.|F.A.C.S.|M.DAkhil,BEREKET|Marita,FACS, Encounter Diagnosis: Problem not documented On 11-Jun-2015 07:30 Appointment; Calos Yoder M.D. Encounter Diagnosis: Problem not documented On 01-May-2015 13:45 Appointment; Javi Lucero M.D. Encounter Diagnosis: Problem not documented On 18-Apr-2015 09:30 Appointment; Chan Webb M.D.|F.A.C.S.|MAkhilDAkhil,BEREKET|Marita,FACS, Encounter Diagnosis: Problem not documented On 01-Apr-2015 07:30 Appointment; Javi Lucero M.D. Encounter Diagnosis: Problem not documented On 12-Mar-2015 13:30 Appointment; Misael Colbert M.D. Encounter Diagnosis: Problem not documented On 04-Mar-2015 15:55 Appointment; Chan Webb M.D.|F.A.C.S.|MEun,BEREKET|Marita,FACS, Encounter Diagnosis: Problem not documented On 28-Feb-2015 07:15 Appointment; Chan Webb M.D.|F.A.C.S.|MEun,BEREKET|Marita,FACS, Encounter Diagnosis: Problem not documented On 29-Jan-2015 16:45 Appointment; Carlos Neville M.D. Encounter Diagnosis: Problem not documented On 07-Jan-2015 13:30 Appointment; Chan Webb M.D.|F.A.C.S.|MAkhilDAkhil,BEREKET|MEun,FACS, Encounter Diagnosis: Problem not documented On 25-Dec-2014 07:00 Appointment; Andreia Paredes P.A. Encounter Diagnosis: Problem not documented On 04-Dec-2014 11:30 Appointment; Chan Webb M.D.|F.A.C.S.|MEun,BEREKET|MEun,BEREKET, Encounter Diagnosis: Problem not documented On 23-Nov-2014 17:15 Appointment; Chan Webb M.D.|F.A.C.S.|M.DAkhil,BEREKET|MEun,FACS, Encounter Diagnosis: Problem not documented On 12:45 Appointment; Carlos Neville M.D. Encounter Diagnosis: Problem not documented On 14:45 Appointment; Chan Webb M.D.|F.A.C.S.|Marita,JOHANNE,BEREKET, Encounter Diagnosis: Problem not documented On 07:15 Appointment; Andreia Paredes P.A. Encounter Diagnosis: Problem not documented On 13:15 Appointment; Andreia Paredes P.A. Encounter Diagnosis: Problem not documented On 11:30 Appointment; Carlos Neville M.D. Encounter Diagnosis: Problem not documented On 13:30 Appointment; Chan Webb M.D.|F.Nataly.C.S.|Marita,BEREKET|Marita,BEREKET, Encounter Diagnosis: Problem not documented On 16-Aug-2014 [...] not documented On 21-May-2014 13:45 Appointment; Chan Wbeb M.D.|F.A.C.S.|Marita,BEREKET|Marita,BEREKET, Encounter Diagnosis: Problem not documented On 17-May-2014 17:00 Appointment; Ritesh San M.D. Encounter Diagnosis: Problem not documented On 03-May-2014 14:00 Appointment; Javi Lucero M.D. Encounter Diagnosis: Problem not documented On 24-Apr-2014 08:00 Appointment; Ritesh San M.D. Encounter Diagnosis: Problem not documented On 23-Apr-2014 13:15 Appointment; Chan Webb M.D.|Logan.AAkhilCAnette|Marita,BEREKET|Marita,BEREKET, Encounter Diagnosis: Problem not documented On 10-Apr-2014 [...]
[2016-07-01] MEDS ORDERED: CLOT15CR64 TOP (17:28)
[2016-07-01] MEDS ORDERED: CIPR-280 PO (17:28)
--- OUTSIDE RECORDS SUMMARY | 2016-07-01 17:28 | XMS REPORT | Continuity of care Document ---
Author Author GENERATED, SYSTEM Organization Unknown Address Unknown Phone Unavailable Purpose Hospital Course Allergies, Adverse Reactions, Alerts * Latex causes Unknown. Onset unsure. * Keflex causes unspecified. * Novocain causes unspecified. * No IV Contrast Allergy. * No Known Food Allergies. Problems * Edema of Lower Extremity Status:Active. Procedures No relevant procedures performed. Medication It is the responsibility of the patient or patient ambulatory service representative to confirm the list of medications with either the patient's personal care provider or the patient's follow-up care provider to ensure the patient has an appropriate list of medications to take at home. Take These Medications* minocycline 100 mg Capsule, Ordered By: MARIN OSORIO Directions: 1 capsule oral twice a day Additional Instructions: Take with a full glass of water. Do not lay down for 30 minutes after taking this medication. * amitiza 24 mcg daily * atorvastatin 20 mg Tablet, Ordered By: RUDI MASSEY MD Directions: 1 tablet oral daily at bedtime * baclofen 20 mg Tablet, Ordered By: RUDI MASSEY MD Directions: 1 tablet oral three times a day * bethanechol chloride 25 mg Tablet, Ordered By: RUDI MASSEY MD Directions: 1 tablet oral three times a day * divalproex (Depakote ER) 500 mg Tablet Extended Release 24 hr, Ordered By: RUDI MASSEY MD Directions: 2 tablet oral daily at bedtime * HYDROmorphone 8 mg Tablet, Ordered By: RUDI MASSEY MD Directions: 1 tablet oral every six hours PRN pain * lansoprazole (PrevACID) 30 mg capsule,delayed release(DR/EC), Ordered By: RUDI MASSEY MD Directions: 1 capsule oral daily * polyethylene glycol 3350 (Miralax) 17 gram Powder in Packet, Ordered By: RUDI MASSEY MD Directions: 1 packet oral daily * potassium chloride (Klor-Con M10) 10 mEq tablet,ER particles/crystals, Ordered By: RUDI MASSEY MD Directions: 1 tablet oral daily * tamsuLOSIN 0.4 mg capsule,extended release 24hr, Ordered By: RUDI MASSEY MD Directions: 1 capsule oral daily * zolpidem 12.5 mg Tablet,Ext Release Multiphase, Ordered By: RUDI MASSEY MD Directions: 1 tablet oral daily at bedtime PRN insomnia * clonazePAM 1 mg Tablet, Ordered By: RUDI MASSEY MD Directions: 1 tablet oral daily at bedtime * gabapentin 300 mg Capsule, Ordered By: RUDI MASSEY MD Directions: 1 capsule oral three times a day * HYDROmorphone (Dilaudid) 4 mg Tablet, Ordered By: RUDI MASSEY MD Directions: 1 tablet oral four times daily * levothyroxine (Synthroid) 75 mcg Tablet, Ordered By: RUDI MASSEY MD Directions: 1 tablet oral daily before breakfast * clonazePAM 1 mg Tablet, Ordered By: RUDI MASSEY MD Directions: 1 tablet oral daily at bedtime * atorvastatin 20 mg Tablet, Ordered By: RUDI MASSEY MD Directions: 1 tablet oral daily at bedtime * baclofen 20 mg Tablet, Ordered By: RUDI MASSEY MD Directions: 1 tablet oral three times a day * gabapentin 300 mg Capsule, Ordered By: RUDI MASSEY MD Directions: 1 capsule oral three times a day * HYDROmorphone (Dilaudid) 4 mg Tablet, Ordered By: RUDI MASSEY MD Directions: 1 tablet oral four times daily * clonazePAM 2 mg Tablet, Ordered By: RUDI MASSEY MD Directions: 2 tablet oral at bedtime * divalproex 500 mg Tablet Extended Release 24 hr, Ordered By: RUDI MASSEY MD Directions: 1 tablet oral daily every morning * minocycline 100 mg Capsule, Ordered By: RUDI MASSEY MD Directions: 1 capsule oral twice a day Additional Instructions: TAKE WITH A FULL GLASS OF WATER. DO NOT LAY DOWN FOR 30 MINUTES AFTER TAKING THIS * polyethylene glycol 3350 17 gram Powder in Packet, Ordered By: RUDI MASSEY MD Directions: 1 each oral daily * potassium chloride (Klor-Con M20) 20 mEq tablet,ER particles/crystals, Ordered By: RUDI MASSEY MD Directions: 1 tablet oral daily with breakfast * zolpidem 10 mg Tablet, Ordered By: RUDI MASSEY MD Directions: 1 tablet oral daily at bedtime PRN insomnia Additional Instructions: AUTOSUB FOR AMBIEN CR 12.5 MG * rivaroxaban (Xarelto) 10 mg Tablet, Ordered By: RUDI MASSEY MD Directions: 2 tablet oral daily every morning and afternoon Additional Instructions: *DO NOT CRUSH* *GIVE WITH EVENING MEAL* Stop Taking These Medications* morphine 15 mg Tablet Extended Release Directions: 1 tablet oral twice a day * ondansetron HCl (Zofran) 4 mg Tablet Directions: 1 tablet oral every eight hours PRN nausea or vomiting * terazosin 2 mg Capsule Directions: 1 capsule oral daily at bedtime * warfarin 4 mg Tablet Directions: 1 tablet oral daily * furosemide (LaSIX) 80 mg Tablet Directions: 1 tablet oral daily Results Chemistry from 07/24/2013 8:39 PMANION GAP 2.8 MMOL/L L (8.0-16.0 MMOL/L) A/G RATIO 1.0 MG/DL L (1.5-2.2 MG/DL) ALBUMIN 3.2 GM/DL L (3.4-5.0 GM/DL) ALK PHOS 84 U/L (46-116 U/L) ALT (SGPT) 29 U/L (12-78 U/L) AST (SGOT) 15 U/L (15-37 U/L) BUN/CREATININE RATIO 14.7 (9.1-17.0 ) BILIRUBIN TOTAL 0.53 MG/DL (0.20-1.00 MG/DL) BUN 14 MG/DL (7-18 MG/DL) CALCIUM 8.6 MG/DL (8.5-10.1 MG/DL) CHLORIDE 103 MMOL/L (98-107 MMOL/L) CREATININE 0.95 MG/DL (0.63-1.13 MG/DL) GFRA EST AFR AMER >=90 ML/MIN GFR EST NON AFR MALAYSIAN >=90 ML/MIN GLOBULIN 3.2 GM/DL (2.3-3.5 GM/DL) GLUCOSE 132 MG/DL H (65-99 MG/DL) POTASSIUM 3.8 MMOL/L (3.5-5.1 MMOL/L) SODIUM 138 MMOL/L (136-145 MMOL/L) TCO2 32.2 MMOL/L H (21.0-32.0 MMOL/L) TOTAL PROTEIN 6.4 GM/DL (6.4-8.2 GM/DL) VITAMIN B12 275 PG/ML (180-914 PG/ML) THYROXINE FREE 0.68 NG/DL (0.59-1.19 NG/DL) MAGNESIUM 2.0 MG/DL (1.8-2.4 MG/DL) TSH 6.84 UIU/ML H (0.34-4.82 UIU/ML) VALPROIC ACID 58 MCG/ML (50-100 MCG/ML) Chemistry from 07/26/2013 4:50 AMANION GAP 5.2 MMOL/L L (8.0-16.0 MMOL/L) A/G RATIO 0.9 MG/DL L (1.5-2.2 MG/DL) ALBUMIN 3.2 GM/DL L (3.4-5.0 GM/DL) ALK PHOS 80 U/L (46-116 U/L) ALT (SGPT) 26 U/L (12-78 U/L) AST (SGOT) 16 U/L (15-37 U/L) BUN/CREATININE RATIO 18.3 H (9.1-17.0 ) BILIRUBIN TOTAL 0.79 MG/DL (0.20-1.00 MG/DL) BUN 17 MG/DL (7-18 MG/DL) CALCIUM 8.5 MG/DL (8.5-10.1 MG/DL) CHLORIDE 98 MMOL/L (98-107 MMOL/L) CREATININE 0.93 MG/DL (0.63-1.13 MG/DL) GFRA EST AFR AMER >=90 ML/MIN GFR EST NON AFR MALAYSIAN >=90 ML/MIN GLOBULIN 3.4 GM/DL (2.3-3.5 GM/DL) GLUCOSE 104 MG/DL H (65-99 MG/DL) POTASSIUM 3.8 MMOL/L (3.5-5.1 MMOL/L) SODIUM 136 MMOL/L (136-145 MMOL/L) TCO2 32.8 MMOL/L H (21.0-32.0 MMOL/L) TOTAL PROTEIN 6.6 GM/DL (6.4-8.2 GM/DL) MAGNESIUM 2.1 MG/DL (1.8-2.4 MG/DL) Chemistry from 07/27/2013 4:55 AMANION GAP 5.6 MMOL/L L (8.0-16.0 MMOL/L) A/G RATIO 0.9 MG/DL L (1.5-2.2 MG/DL) ALBUMIN 3.4 GM/DL (3.4-5.0 GM/DL) ALK PHOS 89 U/L (46-116 U/L) ALT (SGPT) 28 U/L (12-78 U/L) AST (SGOT) 17 U/L (15-37 U/L) BUN/CREATININE RATIO 23.4 H (9.1-17.0 ) BILIRUBIN TOTAL 0.68 MG/DL (0.20-1.00 MG/DL) BUN 22 MG/DL H (7-18 MG/DL) CALCIUM 8.8 MG/DL (8.5-10.1 MG/DL) CHLORIDE 99 MMOL/L (98-107 MMOL/L) CREATININE 0.94 MG/DL (0.63-1.13 MG/DL) GFRA EST AFR AMER >=90 ML/MIN GFR EST NON AFR MALAYSIAN >=90 ML/MIN GLOBULIN 3.6 GM/DL H (2.3-3.5 GM/DL) GLUCOSE 109 MG/DL H (65-99 MG/DL) POTASSIUM 4.1 MMOL/L (3.5-5.1 MMOL/L) SODIUM 138 MMOL/L (136-145 MMOL/L) TCO2 33.4 MMOL/L H (21.0-32.0 MMOL/L) TOTAL PROTEIN 7.0 GM/DL (6.4-8.2 GM/DL) MAGNESIUM 2.2 MG/DL (1.8-2.4 MG/DL) Chemistry from 07/27/2013 12:50 PMVANCOMYCIN TROUGH 8.2 MCG/ML (5.0-10.0 MCG/ML) Coagulation from 07/24/2013 8:39 PMINR 1.3 PROTHROMBIN TIME 13.8 SECONDS H (9.4-11.5 SECONDS) Coagulation from 07/25/2013 4:45 AMINR 1.2 PROTHROMBIN TIME 12.9 SECONDS H (9.4-11.5 SECONDS) Coagulation from 07/26/2013 4:50 AMINR 1.2 PROTHROMBIN TIME 13.0 SECONDS H (9.4-11.5 SECONDS) Coagulation from 07/27/2013 4:55 AMINR 1.1 PROTHROMBIN TIME 12.1 SECONDS H (9.4-11.5 SECONDS) Coagulation from 07/28/2013 5:02 AMINR 1.1 PROTHROMBIN TIME 12.0 SECONDS H (9.4-11.5 SECONDS) Hematology from 07/24/2013 8:39 PMHEMATOCRIT 33.9 % L (36.7-47.1 %) HEMOGLOBIN 11.3 G/DL L (12.5-16.3 G/DL) MCH 30.5 PG (27.0-33.0 PG) MCHC 33.4 G/DL (32.0-36.0 G/DL) MCV 91.3 FL (80.0-100.0 FL) MPV 7.9 FL (7.4-10.4 FL) PLATELET 214 X10e3/UL (159-386 X10e3/UL) RBC 3.71 X10e6/UL L (4.06-5.63 X10e6/UL) RDW 15.5 % (12.3-17.0 %) RDWSD 49.0 H (37.1-47.8 ) WBC 3.7 X10e3/UL (3.6-11.2 X10e3/UL) Hematology from 07/26/2013 4:50 AMHEMATOCRIT 37.3 % (36.7-47.1 %) HEMOGLOBIN 12.5 G/DL (12.5-16.3 G/DL) MCH 30.5 PG (27.0-33.0 PG) MCHC 33.5 G/DL (32.0-36.0 G/DL) MCV 91.1 FL (80.0-100.0 FL) MPV 8.0 FL (7.4-10.4 FL) PLATELET 247 X10e3/UL (159-386 X10e3/UL) RBC 4.09 X10e6/UL (4.06-5.63 X10e6/UL) RDW 15.6 % (12.3-17.0 %) RDWSD 49.0 H (37.1-47.8 ) WBC 4.5 X10e3/UL (3.6-11.2 X10e3/UL) ABSOLUTE BASOPHILS 0.0 X10e3/UL (0.0-0.2 X10e3/UL) AUTOMATED DIFF PERFORMED ABSOLUTE EOSINOPHILS 0.2 X10e3/UL (0.0-0.5 X10e3/UL) ABSOLUTE LYMPHOCYTES 2.0 X10e3/UL (1.0-3.0 X10e3/UL) ABSOLUTE MONOCYTES 0.6 X10e3/UL (0.3-1.0 X10e3/UL) ABSOLUTE NEUTROPHILS 1.7 X10e3/UL L (1.8-7.8 X10e3/UL) BASOPHILS 0.6 % EOSINOPHILS 4.1 % LYMPHOCYTES 44.1 % MONOCYTES 13.7 % SEGS 37.5 % Hematology from 07/27/2013 4:55 AMHEMATOCRIT 39.0 % (36.7-47.1 %) HEMOGLOBIN 13.2 G/DL (12.5-16.3 G/DL) MCH 30.4 PG (27.0-33.0 PG) MCHC 33.8 G/DL (32.0-36.0 G/DL) MCV 90.1 FL (80.0-100.0 FL) MPV 7.9 FL (7.4-10.4 FL) PLATELET 268 X10e3/UL (159-386 X10e3/UL) RBC 4.32 X10e6/UL (4.06-5.63 X10e6/UL) RDW 15.3 % (12.3-17.0 %) RDWSD 47.7 (37.1-47.8 ) WBC 5.0 X10e3/UL (3.6-11.2 X10e3/UL) Microbiology from 07/24/2013 8:39 PM* CULTURE BLOOD (Preliminary Result) Specimen Number: [id number] Specimen Source: Sample Collection Date/Time: 07/24/2013 8:39 PM CULTURE BLOOD: No Growth after 48 hours of initial incubation, testing to continue for additional 72 hours. Microbiology from 07/24/2013 8:46 PM* CULTURE BLOOD (Preliminary Result) Specimen Number: [id number] Specimen Source: Sample Collection Date/Time: 07/24/2013 8:46 PM CULTURE BLOOD: No Growth after 48 hours of initial incubation, testing to continue for additional 72 hours. Microbiology from 07/24/2013 9:50 PM* TEST CANCEL MICRO Specimen Number: [id number] Specimen Source: Sample Collection Date/Time: 07/24/2013 9:50 PM TEST CANCEL MICRO: Single swab, unable to process gram stain. Report Status: FINAL * CULTURE URINE Specimen Number: [id number] Specimen Source: Sample Collection Date/Time: 07/24/2013 9:50 PM CULTURE URINE: No growth at 48 hrs Report Status: FINAL * CULTURE WOUND Specimen Number: [id number] Specimen Source: Sample Collection Date/Time: 07/24/2013 9:50 PM CULTURE WOUND: Skin suha Report Status: FINAL Urinalysis from 07/24/2013 9:50 PMURINE APPEARANCE CLEAR (CLEAR ) URINE COLOR YELLOW (STRAW/YELL/DK YELL ) URINE SPECIFIC GRAVITY 1.010 (<=1.005->=1.030 ) URINE BILIRUBIN NEGATIVE (NEGATIVE ) URINE BLOOD NEGATIVE (NEGATIVE ) URINE GLUCOSE NEGATIVE MG/DL (NEGATIVE MG/DL) URINE KETONES NEGATIVE MG/DL (NEGATIVE MG/DL) *URINE LEUKOCYTES NEGATIVE (NEGATIVE ) URINE NITRITES NEGATIVE (NEGATIVE ) URINE PH 7.5 (5.0-8.0 ) URINE PROTEIN NEGATIVE MG/DL (NEGATIVE MG/DL) URINE UROBILINOGEN 0.2 EU/DL (0.2-1.0 EU/DL)
--- OUTSIDE RECORDS SUMMARY | 2016-07-01 17:28 | XMS REPORT | Summary of Care ---
Author Author Grazyna HUNTER, Carmine Organization Unknown Address [address] [place], [place] [id number] Phone Unavailable Care Team Providers Care Sap Crm Developer Name Role Phone Jon Kirkland, BEREKET, ,, M Unavailable Unavailable Emil VEGAS, Archana Unavailable Unavailable Mena Kirkland, Ritesh Unavailable Unavailable Kelin Kirkland, A Unavailable Unavailable Nixon Kirkland, Lance Unavailable Unavailable Carmine Geronimo DPM Unavailable Unavailable Nic Kirkland, G Unavailable Unavailable Paresh Kirkland, T Unavailable Unavailable Carlos Neville Unavailable Unavailable [facility] ([place]) Unavailable Unavailable Unavailable Unavailable Functional Status [...] Difficulty in walking (719.7, R26.2) Status: Active Ingrowing nail (703.0, L60.0) Status: Active Great toe pain, right (729.5, M79.674) Status: Active Medications Name Dates Details Levothyroxine [...] * Quantity: 180 Refills: 3 Jon Kirkland, FACS, , , Chan M * Start [...] Sacral CBC w/ Auto Diff 7150 Ordered: 31-Jan-2016 Comprehensive Metabolic Panel 1212 Ordered: 31-Jan-2016 LIPID PROFILE 1184 Ordered: 31-Jan-2016 PSA ( PROSTATE SPECIFIC ANTIGEN) 3100 Ordered: 31-Jan-2016 THYROID STIM. HORMONE 3602 Ordered: 31-Jan-2016 Immunization Name Dates Details Pneumo (Pneumovax) on: 15-Mar-2013 Flulaval Quadrivalent Intramuscular Suspension Lot #: [id number] on: 26-Dec-2013 Zostavax 82936 UNT/0.65ML Subcutaneous Solution Reconstituted Lot #: [id number] on: 26-Dec-2013 Prevnar 13 Intramuscular Suspension Lot #: [id number] on: 21-May-2014 Tdap (Adacel) Lot #: [id number] on: 07-Aug-2015 Family History Name Dates Details [...] of Care Name Dates Details Planned Observations CBC w/ Auto Diff 7150 On 10-Feb-2016 Intent Comprehensive Metabolic Panel 1212 On 10-Feb-2016 Intent LIPID PROFILE 1184 On 10-Feb-2016 Intent PSA ( PROSTATE SPECIFIC ANTIGEN) 3100 On 10-Feb-2016 Intent THYROID STIM. HORMONE 3602 On 10-Feb-2016 Intent Planned Goals not documented Planned Encounters Appointment; Provider: Chan Webb M.D.|CarlC.S.|JOHANNE Kirkland,BEREKET, On 04-May-2016 11:15 Appointment; Provider: Calos Yoder M.D. On 30-Apr-2016 13:30 Appointment; Provider: Chan Webb M.D.|CarlC.SJOHANNE Garnett,BEREKET, On 02-Mar-2016 17:15 Appointment; Provider: Carlos Neville M.D. On 10-Feb-2016 13:00 Instructions Name Dates Details Instructions not documented Encounters Appointment; Chan Webb M.D.|CarlC.S.|Marita,JOHANNE,BEREKET, Encounter Diagnosis: Problem not documented On 27-Jan-2016 13:30 Appointment; Carlos Neville M.D. Encounter Diagnosis: Problem not documented On 14-Jan-2016 13:30 Appointment; Chan Webb M.D.|CarlC.S.|JOHANNE Kirkland,BEREKET, Encounter Diagnosis: Problem not documented On 23-Dec-2015 13:30 Appointment; Carlos Neville M.D. Encounter Diagnosis: Problem not documented On 03-Dec-2015 13:30 Appointment; Carlos Neville M.D. Encounter Diagnosis: Problem not documented On 18-Nov-2015 14:15 Appointment; Chan Webb M.D.|F.A.C.S.|M.DAkhil,BEREKET|MEun,FACS, Encounter Diagnosis: Problem not documented On 18-Nov-2015 13:30 Appointment; Chan Webb M.D.|F.A.C.S.|M.DAkhil,BEREKET|Marita,FACS, Encounter Diagnosis: Problem not documented On 10:45 Appointment; Chan Webb M.D.|F.A.C.S.|M.DAkhil,BEREKET|Marita,FACS, Encounter Diagnosis: Problem not documented On 06:45 Appointment; Carlos Neville M.D. Encounter Diagnosis: Problem not documented On 14:00 Appointment; Chan Webb M.D.|F.A.C.S.|M.DAkhil,BEREKET|Marita,FACS, Encounter Diagnosis: Problem not documented On 09:30 Appointment; Chan Webb M.D.|F.A.C.S.|M.DAkihl,BEREKET|Marita,FACS, Encounter Diagnosis: Problem not documented On 17:00 Appointment; Elijah Dang D.O. Encounter Diagnosis: Problem not documented On 10:25 Appointment; Carlos Neville M.D. Encounter Diagnosis: Problem not documented On 07-Aug-2015 13:30 Appointment; Chan Webb M.D.|F.A.C.S.|MAkhilDAkhil,BEREKET|Marita,FACS, Encounter Diagnosis: Problem not documented On 05-Aug-2015 17:00 Appointment; Carlos Neville M.D. Encounter Diagnosis: Problem not documented On 10-Jul-2015 13:00 Appointment; Chan Webb M.D.|F.A.C.S.|M.D.,FACS|MAkhilDAkhil,FACS, Encounter Diagnosis: Problem not documented On 08-Jul-2015 [...] documented On 04-Mar-2015 15:55 Appointment; Chan Webb M.D.|F.A.C.S.|Marita,BEREKET|MEun,FACS, Encounter Diagnosis: Problem not documented On 28-Feb-2015 07:15 Appointment; Chan Webb M.D.|F.A.C.S.|M.DAkhil,BEREKET|MAkhilDAkhil,FACS, Encounter Diagnosis: Problem not documented On 29-Jan-2015 16:45 Appointment; Carlos Neville M.D. Encounter Diagnosis: Problem not documented On 07-Jan-2015 13:30 Appointment; Chan Webb M.D.|F.A.C.S.|Marita,BEREKET|MEun,BEREKET, Encounter Diagnosis: Problem not documented On 25-Dec-2014 07:00 Appointment; Andreia Paredes P.A. Encounter Diagnosis: Problem not documented On 04-Dec-2014 11:30 Appointment; Chan Webb M.D.|F.A.C.S.|Marita,JOHANNE,BEREKET, Encounter Diagnosis: Problem not documented On 23-Nov-2014 [...] not documented On 13:30 Appointment; Chan Webb M.D.|F.A.C.S.|Marita,JOHANNE,BEREKET, Encounter Diagnosis: Problem not documented On 16-Aug-2014 [...] documented On 21-May-2014 13:45 Appointment; Chan Webb M.D.|CarlC.SAkhil|Marita,BEREKET|Marita,FACS, Encounter Diagnosis: Problem not documented On 17-May-2014 17:00 Appointment; Ritesh San M.D. Encounter Diagnosis: Problem not documented On 03-May-2014 14:00 Appointment; Javi Lucero M.D. Encounter Diagnosis: Problem not documented On 24-Apr-2014 08:00 Appointment; Ritesh San M.D. Encounter Diagnosis: Problem not documented On 23-Apr-2014 13:15 Appointment; Chan Webb M.D.|CarlC.SAkhil|Marita,BEREKET|Marita,FACS, Encounter Diagnosis: Problem not documented On 10-Apr-2014 14:00 Appointment; Ritesh San M.D. Encounter Diagnosis: Problem not documented On 21-Feb-2014 13:15 Appointment; Estella Glass M.D. Encounter Diagnosis: Problem not documented On 20-Feb-2014 13:15"
--- OUTSIDE RECORDS SUMMARY | 2016-07-01 17:28 | XMS REPORT ---
Author Author GENERATED, SYSTEM Organization Unknown Address Unknown Phone Unavailable Care Team Providers Care Blow Pit Helper Name Role Phone MD BRYSON, RUDI PP [phone] Reason For Visit Chief Complaint BACK PAIN Social History Functional Status Vital Signs Results [...] 2013 11:01 AM * Completed Procedure Code: 14098 Procedure Name: not valued, on 02/08/2014 12: [...]
--- OUTSIDE RECORDS SUMMARY | 2016-07-01 17:28 | XMS REPORT | Summary of Care ---
Author Author Nadiya Timmons Unknown Address [address] [place], [place] [id number] Phone Unavailable Care Team Providers Care Transmission Repairer Name Role Phone Jon Kirkland, FACS, ,, M Unavailable Unavailable Mena Kirkland, Ritesh Unavailable Unavailable Kelin Kirkland, A Unavailable Unavailable Lena Fountain, Andreia Unavailable Unavailable Nic Kirkland, G Unavailable Unavailable Paresh Kirkland, T Unavailable Unavailable Carlos Neville PP Unavailable [facility] ([place]) Unavailable Unavailable Unavailable Functional Status Functional Status [...] on:15-Mar-2013 Flulaval Quadrivalent Intramuscular Suspension Lot #: [id number] Administered on:26-Dec-2013 Zostavax 13827 UNT/0.65ML Subcutaneous Solution Reconstituted Lot #: [id number] Administered on:26-Dec-2013 Prevnar 13 Intramuscular Suspension Lot #: [id number] Administered on:21-May-2014 Family History Mother* Name Dates [...]
--- OUTSIDE RECORDS SUMMARY | 2016-07-01 17:28 | XMS REPORT | Summary of Care ---
Author Author Nic Kirkland, Javi Harrison Unknown Address [address], [place] [address] Phone Unavailable Care Team Providers Care Multi Care Technician Name Role Phone Jon Kirkland, FACS, [...] [address] Lucero. * Quantity: 120 Refills: 0 Javi Lucero [...] on:15-Mar-2013 Flulaval Quadrivalent Intramuscular Suspension Lot #: [id number] Administered on:26-Dec-2013 Zostavax 69723 UNT/0.65ML Subcutaneous Solution Reconstituted Lot #: [id number] Administered on:26-Dec-2013 Prevnar 13 Intramuscular Suspension Lot #: [id number] Administered on:21-May-2014 Family History Mother* Name Dates [...]
[2016-07-01] MEDS ORDERED: CLOT15CR4 TOP (17:29)
--- OUTSIDE RECORDS SUMMARY | 2016-07-01 17:29 | XMS REPORT | Summary of Care ---
Author Author Archana Stein PA-C Organization Unknown Address [address] [place], [place] [address] Phone Unavailable Care Team Providers Care Immigration Associate Name Role Phone Jon Kirkland, BEREKET, ,, M Unavailable Unavailable Archana Stein PA-C Unavailable Unavailable Mena Kirkland, Ritesh Unavailable Unavailable Kelin Kirkland, A Unavailable Unavailable Lena Fountain, Andreia Unavailable Unavailable Nixon Kirkland, Lance Unavailable Unavailable Nic Kirkland, G Unavailable Unavailable Paresh Kirkland, T Unavailable Unavailable Carlos Neville Unavailable Unavailable [facility] ([place]) Unavailable Unavailable Unavailable Unavailable Functional Status [...] Active Cognitive impairment (294.9, R41.89) Status: Active Medications Name Dates Details Levothyroxine [...] Carlos Neville M.D. * Start 07-Aug-2015 Active PEG-3350/Electrolytes 236 GM Oral Solution Reconstituted MIX AND DRINK DIRECTED PER COLONOSCOPY INSTRUCTIONS. * Quantity: 1 Refills: 0 Nixon M.D., Lance * Start 19-Aug-2015 Active 4000 ML Bottle PEG 3350/Electrolytes 240 GM Oral Solution Reconstituted TAKE DIRECTED. * Quantity: 1 Refills: 0 Nixon M.D., Lance * Start Active 4000 ML Bottle Simethicone 40 MG/0.6ML Oral Suspension TAKE DIRECTED. * Quantity: 1 Refills: 0 Nixon M.D., Lance * Start Active 30 ML Bottle Morphine Sulfate ER 15 MG Oral Tablet Extended Release Si PO every 12 hours with a max of 2 per day. Script must last 30 days. MDD:2 per day * Quantity: 60 Refills: 0 Obdulio Neville M.D.inna Ingram * Start 15-Jan-2014 Active Furosemide 80 MG Oral Tablet Take 1 tablet twice daily * Quantity: 60 Refills: 11 Mena Kirkland Ritesh * Start 19-Jun-2013 Active Allergies and Adverse Reactions Name Dates [...] 15-Mar-2013 Flulaval Quadrivalent Intramuscular Suspension Lot #: [id number] on: 26-Dec-2013 Zostavax 43342 UNT/0.65ML Subcutaneous Solution Reconstituted Lot #: [id number] on: 26-Dec-2013 Prevnar 13 Intramuscular Suspension Lot #: [id number] on: 21-May-2014 Tdap (Adacel) Lot #: [id number] on: 07-Aug-2015 Family History Name Dates Details [...] >60 ml/min Range: >60 EST GFR, NON-AFR GUYANESE >60 ml/min Range: >60 Comments: EST GFR is reported in ml/min per 1.73 m2 of body surface area. For -Guamanian, please multiple result by 1.2.----- GLUCOSE 103 [...] 10-Feb-2016 13:00 Appointment; Provider: Chan Webb M.D.|JOHANNE Estrada,BEREKET, On 18-Nov-2015 13:30 Appointment; Provider: Chan Webb M.D.|JOHANNE Estrada FACS, On 10:45 Interventions Provided Medication Changes* Bethanechol Chloride 25 MG Oral Tablet - Renew with Changes Instructions Name Dates Details Instructions not documented Encounters Appointment; Chan Webb M.D.|JOHANNE Estrada FACS, Encounter Diagnosis: Problem not documented On 06:45 Appointment; Carlos Neville M.D. Encounter Diagnosis: Problem not documented On 14:00 Appointment; Chan Webb M.D.|Baldomero|JOHANNE Kirkland FACS, Encounter Diagnosis: Problem not documented On 09:30 Appointment; Chan Webb M.D.|Kemal.SAkhil|JOHANNE Kirkland,BEREKET, Encounter Diagnosis: Problem not documented On [...] documented On 18-Apr-2015 09:30 Appointment; Chan Webb M.D.|F.A.C.S.|MAkhilDAkhil,BEREKET|Marita,BEREKET, Encounter Diagnosis: Problem not documented On 01-Apr-2015 [...] Problem not documented On 11:30 Appointment; Carlos eNville M.D. Encounter Diagnosis: Problem not documented On 13:30 Appointment; Chan Webb M.D.|F.A.C.S.|MAkhilDAkhil,BEREKET|Marita,BEREKET, Encounter Diagnosis: Problem not documented On 16-Aug-2014 07:00 Appointment; Carlos Neville M.D. Encounter Diagnosis: Problem not documented On 02-Aug-2014 11:15 Appointment; Chan Webb M.D.|Nathaniel.C.S.|MEun,BEREKET|Marita,BEREKET, Encounter Diagnosis: Problem not documented On 10-Jul-2014 07:00 Appointment; Carlos Neville M.D. Encounter Diagnosis: Problem not documented On 29-Jun-2014 13:15 Appointment; Chan Webb M.D.|Logan.Nataly.C.SAkhil|Marita,BEREKET|Marita,BEREKET, Encounter Diagnosis: Problem not documented On 21-Jun-2014 [...]
--- OUTSIDE RECORDS SUMMARY | 2016-07-01 17:29 | XMS REPORT | Continuity of care Document ---
[...] Medication reconciliation has not been performed. Results Urinalysis from 08/16/2013 8:25 AMURINE COLOR YELLOW (STRAW/YELL/DK YELL ) URINE APPEARANCE CLEAR (CLEAR ) URINE PH 7.5 (5.0-8.0 ) URINE SPECIFIC GRAVITY 1.010 (<=1.005->=1.030 ) URINE GLUCOSE NEGATIVE MG/DL (NEGATIVE MG/DL) URINE BILIRUBIN NEGATIVE (NEGATIVE ) URINE KETONES NEGATIVE MG/DL (NEGATIVE MG/DL) URINE BLOOD NEGATIVE (NEGATIVE ) URINE PROTEIN NEGATIVE MG/DL (NEGATIVE MG/DL) URINE UROBILINOGEN 1.0 EU/DL (0.2-1.0 EU/DL) URINE NITRITES NEGATIVE (NEGATIVE ) *URINE LEUKOCYTES NEGATIVE (NEGATIVE ) Microbiology from 08/16/2013 8:25 AM* CULTURE URINE (Preliminary Result) Specimen Number: [id number] Specimen Source: Sample Collection Date/Time: 08/16/2013 8:25 AM CULTURE URINE: No growth at 24 hrs
--- OUTSIDE RECORDS SUMMARY | 2016-07-01 17:29 | XMS REPORT ---
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 : Former Smoker Social History from 02/23/2014 3:49 PM:* Tobacco Use? : Former Smoker Functional Status Functional Status from 02/26/2014 8:09 PM:* LOC : Alert * Oriented To : Person,Place,Time,Event * Weight Bearing Status : Full * Assist Level : Partial * # Assists : 1 Functional Status from 02/26/2014 7:28 AM:* LOC : Alert * Oriented To : Person,Place,Time,Event * Weight Bearing Status : Full * Assist Level : Partial * # Assists : 1 Functional Status from 02/25/2014 7:04 PM:* LOC : Alert * Oriented To : Person,Place,Time,Event * Weight Bearing Status : Partial * Assist Level : Dependent * # Assists : 1 Functional Status from 02/25/2014 12:28 PM:* LOC : Drowsy * Oriented To : Person,Place,Time,Event * Weight Bearing Status : Full * Assist Level : Independent * # Assists : 2 Functional Status from 02/25/2014 7:00 AM:* LOC : Alert * Oriented To : Person,Place,Event * Weight Bearing Status : Full * Assist Level : Dependent * # Assists : 2 Functional Status from 02/24/2014 8:32 PM:* LOC : Alert * Oriented To : Person,Place,Event * Weight Bearing Status : Full * Assist Level : Dependent * # Assists : 2 Functional Status from 02/24/2014 2:40 PM:* LOC : Alert * Oriented To : Person,Place,Event * Weight Bearing Status : Full * Assist Level : Dependent * # Assists : 1 Functional Status from 02/24/2014 7:30 AM:* LOC : Alert * Oriented To : Unable to Assess * Weight Bearing Status : Full * Assist Level : Partial * # Assists : 1 Functional Status from 02/23/2014 7:30 PM:* LOC : Alert * Oriented To : Person * Weight Bearing Status : Partial * Assist Level : Partial * # Assists : 1 Functional Status from 02/23/2014 3:49 PM:* LOC : Confused * Oriented To : Resting quietly,eyes closed * Weight Bearing Status : Partial * Assist Level : Partial * # Assists : 2 Vital Signs Hospital Vital Signs from 02/26/2014 7:20 PM:* Weight : 115.3/ kg * Height : 6/1 ft,in * Temperature : 96.0 F * Pulse : 74 * Respirations : 16 * BP : 117/61 [facility] Vital Signs from 02/26/2014 2:00 PM:* Systolic BP (mmHg) : 100 * Diastolic BP (mmHg) : 79 * Mean BP (mmHg) : 86 [facility] Vital Signs from 02/26/2014 1:30 PM:* Heart Rate : 80 * Resp Rate : 11 * O2 Saturation (%) : 96 [facility] Vital Signs from 02/26/2014 1:15 PM:* Heart Rate : 76 * Resp Rate : 12 * O2 Saturation (%) : 97 [facility] Vital Signs from 02/26/2014 1:00 PM:* Heart Rate : 79 * Resp Rate : 15 * Systolic BP (mmHg) : 94 * Diastolic BP (mmHg) : 65 * Mean BP (mmHg) : 73 * O2 Saturation (%) : 95 [facility] Vital Signs from 02/26/2014 12:45 PM:* Heart Rate : 75 * Resp Rate : 8 * O2 Saturation (%) : 97 [facility] Vital Signs from 02/26/2014 12:30 PM:* Heart Rate : 83 * Resp Rate : 17 * O2 Saturation (%) : 96 [facility] Vital Signs from 02/26/2014 12:15 PM:* Heart Rate : 86 * Resp Rate : 15 * O2 Saturation (%) : 96 [facility] Vital Signs from 02/26/2014 12:00 PM:* Heart Rate : 88 * Resp Rate : 18 * Systolic BP (mmHg) : 100 * Diastolic BP (mmHg) : 72 * Mean BP (mmHg) : 78 * O2 Saturation (%) : 95 [facility] Vital Signs from 02/26/2014 11:45 AM:* Heart Rate : 86 * Resp Rate : 29 * O2 Saturation (%) : 97 [facility] Vital Signs from 02/26/2014 11:30 AM:* Heart Rate : 77 * Resp Rate : 9 * O2 Saturation (%) : 94 [facility] Vital Signs from 02/26/2014 11:15 AM:* Heart Rate : 75 * Resp Rate : 18 * O2 Saturation (%) : 96 [facility] Vital Signs from 02/26/2014 11:00 AM:* Temp : 97.6 * Heart Rate : 78 * Resp Rate : 15 * Systolic BP (mmHg) : 111 * Diastolic BP (mmHg) : 80 * Mean BP (mmHg) : 88 * O2 Saturation (%) : 98 [facility] Vital Signs from 02/26/2014 10:00 AM:* Heart Rate : 81 * Resp Rate : 17 * Systolic BP (mmHg) : 94 * Diastolic BP (mmHg) : 71 * Mean BP (mmHg) : 81 * O2 Saturation (%) : 97 [facility] Vital Signs from 02/26/2014 9:45 AM:* Heart Rate : 82 * Resp Rate : 15 * O2 Saturation (%) : 98 [facility] Vital Signs from 02/26/2014 9:30 AM:* Heart Rate : 80 * Resp Rate : 10 * O2 Saturation (%) : 97 [facility] Vital Signs from 02/26/2014 9:15 AM:* Heart Rate : 80 * Resp Rate : 23 * O2 Saturation (%) : 96 [facility] Vital Signs from 02/26/2014 9:00 AM:* Heart Rate : 75 * Resp Rate : 43 * Systolic BP (mmHg) : 99 * Diastolic BP (mmHg) : 84 * Mean BP (mmHg) : 91 * O2 Saturation (%) : 96 [facility] Vital Signs from 02/26/2014 8:45 AM:* Heart Rate : 78 * Resp Rate : 28 * O2 Saturation (%) : 96 [facility] Vital Signs from 02/26/2014 8:30 AM:* Heart Rate : 68 * Resp Rate : 10 * O2 Saturation (%) : 95 [facility] Vital Signs from 02/26/2014 8:15 AM:* Heart Rate : 66 * Resp Rate : 10 * O2 Saturation (%) : 96 [facility] Vital Signs from 02/26/2014 8:00 AM:* Heart Rate : 61 * Resp Rate : 15 * Systolic BP (mmHg) : 104 * Diastolic BP (mmHg) : 75 * Mean BP (mmHg) : 84 * O2 Saturation (%) : 98 [facility] Vital Signs from 02/26/2014 7:45 AM:* Heart Rate : 62 * Resp Rate : 10 * O2 Saturation (%) : 99 [facility] Vital Signs from 02/26/2014 7:30 AM:* Heart Rate : 61 * Resp Rate : 11 * O2 Saturation (%) : 98 [facility] Vital Signs from 02/26/2014 7:28 AM:* Heart Rate : 70 [facility] Vital Signs from 02/26/2014 7:20 AM:* Height : 6/1 ft,in [facility] Vital Signs from 02/26/2014 7:15 AM:* Temp : 97.7 * Heart Rate : 64 * Resp Rate : 9 * O2 Saturation (%) : 94 [facility] Vital Signs from 02/26/2014 5:15 AM:* Heart Rate : 64 * Resp Rate : 11 * O2 Saturation (%) : 96 [facility] Vital Signs from 02/26/2014 5:00 AM:* Heart Rate : 62 * Resp Rate : 15 * Systolic BP (mmHg) : 97 * Diastolic BP (mmHg) : 69 * Mean BP (mmHg) : 75 * O2 Saturation (%) : 97 [facility] Vital Signs from 02/26/2014 4:45 AM:* Heart Rate : 61 * Resp Rate : 9 * O2 Saturation (%) : 98 [facility] Vital Signs from 02/26/2014 4:30 AM:* Heart Rate : 64 * Resp Rate : 11 * O2 Saturation (%) : 96 [facility] Vital Signs from 02/26/2014 4:15 AM:* Heart Rate : 60 * Resp Rate : 10 * O2 Saturation (%) : 97 [facility] Vital Signs from 02/26/2014 4:00 AM:* Heart Rate : 74 * Resp Rate : 13 * Systolic BP (mmHg) : 91 * Diastolic BP (mmHg) : 67 * Mean BP (mmHg) : 72 * O2 Saturation (%) : 97 [facility] Vital Signs from 02/26/2014 3:45 AM:* Heart Rate : 64 * Resp Rate : 9 * O2 Saturation (%) : 98 [facility] Vital Signs from 02/26/2014 3:30 AM:* Heart Rate : 74 * Resp Rate : 14 * O2 Saturation (%) : 97 [facility] Vital Signs from 02/26/2014 3:15 AM:* Heart Rate : 63 * Resp Rate : 10 * O2 Saturation (%) : 96 [facility] Vital Signs from 02/26/2014 3:00 AM:* Temp : 99 * Heart Rate : 67 * Resp Rate : 11 * Systolic BP (mmHg) : 90 * Diastolic BP (mmHg) : 68 * Mean BP (mmHg) : 74 * O2 Saturation (%) : 93 [facility] Vital Signs from 02/26/2014 2:45 AM:* Heart Rate : 65 * Resp Rate : 11 * O2 Saturation (%) : 95 [facility] Vital Signs from 02/26/2014 2:30 AM:* Heart Rate : 65 * Resp Rate : 10 * O2 Saturation (%) : 95 [facility] Vital Signs from 02/26/2014 2:15 AM:* Heart Rate : 66 * Resp Rate : 11 * O2 Saturation (%) : 97 [facility] Vital Signs from 02/26/2014 2:00 AM:* Heart Rate : 77 * Resp Rate : 14 * Systolic BP (mmHg) : 108 * Diastolic BP (mmHg) : 71 * Mean BP (mmHg) : 83 * O2 Saturation (%) : 96 [facility] Vital Signs from 02/26/2014 1:45 AM:* Heart Rate : 66 * Resp Rate : 11 * O2 Saturation (%) : 95 [facility] Vital Signs from 02/26/2014 1:30 AM:* Heart Rate : 69 * Resp Rate : 10 * O2 Saturation (%) : 96 [facility] Vital Signs from 02/26/2014 1:15 AM:* Heart Rate : 72 * Resp Rate : 10 * O2 Saturation (%) : 95 [facility] Vital Signs from 02/26/2014 1:00 AM:* Heart Rate : 69 * Resp Rate : 10 * Systolic BP (mmHg) : 87 * Diastolic BP (mmHg) : 68 * Mean BP (mmHg) : 76 * O2 Saturation (%) : 96 [facility] Vital Signs from 02/26/2014 12:45 AM:* Heart Rate : 74 * Resp Rate : 10 * O2 Saturation (%) : 97 [facility] Vital Signs from 02/26/2014 12:30 AM:* Heart Rate : 79 * Resp Rate : 15 * O2 Saturation (%) : 95 [facility] Vital Signs from 02/26/2014 12:15 AM:* Heart Rate : 78 * Resp Rate : 25 * O2 Saturation (%) : 94 [facility] Vital Signs from 02/26/2014 12:00 AM:* Heart Rate : 75 * Resp Rate : 10 * Systolic BP (mmHg) : 100 * Diastolic BP (mmHg) : 70 * Mean BP (mmHg) : 81 * O2 Saturation (%) : 97 [facility] Vital Signs from 02/25/2014 11:30 PM:* Heart Rate : 84 * Resp Rate : 10 * O2 Saturation (%) : 97 [facility]ital Signs from 02/25/2014 11:15 PM:* Heart Rate : 89 * Resp Rate : 15 * O2 Saturation (%) : 96 [facility]ital Signs from 02/25/2014 11:00 PM:* Temp : 98 * Heart Rate : 83 * Resp Rate : 12 * Systolic BP (mmHg) : 103 * Diastolic BP (mmHg) : 72 * Mean BP (mmHg) : 79 * O2 Saturation (%) : 97 [facility] Vital Signs from 02/25/2014 10:45 PM:* Heart Rate : 76 * Resp Rate : 12 * O2 Saturation (%) : 96 [facility] Vital Signs from 02/25/2014 10:30 PM:* Heart Rate : 77 * Resp Rate : 11 * O2 Saturation (%) : 97 [facility] Vital Signs from 02/25/2014 10:15 PM:* Heart Rate : 84 * Resp Rate : 12 * O2 Saturation (%) : 97 [facility] Signs from 02/25/2014 10:00 PM:* Heart Rate : 76 * Resp Rate : 14 * Systolic BP (mmHg) : 95 * Diastolic BP (mmHg) : 71 * Mean BP (mmHg) : 77 * O2 Saturation (%) : 97 [facility] Signs from 02/25/2014 9:45 PM:* Heart Rate : 78 * Resp Rate : 16 * Systolic BP (mmHg) : 106 * Diastolic BP (mmHg) : 71 * Mean BP (mmHg) : 81 * O2 Saturation (%) : 97 [facility] Signs from 02/25/2014 9:30 PM:* Heart Rate : 80 * Resp Rate : 13 * O2 Saturation (%) : 95 [facility] Vital Signs from 02/25/2014 9:15 PM:* Heart Rate : 84 * Resp Rate : 11 * O2 Saturation (%) : 97 [facility] Vital Signs from 02/25/2014 9:00 PM:* Heart Rate : 83 * Resp Rate : 11 * O2 Saturation (%) : 97 [facility] Vital Signs from 02/25/2014 8:45 PM:* Heart Rate : 82 * Resp Rate : 13 * O2 Saturation (%) : 96 [facility] Vital Signs from 02/25/2014 8:30 PM:* Heart Rate : 81 * Resp Rate : 8 * O2 Saturation (%) : 96 [facility]ital Signs from 02/25/2014 8:15 PM:* Heart Rate : 86 * Resp Rate : 13 * O2 Saturation (%) : 95 [facility] Vital Signs from 02/25/2014 8:00 PM:* Heart Rate : 84 * Resp Rate : 12 * O2 Saturation (%) : 96 [facility]ital Signs from 02/25/2014 7:45 PM:* Heart Rate : 85 * Resp Rate : 13 * O2 Saturation (%) : 95 [facility]ital Signs from 02/25/2014 7:30 PM:* Heart Rate : 82 * Resp Rate : 13 * O2 Saturation (%) : 97 [facility]ital Signs from 02/25/2014 7:15 PM:* Heart Rate : 80 * Resp Rate : 19 * O2 Saturation (%) : 97 [facility] Signs from 02/25/2014 7:04 PM:* Heart Rate : 81 [facility] Vital Signs from 02/25/2014 7:00 PM:* Temp : 98.3 * Heart Rate : 86 * Resp Rate : 21 * O2 Saturation (%) : 97 [facility] Signs from 02/25/2014 4:00 PM:* Heart Rate : 76 * Resp Rate : 12 * Systolic BP (mmHg) : 85 * Diastolic BP (mmHg) : 64 * Mean BP (mmHg) : 71 * O2 Saturation (%) : 96 [facility] V[facility] Signs from 02/25/2014 2:00 PM:* Temp : 98.6 * Heart Rate : 82 * Resp Rate : 15 * Systolic BP (mmHg) : 110 * Diastolic BP (mmHg) : 79 * Mean BP (mmHg) : 88 * O2 Saturation (%) : 98 [facility] V[facility] Signs from 02/25/2014 12:28 PM:* Heart Rate : 76 [facility] Vital Signs from 02/25/2014 11:45 AM:* Height : 6/1 ft,in * Temperature : 96.8 F * Pulse : 68 * Respirations : 16 * BP : 123/74 [facility] Vital Signs from 02/25/2014 7:24 AM:* Height : 6/1 ft,in * Temperature : 97.6 F * Pulse : 71 * Respirations : 16 * BP : 108/63 [facility] Vital Signs from 02/25/2014 5:06 AM:* Height : 6/1 ft,in * Temperature : 97.8 F * Pulse : 66 * Respirations : 20 * BP : 108/72 [facility] Vital Signs from 02/24/2014 10:32 PM:* Height : 6/1 ft,in * Temperature : 97.1 F * Pulse : 70 * Respirations : 20 * BP : 104/56 [facility] V[facility] Signs from 02/24/2014 7:19 PM:* Height : 6/1 ft,in * Temperature : 96.9 F * Pulse : 71 * Respirations : 20 * BP : 102/59 [facility] Signs from 02/24/2014 3:10 PM:* Height : 6/1 ft,in * Temperature : 97.6 F * Pulse : 67 * Respirations : 20 * BP : 104/50 [facility] Vital Signs from 02/24/2014 12:04 PM:* Weight : 113.9/ kg * Height : 6/1 ft,in * Temperature : 97.3 F * Pulse : 57 * Respirations : 20 * BP : 114/75 [facility] Vital Signs from 02/24/2014 7:30 AM:* Heart Rate : 106 [facility] Vital Signs from 02/24/2014 7:00 AM:* Temp : 98.9 * Heart Rate : 70 * Resp Rate : 12 * Systolic BP (mmHg) : 87 * Diastolic BP (mmHg) : 72 * Mean BP (mmHg) : 80 * O2 Saturation (%) : 98 [facility] Signs from 02/24/2014 6:00 AM:* Heart Rate : 69 * Resp Rate : 11 * Systolic BP (mmHg) : 83 * Diastolic BP (mmHg) : 60 * Mean BP (mmHg) : 68 * O2 Saturation (%) : 96 [facility] Signs from 02/24/2014 5:30 AM:* Weight : 115/ kg * Height : 6/1 ft,in [facility] Vital Signs from 02/24/2014 5:00 AM:* Heart Rate : 68 * Resp Rate : 11 * Systolic BP (mmHg) : 99 * Diastolic BP (mmHg) : 63 * Mean BP (mmHg) : 70 * O2 Saturation (%) : 97 [facility] Signs from 02/24/2014 4:00 AM:* Heart Rate : 68 * Resp Rate : 14 * Systolic BP (mmHg) : 99 * Diastolic BP (mmHg) : 59 * Mean BP (mmHg) : 65 * O2 Saturation (%) : 98 [facility] Signs from 02/24/2014 3:00 AM:* Temp : 98.2 * Heart Rate : 73 * Resp Rate : 16 * Systolic BP (mmHg) : 99 * Diastolic BP (mmHg) : 60 * Mean BP (mmHg) : 70 * O2 Saturation (%) : 97 [facility] Vital Signs from 02/24/2014 2:00 AM:* Heart Rate : 73 * Resp Rate : 11 * Systolic BP (mmHg) : 99 * Diastolic BP (mmHg) : 66 * Mean BP (mmHg) : 77 * O2 Saturation (%) : 97 [facility] Signs from 02/24/2014 1:00 AM:* Heart Rate : 72 * Resp Rate : 12 * Systolic BP (mmHg) : 93 * Diastolic BP (mmHg) : 69 * Mean BP (mmHg) : 79 * O2 Saturation (%) : 99 [facility] Signs from 02/23/2014 11:30 PM:* Heart Rate : 77 * Resp Rate : 9 * Systolic BP (mmHg) : 94 * Diastolic BP (mmHg) : 70 * Mean BP (mmHg) : 77 * O2 Saturation (%) : 97 [facility] Signs from 02/23/2014 11:15 PM:* Heart Rate : 76 * Resp Rate : 12 * Systolic BP (mmHg) : 80 * Diastolic BP (mmHg) : 68 * Mean BP (mmHg) : 72 * O2 Saturation (%) : 95 [facility] Signs from 02/23/2014 11:00 PM:* Temp : 97.9 * Heart Rate : 73 * Resp Rate : 10 * Systolic BP (mmHg) : 82 * Diastolic BP (mmHg) : 60 * Mean BP (mmHg) : 71 * O2 Saturation (%) : 97 [facility] Signs from 02/23/2014 10:45 PM:* Heart Rate : 71 * Resp Rate : 9 * Systolic BP (mmHg) : 87 * Diastolic BP (mmHg) : 65 * Mean BP (mmHg) : 69 * O2 Saturation (%) : 97 [facility] Signs from 02/23/2014 10:30 PM:* Heart Rate : 76 * Resp Rate : 11 * Systolic BP (mmHg) : 87 * Diastolic BP (mmHg) : 65 * Mean BP (mmHg) : 76 * O2 Saturation (%) : 98 [facility] Signs from 02/23/2014 10:15 PM:* Heart Rate : 75 * Resp Rate : 11 * Systolic BP (mmHg) : 103 * Diastolic BP (mmHg) : 71 * Mean BP (mmHg) : 76 * O2 Saturation (%) : 97 [facility] Signs from 02/23/2014 10:00 PM:* Heart Rate : 74 * Resp Rate : 16 * Systolic BP (mmHg) : 103 * Diastolic BP (mmHg) : 71 * Mean BP (mmHg) : 79 * O2 Saturation (%) : 97 [facility] Signs from 02/23/2014 9:45 PM:* Heart Rate : 78 * Resp Rate : 8 * Systolic BP (mmHg) : 87 * Diastolic BP (mmHg) : 69 * Mean BP (mmHg) : 78 * O2 Saturation (%) : 99 [facility] Signs from 02/23/2014 9:30 PM:* Heart Rate : 78 * Resp Rate : 10 * Systolic BP (mmHg) : 102 * Diastolic BP (mmHg) : 77 * Mean BP (mmHg) : 82 * O2 Saturation (%) : 97 [facility] Signs from 02/23/2014 9:15 PM:* Heart Rate : 91 * Resp Rate : 11 * Systolic BP (mmHg) : 101 * Diastolic BP (mmHg) : 69 * Mean BP (mmHg) : 87 * O2 Saturation (%) : 97 [facility] Signs from 02/23/2014 9:00 PM:* Heart Rate : 86 * Resp Rate : 11 * Systolic BP (mmHg) : 93 * Diastolic BP (mmHg) : 72 * Mean BP (mmHg) : 79 * O2 Saturation (%) : 96 [facility] Signs from 02/23/2014 8:45 PM:* Heart Rate : 83 * Resp Rate : 10 * Systolic BP (mmHg) : 99 * Diastolic BP (mmHg) : 67 * Mean BP (mmHg) : 88 * O2 Saturation (%) : 97 [facility] Signs from 02/23/2014 8:30 PM:* Heart Rate : 80 * Resp Rate : 10 * Systolic BP (mmHg) : 98 * Diastolic BP (mmHg) : 76 * Mean BP (mmHg) : 86 * O2 Saturation (%) : 98 [facility] Signs from 02/23/2014 8:15 PM:* Heart Rate : 83 * Resp Rate : 9 * Systolic BP (mmHg) : 96 * Diastolic BP (mmHg) : 63 * Mean BP (mmHg) : 77 * O2 Saturation (%) : 97 [facility] Signs from 02/23/2014 8:00 PM:* Heart Rate : 80 * Resp Rate : 10 * Systolic BP (mmHg) : 98 * Diastolic BP (mmHg) : 70 * Mean BP (mmHg) : 80 * O2 Saturation (%) : 98 [facility] Signs from 02/23/2014 7:45 PM:* Heart Rate : 74 * Resp Rate : 12 * Systolic BP (mmHg) : 95 * Diastolic BP (mmHg) : 60 * Mean BP (mmHg) : 74 * O2 Saturation (%) : 94 [facility] Sign[facility] from 02/23/2014 7:30 PM:* Heart Rate : 71 * Resp Rate : 13 * Systolic BP (mmHg) : 89 * Diastolic BP (mmHg) : 67 * Mean BP (mmHg) : 75 * O2 Saturation (%) : 99 [facility] Signs from 02/23/2014 7:15 PM:* Heart Rate : 70 * Resp Rate : 13 * Systolic BP (mmHg) : 96 * Diastolic BP (mmHg) : 66 * Mean BP (mmHg) : 77 * O2 Saturation (%) : 95 [facility] Signs from 02/23/2014 7:00 PM:* Temp : 97.5 * Heart Rate : 70 * Resp Rate : 13 * Systolic BP (mmHg) : 96 * Diastolic BP (mmHg) : 68 * Mean BP (mmHg) : 77 * O2 Saturation (%) : 95 [facility] Signs from 02/23/2014 6:45 PM:* Heart Rate : 71 * Resp Rate : 13 * Systolic BP (mmHg) : 95 * Diastolic BP (mmHg) : 62 * Mean BP (mmHg) : 77 * O2 Saturation (%) : 99 [facility] Signs from 02/23/2014 6:30 PM:* Heart Rate : 72 * Resp Rate : 12 * Systolic BP (mmHg) : 97 * Diastolic BP (mmHg) : 64 * Mean BP (mmHg) : 76 * O2 Saturation (%) : 100 [facility] Signs from 02/23/2014 6:15 PM:* Heart Rate : 65 * Resp Rate : 7 * Systolic BP (mmHg) : 98 * Diastolic BP (mmHg) : 62 * Mean BP (mmHg) : 76 * O2 Saturation (%) : 100 [facility] Signs from 02/23/2014 6:00 PM:* Heart Rate : 80 * Resp Rate : 14 * Systolic BP (mmHg) : 102 * Diastolic BP (mmHg) : 68 * Mean BP (mmHg) : 86 * O2 Saturation (%) : 98 [facility] Signs from 02/23/2014 5:45 PM:* Heart Rate : 74 * Resp Rate : 13 * Systolic BP (mmHg) : 105 * Diastolic BP (mmHg) : 78 * Mean BP (mmHg) : 89 * O2 Saturation (%) : 100 [facility] Vital Signs from 02/23/2014 5:30 PM:* Heart Rate : 64 * Resp Rate : 9 * Systolic BP (mmHg) : 103 * Diastolic BP (mmHg) : 75 * Mean BP (mmHg) : 88 * O2 Saturation (%) : 100 [facility] Vital Signs from 02/23/2014 5:15 PM:* Heart Rate : 57 * Resp Rate : 11 * Systolic BP (mmHg) : 82 * Diastolic BP (mmHg) : 55 * Mean BP (mmHg) : 65 * O2 Saturation (%) : 97 [facility] Signs from 02/23/2014 5:00 PM:* Heart Rate : 56 * Resp Rate : 10 * Systolic BP (mmHg) : 83 * Diastolic BP (mmHg) : 47 * Mean BP (mmHg) : 64 * O2 Saturation (%) : 96 [facility] Signs from 02/23/2014 4:45 PM:* Heart Rate : 61 * Resp Rate : 10 * Systolic BP (mmHg) : 78 * Diastolic BP (mmHg) : 50 * Mean BP (mmHg) : 64 * O2 Saturation (%) : 96 [facility] Signs from 02/23/2014 4:30 PM:* Heart Rate : 64 * Resp Rate : 11 * Systolic BP (mmHg) : 83 * Diastolic BP (mmHg) : 52 * Mean BP (mmHg) : 63 * O2 Saturation (%) : 95 [facility] Signs from 02/23/2014 4:15 PM:* Heart Rate : 62 * Resp Rate : 11 * Systolic BP (mmHg) : 85 * Diastolic BP (mmHg) : 59 * Mean BP (mmHg) : 66 * O2 Saturation (%) : 95 [facility] Signs from 02/23/2014 4:00 PM:* Heart Rate : 63 * Resp Rate : 11 * Systolic BP (mmHg) : 88 * Diastolic BP (mmHg) : 58 * Mean BP (mmHg) : 69 * O2 Saturation (%) : 94 [facility] V[facility] Signs from 02/23/2014 3:49 PM:* Weight : 112/ kg * Height : 6/1 ft,in [facility] V[facility] Signs from 02/23/2014 3:45 PM:* Heart Rate : 75 * Resp Rate : 12 * Systolic BP (mmHg) : 91 * Diastolic BP (mmHg) : 67 * Mean BP (mmHg) : 73 * O2 Saturation (%) : 96 [facility] Signs from 02/23/2014 3:30 PM:* Heart Rate : 70 * Resp Rate : 9 * Systolic BP (mmHg) : 87 * Diastolic BP (mmHg) : 59 * Mean BP (mmHg) : 71 * O2 Saturation (%) : 96 [facility] Signs from 02/23/2014 3:15 PM:* Heart Rate : 63 * Resp Rate : 10 * Systolic BP (mmHg) : 95 * Diastolic BP (mmHg) : 67 * Mean BP (mmHg) : 76 * O2 Saturation (%) : 98 [facility] Signs from 02/23/2014 3:00 PM:* Heart Rate : 67 * Resp Rate : 13 * Systolic BP (mmHg) : 92 * Diastolic BP (mmHg) : 74 * Mean BP (mmHg) : 82 * O2 Saturation (%) : 96 [facility] Signs from 02/23/2014 2:54 PM:* Temp : 98.2 * Heart Rate : 97 * Resp Rate : 23 * O2 Saturation (%) : 97 Results Chemistry from 02/26/2014 8:43 AMSODIUM 135 MMOL/L L (136-145 MMOL/L) POTASSIUM 3.1 MMOL/L L (3.5-5.1 MMOL/L) CHLORIDE 97 MMOL/L L (98-107 MMOL/L) TCO2 33.4 MMOL/L H (21.0-32.0 MMOL/L) ANION GAP 4.6 MMOL/L L (8.0-16.0 MMOL/L) BUN 15 MG/DL (7-18 MG/DL) CREATININE 0.75 MG/DL (0.63-1.13 MG/DL) BUN/CREATININE RATIO 20.0 H (9.1-17.0 ) GLUCOSE 81 MG/DL (65-99 MG/DL) GFR EST NON AFR ZIMBABWEAN >90 ML/MIN GFRA EST AFR AMER >90 ML/MIN CALCIUM 8.9 MG/DL (8.5-10.1 MG/DL) BILIRUBIN TOTAL 0.38 MG/DL (0.20-1.00 MG/DL) TOTAL PROTEIN 7.1 GM/DL (6.4-8.2 GM/DL) ALBUMIN 3.5 GM/DL (3.4-5.0 GM/DL) GLOBULIN 3.6 GM/DL H (2.3-3.5 GM/DL) A/G RATIO 1.0 MG/DL L (1.5-2.2 MG/DL) ALK PHOS 63 U/L (46-116 U/L) ALT (SGPT) 14 U/L (12-78 U/L) AST (SGOT) 10 U/L L (15-37 U/L) MAGNESIUM 2.0 MG/DL (1.8-2.4 MG/DL) Chemistry from 02/26/2014 4:00 AMVALPROIC ACID 49 MCG/ML L (50-100 MCG/ML) Chemistry from 02/25/2014 11:56 AMPHENYTOIN (DILANTIN) 9.5 MCG/ML L (10.0-20.0 MCG/ML) Chemistry from 02/24/2014 3:52 AMSODIUM 138 MMOL/L (136-145 MMOL/L) POTASSIUM 3.7 MMOL/L (3.5-5.1 MMOL/L) CHLORIDE 103 MMOL/L (98-107 MMOL/L) TCO2 32.1 MMOL/L H (21.0-32.0 MMOL/L) ANION GAP 2.9 MMOL/L L (8.0-16.0 MMOL/L) BUN 14 MG/DL (7-18 MG/DL) CREATININE 0.74 MG/DL (0.63-1.13 MG/DL) BUN/CREATININE RATIO 18.9 H (9.1-17.0 ) GLUCOSE 100 MG/DL H (65-99 MG/DL) GFR EST NON AFR [place]AN >90 ML/MIN GFRA EST AFR AMER >90 ML/MIN CALCIUM 8.7 MG/DL (8.5-10.1 MG/DL) BILIRUBIN TOTAL 0.33 MG/DL (0.20-1.00 MG/DL) TOTAL PROTEIN 6.2 GM/DL L (6.4-8.2 GM/DL) ALBUMIN 3.0 GM/DL L (3.4-5.0 GM/DL) GLOBULIN 3.2 GM/DL (2.3-3.5 GM/DL) A/G RATIO 0.9 MG/DL L (1.5-2.2 MG/DL) ALK PHOS 54 U/L (46-116 U/L) ALT (SGPT) 9 U/L L (12-78 U/L) AST (SGOT) 8 U/L L (15-37 U/L) PHENYTOIN (DILANTIN) 7.3 MCG/ML L (10.0-20.0 MCG/ML) Hematology from 02/26/2014 8:43 AMWBC 5.4 X10e3/UL (3.6-11.2 X10e3/UL) RBC 4.51 X10e6/UL (4.06-5.63 X10e6/UL) HEMOGLOBIN 13.9 G/DL (12.5-16.3 G/DL) HEMATOCRIT 41.1 % (36.7-47.1 %) MCV 91.3 FL (80.0-100.0 FL) MCH 30.9 PG (27.0-33.0 PG) MCHC 33.8 G/DL (32.0-36.0 G/DL) RDW 14.5 % (12.3-17.0 %) RDWSD 45.5 (37.1-47.8 ) PLATELET 201 X10e3/UL (159-386 X10e3/UL) MPV 8.8 FL (7.4-10.4 FL) AUTOMATED DIFF PERFORMED SEGS 40.3 % LYMPHOCYTES 46.7 % MONOCYTES 7.3 % EOSINOPHILS 4.6 % BASOPHILS 1.1 % ABSOLUTE NEUTROPHILS 2.2 X10e3/UL (1.8-7.8 X10e3/UL) ABSOLUTE LYMPHOCYTES 2.5 X10e3/UL (1.0-3.0 X10e3/UL) ABSOLUTE MONOCYTES 0.4 X10e3/UL (0.3-1.0 X10e3/UL) ABSOLUTE EOSINOPHILS 0.2 X10e3/UL (0.0-0.5 X10e3/UL) ABSOLUTE BASOPHILS 0.1 X10e3/UL (0.0-0.2 X10e3/UL) Hematology from 02/24/2014 3:52 AMWBC 5.9 X10e3/UL (3.6-11.2 X10e3/UL) RBC 3.98 X10e6/UL L (4.06-5.63 X10e6/UL) HEMOGLOBIN 12.4 G/DL L (12.5-16.3 G/DL) HEMATOCRIT 36.3 % L (36.7-47.1 %) MCV 91.3 FL (80.0-100.0 FL) MCH 31.1 PG (27.0-33.0 PG) MCHC 34.1 G/DL (32.0-36.0 G/DL) RDW 14.6 % (12.3-17.0 %) RDWSD 46.4 (37.1-47.8 ) PLATELET 229 X10e3/UL (159-386 X10e3/UL) MPV 8.1 FL (7.4-10.4 FL) AUTOMATED DIFF PERFORMED SEGS 45.7 % LYMPHOCYTES 42.8 % MONOCYTES 7.7 % EOSINOPHILS 3.1 % BASOPHILS 0.7 % ABSOLUTE NEUTROPHILS 2.7 X10e3/UL (1.8-7.8 X10e3/UL) ABSOLUTE LYMPHOCYTES 2.5 X10e3/UL (1.0-3.0 X10e3/UL) ABSOLUTE MONOCYTES 0.4 X10e3/UL (0.3-1.0 X10e3/UL) ABSOLUTE EOSINOPHILS 0.2 X10e3/UL (0.0-0.5 X10e3/UL) ABSOLUTE BASOPHILS 0.0 X10e3/UL (0.0-0.2 X10e3/UL) Urinalysis from 02/26/2014 7:54 AMURINE COLOR YELLOW (STRAW/YELL/DK YELL ) URINE APPEARANCE CLEAR (CLEAR ) URINE PH 6.5 (5.0-8.0 ) URINE SPECIFIC GRAVITY 1.015 (<=1.005->=1.030 ) URINE GLUCOSE NEGATIVE MG/DL (NEGATIVE MG/DL) URINE BILIRUBIN NEGATIVE (NEGATIVE ) URINE KETONES NEGATIVE MG/DL (NEGATIVE MG/DL) URINE BLOOD NEGATIVE (NEGATIVE ) URINE PROTEIN NEGATIVE MG/DL (NEGATIVE MG/DL) URINE UROBILINOGEN 0.2 EU/DL (0.2-1.0 EU/DL) URINE NITRITES NEGATIVE (NEGATIVE ) *URINE LEUKOCYTES SMALL A (NEGATIVE ) MICROSCOPIC EXAM PERFORMED PERFORMED WBC 5-10 /HPF A (0-5 /HPF) Microbiology from 02/26/2014 10:50 AM* CULTURE URINE (Preliminary Result) Specimen Number: [id number] Sample Collection Date/Time: 02/26/2014 10:50 AM Specimen Source: Urine Catheter Microbiology from 02/23/2014 5:15 PM* MRSA NASAL Specimen Number: [id number] Sample Collection Date/Time: 02/23/2014 5:15 PM Specimen Source: Nares DX Radiology from 02/26/2014 7:53 AMCHEST 1 VIEW DATE OF EXAM: Feb 26 2014 8: 03AM Proc: TANA 0066 - CHEST 1 VIEW CPT Code(s): 91504-; ; ; INDICATION / CLINICAL HISTORY: \E\seizure FINDINGS: A single view of the chest was obtained. The heart size and pulmonary vasculature appear within normal limits. There is no evidence of pneumothorax, pleural effusion, or acute infiltrate. The osseous structures appear intact. IMPRESSION: Unremarkable chest radiograph. MRI from 02/24/2014 7:00 AMMRI BRAIN W/O_W/CONTRAST DATE OF EXAM: Feb 24 2014 8:20AM Proc: MR 0012 - MRI BRAIN W/O_W/ CONTRAST CPT Code(s): 58153-; ; ; INDICATION / CLINICAL HISTORY: Seizures. TECHNIQUE: Precontrast images were performed as well as postcontrast images after the administration of 17 mL of IV ProHance contrast. FINDINGS: No intracranial hemorrhage, midline shift, mass effect is identified. There is no evidence of acute infarct on diffusion weighted images. No abnormal enhancing lesions are identified on postcontrast images. IMPRESSION: Unremarkable pre and postcontrast MRI of the brain. Problems Encounter Diagnosis * Bipolar Disorder Comment:Problem resolved by [facility] [employer] upon Discharge, Status:Resolved. * Candidiasis Comment:Problem resolved by [facility] [employer] upon Discharge, Status:Resolved. * Generalized-onset Seizures Comment:Problem resolved by [facility] [employer] upon Discharge, Status:Resolved. Additional Problems * Dizziness Comment:Problem resolved by [...] Status:Resolved. Plan of Care Treatment Plan from 02/26/2014 1:13 PM:* Care Management Note : Met with patient and spouse regarding discharge plan. Patient states he has a scheduled back surgery for tomorrow in [place] and hoping to be discharged today so he can make appointment. Patient stated Dr. San aware of this and it is their understanding if all tests come back clear then he'll be discharged home today. supports this plan. No discharge needs voiced. Treatment Plan from 02/25/2014 2:20 PM:* Care Management Note : SW attempted to visit with pt or family regarding dc planning. RN providing pt care on 0 informed SW pt will be tx to ICU due to 6 seizure activity. They are attempting to reach the spouse to inform her of pt's medical changes and room change. SW assisted in verifying the correct phone number for the spouse. Rn calling spouse again. RN stated pt had refused to allow IV seizure meds yesterday and today. SW to follow up with pt in ICU tomorrow. Treatment Plan from 02/24/2014 9:46 AM:* Care Management Note : Patient was admitted as inpatient d/t seizures. POC is to consult psych, medication adjustments, order a MRI of the head, and monitor seizure activity. LOS >2 midnights, will continue to follow. Procedures * Completed suprapubic catheter insertion, by MD REZA LERMA, on 2013 11:01 AM * Completed Procedure Code: 05677 Procedure Name: not valued, on 02/08/2014 12: 00 AM * Completed , on 10/21/2012 12:00 AM * Completed , on 10/21/2012 12:00 AM * Completed , on 10/21/2012 12:00 AM * Completed , on 10/21/2012 12:00 AM Immunizations No immunizations administered or ordered. Hospital Course Hospital Discharge Instructions How to care for yourself at home from 02/27/2014 12:21 AM:* Discharge Activity : Activity as tolerated * Discharge Diet : Diet as directed by web production assistant,Modification as given by physician * Call your doctor if: : Fever [...] the responsibility of the patient or patient entry level marketing representative to confirm the list of medications with either the patient's personal care provider or the patient's follow-up care provider to ensure the patient has an appropriate list of medications to take at home. Discharge medications New medications* VANCOMYCIN 1G/250ML NS (COMBO) 250ML Intravein Q12H * fluconazole 100 mg Tablet, Ordered By: RUDI SAN MD Directions: 1 tablet oral daily Additional Instructions: 5 days * cholecalciferol (vitamin D3) 5,000 unit Capsule, Ordered By: RUDI SAN MD Directions: 1 capsule oral daily with breakfast Continued medications* traZODone 50 mg Tablet, Ordered By: RUDI SAN MD Directions: 1 tablet oral daily at bedtime * potassium chloride 20 mEq tablet,ER particles/crystals, Ordered By: RUDI SAN MD Directions: 1 tablet oral daily with breakfast * pantoprazole 40 mg tablet,delayed release (DR/EC), Ordered By: RUDI SAN MD Directions: 1 tablet oral daily before breakfast Additional Instructions: AUTOSUB FOR PREVACID 30 MG DAILY * levothyroxine (Synthroid) 50 mcg Tablet, Ordered By: RUDI SAN MD Directions: 1 tablet oral daily before breakfast * spironolactone 25 mg Tablet, Ordered By: RUDI SAN MD Directions: 1 tablet oral twice a day * polyethylene glycol 3350 (Miralax) 17 gram Powder in Packet, Ordered By: RUDI SAN MD Directions: 1 packet oral daily * pantoprazole 40 mg tablet,delayed release (DR/EC), Ordered By: RUDI SAN MD Directions: 1 tablet oral daily before breakfast Additional Instructions: AUTOSUB * atorvastatin 20 mg Tablet, Ordered By: RUDI SAN MD Directions: 1 tablet oral daily at bedtime * ALPRAZolam 0.25 mg Tablet, Ordered By: RUDI SAN MD Directions: 1 tablet oral every four hours PRN anxiety * gabapentin 300 mg Capsule, Ordered By: RUDI SAN MD Directions: 2 capsule oral three times a day Changed medications* morphine 15 mg Tablet Extended Release, Ordered By: RUDI SAN MD Directions: 1 tablet oral twice a day * gabapentin 300 mg Capsule, Ordered By: RUDI SAN MD Directions: 1 capsule oral three times a day * furosemide 80 mg Tablet, Ordered By: RUDI SAN MD Directions: 1 tablet oral daily * divalproex 500 mg Tablet Extended Release 24 hr, Ordered By: RUDI SAN MD Directions: 1 tablet oral twice a day Stopped medications* HYDROmorphone 4 mg Tablet Directions: 1 tablet oral every 6-8 hours PRN low back pain Additional Instructions: 1 po every 6-8 hours with a max of 3 per day * HYDROmorphone (Dilaudid) 4 mg Tablet Directions: 1 tablet oral three times a day for LOW BACK PAIN * lansoprazole 30 mg capsule,delayed release(DR/EC) Directions: 1 capsule oral daily * levetiracetam 250 mg Tablet Directions: 1 tablet oral twice a day Additional Instructions: DO NOT CHEW, BREAK, OR CRUSH. * levofloxacin 500 mg Tablet Directions: 1 tablet oral daily Additional Instructions: DO NOT GIVE DAIRY PRODUCTS, ANTACIDS, MVI, DIET AIDS OR SUCRALFATE WITHIN 2 HOURS OF * LORazepam 2 mg/mL Syringe Directions: 0.5 mL intravenous eveery for to six hours for ANXIETY Additional Instructions: GIVE NEEDED FOR SEIZURE ACTIVITY * lubiprostone (Amitiza) 24 mcg Capsule Directions: 1 capsule oral twice a day * lubiprostone (Amitiza) 24 mcg Capsule Directions: 1 capsule oral twice a day * A NOTE TO / FROM NURSING 1 EACH=1 ORDER Miscellaneous UD, Clinician Dir:BEL PREVIOUS ORDER FOR NYSTATIN POWDER DUE TO ALLERGY * magnesium hydroxide (Milk of Magnesia) 400 mg/5 mL Suspension Directions: 30 mL oral daily PRN CONSTIPATION * acetaminophen (Mapap (acetaminophen)) 325 mg Tablet Directions: 2 tablet oral every four hours PRN PAIN * nicotine (polacrilex) (Nicorelief) 2 mg Gum Directions: 1 gum oral every one hour for SMOKING CESSATION Additional Instructions: DO NOT GIVE IF PATIENT UNDER AGE 18 OR . * baclofen 20 mg Tablet Directions: 1 tablet oral three times a day PRN pain * ondansetron HCl (Zofran) 4 mg Tablet Directions: 1 tablet oral every eight hours PRN nausea or vomiting * baclofen 10 mg Tablet Directions: 1 tablet oral three times a day * ondansetron HCl 4 mg Tablet Directions: 1 tablet oral every eight hours PRN NAUSEA OR VOMITING * baclofen 20 mg Tablet Directions: 1 tablet oral three times a day for PAIN * bethanechol chloride 25 mg Tablet Directions: 1 tablet oral four times daily * peg 400-propylene glycol (PF) (Systane (PF)) 0.3 %-0.4 % Dropperette Directions: 1 drop ophthalmic, both eyes twice a day * peg 400-propylene glycol (PF) (Systane (PF)) 0.3 %-0.4 % Dropperette Directions: 1 drop ophthalmic, both eyes every four hours PRN * rivaroxaban (Xarelto) 20 mg Tablet Directions: 1 tablet oral daily * tamsuLOSIN 0.4 mg capsule,extended release 24hr Directions: 1 capsule oral daily * TAMSULOSIN SR CAP (FLOMAX SR CAP) 0.4 MG=1 CAPSULE By Mouth DAILY First Dose Now Directions: oral daily * zolpidem 12.5 mg Tablet,Ext Release Multiphase Directions: 1 tablet oral daily at bedtime PRN insomnia * zolpidem 10 mg Tablet Directions: 1 tablet oral daily at bedtime Additional Instructions: AUTOSUB FOR FERNANDA CR * bethanechol chloride 25 mg Tablet Directions: 1 tablet oral four times daily * calcium acetate-aluminum sulf ([place]) 952 mg-1,347 mg Powder in Packet Directions: 1 each topical twice a day Additional Instructions: MIX 1 PACKET IN 1 CUP OF WATER APPLY TO GAUZE AND APPLY TO AREA AND LET DRY * calcium carbonate (Calcium Antacid) 200 mg calcium (500 mg) tablet,chewable Directions: 2 tab oral three times a day PRN INDIGESTION * cranberry conc-ascorbic acid (Cranberry Plus Vitamin C) 500 mg Capsule Directions: 1 capsule oral three times a day * cranberry ttaq-H-ibedvbki coag (Azo Cranberry + Probiotic) 250 mg-30 mg-50 million cell Tablet Directions: 1 tablet oral three times a day Additional Instructions: AUTOSUB
--- OUTSIDE RECORDS SUMMARY | 2016-07-01 17:29 | XMS REPORT | Summary of Care ---
Author Author Nadiya Timmons Unknown Address [address], [place] [id number] Phone Unavailable Care Team Providers Care Manager Garage Name Role Phone Jon Kirkland, FACS, ,, [...] (benign prostatic hyperplasia) (600.00, N40.0) Status: Active Low back pain (724.2, M54.5) [...] on:15-Mar-2013 Flulaval Quadrivalent Intramuscular Suspension Lot #: [id number] Administered on:26-Dec-2013 Zostavax 42733 UNT/0.65ML Subcutaneous Solution Reconstituted Lot #: [id number] Administered on:26-Dec-2013 Prevnar 13 Intramuscular Suspension Lot #: [id number] Administered on:21-May-2014 Family History Mother* Name Dates [...] Webb On 02-May-2015 06:45 * Appointment; Provider: aJvi Lucero On 18-Apr-2015 09:30 * Appointment; Provider: [...] Problem not documented On 04-Mar-2015 15:55 Appointment; Chna Webb Encounter Diagnosis: Problem not [...]
[2016-07-01] MEDS ORDERED: NEOM28OI18 TOP (17:30)
[2016-07-01] MEDS ORDERED: ONDANSETRON 4mg/2ml INJECTION IV ONE (17:30)
[2016-07-01] MEDS ORDERED: HYDROMORPHONE 2mg/ml INJECTION IV ONE (17:30)
[2016-07-01] MEDS ORDERED: NORMAL SALINE 1,000 ML IV ONE (17:30)
--- OUTSIDE RECORDS SUMMARY | 2016-07-01 17:30 | XMS REPORT | Summary of Care ---
Author Author Kelin Kirkland, Carlos Ingram Organization Unknown Address [address], [place] [id number] Phone Unavailable Care Team Providers Care Ceo [employer] Name Role Phone Jon Kirkland, BEREKET, ,, M Unavailable Unavailable Emil VEGAS, Archana Unavailable Unavailable Mena Kirkland, Ritesh Unavailable Unavailable Kelin Kirkland, A Unavailable Unavailable Nixon Kirkland, Lance Unavailable Unavailable Nic Kirkland, G Unavailable Unavailable Paresh Krikland, T Unavailable Unavailable Carlos Neville Unavailable Unavailable [facility] ([place]) Unavailable Unavailable Unavailable Unavailable Functional Status Name [...] 15-Mar-2013 Flulaval Quadrivalent Intramuscular Suspension Lot #: [id number] on: 26-Dec-2013 Zostavax 76021 UNT/0.65ML Subcutaneous Solution Reconstituted Lot #: [id number] on: 26-Dec-2013 Prevnar 13 Intramuscular Suspension Lot #: [id number] on: 21-May-2014 Tdap (Adacel) Lot #: [id number] on: 07-Aug-2015 Family History Name Dates Details [...] to report Results Date Description Value Details 05-Dec-2015 14:17 URINE CULTURE [id number] Comments: DOS 01/12/16 DR. TORRES AT [facility] performed at: [place] [address] [place], [address], Shape Carver: Boom Baxter D.O., MPHQuest Collection Date/Time: [id number] Results Received Date/Time: [id number] Reported Date/Time: [id number] FASTING:NO CULTURE, URINE, ROUTINE SEE NOTE Comments: CULTURE, URINE, ROUTINE MICRO NUMBER: [id number] TEST STATUS: FINAL SPECIMEN SOURCE: URINE SPECIMEN QUALITY: ADEQUATE RESULT: Three or more organisms present, each greater than 10,000 cu/mL. May represent normal usha contamination from external genitalia. No further testing is required.[[place]]----- Plan of Care Name Dates Details Planned Observations Planned Goals not documented Planned Encounters Appointment; Provider: Chan Webb M.D.|CarlCAkhilSJOHANNE Garnett,BEREKET, On 04-May-2016 11:15 Appointment; Provider: Calos Yoder M.D. On 30-Apr-2016 13:30 Appointment; Provider: Carlos Neville M.D. On 10-Feb-2016 13:00 Appointment; Provider: Carlos Neville M.D. On 14-Jan-2016 13:30 Interventions Provided Medication Changes* HYDROmorphone HCl - 8 MG Oral Tablet - Renew * Morphine Sulfate ER 15 MG Oral Tablet Extended Release - Renew Instructions Name Dates Details Instructions not documented Encounters Appointment; Chan Webb M.D.|Nathaniel.C.S.BEREKET Ramirez|Marita,BEREKET, Encounter Diagnosis: Problem not documented On 23-Dec-2015 13:30 Appointment; Carlos Neville M.D. Encounter Diagnosis: Problem not documented On 03-Dec-2015 13:30 Appointment; Carlos Neville M.D. Encounter Diagnosis: Problem not documented On 18-Nov-2015 14:15 Appointment; Chan Webb M.D.|CarlC.S.|BEREKET Kirkland|Marita,BEREKET, Encounter Diagnosis: Problem not documented On 18-Nov-2015 13:30 Appointment; Chan Webb M.D.|F.A.C.S.|M.DAkhil,BEREKET|Marita,FACS, Encounter Diagnosis: Problem not documented On 10:45 Appointment; Chan Webb M.D.|F.A.C.S.|M.DAkhil,BEREKET|Marita,FACS, Encounter Diagnosis: Problem not documented On 06:45 Appointment; Carlos Neville M.D. Encounter Diagnosis: Problem not documented On 14:00 Appointment; Chan Webb M.D.|F.A.C.S.|MAkhilDAkhil,BEREKET|Marita,FACS, Encounter Diagnosis: Problem not documented On 09:30 [...] documented On 10-Jul-2015 13:00 Appointment; Chan Webb M.D.|F.A.C.S.|MAkhilDAkhil,BEREKET|Marita,FACS, Encounter Diagnosis: Problem not documented On 08-Jul-2015 13:30 Appointment; Carlos Neville M.D. Encounter Diagnosis: Problem not documented On 17-Jun-2015 13:00 Appointment; Javi Lucero M.D. Encounter Diagnosis: Problem not documented On 11-Jun-2015 13:30 Appointment; Chan Webb M.D.|F.A.C.S.|MAkhilDAkhil,BEREKET|Marita,FACS, Encounter Diagnosis: Problem not documented On 11-Jun-2015 07:30 Appointment; Calos Yoder M.D. Encounter Diagnosis: Problem not documented On 01-May-2015 13:45 Appointment; Javi Lucero M.D. Encounter Diagnosis: Problem not documented On 18-Apr-2015 09:30 Appointment; Chan Webb M.D.|F.A.C.S.|MAkhilDAkhil,FACS|Marita,FACS, Encounter Diagnosis: Problem not documented On 01-Apr-2015 07:30 Appointment; Javi Lucero M.D. Encounter Diagnosis: Problem not documented On 12-Mar-2015 13:30 Appointment; Misael Colbert M.D. Encounter Diagnosis: Problem not documented On 04-Mar-2015 15:55 Appointment; Chan Webb M.D.|F.A.C.S.|MAkhilDAkhil,BEREKET|Marita,FACS, Encounter Diagnosis: Problem not documented On 28-Feb-2015 07:15 Appointment; Chan Webb M.D.|F.A.C.S.|M.DAkhil,FACS|MAkhilDAkhil,FACS, Encounter Diagnosis: Problem not documented On 29-Jan-2015 16:45 Appointment; Carlos Neville M.D. Encounter Diagnosis: Problem not documented On 07-Jan-2015 13:30 Appointment; Chan Webb M.D.|F.A.C.S.|MEun,FACS|MAkhilDAkhil,FACS, Encounter Diagnosis: Problem not documented On 25-Dec-2014 07:00 Appointment; Andreia Paredes P.A. Encounter Diagnosis: Problem not documented On 04-Dec-2014 11:30 Appointment; Chan Webb M.D.|F.A.C.S.|M.DAkhil,FACS|MAkhilDAkhil,FACS, Encounter Diagnosis: Problem not documented On 23-Nov-2014 [...] documented On 02-Aug-2014 11:15 Appointment; Chan Webb M.D.|F.Nataly.C.S.|Marita,BEREKET|Marita,BEREKET, Encounter Diagnosis: Problem not documented On 10-Jul-2014 [...] documented On 21-May-2014 13:45 Appointment; Chan Webb M.D.|F.A.C.S.|Mariat,BEREKET|Marita,BEREKET, Encounter Diagnosis: Problem not documented On 17-May-2014 17:00 Appointment; Ritesh San M.D. Encounter Diagnosis: Problem not documented On 03-May-2014 14:00 Appointment; Javi Lucero M.D. Encounter Diagnosis: Problem not documented On 24-Apr-2014 08:00 Appointment; Ritesh San M.D. Encounter Diagnosis: Problem not documented On 23-Apr-2014 13:15 Appointment; Chan Webb M.D.|Baldomero|Marita,BEREKET|Marita,BEREKET, Encounter Diagnosis: Problem not documented On 10-Apr-2014 14:00 Appointment; Ritesh aSn M.D. Encounter Diagnosis: Problem not documented On 21-Feb-2014 13:15 Appointment; Estella Glass M.D. Encounter Diagnosis: Problem not documented On 20-Feb-2014 13:15 Appointment; Ritesh San M.D. Encounter Diagnosis: Problem not documented On 29-Jan-2014 13:45"
--- OUTSIDE RECORDS SUMMARY | 2016-07-01 17:30 | XMS REPORT | Summary of Care ---
Author Author Carlos Neville M.D. Organization Unknown Address [address], [place] [id number] Phone Unavailable Care Team Providers Care Water Service Dispatcher Name Role Phone Jon Kirkland, FACS, ,, M Unavailable Unavailable Mena Kirkland, Ritesh Unavailable Unavailable Kelin Kirkland, Nataly Unavailable Unavailable Lena Fountain, Andreia Unavailable Unavailable Nic Kirkland, G Unavailable Unavailable Paresh Kirkland, T Unavailable Unavailable Carlos Neville PP Unavailable [facility] ([place]) Unavailable Unavailable Unavailable Functional Status Functional Status Health Issues* Name Dates Details Functional status health issues are not documented Status: Cognitive Status Health Issues* Name Dates Details Cognitive status health issues are not documented Status: Problems Name Dates Details Heartburn Frequently (Weekly / Daily) Status: Active Shortness of breath (786.05, R06.02) Status: Active Respiratory tract infection (519.8, J98.8) Status: Active Anemia (285.9, D64.9) Status: Active Pain, low back (724.2, M54.5) [...] on:15-Mar-2013 Flulaval Quadrivalent Intramuscular Suspension Lot #: [id number] Administered on:26-Dec-2013 Zostavax 72318 UNT/0.65ML Subcutaneous Solution Reconstituted Lot #: [id number] Administered on:26-Dec-2013 Prevnar 13 Intramuscular Suspension Lot #: [id number] Administered on:21-May-2014 Family History Mother* Name Dates [...] On 08-Jul-2015 13:30 * Appointment; Provider: Nadiya Dinh On [...]
--- OUTSIDE RECORDS SUMMARY | 2016-07-01 17:30 | XMS REPORT | Summary of Care ---
Author Author Kelin Kirkland, Carlos Ingram Organization Unknown Address [address], [place] [id number] Phone Unavailable Care Team Providers Care [employer] Driver Name Role Phone Jon Kirkland, FACS, ,, M Unavailable Unavailable Emil VEGAS, Archana Unavailable Unavailable Mena Kirkland, Ritesh Unavailable Unavailable Kelin Kirkland, A Unavailable Unavailable Lena Fountain, Andreia Unavailable Unavailable Nixon Kirkland, Lance Unavailable Unavailable Nic Kirkland, G Unavailable Unavailable Paresh Kirkland, T Unavailable Unavailable Carlos Neville Unavailable Unavailable [facility]) Unavailable Unavailable Unavailable Unavailable Functional Status Name [...] FOOD. * Quantity: 60 Refills: 6 Calos Ydoer M.D. * Start 20-Feb-2014 Active Methenamine Hippurate [...] 15-Mar-2013 Flulaval Quadrivalent Intramuscular Suspension Lot #: [id number] on: 26-Dec-2013 Zostavax 34463 UNT/0.65ML Subcutaneous Solution Reconstituted Lot #: [id number] on: 26-Dec-2013 Prevnar 13 Intramuscular Suspension Lot #: [id number] on: 21-May-2014 Tdap (Adacel) Lot #: [id number] on: 07-Aug-2015 Family History Name Dates Details [...] Provider: Chan Webb M.D.|JOHANNE Estrada FACS, On 16-Dec-2015 13:00 Instructions Name Dates Details Instructions not documented Encounters Appointment; Chan Webb M.D.|JOHANNE Estrada FACS, Encounter Diagnosis: Problem not documented On 18-Nov-2015 13:30 Appointment; Chan Webb M.D.|F.A.C.S.|MEun,BEREKET|Marita,BEREKET, Encounter Diagnosis: Problem not documented On 10:45 Appointment; Chan Webb M.D.|F.A.C.S.|MAkhilDAkhil,BEREKET|Marita,BEREKET, Encounter Diagnosis: Problem not documented On 06:45 Appointment; Carlos Neville M.D. Encounter Diagnosis: Problem not documented On 14:00 Appointment; Chan Webb M.D.|F.A.C.S.|Marita,BREEKET|Marita,BEREKET, Encounter Diagnosis: Problem not documented On 09:30 [...] documented On 11-Jun-2015 13:30 Appointment; Chan Webb M.D.|F.A.C.S.|M.D.,FACS|MAkhilDAkhil,FACS, Encounter Diagnosis: Problem not documented On 11-Jun-2015 [...] documented On 28-Feb-2015 07:15 Appointment; Chan Webb M.D.|F.A.C.S.|MAkhilDAkhil,BEREKET|Marita,FACS, Encounter Diagnosis: Problem not documented On 29-Jan-2015 16:45 Appointment; Carlos Neville M.D. Encounter Diagnosis: Problem not documented On 07-Jan-2015 13:30 Appointment; Chan Webb M.D.|F.A.C.S.|M.D.,BEREKET|Marita,FACS, Encounter Diagnosis: Problem not documented On 25-Dec-2014 07:00 Appointment; Andreia Paredes P.A. Encounter Diagnosis: Problem not documented On 04-Dec-2014 11:30 Appointment; Chan Webb M.D.|F.A.C.S.|MAkhilDAkhil,BEREKET|Marita,BEREKET, Encounter Diagnosis: Problem not documented On 23-Nov-2014 [...] not documented On 13:30 Appointment; Chan Webb M.D.|F.Nataly.C.S.|Marita,JOHANNE,BEREKET, Encounter Diagnosis: Problem not documented On 16-Aug-2014 [...] documented On 21-May-2014 13:45 Appointment; Chan Webb M.D.|F.A.C.S.|MAkhilDAkhil,BEREKET|Marita,BEREKET, Encounter Diagnosis: Problem not documented On 17-May-2014 17:00 Appointment; Ritesh San M.D. Encounter Diagnosis: Problem not documented On 03-May-2014 14:00 Appointment; Javi Lucero M.D. Encounter Diagnosis: Problem not documented On 24-Apr-2014 08:00 Appointment; Ritesh San M.D. Encounter Diagnosis: Problem not documented On 23-Apr-2014 13:15 Appointment; Chan Webb M.D.|Baldomero|aMrita,JOHANNE,BEREKET, Encounter Diagnosis: Problem not documented On 10-Apr-2014 [...] Encounter Diagnosis: Problem not documented On 20-Nov-2013 11:00"
--- OUTSIDE RECORDS SUMMARY | 2016-07-01 17:30 | XMS REPORT | Summary of Care ---
Author Author Provider, Outside Organization Unknown Address Unknown Phone Unavailable Care Team Providers Care Limb Driver Name Role Phone Jon Kirkland, FACS, ,, M Unavailable Unavailable Mena Kirkland, Ritesh Unavailable Unavailable Kelin Kirkland, A Unavailable Unavailable Lena Fountain, Andreia Unavailable Unavailable Nic Kirkland, G Unavailable Unavailable Paresh Kirkland, T Unavailable Unavailable Carlos Neville PP Unavailable [facility] ([place]) Unavailable Unavailable Unavailable Functional Status Functional [...] every day * Quantity: 30 Refills: 10 Rtiesh San M.D.* Started 20-Dec-2012 ActiveKlor-Con M20 20 [...] 60 Refills: 0 Javi Lucero M.D.* Started 10-Aug-2015 ActiveBaclofen 20 MG Oral Tablet TAKE ONE [...] on:15-Mar-2013 Flulaval Quadrivalent Intramuscular Suspension Lot #: [id number] Administered on:26-Dec-2013 Zostavax 52253 UNT/0.65ML Subcutaneous Solution Reconstituted Lot #: [id number] Administered on:26-Dec-2013 Prevnar 13 Intramuscular Suspension Lot #: [id number] Administered on:21-May-2014 Family History Mother* Name Dates [...] ml/min (Better) Range: >60 EST GFR, NON-AFR IRISH >60 ml/min (Better) Range: >60 Comments: EST GFR is reported in ml/min per 1.73 m2 of body surface area. For -Bulgarian, please multiple result by 1.2.----- GLUCOSE 110 [...] ml/min (Better) Range: >60 EST GFR, NON-AFR IRISH >60 ml/min (Better) Range: >60 Comments: EST GFR is reported in ml/min per 1.73 m2 of body surface area. For -Bulgarian, please multiple result by 1.2.----- GLUCOSE 99 [...] not documented On 21-Jun-2014 07:15 Appointment; Carlos Nveille Encounter Diagnosis: Problem not documented On 19-Jun-2014 [...]
--- OUTSIDE RECORDS SUMMARY | 2016-07-01 17:31 | XMS REPORT | Summary of Care ---
Author Author Nadiya Timmons Unknown Address [address], [place] [id number] Phone Unavailable Care Team Providers Care Digester Operator Helper Name Role Phone Jon Kirkland, FACS, ,, M Unavailable Unavailable Mena Kirkland, Ritesh Unavailable Unavailable Kelin Kirkland, A Unavailable Unavailable Lena Fountain, Andreia Unavailable Unavailable Nic Kirkland, G Unavailable Unavailable Paresh Kirkland, T Unavailable Unavailable Carlos Neville PP Unavailable [facility] ([place]) Unavailable Unavailable Unavailable Functional Status Functional Status [...] on:15-Mar-2013 Flulaval Quadrivalent Intramuscular Suspension Lot #: [id number] Administered on:26-Dec-2013 Zostavax 20635 UNT/0.65ML Subcutaneous Solution Reconstituted Lot #: [id number] Administered on:26-Dec-2013 Prevnar 13 Intramuscular Suspension Lot #: [id number] Administered on:21-May-2014 Family History Mother* Name Dates [...]
--- OUTSIDE RECORDS SUMMARY | 2016-07-01 17:31 | XMS REPORT | Summary of Care ---
Author Author Kelin Kirkland, Carlos Ingram Organization Unknown Address [address], [place] [id number] Phone Unavailable Care Team Providers Care Security Intelligence Analyst Name Role Phone Jon Kirkland, BEREKET, ,, M Unavailable Unavailable Emil VEGAS, Archana Unavailable Unavailable Mena Kirkland, Ritesh Unavailable Unavailable Kelin Kirkland, A Unavailable Unavailable Nixon Kirkland, Lance Unavailable Unavailable Grazyna HUNTER, Carmine Unavailable Unavailable Nic Kirkland, G Unavailable Unavailable Paresh Kirkland, T Unavailable Unavailable Carlos Neville Unavailable Unavailable [facility] ([place]) Unavailable Unavailable Unavailable Unavailable Functional Status [...] DIRECTED. * Quantity: 1 Refills: 0 Nixon KirklandMartinezLance * Start Active 30 ML Bottle Allergies [...] 15-Mar-2013 Flulaval Quadrivalent Intramuscular Suspension Lot #: [id number] on: 26-Dec-2013 Zostavax 63392 UNT/0.65ML Subcutaneous Solution Reconstituted Lot #: [id number] on: 26-Dec-2013 Prevnar 13 Intramuscular Suspension Lot #: [id number] on: 21-May-2014 Tdap (Adacel) Lot #: [id number] on: 07-Aug-2015 Family History Name Dates Details [...] IN HOUSECALL FOLDER. TO BE DRAWN AT [employer] WBC 5.9 K/uL Range: 4.5-11.0 RBC 4.89 [...] IN HOUSECALL FOLDER. TO BE DRAWN AT [employer] C REACTIVE PROTEIN 2.7 mg/dL (Above high [...] >60 ml/min Range: >60 EST GFR, NON-AFR DANISH >60 ml/min Range: >60 Comments: EST GFR [...] of Care Name Dates Details Planned Observations Comprehensive Metabolic Panel 1212 On 10-Feb-2016 Intent LIPID PROFILE 1184 On 10-Feb-2016 Intent PSA ( PROSTATE SPECIFIC ANTIGEN) 3100 On 10-Feb-2016 Intent THYROID STIM. HORMONE 3602 On 10-Feb-2016 Intent Planned Goals not documented Planned Encounters Appointment; Provider: Chan Webb M.D.|CarlCAkhilSAkhil|BEREKET Kirkland|BEREKET Kirkland, On 04-May-2016 11:15 Appointment; Provider: Calos Yoder M.D. On 30-Apr-2016 13:30 Appointment; Provider: Chan Webb M.D.|CarlCAkhilS.|BEREKET Kirkland|Marita,BEREKET, On 02-Mar-2016 17:15 Appointment; Provider: Carlos Neville M.D. On 10-Feb-2016 13:00 Appointment; Provider: Carmine Geronimo DPM On 07-Feb-2016 08:00 Instructions Name Dates Details Instructions not documented [...] not documented On 09:30 Appointment; Chan Webb M.D.|F.A.C.S.|Marita,BEREKET|Mraita,FACS, Encounter Diagnosis: Problem not documented On 17:00 [...] documented On 11-Jun-2015 13:30 Appointment; Chan Webb M.D.|F.Nataly.C.S.|Marita,BEREKET|Marita,BEREKET, Encounter Diagnosis: Problem not documented On 11-Jun-2015 [...] documented On 04-Mar-2015 15:55 Appointment; Chan Webb M.D.|F.Nataly.C.S.|M.D.,FACS|MViolet.,FACS, Encounter Diagnosis: Problem not documented On 28-Feb-2015 07:15 Appointment; Chan Webb M.D.|F.A.C.S.|M.DAkhil,BEREKET|MEun,FACS, Encounter Diagnosis: Problem not documented On 29-Jan-2015 16:45 Appointment; Carlos Neville M.D. Encounter Diagnosis: Problem not documented On 07-Jan-2015 13:30 Appointment; Chan Webb M.D.|F.A.C.S.|M.DAkhil,BEREKET|Marita,FACS, Encounter Diagnosis: Problem not documented On 25-Dec-2014 07:00 Appointment; Andreia Paredes P.A. Encounter Diagnosis: Problem not documented On 04-Dec-2014 11:30 Appointment; Chan Webb M.D.|F.A.C.S.|M.DAkhil,FACS|Marita,FACS, Encounter Diagnosis: Problem not documented On 23-Nov-2014 17:15 Appointment; Chan Webb M.D.|F.A.C.S.|M.DAkhil,BEREKET|Marita,FACS, Encounter Diagnosis: Problem not documented On 12:45 Appointment; Carlos Neville M.D. Encounter Diagnosis: Problem not documented On 14:45 Appointment; Chan Webb M.D.|F.A.C.S.|M.D.,BEREKET|Marita,FACS, Encounter Diagnosis: Problem not documented On 07:15 Appointment; Andreia Paredes P.A. Encounter Diagnosis: Problem not documented On 13:15 Appointment; Andreia Paredes P.A. Encounter Diagnosis: Problem not documented On 11:30 Appointment; Carlos Neville M.D. Encounter Diagnosis: Problem not documented On 13:30 Appointment; Chan Webb M.D.|F.A.C.S.|M.DAkhil,BEREKET|Marita,FACS, Encounter Diagnosis: Problem not documented On 16-Aug-2014 [...]
--- OUTSIDE RECORDS SUMMARY | 2016-07-01 17:31 | XMS REPORT ---
Author Author GENERATED, SYSTEM Organization Unknown Address Unknown Phone Unavailable Care Team Providers Care Sustainability Purchasing Agent Name Role Phone MD MIKAYLA, BHAKTI PP [phone] Reason For Visit Chief Complaint FEVER KNEE SURG Social History Functional Status Vital Signs Results Chemistry from 02/10/2015 10:19 PMSODIUM 138 MMOL/L (136-145 MMOL/L) POTASSIUM 3.5 MMOL/L (3.5-5.1 MMOL/L) CHLORIDE 99 MMOL/L (98-107 MMOL/L) TCO2 31.3 MMOL/L (21.0-32.0 MMOL/L) *ANION GAP 7.7 MMOL/L L (8.0-16.0 MMOL/L) BUN 11 MG/DL (7-18 MG/DL) CREATININE 1.01 MG/DL (0.70-1.30 MG/DL) *BUN/CREATININE RATIO 10.9 (9.1-17.0 ) GLUCOSE 113 MG/DL H (65-99 MG/DL) *GFR EST NON AFR PUERTO RICAN 84 ML/MIN *GFRA EST AFR AMER >90 ML/MIN CALCIUM 8.6 MG/DL (8.5-10.1 MG/DL) BILIRUBIN TOTAL 1.63 MG/DL H (0.20-1.00 MG/DL) TOTAL PROTEIN 7.1 GM/DL (6.4-8.2 GM/DL) ALBUMIN 3.1 GM/DL L (3.4-5.0 GM/DL) *GLOBULIN 4.0 GM/DL H (2.3-3.5 GM/DL) *A/G RATIO 0.8 MG/DL L (1.5-2.2 MG/DL) ALK PHOS 125 U/L H (46-116 U/L) ALT (SGPT) 85 U/L H (14-59 U/L) AST (SGOT) 58 U/L H (15-37 U/L) LACTIC ACID 1.10 MMOL/L (0.40-2.00 MMOL/L) Hematology from 02/10/2015 10:19 PMWBC 5.4 X10e3/UL (3.6-11.2 X10e3/UL) RBC 3.47 X10e6/UL L (4.06-5.63 X10e6/UL) HEMOGLOBIN 10.7 G/DL L (12.5-16.3 G/DL) HEMATOCRIT 31.6 % L (36.7-47.1 %) *MCV 91.1 FL (80.0-100.0 FL) *MCH 30.9 PG (27.0-33.0 PG) *MCHC 33.9 G/DL (32.0-36.0 G/DL) *RDW 15.0 % (12.3-17.0 %) *RDWSD 47.3 (37.1-47.8 ) PLATELET 240 X10e3/UL (159-386 X10e3/UL) *MPV 7.5 FL (7.4-10.4 FL) *MANUAL DIFF PERFORMED SEGS 45.0 % *BANDS 5.0 % *LYMPHOCYTES 30.0 % *MONOCYTES 14.0 % *EOSINOPHILS 2.0 % *BASOPHILS 1.0 % METAMYELOCYTES 2.0 % MYELOCYTES 1.0 % *ABSOLUTE NEUTROPHILS 2.86 X10e3/UL (1.80-7.80 X10e3/UL) *ABSOLUTE LYMPHOCYTES 1.62 X10e3/UL (1.00-3.00 X10e3/UL) *ABSOLUTE MONOCYTES 0.76 X10e3/UL (0.30-1.00 X10e3/UL) *ABSOLUTE EOSINOPHILS 0.11 X10e3/UL (0.00-0.50 X10e3/UL) *ABSOLUTE BASOPHILS 0.05 X10e3/UL (0.00-0.20 X10e3/UL) *NUCLEATED RBC MANUAL 1.0 /100 WBC (0.0-1.0 /100 WBC) * SLIDE REVIEW YES-SEE BELOW *POLYCHROMASIA 2+ *HYPOCHROMASIA 1+ BASOPHILIC STIPPLING 1+ Urinalysis from 02/11/2015 12:25 AM*URINE COLOR YELLOW (STRAW/YELL/DK YELL ) *URINE APPEARANCE CLEAR (CLEAR ) URINE PH 6.0 (5.0-8.0 ) URINE SPECIFIC GRAVITY 1.010 (<=1.005->=1.030 ) *URINE GLUCOSE NEGATIVE MG/DL (NEGATIVE MG/DL) *URINE BILIRUBIN NEGATIVE (NEGATIVE ) *URINE KETONES NEGATIVE MG/DL (NEGATIVE MG/DL) *URINE BLOOD NEGATIVE (NEGATIVE ) *URINE PROTEIN TRACE MG/DL A (NEGATIVE MG/DL) *URINE UROBILINOGEN 4.0 EU/DL A (0.2-1.0 EU/DL) *URINE NITRITES POSITIVE A (NEGATIVE ) *URINE LEUKOCYTES SMALL A (NEGATIVE ) *MICROSCOPIC EXAM PERFORMED PERFORMED *WBC URINE 10-25 /HPF A (0-5 /HPF) *BACTERIA FEW /HPF A (NEGATIVE /HPF) *COMMENT See Below DX Radiology from 02/10/2015 11:00 PMCHEST 1 VIEW History: Fever . Technique: 1 view chest performed. Priors: None. Findings: The heart size is normal.The lungs are hyperinflated. There are scattered fibrotic changes throughout both lungs. No consolidation is seen. No pneumothorax is present. Impression: COPD without acute infiltrate. Electronically signed by: Migel Smith MD Dictated: 02/11/2015 10:02 Problems Encounter Diagnosis No relevant problems exist. [...] 2013 11:01 AM * Completed Procedure Code: 63093 Procedure Name: not valued, on 02/08/2014 12: [...]
--- OUTSIDE RECORDS SUMMARY | 2016-07-01 17:32 | XMS REPORT | Summary of Care ---
Author Author Kelin Kirkland, Carlos Ingram Organization Unknown Address [address], [place] [address] Phone Unavailable Care Team Providers Care Big 6 Dealer Name Role Phone Jon Kirkland, BEREKET, ,, M Unavailable Unavailable Emil VEGAS, Archana Unavailable Unavailable Mena Kirkland, Ritesh Unavailable Unavailable Kelin Kirkland, A Unavailable Unavailable Nixon Kirkland, Lance Unavailable Unavailable Nic Kirkland, G Unavailable Unavailable Paresh Kirkland, T Unavailable Unavailable Carlos Neville Unavailable Unavailable [facility] ([place]) Unavailable Unavailable Unavailable Unavailable Functional Status Name [...] 15-Mar-2013 Flulaval Quadrivalent Intramuscular Suspension Lot #: [id number] on: 26-Dec-2013 Zostavax 71396 UNT/0.65ML Subcutaneous Solution Reconstituted Lot #: [id number] on: 26-Dec-2013 Prevnar 13 Intramuscular Suspension Lot #: [id number] on: 21-May-2014 Tdap (Adacel) Lot #: [id number] on: 07-Aug-2015 Family History Name Dates Details [...] documented Planned Encounters Appointment; Provider: Chan Webb M.D.|CarlC.SAkhil|JOHANNE Kirkland FACS, On 04-May-2016 11:15 Appointment; Provider: Calos Yoder M.D. On 30-Apr-2016 13:30 Appointment; Provider: Chan Webb M.D.|Nathaniel.C.S.|JOHANNE Kirkland FACS, On 02-Mar-2016 17:15 Appointment; Provider: Carlos Neville M.D. On 10-Feb-2016 13:00 Interventions Provided Medication Changes* Morphine Sulfate ER 15 MG Oral Tablet Extended Release - Renew Instructions Name Dates Details Instructions not documented Encounters Appointment; Chan Webb M.D.|Logan.Nataly.C.S.JOHANNE Ramirez,BEREKET, Encounter Diagnosis: Problem not documented On 27-Jan-2016 13:30 Appointment; Carlos Neville M.D. Encounter Diagnosis: Problem not documented On 14-Jan-2016 13:30 Appointment; Chan Webb M.D.|Nathaniel.C.S.|JOHANNE Kirkland,BEREKET, Encounter Diagnosis: Problem not documented On 23-Dec-2015 13:30 Appointment; Carlos Neville M.D. Encounter Diagnosis: Problem not documented On 03-Dec-2015 13:30 Appointment; Carlos Neville M.D. Encounter Diagnosis: Problem not documented On 18-Nov-2015 14:15 Appointment; Chan Webb M.D.|Nathaniel.C.S.|JOHANNE Kirkland,BEREKET, Encounter Diagnosis: Problem not documented On 18-Nov-2015 13:30 Appointment; Chan Webb M.D.|Nathaniel.C.S.|JOHANNE Kirkland,BEREKET, Encounter Diagnosis: Problem not documented On 10:45 Appointment; Chan Webb M.D.|F.A.C.S.|MAkhilDAkhil,BEREKET|Marita,BEREKET, Encounter Diagnosis: Problem not documented On 06:45 Appointment; Carlos Neville M.D. Encounter Diagnosis: Problem not documented On 14:00 Appointment; Chan Webb M.D.|F.A.C.S.|MEun,BEREKET|Marita,BEREKET, Encounter Diagnosis: Problem not documented On 09:30 Appointment; Chan Webb M.D.|F.A.C.S.|MEun,BEREKET|Marita,BEREKET, Encounter Diagnosis: Problem not documented On 17:00 [...] not documented On 14:45 Appointment; Chan Webb M.D.|F.A.C.S.|M.DAkhil,FACS|MEun,FACS, Encounter Diagnosis: Problem not documented On 07:15 [...] documented On 29-Jun-2014 13:15 Appointment; Chan Webb M.D.|F.A.C.S.|MAkhilDAkhil,BEREKET|Marita,BEREKET, Encounter Diagnosis: Problem not documented On 21-Jun-2014 07:15 Appointment; Carlos Neville M.D. Encounter Diagnosis: Problem not documented On 19-Jun-2014 14:00 Appointment; Javi Lucero M.D. Encounter Diagnosis: Problem not documented On 31-May-2014 13:45 Appointment; Ritesh San M.D. Encounter Diagnosis: Problem not documented On 21-May-2014 13:45 Appointment; Chan Webb M.D.|F.A.C.S.|MEun,BEREKET|Marita,BEREKET, Encounter Diagnosis: Problem not documented On 17-May-2014 17:00 Appointment; Ritesh San M.D. Encounter Diagnosis: Problem not documented On 03-May-2014 14:00 Appointment; Javi Lucero M.D. Encounter Diagnosis: Problem not documented On 24-Apr-2014 08:00 Appointment; Ritesh San M.D. Encounter Diagnosis: Problem not documented On 23-Apr-2014 13:15 Appointment; Chan Webb M.D.|Baldomero|Marita,BEREEKT|Marita,BEREKET, Encounter Diagnosis: Problem not documented On 10-Apr-2014 14:00 Appointment; Ritesh San M.D. Encounter Diagnosis: Problem not documented On 21-Feb-2014 13:15 Appointment; Estella Glass M.D. Encounter Diagnosis: Problem not documented On 20-Feb-2014 13:15 Appointment; Ritesh San M.D. Encounter Diagnosis: Problem not documented On 29-Jan-2014 13:45"
--- OUTSIDE RECORDS SUMMARY | 2016-07-01 17:32 | XMS REPORT | Summary of Care ---
Author Author Kelin Kirkland, Carlos Ingram Organization Unknown Address [address], [place] [id number] Phone Unavailable Care Team Providers Care Call Center Operator Name Role Phone Jon Kirkland, FACS, ,, M Unavailable Unavailable Emil VEGAS, Archana Unavailable Unavailable Mena Kirkland, Ritesh Unavailable Unavailable Kelin Kirkland, A Unavailable Unavailable Lena Fountain, Andreia Unavailable Unavailable Nixon Kirkland, Lance Unavailable Unavailable Nic Kirkland, G Unavailable Unavailable Paresh Kirkland, T Unavailable Unavailable Carlos Neville Unavailable Unavailable [facility]) Unavailable Unavailable Unavailable Unavailable Functional Status Name [...] 15-Mar-2013 Flulaval Quadrivalent Intramuscular Suspension Lot #: [id number] on: 26-Dec-2013 Zostavax 72057 UNT/0.65ML Subcutaneous Solution Reconstituted Lot #: [id number] on: 26-Dec-2013 Prevnar 13 Intramuscular Suspension Lot #: [id number] on: 21-May-2014 Tdap (Adacel) Lot #: [id number] on: 07-Aug-2015 Family History Name Dates Details [...] not documented On 04-Mar-2015 15:55 Appointment; Chan Wbeb M.D.|F.A.C.S.|MEun,BEREKET|Marita,FACS, Encounter Diagnosis: Problem not documented On 28-Feb-2015 07:15 Appointment; Chan eWbb M.D.|F.A.C.S.|MAkhilDAkhil,BEREKET|Marita,FACS, Encounter Diagnosis: Problem not documented On [...]
--- OUTSIDE RECORDS SUMMARY | 2016-07-01 17:33 | XMS REPORT ---
Author Author [facility], [facility] - Organization Unknown Address Unknown Phone Unavailable Allergies, Adverse Reactions, Alerts * Keflex causes Moderate Urticaria (hives). * Novocain causes Severe Anaphylaxis. * No Latex Allergy. * No IV Contrast Allergy. * No Known Food Allergies. Problems * Deep Vein Thrombosis Risk* Status:Active. * Deep Venous Thrombosis* Status:Active. * Diarrhea* Status:Active. * Dysfunctional Voiding of Urine* Status:Active. * Infection* Status:Active. * Mobility Impairment* Status:Active. * Pain* Status:Active. * Peripheral Tissue Perfusion Impairment* Status:Resolved. * Skin Integrity Impairment* Status:Active. Procedures No relevant procedures performed. Medication It is the responsibility of the patient or patient operations support representative to confirm the list of medications with either the patient's personal care provider or the patient's follow-up care provider to ensure the patient has an appropriate list of medications to take at home. Discharge medications* atorvastatin (Lipitor) 20 mg Tablet, Ordered By: Katerine Hernandez Directions: 1 tablet oral daily at bedtime * baclofen 20 mg Tablet, Ordered By: Katerine Hernandez Directions: 1 tablet oral three times a day * clonazePAM (KlonoPIN) 1 mg Tablet, Ordered By: Katerine Hernandez Directions: 1-2 tablet oral twice a day * divalproex (Depakote) 500 mg tablet,delayed release (DR/EC), Ordered By: Katerine Hernandez Directions: 1 tablet oral twice a day * furosemide (LaSIX) 40 mg Tablet, Ordered By: Katerine Hernandez Directions: 2 tablet oral daily * gabapentin 600 mg Tablet, Ordered By: Katerine Hernandez Directions: 1 tablet oral three times a day * HYDROmorphone 4 mg Tablet, Ordered By: Katerine Hernandez Directions: 1 tablet oral four times daily * lansoprazole (PrevACID) 30 mg capsule,delayed release(DR/EC), Ordered By: Katerine Hernandez Directions: 1 capsule oral daily * levothyroxine 50 mcg Tablet, Ordered By: Katerine Hernandez Directions: 1 tablet oral daily * oxyCODONE (OxyCONTIN) 30 mg Tablet Extended Release 12 hr, Ordered By: Katerine Hernandez Directions: 1 tablet oral twice a day * oxyCODONE-acetaminophen (Percocet) 10 mg-325 mg Tablet, Ordered By: Katerine Hernandez Directions: 2 tablet oral three times a day * oxymorphone (Opana ER) 40 mg Tablet Extended Release 12 hr, Ordered By: Katerine Hernandez Directions: 1 tablet oral twice a day * potassium chloride (Klor-Con M20) 20 mEq tablet,ER particles/crystals, Ordered By: Katerine Hernandez Directions: 1 tablet oral daily * terazosin 2 mg Capsule, Ordered By: Katerine Hernandez Directions: 2 capsule oral daily at bedtime * warfarin 5 mg Tablet, Ordered By: Katerine Hernandez Directions: 1 tablet oral daily * zolpidem (Ambien CR) 12.5 mg Tablet,Ext Release Multiphase, Ordered By: Katerine Hernandez Directions: 1 tablet oral daily at bedtime * AMPICILLIN INJ (OMNIPEN (EQUIV)) 12GM + NOTE 0 Intravenous Q24H, Clinician Dir :RUN CONTINUOUSLY OVER 24 HOURS * enoxaparin (Lovenox) 40 mg/0.4 mL Syringe, Ordered By: Wilma Segovia Directions: 0.4 mL subcutaneous daily every evening Additional Instructions: discontinue when inr greater than or equal to 2.0 * nystatin (Nystop) 100,000 unit/gram Powder, Ordered By: Wilma Segovia Directions: 1 each topical twice a day Additional Instructions: APPLY TO AFFECTED AREA(S) TWICE DAILY * nystatin (Nystop) 100,000 unit/gram Powder, Ordered By: Wilma Segovia Directions: 1 each topical PRN _ _ Additional Instructions: APPLY TO AFFECTED AREA(S) PRN * diphenoxylate-atropine 2.5 mg-0.025 mg Tablet, Ordered By: Wilma Segovia Directions: 2 tablet oral every six hours PRN DIARRHEA * bethanechol chloride 25 mg Tablet, Ordered By: Wilma Segovia Directions: 1 tablet oral three times a day Stopped medications* A) Refer to MAR from [facility]. Results LAB--BEDSIDE TESTING from 09/30/2012 6:33 AMGlucose NPT 132 mg/dL H (70-100 mg/dL ) LAB--BEDSIDE TESTING from 10/02/2012 6:24 PMGlucose NPT 119 mg/dL H (70-100 mg/dL ) LAB--CHEMISTRY from 09/30/2012 4:33 AMAnion Gap 10 (3-20 ) BUN 10 mg/dL (4-20 mg/dL) Calcium 8.1 mg/dL L (8.6-10.0 mg/dL) Calcium Ionized 1.24 mmol/L (1.19-1.41 mmol/L) Chloride 103 mEq/L (99-109 mEq/L) CO2 27 mEq/L (22-32 mEq/L) Creatinine 0.61 mg/dL L (0.64-1.27 mg/dL) eGFR >60 (>60- ) Glucose 135 mg/dL H (70-100 mg/dL) Potassium 3.2 mEq/L L (3.6-5.1 mEq/L) Magnesium 2.3 mg/dL (1.8-2.5 mg/dL) Sodium 140 mEq/L (136-144 mEq/L) Phosphorus 2.2 mg/dL L (2.4-4.7 mg/dL) LAB--CHEMISTRY from 10/01/2012 4:17 AMAnion Gap 7 (3-20 ) Albumin 2.2 g/dL L (3.5-4.8 g/dL) Alkaline Phosphatase 89 U/L (26-104 U/L) ALT (SGPT) 31 U/L (17-63 U/L) AST (SGOT) 25 U/L (15-41 U/L) Bilirubin Total 0.7 mg/dL (0.2-1.2 mg/dL) BUN 14 mg/dL (4-20 mg/dL) Calcium 8.0 mg/dL L (8.6-10.0 mg/dL) Calcium Ionized 1.29 mmol/L (1.19-1.41 mmol/L) Chloride 107 mEq/L (99-109 mEq/L) CO2 28 mEq/L (22-32 mEq/L) Creatinine 0.59 mg/dL L (0.64-1.27 mg/dL) eGFR >60 (>60- ) Globulin 3.1 g/dL (1.9-4.3 g/dL) Glucose 129 mg/dL H (70-100 mg/dL) Potassium 3.2 mEq/L L (3.6-5.1 mEq/L) Magnesium 2.3 mg/dL (1.8-2.5 mg/dL) Sodium 142 mEq/L (136-144 mEq/L) Phosphorus 2.1 mg/dL L (2.4-4.7 mg/dL) Protein 5.3 g/dL L (6.1-7.9 g/dL) LAB--CHEMISTRY from 10/02/2012 5:32 AMAnion Gap 8 (3-20 ) BUN 16 mg/dL (4-20 mg/dL) Calcium 7.6 mg/dL L (8.6-10.0 mg/dL) Calcium Ionized 1.24 mmol/L (1.19-1.41 mmol/L) Chloride 107 mEq/L (99-109 mEq/L) CO2 23 mEq/L (22-32 mEq/L) Creatinine 0.60 mg/dL L (0.64-1.27 mg/dL) eGFR >60 (>60- ) Glucose 101 mg/dL H (70-100 mg/dL) Potassium 3.6 mEq/L (3.6-5.1 mEq/L) Magnesium 2.0 mg/dL (1.8-2.5 mg/dL) Sodium 138 mEq/L (136-144 mEq/L) Phosphorus 2.5 mg/dL (2.4-4.7 mg/dL) LAB--CHEMISTRY from 10/03/2012 8:51 AMAnion Gap 6 (3-20 ) Albumin 2.1 g/dL L (3.5-4.8 g/dL) Alkaline Phosphatase 97 U/L (26-104 U/L) ALT (SGPT) 47 U/L (17-63 U/L) AST (SGOT) 26 U/L (15-41 U/L) Bilirubin Total 0.6 mg/dL (0.2-1.2 mg/dL) BUN 8 mg/dL (4-20 mg/dL) Calcium 7.9 mg/dL L (8.6-10.0 mg/dL) Chloride 105 mEq/L (99-109 mEq/L) CO2 27 mEq/L (22-32 mEq/L) Creatinine 0.56 mg/dL L (0.64-1.27 mg/dL) eGFR >60 (>60- ) Globulin 2.4 g/dL (1.9-4.3 g/dL) Glucose 112 mg/dL H (70-100 mg/dL) Potassium 3.7 mEq/L (3.6-5.1 mEq/L) Sodium 138 mEq/L (136-144 mEq/L) Protein 4.5 g/dL L (6.1-7.9 g/dL) LAB--CHEMISTRY from 10/08/2012 5:51 AMAnion Gap 6 (3-20 ) Albumin 2.4 g/dL L (3.5-4.8 g/dL) BUN 6 mg/dL (4-20 mg/dL) Calcium 8.3 mg/dL L (8.6-10.0 mg/dL) Chloride 102 mEq/L (99-109 mEq/L) CO2 29 mEq/L (22-32 mEq/L) Creatinine 0.55 mg/dL L (0.64-1.27 mg/dL) eGFR >60 (>60- ) Glucose 103 mg/dL H (70-100 mg/dL) Potassium 3.7 mEq/L (3.6-5.1 mEq/L) Sodium 137 mEq/L (136-144 mEq/L) Phosphorus 3.8 mg/dL (2.4-4.7 mg/dL) LAB--CHEMISTRY from 10/09/2012 3:46 AMAnion Gap 5 (3-20 ) Albumin 2.4 g/dL L (3.5-4.8 g/dL) Alkaline Phosphatase 82 U/L (26-104 U/L) ALT (SGPT) 20 U/L (17-63 U/L) AST (SGOT) 14 U/L L (15-41 U/L) Bilirubin Total 0.6 mg/dL (0.2-1.2 mg/dL) BUN 10 mg/dL (4-20 mg/dL) Calcium 8.4 mg/dL L (8.6-10.0 mg/dL) Chloride 102 mEq/L (99-109 mEq/L) CO2 32 mEq/L (22-32 mEq/L) Creatinine 0.51 mg/dL L (0.64-1.27 mg/dL) eGFR >60 (>60- ) Globulin 2.9 g/dL (1.9-4.3 g/dL) Glucose 99 mg/dL (70-100 mg/dL) Potassium 3.8 mEq/L (3.6-5.1 mEq/L) Sodium 139 mEq/L (136-144 mEq/L) Phosphorus 3.6 mg/dL (2.4-4.7 mg/dL) Protein 5.3 g/dL L (6.1-7.9 g/dL) LAB--CHEMISTRY from 10/10/2012 3:45 AMAnion Gap 5 (3-20 ) Albumin 2.4 g/dL L (3.5-4.8 g/dL) BUN 14 mg/dL (4-20 mg/dL) Calcium 8.5 mg/dL L (8.6-10.0 mg/dL) Chloride 102 mEq/L (99-109 mEq/L) CO2 32 mEq/L (22-32 mEq/L) Creatinine 0.58 mg/dL L (0.64-1.27 mg/dL) eGFR >60 (>60- ) Glucose 102 mg/dL H (70-100 mg/dL) Potassium 4.0 mEq/L (3.6-5.1 mEq/L) Sodium 139 mEq/L (136-144 mEq/L) Phosphorus 4.4 mg/dL (2.4-4.7 mg/dL) LAB--CHEMISTRY from 10/11/2012 4:32 AMAnion Gap 3 (3-20 ) Albumin 2.5 g/dL L (3.5-4.8 g/dL) BUN 18 mg/dL (4-20 mg/dL) Calcium 8.4 mg/dL L (8.6-10.0 mg/dL) Chloride 101 mEq/L (99-109 mEq/L) CO2 31 mEq/L (22-32 mEq/L) Creatinine 0.65 mg/dL (0.64-1.27 mg/dL) eGFR >60 (>60- ) Glucose 107 mg/dL H (70-100 mg/dL) Potassium 4.0 mEq/L (3.6-5.1 mEq/L) Magnesium 1.9 mg/dL (1.8-2.5 mg/dL) Sodium 135 mEq/L L (136-144 mEq/L) Phosphorus 4.4 mg/dL (2.4-4.7 mg/dL) LAB--CHEMISTRY from 10/12/2012 3:46 AMAnion Gap 6 (3-20 ) Albumin 2.5 g/dL L (3.5-4.8 g/dL) BUN 13 mg/dL (4-20 mg/dL) Calcium 8.3 mg/dL L (8.6-10.0 mg/dL) Chloride 101 mEq/L (99-109 mEq/L) CO2 32 mEq/L (22-32 mEq/L) Creatinine 0.63 mg/dL L (0.64-1.27 mg/dL) eGFR >60 (>60- ) Glucose 132 mg/dL H (70-100 mg/dL) Potassium 3.8 mEq/L (3.6-5.1 mEq/L) Magnesium 1.9 mg/dL (1.8-2.5 mg/dL) Sodium 139 mEq/L (136-144 mEq/L) Phosphorus 3.9 mg/dL (2.4-4.7 mg/dL) LAB--CHEMISTRY from 10/13/2012 3:53 AMAnion Gap 6 (3-20 ) Albumin 2.5 g/dL L (3.5-4.8 g/dL) BUN 13 mg/dL (4-20 mg/dL) Calcium 8.7 mg/dL (8.6-10.0 mg/dL) Chloride 100 mEq/L (99-109 mEq/L) CO2 33 mEq/L H (22-32 mEq/L) Creatinine 0.56 mg/dL L (0.64-1.27 mg/dL) eGFR >60 (>60- ) Glucose 103 mg/dL H (70-100 mg/dL) Potassium 4.0 mEq/L (3.6-5.1 mEq/L) Sodium 139 mEq/L (136-144 mEq/L) Phosphorus 3.2 mg/dL (2.4-4.7 mg/dL) LAB--CHEMISTRY from 10/14/2012 5:10 AMAnion Gap 9 (3-20 ) Albumin 2.5 g/dL L (3.5-4.8 g/dL) BUN 12 mg/dL (4-20 mg/dL) Calcium 8.5 mg/dL L (8.6-10.0 mg/dL) Chloride 95 mEq/L L (99-109 mEq/L) CO2 33 mEq/L H (22-32 mEq/L) Creatinine 0.60 mg/dL L (0.64-1.27 mg/dL) eGFR >60 (>60- ) Glucose 101 mg/dL H (70-100 mg/dL) Potassium 3.9 mEq/L (3.6-5.1 mEq/L) Sodium 137 mEq/L (136-144 mEq/L) Phosphorus 3.4 mg/dL (2.4-4.7 mg/dL) C-Reactive Protein (CRP) 1.4 mg/dL H (0.0-0.9 mg/dL) LAB--CHEMISTRY from 10/15/2012 6:11 AMAnion Gap 9 (3-20 ) Albumin 2.6 g/dL L (3.5-4.8 g/dL) BUN 10 mg/dL (4-20 mg/dL) Calcium 8.5 mg/dL L (8.6-10.0 mg/dL) Chloride 100 mEq/L (99-109 mEq/L) CO2 30 mEq/L (22-32 mEq/L) Creatinine 0.59 mg/dL L (0.64-1.27 mg/dL) eGFR >60 (>60- ) Glucose 99 mg/dL (70-100 mg/dL) Potassium 3.6 mEq/L (3.6-5.1 mEq/L) Magnesium 1.8 mg/dL (1.8-2.5 mg/dL) Sodium 139 mEq/L (136-144 mEq/L) Phosphorus 4.0 mg/dL (2.4-4.7 mg/dL) LAB--COAG STUDIES from 10/18/2012 1:48 PMINR 1.1 (0.9-1.2 ) LAB--COAG STUDIES from 10/19/2012 5:28 AMINR 1.1 (0.9-1.2 ) LAB--COAG STUDIES from 10/20/2012 5:53 AMINR 1.1 (0.9-1.2 ) LAB--HEMATOLOGY from 09/29/2012 6:01 PMAbsolute Basophils 0.02 THOUS (0.00-0.20 THOUS) Absolute Eosinophils 0.02 THOUS (0.00-0.50 THOUS) Absolute Lymphocytes 0.68 THOUS L (0.80-3.30 THOUS) Absolute Monocytes 0.74 THOUS (0.30-1.00 THOUS) Absolute Neutrophils 8.23 THOUS H (1.90-7.00 THOUS) HCT 25.7 % L (42.0-52.0 %) HGB 8.2 g/dl L (14.0-18.0 g/dl) MCH 28.8 pg (27.0-32.0 pg) MCHC 31.9 g/dL L (32.0-36.0 g/dL) MCV 90.2 fL (82.0-99.0 fL) MPV 9.5 fL (9.4-12.3 fL) Platelet Count 221 K/uL (150-400 K/uL) RBC 2.85 M/uL L (4.60-6.20 M/uL) RDW 16.4 % H (11.5-14.5 %) WBC 9.9 K/uL (4.8-10.8 K/uL) Basophils 0 % (0-2 %) Eosinophils 0 % (0-4 %) Immature Granulocytes 1.8 % H (0.0-1.0 %) Lymphocytes 7 % L (20-46 %) Monocytes 8 % (4-11 %) Nucleated RBC Automated 0.4 /100 WBC (0 /100 WBC) Neutrophils 83 % H (51-75 %) LAB--HEMATOLOGY from 09/30/2012 4:33 AMHCT 25.8 % L (42.0-52.0 %) HGB 8.1 g/dl L (14.0-18.0 g/dl) MCH 28.4 pg (27.0-32.0 pg) MCHC 31.4 g/dL L (32.0-36.0 g/dL) MCV 90.5 fL (82.0-99.0 fL) MPV 9.3 fL L (9.4-12.3 fL) Platelet Count 236 K/uL (150-400 K/uL) RBC 2.85 M/uL L (4.60-6.20 M/uL) RDW 16.4 % H (11.5-14.5 %) WBC 9.1 K/uL (4.8-10.8 K/uL) LAB--HEMATOLOGY from 10/01/2012 4:17 AMHCT 25.2 % L (42.0-52.0 %) HGB 7.8 g/dl L (14.0-18.0 g/dl) MCH 28.4 pg (27.0-32.0 pg) MCHC 31.0 g/dL L (32.0-36.0 g/dL) MCV 91.6 fL (82.0-99.0 fL) MPV 9.9 fL (9.4-12.3 fL) Platelet Count 312 K/uL (150-400 K/uL) RBC 2.75 M/uL L (4.60-6.20 M/uL) RDW 16.4 % H (11.5-14.5 %) WBC 10.0 K/uL (4.8-10.8 K/uL) LAB--HEMATOLOGY from 10/02/2012 5:32 AMHCT 23.6 % L (42.0-52.0 %) HGB 7.4 g/dl L (14.0-18.0 g/dl) MCH 28.5 pg (27.0-32.0 pg) MCHC 31.4 g/dL L (32.0-36.0 g/dL) MCV 90.8 fL (82.0-99.0 fL) MPV 9.1 fL L (9.4-12.3 fL) Platelet Count 278 K/uL (150-400 K/uL) RBC 2.60 M/uL L (4.60-6.20 M/uL) RDW 16.5 % H (11.5-14.5 %) WBC 9.9 K/uL (4.8-10.8 K/uL) LAB--HEMATOLOGY from 10/03/2012 8:51 AMAbsolute Basophils 0.00 THOUS (0.00-0.20 THOUS) Absolute Eosinophils 0.00 THOUS (0.00-0.50 THOUS) Absolute Lymphocytes 0.78 THOUS L (0.80-3.30 THOUS) Absolute Monocytes 0.34 THOUS (0.30-1.00 THOUS) Absolute Neutrophils 9.74 THOUS H (1.90-7.00 THOUS) HCT 24.4 % L (42.0-52.0 %) HGB 7.5 g/dl L (14.0-18.0 g/dl) MCH 28.3 pg (27.0-32.0 pg) MCHC 30.7 g/dL L (32.0-36.0 g/dL) MCV 92.1 fL (82.0-99.0 fL) MPV 8.9 fL L (9.4-12.3 fL) Platelet Count 259 K/uL (150-400 K/uL) RBC 2.65 M/uL L (4.60-6.20 M/uL) RDW 16.7 % H (11.5-14.5 %) WBC 11.2 K/uL H (4.8-10.8 K/uL) Bands 6 % (0-8 %) Basophils 0 % (0-2 %) Eosinophils 0 % (0-4 %) Lymphocytes 7 % L (20-46 %) Metamyelocytes 2 % H (0-1 %) Monocytes 3 % L (4-11 %) Myelocytes 1 % Nucleated RBC Automated 0.9 /100 WBC (0 /100 WBC) Polychromasia Occasional A Differential Manual A Neutrophils 81 % H (51-75 %) LAB--HEMATOLOGY from 10/04/2012 6:52 AMHCT 24.7 % L (42.0-52.0 %) HGB 7.7 g/dl L (14.0-18.0 g/dl) LAB--HEMATOLOGY from 10/05/2012 10:02 AMHCT 25.6 % L (42.0-52.0 %) HGB 7.8 g/dl L (14.0-18.0 g/dl) LAB--HEMATOLOGY from 10/06/2012 5:46 AMAbsolute Basophils 0.16 THOUS (0.00-0.20 THOUS) Absolute Eosinophils 0.00 THOUS (0.00-0.50 THOUS) Absolute Lymphocytes 1.33 THOUS (0.80-3.30 THOUS) Absolute Monocytes 0.23 THOUS L (0.30-1.00 THOUS) Absolute Neutrophils 5.93 THOUS (1.90-7.00 THOUS) HCT 25.3 % L (42.0-52.0 %) HGB 7.8 g/dl L (14.0-18.0 g/dl) MCH 28.4 pg (27.0-32.0 pg) MCHC 30.8 g/dL L (32.0-36.0 g/dL) MCV 92.0 fL (82.0-99.0 fL) MPV 9.1 fL L (9.4-12.3 fL) Platelet Count 274 K/uL (150-400 K/uL) RBC 2.75 M/uL L (4.60-6.20 M/uL) RDW 16.5 % H (11.5-14.5 %) WBC 7.8 K/uL (4.8-10.8 K/uL) Bands 7 % (0-8 %) Basophils 2 % (0-2 %) Eosinophils 0 % (0-4 %) Lymphocytes 17 % L (20-46 %) Metamyelocytes 1 % (0-1 %) Monocytes 3 % L (4-11 %) Myelocytes 1 % Nucleated RBC Automated 0.6 /100 WBC (0 /100 WBC) Polychromasia Occasional A Differential Manual A Neutrophils 69 % (51-75 %) Toxic Granulation Occasional A LAB--HEMATOLOGY from 10/08/2012 5:51 AMHCT 26.2 % L (42.0-52.0 %) HGB 8.1 g/dl L (14.0-18.0 g/dl) MCH 28.1 pg (27.0-32.0 pg) MCHC 30.9 g/dL L (32.0-36.0 g/dL) MCV 91.0 fL (82.0-99.0 fL) MPV 8.8 fL L (9.4-12.3 fL) Platelet Count 228 K/uL (150-400 K/uL) RBC 2.88 M/uL L (4.60-6.20 M/uL) RDW 16.2 % H (11.5-14.5 %) WBC 6.1 K/uL (4.8-10.8 K/uL) LAB--HEMATOLOGY from 10/09/2012 3:46 AMHCT 27.4 % L (42.0-52.0 %) HGB 8.2 g/dl L (14.0-18.0 g/dl) MCH 27.8 pg (27.0-32.0 pg) MCHC 29.9 g/dL L (32.0-36.0 g/dL) MCV 92.9 fL (82.0-99.0 fL) MPV 9.5 fL (9.4-12.3 fL) Platelet Count 236 K/uL (150-400 K/uL) RBC 2.95 M/uL L (4.60-6.20 M/uL) RDW 16.4 % H (11.5-14.5 %) WBC 5.9 K/uL (4.8-10.8 K/uL) LAB--HEMATOLOGY from 10/10/2012 3:45 AMHCT 28.4 % L (42.0-52.0 %) HGB 8.5 g/dl L (14.0-18.0 g/dl) MCH 27.8 pg (27.0-32.0 pg) MCHC 29.9 g/dL L (32.0-36.0 g/dL) MCV 92.8 fL (82.0-99.0 fL) MPV 9.4 fL (9.4-12.3 fL) Platelet Count 232 K/uL (150-400 K/uL) RBC 3.06 M/uL L (4.60-6.20 M/uL) RDW 16.5 % H (11.5-14.5 %) WBC 5.8 K/uL (4.8-10.8 K/uL) LAB--HEMATOLOGY from 10/14/2012 5:10 AMAbsolute Basophils 0.02 THOUS (0.00-0.20 THOUS) Absolute Eosinophils 0.14 THOUS (0.00-0.50 THOUS) Absolute Lymphocytes 1.34 THOUS (0.80-3.30 THOUS) Absolute Monocytes 0.26 THOUS L (0.30-1.00 THOUS) Absolute Neutrophils 2.33 THOUS (1.90-7.00 THOUS) HCT 28.5 % L (42.0-52.0 %) HGB 8.5 g/dl L (14.0-18.0 g/dl) MCH 27.4 pg (27.0-32.0 pg) MCHC 29.8 g/dL L (32.0-36.0 g/dL) MCV 91.9 fL (82.0-99.0 fL) MPV 9.0 fL L (9.4-12.3 fL) Platelet Count 184 K/uL (150-400 K/uL) RBC 3.10 M/uL L (4.60-6.20 M/uL) RDW 15.8 % H (11.5-14.5 %) WBC 3.8 K/uL L (4.8-10.8 K/uL) Basophils 1 % (0-2 %) Eosinophils 3 % (0-4 %) Immature Granulocytes 0.5 % (0.0-1.0 %) Lymphocytes 33 % (20-46 %) Monocytes 6 % (4-11 %) Nucleated RBC Automated 0.0 /100 WBC (0 /100 WBC) Neutrophils 57 % (51-75 %) Sedimentation Rate 12 mm/hr (0-15 mm/hr) LAB--HEMATOLOGY from 10/15/2012 6:11 AMHCT 28.4 % L (42.0-52.0 %) HGB 8.7 g/dl L (14.0-18.0 g/dl) MCH 28.0 pg (27.0-32.0 pg) MCHC 30.6 g/dL L (32.0-36.0 g/dL) MCV 91.3 fL (82.0-99.0 fL) MPV 9.1 fL L (9.4-12.3 fL) Platelet Count 188 K/uL (150-400 K/uL) RBC 3.11 M/uL L (4.60-6.20 M/uL) RDW 16.0 % H (11.5-14.5 %) WBC 4.3 K/uL L (4.8-10.8 K/uL) LAB--MICROBIOLOGY from 10/01/2012 4:18 PMStool Culture and Shiga Toxin Test Source: Stool Collected: 10/01/12 16:18 Site: Received : 10/01/12 16:22 Order#: [id number] Shiga toxin test FINAL 10/03/12 07:45 Unable to perform. No growth in enrichment broth. Stool Culture FINAL 10/04/12 08:03 No aerobic gram negative bacilli isolated No Salmonella, Shigella or Campylobacter isolated GARCIA FOR RESULTS: * - NEW RESULT - RESULT WAS MODIFIED AFTER FINAL STATUS SET Cryptosporidium Antigen, Stool Source: Stool Collected: 10/01/12 16:18 Site: Received : 10/01/12 16:22 Order#: [id number] Cryptosporidium Antigen FINAL 10/01/12 16:56 Negative GARCIA FOR RESULTS: * - NEW RESULT - RESULT WAS MODIFIED AFTER FINAL STATUS SET C. difficile Toxin B Source: Stool Collected: 09/08 16:18 Site: Received : 10/01/12 16:21 Order#: [id number] C. difficile toxin B by PCR FINAL 10/01/12 22:27 Negative - C. difficile toxin B not detected by PCR GARCIA FOR RESULTS: * - NEW RESULT - RESULT WAS MODIFIED AFTER FINAL STATUS SET Fecal Leucocyte Stain (Stool WBC) Source: Stool Collected: 10/01/12 16:18 Site: Received : 10/01/12 16:21 Order#: [id number] Fecal Leucocyte Stain FINAL 10/01/12 16:50 No white blood cells observed GARCIA FOR RESULTS: * - NEW RESULT - RESULT WAS MODIFIED AFTER FINAL STATUS SET LAB--MICROBIOLOGY from 10/02/2012 10:30 PMFungal Culture and smear (Preliminary Result) Source: Surgical-Wound Collected: 10/02/12 22:30 Site: lumbar wound Received : 10/02/12 22:30 Order#: [id number] Calcofluor White Stain FINAL 10/03/12 14:20 No fungal elements seen Fungal Culture PRELIM 10/10/12 04:42 Culture in progress No growth after 1 week of incubation. GARCIA FOR RESULTS: * - NEW RESULT - RESULT WAS MODIFIED AFTER FINAL STATUS SET Wnd/Abscess Culture (Aerobic and Anaerobic) with Smear A Source: Surgical- Wound Collected: 10/02/12 22:30 Site: Lumbar wound Received : 10/02/12 22:30 Order#: [id number] Gram Stain FINAL 10/02/12 22:36 OIF=Oil Immersion Field LPF=Low Power Field Moderate (5-10/OIF) white blood cells No microorganisms observed Aerobic Wound Culture FINAL 10/06/12 08:24 Escherichia coli small amount E. coli Antibiotic NAYANA INT Ampicillin <=2 S Ampicillin/sulbactam <=2 S Cefazolin <=4 S Ceftriaxone <=1 S Ciprofloxacin <=0.25 S Gentamicin <=1 S Piperacillin/tazobactam <=4 S Trimethoprim/Sulfa <=20 S S=SUSCEPTIBLE I=INTERMEDIATE R=RESISTANT S-DD=SUSCEPTIBLE, DOSE DEPENDENT Anaerobic Culture FINAL 10/06/12 08:24 No anaerobes isolated GARCIA FOR RESULTS: * - NEW RESULT - RESULT WAS MODIFIED AFTER FINAL STATUS SET LAB--MICROBIOLOGY from 10/05/2012 3:38 PMBlood Culture #1 Source: Blood Collected: 10/05/12 15:38 Site: [facility] Received : 10/05/12 15:51 Order#: [id number] Blood Culture #1 FINAL 10/11/12 04:15 No growth after 5 days of incubation. GARCIA FOR RESULTS: * - NEW RESULT - RESULT WAS MODIFIED AFTER FINAL STATUS SET LAB--MICROBIOLOGY from 10/05/2012 3:45 PMBlood Culture #2 Source: Blood Collected: 10/05/12 15:45 Site: picc Received : 10/05/12 15:51 Order#: [id number] Blood Culture #2 FINAL 10/11/12 04:15 No growth after 5 days of incubation. GARCIA FOR RESULTS: * - NEW RESULT - RESULT WAS MODIFIED AFTER FINAL STATUS SET LAB--MICROBIOLOGY from 10/05/2012 6:25 PMC. difficile Toxin B Source: Stool Collected: 10/05/12 18:25 Site: Received : 10/05/12 18:49 Order#: [id number] C. difficile toxin B by PCR FINAL 10/05/12 21:57 Negative - C. difficile toxin B not detected by PCR GARCIA FOR RESULTS: * - NEW RESULT - RESULT WAS MODIFIED AFTER FINAL STATUS SET LAB--MICROBIOLOGY from 10/11/2012 7:43 AMAFB (Acid Fast) Culture and smear ( Preliminary Result) Source: Surgical-Wound Collected: 07:43 Site: Lumbar Wound swabs Received : 10/11/12 07:45 Order#: [id number] Stain, Acid Fast FINAL 10/11/12 13:16 No acid fast bacilli seen AFB Culture PRELIM 10/19/12 05:19 Culture in progress No growth after 1 week of incubation. GARCIA FOR RESULTS: * - NEW RESULT - RESULT WAS MODIFIED AFTER FINAL STATUS SET Fungal Culture and smear (Preliminary Result) Source: Surgical-Wound Collected: 10/11/12 07:43 Site: Lumbar Wound swabs Received : 10/11/12 07:45 Order#: [id number] Calcofluor White Stain FINAL 10/11/12 13:46 No fungal elements seen Fungal Culture PRELIM 10/19/12 04:42 Culture in progress No growth after 1 week of incubation. GARCIA FOR RESULTS: * - NEW RESULT - RESULT WAS MODIFIED AFTER FINAL STATUS SET Wnd/Abscess Culture (Aerobic and Anaerobic) with Smear A Source: Surgical- Wound Collected: 10/11/12 07:43 Site: Lumbar Wound Swabs Received : 10/11/12 07:45 Order#: [id number] Gram Stain FINAL 10/11/12 09:06 OIF=Oil Immersion Field LPF=Low Power Field Rare (0-1/OIF) white blood cells No microorganisms observed Aerobic Wound Culture FINAL 10/17/12 10:45 Escherichia coli scant amount E. coli Antibiotic NAYANA INT Ampicillin <=2 S Ampicillin/sulbactam <=2 S Cefazolin <=4 S Ceftriaxone <=1 S Ciprofloxacin <=0.25 S Gentamicin <=1 S Piperacillin/tazobactam <=4 S Trimethoprim/Sulfa <=20 S S=SUSCEPTIBLE I=INTERMEDIATE R=RESISTANT S-DD=SUSCEPTIBLE, DOSE DEPENDENT Anaerobic Culture FINAL 10/17/12 10:45 No anaerobes isolated GARCIA FOR RESULTS: * - NEW RESULT - RESULT WAS MODIFIED AFTER FINAL STATUS SET LAB--URINE TESTS from 10/05/2012 6:25 PMAppearance Clear Bilirubin Negative (Negative ) Blood Negative (Negative ) Color Lt Yellow Glucose Negative (Negative ) Ketones, Urine Negative (Negative ) Leukocytes Esterase Negative (Negative ) Nitrites Negative (Negative ) pH, Urine 7.0 (5.0-8.0 ) Protein Negative (Negative ) Specific [place] 1.012 (1.003-1.030 ) Collection Type: Clean Catch Urobilinogen Negative mg/dL (-<1.0 mg/dL)
--- OUTSIDE RECORDS SUMMARY | 2016-07-01 17:33 | XMS REPORT | Summary of Care ---
Author Author Carlos Neville M.D. Organization Unknown Address [address], [place] [id number] Phone Unavailable Care Team Providers Care Wire Drawer Name Role Phone Jon Kirkland, FACS, ,, M Unavailable Unavailable Mena Kirkland, Ritesh Unavailable Unavailable Kelin Kirkland, Nataly Unavailable Unavailable Lena Fountain, Andreia Unavailable Unavailable Nic Kirkland, G Unavailable Unavailable Paresh Kirkland, T Unavailable Unavailable Carlos Neville PP Unavailable [facility] ([place]) Unavailable Unavailable Unavailable Functional Status Functional Status [...] Quantity: 180 Refills: 3 Chan Webb M.D., [facility], , * Started 10-Apr-2014 ActiveQUEtiapine Fumarate 50 [...] Pain Management 8400 Ordered:18-Apr-2015 PROTIME PANEL 7000 Ordered:29-Apr-2015 Immunization Name Dates Details Pneumo (Pneumovax) Administered on:15-Mar-2013 Flulaval Quadrivalent Intramuscular Suspension Lot #: [id number] Administered on:26-Dec-2013 Zostavax 40854 UNT/0.65ML Subcutaneous Solution Reconstituted Lot #: [id number] Administered on:26-Dec-2013 Prevnar 13 Intramuscular Suspension Lot #: [id number] Administered on:21-May-2014 Family History Mother* Name Dates [...] 22-Apr-2015 11:38 Drug Screen PM, Alcohol Metabolites P93717 Comments: [facility] performed at: [facility] , [address] [place] [address], [address], [place], [address], Chemical Treatment Operator: Kiersten Zuluaga Ph.D.Quest Collection Date/Time: [id number] Results Received Date/Time: [id number] Reported Date/Time: Alcohol Metabolites NEGATIVE ng/mL (Better) Range: <500 Comments: [AP]----- Please note: SEE NOTE (Better) Comments: * These results are for medical treatment only Analysis was performed as non-forensic testing *For assistance with interpreting these drug results,please contact a [facility] ToxicologySpecialist: [phone] ( ),M-F, 8am-6pm EST.[AP]----- 15:24 PROTIME PANEL 7000 PROTIME 15.1 secs (Above high threshold) Range: 12.0-14.9 INR 1.20 (Better) 16:47 Drug Screen PM, Tramadol [id number] Comments: [facility] performed at: [facility], [address] [place] [address], [address], [place], [address], Chemical Treatment Operator: Kiersten Zuluaga Ph.D.Quest Collection Date/Time: [id number] Results Received Date/Time : [id number] Reported Date/Time: [id number] performed at: [facility], [address] [place] [address], [address], [place], [address], Chemical Treatment Operator: Kiersten Zuluaga Ph.D.Quest Collection Date/Time: [id number] Results Received Date/Time : [id number] Reported Date/Time: Desmethyltramadol NEGATIVE ng/mL (Better) Range: <100 Comments: [AP]----- Tramadol NEGATIVE ng/mL (Better) Range: <100 Comments: [AP]----- 23-Apr-2015 08:36 Drug Screen PM, Meperidine [id number] Comments: Quest performed at: [facility], [address] [place] [address], [address], [place], [address] [place] [address], Chemical Treatment Operator: Kiersten Zuluaga Ph.D.Quest Collection Date/Time: [id number] Results Received Date/Time: [id number] Reported Date/Time: [id number] performed at: [facility], [address] [place] [address], [address], [place], [address] [place] [address], Chemical Treatment Operator: Kiersten Zuluaga Ph.D.Quest Collection Date/Time: [id number] Results Received Date/Time: [id number] Reported Date/Time: [id number] performed at: [facility], [address] [place] [address], [address], [place], [address], Chemical Treatment Operator: Kiersten Zuluaga Ph.D.Quest Collection Date/Time: [id number] Results Received Date/Time: [id number] Reported Date/Time: [id number] Meperidine NEGATIVE ng/mL (Better) Range: <100 Comments: [AP]----- Normeperidine NEGATIVE ng/mL (Better) Range: <100 Comments: [AP]----- 14:55 Drug Screen PM, Fentanyl [id number] Comments: Quest performed at: [facility], [address] [place] [address], [address], [place], [address], Chemical Treatment Operator: Kiersten Zuluaga Ph.D.Quest Collection Date/Time: [id number] Results Received Date/Time : [id number] Reported Date/Time: [id number] performed at: , [facility], [address] [place] [address], [address], [place], [address], Chemical Treatment Operator: Kiersten Zuluaga Ph.D.Quest Collection Date/Time: [id number] Results Received Date/Time : [id number] Reported Date/Time: [id number] performed at: , [facility], [address] [place] [address], [address], [place], [address], Chemical Treatment Operator: Kiersten Zuluaga Ph.D.Quest Collection Date/Time: [id number] Results Received Date/Time : [id number] Reported Date/Time: [id number] performed at: , [facility], [address] [place] [address], [address], [place], [address], Chemical Treatment Operator: Kiersten Zuluaga Ph.D.Quest Collection Date/Time: [id number] Results Received Date/Time : [id number] Reported Date/Time: [id number] Fentanyl NEGATIVE ng/mL (Better) Range: <0.5 Comments: [AP]----- Norfentanyl NEGATIVE ng/mL (Better) Range: <0.5 Comments: [AP]----- 24-Apr-2015 09:01 Drug Screen PM Profile 1 [id number] Comments: Quest performed at: [facility], [address] [place] [address], [address], [place], [address], Chemical Treatment Operator: Kiersten Zuluaga Ph.D.Quest Collection Date/Time: [id number] Results Received Date/Time: [id number] Reported Date/Time: [id number] performed at: , [facility], [address] [place] [address], [address], [place], [address], Chemical Treatment Operator: Kiersten Zuluaga Ph.D.Quest Collection Date/Time: [id number] Results Received Date/Time: [id number] Reported Date/Time: [id number] performed at: [facility], [address] [place] [address], [address], [place], [address] [place] [address], Chemical Treatment Operator: Kiersten Zuluaga Ph.D.Quest Collection Date/Time: [id number] Results Received Date/Time: [id number] Reported Date/Time: [id number] performed at: , [facility], [address] [place] [address], [address], [place], [address] [place] [address], Chemical Treatment Operator: Kiersten Zuluaga Ph.D.Quest Collection Date/Time: [id number] Results Received Date/Time: [id number] Reported Date/Time: [id number] performed at: [facility], [address] [place] [address], [address], [place], [address] [place] [address], Chemical Treatment Operator: Kiersten Zuluaga Ph.D.Quest Collection Date/Time: [id number] Results Received Date/Time: [id number] Reported Date/Time: [id number] Management Profile 1 w/ Confirmation, Urine Drug [...] high threshold) Range: 12.0-14.9 INR 2.94 (Better) Plan of Care Planned Observations* Name Dates Details Planned Goals not documented Goal Planned Encounters* Appointment; Provider: Carlos Neville On 10-Jul-2015 13:30 * Appointment; Provider: Javi Lucero On 11-Jun-2015 13:30 * Appointment; Provider: Calos Yoder On 01-May-2015 [...]
--- OUTSIDE RECORDS SUMMARY | 2016-07-01 17:33 | XMS REPORT | Summary of Care ---
Author Author Carlos Neville M.D. Organization Unknown Address [address] [place], [place] [address] Phone Unavailable Care Team Providers Care Onshore Diver Name Role Phone Jon Kirkland, FACS, ,, M Unavailable Unavailable Mena Kirkland, Ritesh Unavailable Unavailable Kelin Kirkland, Nataly Unavailable Unavailable Lena Fountain, Andreia Unavailable Unavailable Nic Kirkland, G Unavailable Unavailable Paresh Kirkland, T Unavailable Unavailable Carlos Neville PP Unavailable [facility] ([place]) Unavailable Unavailable Unavailable Functional Status [...] Quantity: 180 Refills: 3 Chan Webb M.D., [facility], , * Started 10-Apr-2014 ActiveQUEtiapine Fumarate 50 [...] on:15-Mar-2013 Flulaval Quadrivalent Intramuscular Suspension Lot #: [id number] Administered on:26-Dec-2013 Zostavax 97964 UNT/0.65ML Subcutaneous Solution Reconstituted Lot #: [id number] Administered on:26-Dec-2013 Prevnar 13 Intramuscular Suspension Lot #: [id number] Administered on:21-May-2014 Family History Mother* Name Dates [...] 22-Apr-2015 11:38 Drug Screen PM, Alcohol Metabolites V26767 Comments: [facility] performed at: [facility] , [address] [place] [address], [address], [place], [address], Staff Development Nurse: Kiersten Zuluaga Ph.D.Quest Collection Date/Time: [id number] Results Received Date/Time: [id number] Reported Date/Time: Alcohol Metabolites NEGATIVE ng/mL (Better) Range: <500 Comments: [AP]----- Please note: SEE NOTE (Better) Comments: * These results are for medical treatment only Analysis was performed as non-forensic testing *For assistance with interpreting these drug results,please contact a [facility] ToxicologySpecialist: [phone] ( ),M-F, 8am-6pm EST.[AP]----- 15:24 PROTIME PANEL 7000 PROTIME 15.1 secs (Above high threshold) Range: 12.0-14.9 INR 1.20 (Better) 16:47 Drug Screen PM, Tramadol [id number] Comments: Quest performed at: [facility], [address] [place] [address], [address], [place], [address], Staff Development Nurse: Kiersten Zuluaga Ph.D.Quest Collection Date/Time: [id number] Results Received Date/Time : [id number] Reported Date/Time: [id number] performed at: [facility], [address] [place] [address], [address], [place], [address], Staff Development Nurse: Kiersten Zuluaga Ph.D.[facility] Collection Date/Time: [id number] Results Received Date/Time : [id number] Reported Date/Time: Desmethyltramadol NEGATIVE ng/mL (Better) Range: <100 Comments: [AP]----- Tramadol NEGATIVE ng/mL (Better) Range: <100 Comments: [AP]----- 23-Apr-2015 08:36 Drug Screen PM, Meperidine [id number] Comments: Quest performed at: [facility], [address] [place] [address], [address], [place], [place], [address] [place] [address], Staff Development Nurse: Kiersten Zuluaga Ph.D.Quest Collection Date/Time: [id number] Results Received Date/Time: [id number] Reported Date/Time: [id number] performed at: [facility], [address] [place] [address], [address], [place], [address] [place] [address], Staff Development Nurse: Kiersten Zuluaga Ph.D.Quest Collection Date/Time: [id number] Results Received Date/Time: [id number] Reported Date/Time: [id number] performed at: [facility], [address] [place] [address], [address], [place], [address], Staff Development Nurse: Kiersten Zuluaga Ph.D.Quest Collection Date/Time: [id number] Results Received Date/Time: [id number] Reported Date/Time: [id number] Meperidine NEGATIVE ng/mL (Better) Range: <100 Comments: [AP]----- Normeperidine NEGATIVE ng/mL (Better) Range: <100 Comments: [AP]----- 14:55 Drug Screen PM, Fentanyl [id number] Comments: Quest performed at: [facility], [address] [place] [address], [address], [place], [address], Staff Development Nurse: Kiersten Zuluaga Ph.D.Quest Collection Date/Time: [id number] Results Received Date/Time : [id number] Reported Date/Time: [id number] performed at: , [facility], [address] [place] [address], [address], [place], [address], Staff Development Nurse: Kiersten Zuluaga Ph.D.Quest Collection Date/Time: [id number] Results Received Date/Time : [id number] Reported Date/Time: [id number] performed at: , [facility], [address] [place] [address], [address], [place], [address], Staff Development Nurse: Kiersten Zuluaga Ph.D.Quest Collection Date/Time: [id number] Results Received Date/Time : [id number] Reported Date/Time: [id number] performed at: , [facility], [address] [place] [address], [address], [place], [address], Staff Development Nurse: Kiersten Zuluaga Ph.D.Quest Collection Date/Time: [id number] Results Received Date/Time : [id number] Reported Date/Time: [id number] Fentanyl NEGATIVE ng/mL (Better) Range: <0.5 Comments: [AP]----- Norfentanyl NEGATIVE ng/mL (Better) Range: <0.5 Comments: [AP]----- 24-Apr-2015 09:01 Drug Screen PM Profile 1 [id number] Comments: Quest performed at: [facility], [address] [place] [address], [address], [place], [address], Staff Development Nurse: Kiersten Zuluaga Ph.D.Quest Collection Date/Time: [id number] Results Received Date/Time: [id number] Reported Date/Time: [id number] performed at: , [facility], [address] [place] [address], [address], [place], [address], Staff Development Nurse: Kiersten Zuluaga Ph.D.Quest Collection Date/Time: [id number] Results Received Date/Time: [id number] Reported Date/Time: [id number] performed at: [facility], [address] [place] [address], [address], [place], [address] [place] [address], Staff Development Nurse: Kiersten Zuluaga Ph.D.Quest Collection Date/Time: [id number] Results Received Date/Time: [id number] Reported Date/Time: [id number] performed at: , [facility], [address] [place] [address], [address], [place], [address] [place] [address], Staff Development Nurse: Kiersten Zuluaga Ph.D.Quest Collection Date/Time: [id number] Results Received Date/Time: [id number] Reported Date/Time: [id number] performed at: [facility], [address] [place] [address], [address], [place], [address] [place] [address], Staff Development Nurse: Kiersten Zuluaga Ph.D.Quest Collection Date/Time: [id number] Results Received Date/Time: [id number] Reported Date/Time: [id number] Management Profile 1 w/ Confirmation, Urine Drug [...] results are consistent with prescribed medication(s) listed.[AP]----- Plan of Care Planned Observations* Name Dates [...] not documented On 16-Aug-2013 10:30 Appointment; Ritesh aSn Encounter Diagnosis: Problem not documented On 10-Aug-2013 11:15 Appointment; Ritesh San Encounter Diagnosis: Problem not documented On 24-Jul-2013 15:15 Appointment; Javi Lucero Encounter Diagnosis: Problem not documented On 13-Jul-2013 08:00 Appointment; Ritesh San Encounter Diagnosis: Problem not documented On 13-Jun-2013 13:30 Appointment; Ritesh San Encounter Diagnosis: Problem not documented On 03-May-2013 13:00
--- OUTSIDE RECORDS SUMMARY | 2016-07-01 17:34 | XMS REPORT | Summary of Care ---
Author Author Kelin Kirkland, Carlos Ingram Organization Unknown Address [address] [place], [place] [address] Phone Unavailable Care Team Providers Care Seaman Officer Name Role Phone Jon Kirkland, BEREKET, ,, M Unavailable Unavailable Emil VEGAS, Archana Unavailable Unavailable Mena Kirkland, Ritesh Unavailable Unavailable Kelin Kirkland, A Unavailable Unavailable Nixon Kirkland, Lance Unavailable Unavailable Nic Kirkland, G Unavailable Unavailable Paresh Kirkland, T Unavailable Unavailable Carlos Neville Unavailable Unavailable [facility] ([place]) Unavailable Unavailable Unavailable Unavailable Functional Status Name [...] daily * Quantity: 270 Refills: 3 Archana Setin PA-C * Start 02-Aug-2014 Active HYDROmorphone HCl [...] 15-Mar-2013 Flulaval Quadrivalent Intramuscular Suspension Lot #: [id number] on: 26-Dec-2013 Zostavax 48870 UNT/0.65ML Subcutaneous Solution Reconstituted Lot #: [id number] on: 26-Dec-2013 Prevnar 13 Intramuscular Suspension Lot #: [id number] on: 21-May-2014 Tdap (Adacel) Lot #: [id number] on: 07-Aug-2015 Family History Name Dates Details [...] documented Planned Encounters Appointment; Provider: Chan Webb M.D.|HarveySJOHANNE Garnett,BEREKET, On 04-May-2016 11:15 Appointment; Provider: Calos Yoder M.D. On 30-Apr-2016 13:30 Appointment; Provider: Carlos Neville M.D. On 10-Feb-2016 13:00 Appointment; Provider: Carlos Neville M.D. On 31-Jan-2016 13:00 Appointment; Provider: Chan Webb M.D.|JOHANNE Estrada FACS, On 27-Jan-2016 13:30 Instructions Name Dates Details Instructions not documented Encounters Appointment; Chan Webb M.D.|Kemal.SAkhil|JOHANNE Kirkland,BEREKET, Encounter Diagnosis: Problem not documented On 23-Dec-2015 13:30 Appointment; Carlos Neville M.D. Encounter Diagnosis: Problem not documented On 03-Dec-2015 13:30 Appointment; Carlos Neville M.D. Encounter Diagnosis: Problem not documented On 18-Nov-2015 14:15 Appointment; Chan Webb M.D.|Kemal.SAkhil|Marita,JOHANNE,BEREKET, Encounter Diagnosis: Problem not documented On 18-Nov-2015 13:30 Appointment; Chan Webb M.D.|CarlC.S.|Marita,JOHANNE,BEREKET, Encounter Diagnosis: Problem not documented On 10:45 Appointment; Chan Webb M.D.|CarlC.S.|Marita,JOHANNE,BEREKET, Encounter Diagnosis: Problem not documented On 06:45 Appointment; Carlos Neville M.D. Encounter Diagnosis: Problem not documented On 14:00 Appointment; Chan Webb M.D.|F.A.C.S.|MAkhilD.,BEREKET|Marita,FACS, Encounter Diagnosis: Problem not documented On 09:30 Appointment; Chan Webb M.D.|F.A.C.S.|M.D.,BEREKET|MEun,FACS, Encounter Diagnosis: Problem not documented On 17:00 Appointment; Elijah Dang D.O. Encounter Diagnosis: Problem not documented On 10:25 Appointment; Carlos Neville M.D. Encounter Diagnosis: Problem not documented On 07-Aug-2015 13:30 Appointment; Chan Webb M.D.|F.A.C.S.|Marita,BEREKET|Marita,BEREKET, Encounter Diagnosis: Problem not documented On 05-Aug-2015 17:00 Appointment; Carlos Neville M.D. Encounter Diagnosis: Problem not documented On 10-Jul-2015 13:00 Appointment; Chan Webb M.D.|F.A.C.S.|MAkhilDAkhil,BEREKET|Marita,BEREKET, Encounter Diagnosis: Problem not documented On 08-Jul-2015 [...] documented On 18-Apr-2015 09:30 Appointment; Chan Webb M.D.|F.A.C.S.|MAkhilDAkhil,BEREKET|MEun,BEREKET, Encounter Diagnosis: Problem not documented On 01-Apr-2015 [...] documented On 07-Jan-2015 13:30 Appointment; Chan Webb M.D.|F.A.C.S.|MEun,BEREKET|Marita,FACS, Encounter Diagnosis: Problem not documented On 25-Dec-2014 [...] Problem not documented On 21-Feb-2014 13:15 Appointment; Estlela Glass M.D. Encounter Diagnosis: Problem not documented On 20-Feb-2014 13:15 Appointment; Ritesh San M.D. Encounter Diagnosis: Problem not documented On 29-Jan-2014 13:45"
--- OUTSIDE RECORDS SUMMARY | 2016-07-01 17:34 | XMS REPORT | Summary of Care ---
Author Author Nadiya Timmons Unknown Address [address] [place], [place] [address] Phone Unavailable Care Team Providers Care Community Mental Health Worker Name Role Phone Jon Kirkland, FACS, ,, M Unavailable Unavailable Mena Kirkland, Ritesh Unavailable Unavailable Kelin Kirkland, A Unavailable Unavailable Lena Fountain, Andreia Unavailable Unavailable Nic Kirkland, G Unavailable Unavailable Paresh Kirkland, T Unavailable Unavailable Carlos Neville PP Unavailable [facility] ([place]) Unavailable Unavailable Unavailable Functional Status Functional [...] on:15-Mar-2013 Flulaval Quadrivalent Intramuscular Suspension Lot #: [id number] Administered on:26-Dec-2013 Zostavax 29007 UNT/0.65ML Subcutaneous Solution Reconstituted Lot #: [id number] Administered on:26-Dec-2013 Prevnar 13 Intramuscular Suspension Lot #: [id number] Administered on:21-May-2014 Family History Mother* Name Dates [...]
--- OUTSIDE RECORDS SUMMARY | 2016-07-01 17:34 | XMS REPORT | Summary of Care ---
Author Author Kelin Kirkland, Carlos Ingram Organization Unknown Address [address] [place], [place] [address] Phone Unavailable Care Team Providers Care Import/Export Freight Forwarder Name Role Phone Musa Webb Unavailable Unavailable Archana Stein PA-C Unavailable Unavailable Mena Kirkland, Ritesh Unavailable Unavailable Kelin Kirkland, Nataly Unavailable Unavailable Nixon Kirkland, Lance Unavailable Unavailable Nic Kirkland, G Unavailable Unavailable Paresh Kirkland, T Unavailable Unavailable Carlos Neville Unavailable Unavailable [facility] ([place]) Unavailable Unavailable Unavailable Unavailable Functional Status Name [...] unspecified lower extremity (453.40, I82.409) Status: Active Anticoagulant long-term use (V58.61, Z79.01) [...] Status: Active Hypothyroidism (244.9, E03.9) Status: Active Medications Name Dates Details Levothyroxine [...] 15-Mar-2013 Flulaval Quadrivalent Intramuscular Suspension Lot #: [id number] on: 26-Dec-2013 Zostavax 46783 UNT/0.65ML Subcutaneous Solution Reconstituted Lot #: [id number] on: 26-Dec-2013 Prevnar 13 Intramuscular Suspension Lot #: [id number] on: 21-May-2014 Tdap (Adacel) Lot #: [id number] on: 07-Aug-2015 Family History Name Dates Details [...] M.D.,BEREKET, Encounter Diagnosis: Problem not documented On 02-Mar-2016 [...] documented On 14-Jan-2016 13:30 Appointment; Chan Webb M.D.,BEREKET, Encounter Diagnosis: Problem not documented On 23-Dec-2015 [...] documented On 11-Jun-2015 13:30 Appointment; Chan Webb M.D.,BEREKET, Encounter Diagnosis: Problem not documented On 11-Jun-2015 [...] documented On 25-Dec-2014 07:00 Appointment; Andreia Paredes, PAkhilAAkhil Encounter Diagnosis: Problem not documented On 04-Dec-2014 11:30 Appointment; Chan Webb M.D.,BEREKET, Encounter Diagnosis: Problem not documented On 23-Nov-2014 17:15 Appointment; Chna Webb M.D., FACS, Encounter Diagnosis: Problem not [...]
--- OUTSIDE RECORDS SUMMARY | 2016-07-01 17:34 | XMS REPORT | Summary of Care ---
Author Author Paresh Kirkland, Calos Herrera Organization Unknown Address [address] [place], [place] [id number] Phone Unavailable Care Team Providers Care Auto Body Painter Name Role Phone Jon Kirkland, FACS, ,, M Unavailable Unavailable Mena Kirkland, Ritesh Unavailable Unavailable Kelin Kirkland, A Unavailable Unavailable Lena Fountain, Andreia Unavailable Unavailable Nic Kirkland, G Unavailable Unavailable Paresh Kirkland, T Unavailable Unavailable Carlos Neville PP Unavailable [facility] ([place]) Unavailable Unavailable Unavailable Functional Status Functional Status [...] on:15-Mar-2013 Flulaval Quadrivalent Intramuscular Suspension Lot #: [id number] Administered on:26-Dec-2013 Zostavax 12330 UNT/0.65ML Subcutaneous Solution Reconstituted Lot #: [id number] Administered on:26-Dec-2013 Prevnar 13 Intramuscular Suspension Lot #: [id number] Administered on:21-May-2014 Family History Mother* Name Dates [...] 22-Apr-2015 11:38 Drug Screen PM, Alcohol Metabolites [id number] Comments: [employer] performed at: [facility] , [address] [place] [address], [facility] [address], [address], Fixing Carpenter: Kiersten Zuluaga Ph.D.[facility] Collection Date/Time: Results Received Date/Time: [id number] Reported Date/Time: Alcohol Metabolites NEGATIVE ng/mL (Better) Range: <500 Comments: [AP]----- Please note: SEE NOTE (Better) Comments: * These results are for medical treatment only Analysis was performed as non-forensic testing *For assistance with interpreting these drug results,please contact a [facility] ToxicologySpecialist: [phone] ( ),M-F, 8am-6pm EST.[AP]----- 15:24 PROTIME PANEL 7000 PROTIME 15.1 secs (Above high threshold) Range: 12.0-14.9 INR 1.20 (Better) 16:47 Drug Screen PM, Tramadol [id number] Comments: [employer] performed at: [facility], [address] [place] [address], [address], [place], [address], Fixing Carpenter: Kiersten Zuluaga Ph.D.[facility] Collection Date/Time: [id number] Results Received Date/Time : Reported Date/Time: [id number] performed at: , [facility], [address] [place] [address], [address], [place], [address], Fixing Carpenter: Kiersten Zuluaga Ph.D.[facility] Collection Date/Time: [id number] Results Received Date/Time : [id number] Reported Date/Time: Desmethyltramadol NEGATIVE ng/mL (Better) Range: <100 Comments: [AP]----- Tramadol NEGATIVE ng/mL (Better) Range: <100 Comments: [AP]----- 23-Apr-2015 08:36 Drug Screen PM, Meperidine [id number] Comments: [facility] performed at: [facility], [address] [place] [address], [address], [place], [address], Fixing Carpenter: Kiersten Zuluaga Ph.D.[facility] Collection Date/Time: [id number] Results Received Date/Time: [id number] Reported Date/Time: [id number] performed at: [facility], [address] [place] [address], [address], [place], [address], Fixing Carpenter: Kiersten Zuluaga Ph.D.[facility] Collection Date/Time: [id number] Results Received Date/Time: [id number] Reported Date/Time: [id number] performed at: , [facility], [address] [place] [address], [address], [place], [address], Fixing Carpenter: Kiersten uZluaga Ph.D.[facility] Collection Date/Time: [id number] Results Received Date/Time: [id number] Reported Date/Time: Meperidine NEGATIVE ng/mL (Better) Range: <100 Comments: [AP]----- Normeperidine NEGATIVE ng/mL (Better) Range: <100 Comments: [AP]----- 14:55 Drug Screen PM, Fentanyl [id number] Comments: [facility] performed at: [facility], [address] [place] [address], [address], [place], [address], Fixing Carpenter: Kiersten Pfeiffer [employer] Ph.D.[facility] Collection Date/Time: [id number] Results Received Date/Time : [id number] Reported Date/Time: [id number] performed at: , [facility], [address] [place] [address], [address], [place], [address], Fixing Carpenter: Kiersten Pfeiffer [employer] Ph.D.[facility] Collection Date/Time: [id number] Results Received Date/Time : [id number] Reported Date/Time: [id number] performed at: [facility], [address] [place] [address], [address], [place], [address], Fixing Carpenter: Kiersten Pfeiffer [employer] Ph.D.[facility] Collection Date/Time: [id number] Results Received Date/Time : [id number] Reported Date/Time: [id number] performed at: [facility], [address] [place] [address], [address], [place], [address], Fixing Carpenter: Kiersten Pfeiffer [employer] Ph.D.[facility] Collection Date/Time: [id number] Results Received Date/Time : [id number] Reported Date/Time: [id number] Fentanyl NEGATIVE ng/mL (Better) Range: <0.5 Comments: [AP]----- Norfentanyl NEGATIVE ng/mL (Better) Range: <0.5 Comments: [AP]----- 24-Apr-2015 09:01 Drug Screen PM Profile 1 [id number] Comments: [facility] performed at: [facility], [address] [place] [address], [address], [place], [place], [address] [place] [address], Fixing Carpenter: Kiersten Zuluaga Ph.D.[facility] Collection Date/Time: [id number] Results Received Date/Time: [id number] Reported Date/Time: [id number] performed at: [facility], [address] [place] [address], [address], [place], [place], [address] [place] [address], Fixing Carpenter: Kiersten Zuluaga Ph.D.[facility] Collection Date/Time: [id number] Results Received Date/Time: [id number] Reported Date/Time: [id number] performed at: [facility], [address] [place] [address], [address], [place], [address] [place] [address], Fixing Carpenter: Kiersten Zuluaga Ph.D.[facility] Collection Date/Time: [id number] Results Received Date/Time: [id number] Reported Date/Time: [id number] performed at: [facility], [address] [place] [address], [address], [place], [address], Fixing Carpenter: Kiersten Zuluaga Ph.D.[facility] Collection Date/Time: [id number] Results Received Date/Time: [id number] Reported Date/Time: [id number] performed at: [facility], [address] [place] [address], [address], [place], [address] [place] [address], Fixing Carpenter: Kiersten Zuluaga Ph.D.[facility] Collection Date/Time: [id number] Results Received Date/Time: [id number] Reported Date/Time: [id number] Management Profile 1 w/ Confirmation, Urine Drug [...]
--- OUTSIDE RECORDS SUMMARY | 2016-07-01 17:34 | XMS REPORT ---
Author Author [employer] Organization Unknown Address Unknown Phone Unavailable Care Team Providers Care Heavy Equipment Rental Associate Name Role Phone MD MIKAYLA BHAKTI PP [phone] Reason For Visit Chief Complaint MULTIPLE SYNCOPE EPISODES Social History Functional Status Vital Signs Results [...] 2013 11:01 AM * Completed Procedure Code: 32125 Procedure Name: not valued, on 02/08/2014 12: [...]
[2016-07-01] MEDS ORDERED: POTA-81 PO (17:35)
--- OUTSIDE RECORDS SUMMARY | 2016-07-01 17:35 | XMS REPORT | Summary of Care ---
Author Author Kelin Kirkland, Carlos Ingram Organization Unknown Address [address], [place] [id number] Phone Unavailable Care Team Providers Care Wellness Program Manager Name Role Phone Jon Kirkland, BEREKET, ,, M Unavailable Unavailable Emil VEGAS, Archana Unavailable Unavailable Mena Kirkland, Ritesh Unavailable Unavailable Kelin Kirkland, A Unavailable Unavailable Nixon Kirkland, Lance Unavailable Unavailable Nic Kirkland, G Unavailable Unavailable Paresh Kirkland, T Unavailable Unavailable Carlos Neville Unavailable Unavailable [facility] ([place]) Unavailable Unavailable Unavailable Unavailable Functional Status [...] 15-Mar-2013 Flulaval Quadrivalent Intramuscular Suspension Lot #: [id number] on: 26-Dec-2013 Zostavax 67065 UNT/0.65ML Subcutaneous Solution Reconstituted Lot #: [id number] on: 26-Dec-2013 Prevnar 13 Intramuscular Suspension Lot #: [id number] on: 21-May-2014 Tdap (Adacel) Lot #: [id number] on: 07-Aug-2015 Family History Name Dates Details Family history of malignant neoplasm of breast (V16.3, Z80.3) Status: Active Name Dates Details Family history of acute myocardial infarction (V17.3, Z82.49) Status: Active Family history of Prostate cancer (185, C61) Status: Active Social History Name Dates Details - Status: Name Dates Details Former smoker Vital Signs Date Test Result Details 10-Feb-2016 12:58 BP Systolic 130 mm[Hg] Status: Comments: Location: ; Position: BP Diastolic 70 mm[Hg] Status: Comments: Location: ; Position: Heart Rate 91 /min Status: Comments: Location: ; Weight 319 lb Status: Physical Findings 95 Status: Comments: O2 Saturation Body Mass Index Calculated 42.09 kg/m2 Status: Body Surface Area Calculated 2.62 m2 Status: Results Date Description Value Details 03-Feb-2016 08:51 CBC w/ Manual Diff [id number] Comments: SIGNED ORDER FILED IN [employer]SECALL FOLDER. TO BE DRAWN AT [facility] WBC 5.9 K/uL Range: 4.5-11.0 RBC 4.89 [...] IN HOUSECALL FOLDER. [facility] REACTIVE PROTEIN 2.7 mg/dL (Above high [...] IN HOUSECALL FOLDER. [facility] SODIUM 138 mmol/L Range: 133-144 POTASSIUM 3.8 mmol/L Range: 3.5-5.1 CHLORIDE 100 mmol/L Range: 98-110 CARBON DIOXIDE 30.8 mmol/L Range: 23.0-33.0 ANION GAP 7 mmol/L Range: 6-16 BUN 13 mg/dL Range: 7-18 CREATININE, SERUM 0.85 mg/dL Range: 0.70-1.30 EST GFR, >60 ml/min Range: >60 EST GFR, NON-AFR AUSTRIAN >60 ml/min Range: >60 Comments: EST GFR is reported in ml/min per 1.73 m2 of body surface area. ----- BUN:CREATININE RATIO 15 GLUCOSE 87 mg/dL Range: 70-100 CALCIUM 8.7 mg/dL Range: 8.5-10.1 09:08 ERYTHROCYTE SED RATE 7800 Comments: SIGNED ORDER FILED IN HOUSECALL FOLDER. [facility] ER[facility]THROC[facility]TE SED RATE 6 mm/60 min. Range: 0-15 10-Feb-2016 08:12 ERYTHROCYTE SED RATE 7800 Comments: SIGNED ORDER FILED IN HOUSECALL FOLDER; [facility] PATIENT IS SKILLED - SEND LAB REQ TO BUSINESS OFFICE; COPY TO DR. KELIN HUANG Fastin hours ERYTHROCYTE SED RATE 6 mm/60 min. Range: 0-15 08:13 CBC w/ Manual Diff 7225 Comments: SIGNED ORDER FILED IN HOUSECALL FOLDER; [facility] PATIENT IS SKILLED - SEND LAB REQ TO BUSINESS OFFICE; COPY TO DR. KELIN HUANG Fastin hours WBC 4.5 K/uL Range: 4.5-11.0 RBC 4.81 mil/uL Range: 4.20-5.40 HGB 14.4 g/dL Range: 14.0-18.0 HCT 41.9 % (Below low threshold) Range: 42.0-53.0 MCV 87.1 fL Range: 80.0-99.0 MCH 29.9 pg Range: 27.3-32.5 MCHC 34.3 % Range: 32.0-36.0 RDW 15.0 % (Above high threshold) Range: 11.6-14.8 PLATELETS 217 K/uL Range: 150-400 MPV 7.6 fL Range: 6.0-11.0 NEUTRO 2.3 K/uL Range: 2.0-6.9 SEGS 50 % Range: 37-80 BANDS 0 % Range: 0-7 LYMPH 37 % Range: 13-50 MONO 7 % Range: 0-12 EOSIN 6 % Range: 0-7 BASO 0 % Range: 0-3 ASHLEE LYMPH 0 % Range: 0-0 META 0 % Range: 0-0 MYELO 0 % Range: 0-0 PRO 0 % Range: 0-0 BLAST 0 % Range: 0-0 NUC RBC 0 /100 WBC Range: 0-0 SMUDGE 0 /100 WBC PLATELET Adequate Range: Adequate 08:28 C REACTIVE PROTEIN, CRP 2030 Comments: SIGNED ORDER FILED IN HOUSECALL FOLDER; TO BE DRAWN AT [facility]) PATIENT IS SKILLED - SEND LAB REQ TO BUSINESS OFFICE; COPY TO DR. KELIN HUANG Fastin hours C REACTIVE PROTEIN 0.9 mg/dL Range: 0.0-0.9 Comments: Variance from previous testing noted.----- 08:28 VANCOMYCIN [id number] Comments: SIGNED ORDER FILED IN HOUSECALL FOLDER; TO BE DRAWN AT [facility] (CC'D) PATIENT IS SKILLED - SEND LAB REQ TO BUSINESS OFFICE; COPY TO DR. KELIN HUANG Fastin hours VANCOMYCIN 13.1 ng/mL Range: 0.0-50.0 Comments: Called to [facility] RANGE: 5-10 ng/mLA wider trough reference range of 5-20 may be appropriate in some clinical situations.----- 08:29 Comprehensive Metabolic Panel 1212 Comments: PATIENT IS SKILLED - LAB REQ TO BUSINESS OFFICE - COPY TO DR. KAVON HUANG Fastin hours SODIUM 140 mmol/L Range: 133-144 POTASSIUM 3.7 mmol/L Range: 3.5-5.1 CHLORIDE 100 mmol/L Range: 98-110 CARBON DIOXIDE 32.2 mmol/L Range: 23.0-33.0 ANION GAP 8 mmol/L Range: 6-16 BUN 9 mg/dL Range: 7-18 CREATININE, SERUM 0.86 mg/dL Range: 0.70-1.30 BUN:CREATININE RATIO 10 EST GFR, >60 ml/min Range: >60 EST GFR, NON-AFR AUSTRIAN >60 ml/min Range: >60 Comments: EST GFR is reported in ml/min per 1.73 m2 of body surface area. ----- GLUCOSE 94 mg/dL Range: 70-100 ALK PHOSPHATASE 99 U/L Range: 46-116 TOTAL BILIRUBIN 0.50 mg/dL Range: 0.20-1.00 AST 19 U/L Range: 8-35 ALT 40 U/L Range: 16-63 ALBUMIN 3.1 g/dL (Below low threshold) Range: 3.4-5.0 TOTAL PROTEIN 6.7 g/dL Range: 6.4-8.2 A/G RATIO 0.9 units (Below low threshold) Range: 1.0-1.8 CALCIUM 8.9 mg/dL Range: 8.5-10.1 08:29 LIPID PROFILE 1184 Comments: PATIENT IS SKILLED - LAB REQ TO BUSINESS OFFICE - COPY TO DR. KAVON HUANG Fastin hours CHOLESTEROL 107 mg/dL Range: <200 TRIGLYCERIDES 63 mg/dL Range: 30-200 HDL Cholesterol 45 mg/dL Range: >39 NON HDL CHOLESTEROL 62 CARDIAC RSK FACTOR 2.4 units (Below low threshold) Range: 4.4-5.0 LDL - CALCULATED 49 mg/dL Range: 0-130 08:39 PSA ( PROSTATE SPECIFIC ANTIGEN) 3100 Comments: PATIENT IS SKILLED - LAB REQ TO BUSINESS OFFICE - COPY TO DR. KAVON HUANG Fastin hours PROSTATE SPECIFIC ANTIGEN 0.620 ng/mL Range: 0.000-4.000 08:39 THYROID STIM. HORMONE 3602 Comments: PATIENT IS SKILLED - LAB REQ TO BUSINESS OFFICE - COPY TO DR. KAVON HUANG Fastin hours THYROID STIM. HORMONE 6.482 uIU/mL (Above high threshold) Range: 0.550- 4.780 Comments: No established reference ranges for infants and children <2 years of age----- Plan of Care Name Dates Details Planned Observations Planned Goals not documented Planned Encounters Appointment; Provider: Carlos Neville M.D. On 08-Jun-2016 13:15 Appointment; Provider: Chan Webb M.D.|CarlCAkhilSJOHANNE Garnett FACS, On 04-May-2016 11:15 Appointment; Provider: Calos Yoder M.D. On 30-Apr-2016 13:30 Appointment; Provider: Carmine Geronimo DPM On 17-Apr-2016 11:30 Appointment; Provider: Chan Webb M.D.|HarveySJOHANNE Garnett FACS, On 02-Mar-2016 17:15 Interventions Provided Medication Changes* HYDROmorphone HCl - [...] documented On 31-Jan-2016 13:30 Appointment; Chan Webb M.D.|CarlC.SAkhil|BEREKET Kirkland|Marita,BEREKET, Encounter Diagnosis: Problem not documented On 27-Jan-2016 13:30 Appointment; Carlos Neville M.D. Encounter Diagnosis: Problem not documented On 14-Jan-2016 13:30 Appointment; Chan Webb M.D.|CarlC.SBEREKET Garnett|Marita,BEREKET, Encounter Diagnosis: Problem not documented On 23-Dec-2015 13:30 Appointment; Carlos Neville M.D. Encounter Diagnosis: Problem not documented On 03-Dec-2015 13:30 Appointment; Carlos Neville M.D. Encounter Diagnosis: Problem not documented On 18-Nov-2015 14:15 Appointment; Chan Webb M.D.|F.A.C.S.|MEun,BEREKET|Marita,BEREKET, Encounter Diagnosis: Problem not documented On 18-Nov-2015 13:30 Appointment; Chan Webb M.D.|F.A.C.S.|M.DAkhil,BEREKET|MEun,FACS, Encounter Diagnosis: Problem not documented On 10:45 Appointment; Chan Webb M.D.|F.A.C.S.|MEun,BEREKET|Marita,BEREKET, Encounter Diagnosis: Problem not documented On 06:45 Appointment; Carlos Neville M.D. Encounter Diagnosis: Problem not documented On 14:00 Appointment; Chan Webb M.D.|F.A.C.S.|MEun,BEREKET|Marita,BEREKET, Encounter Diagnosis: Problem not documented On 09:30 Appointment; Chan Webb M.D.|F.A.C.S.|MEun,BEREKET|Marita,FACS, Encounter Diagnosis: Problem not documented On 17:00 Appointment; Elijah Dang D.O. Encounter Diagnosis: Problem not documented On 10:25 Appointment; Carlos Neville M.D. Encounter Diagnosis: Problem not documented On 07-Aug-2015 13:30 Appointment; Chan Webb M.D.|F.A.C.S.|MAkhilDAkhil,BEREKET|Marita,BEREKET, Encounter Diagnosis: Problem not documented On 05-Aug-2015 17:00 Appointment; Carlos Neville M.D. Encounter Diagnosis: Problem not documented On 10-Jul-2015 13:00 Appointment; Chan Webb M.D.|F.A.C.S.|M.DAkhil,BEREKET|Marita,FACS, Encounter Diagnosis: Problem not documented On 08-Jul-2015 13:30 Appointment; Carlos Neville M.D. Encounter Diagnosis: Problem not documented On 17-Jun-2015 13:00 Appointment; Javi Lucero M.D. Encounter Diagnosis: Problem not documented On 11-Jun-2015 13:30 Appointment; Chan Webb M.D.|F.A.C.S.|MAkhilDAkhil,BEREKET|Marita,BEREKET, Encounter Diagnosis: Problem not documented On 11-Jun-2015 07:30 Appointment; Calos Yoder M.D. Encounter Diagnosis: Problem not documented On 01-May-2015 13:45 Appointment; Javi Lucero M.D. Encounter Diagnosis: Problem not documented On 18-Apr-2015 09:30 Appointment; Chan Webb M.D.|F.A.C.S.|Marita,BEREKET|Marita,BEREKET, Encounter Diagnosis: Problem not documented On 01-Apr-2015 07:30 Appointment; Javi Lucero M.D. Encounter Diagnosis: Problem not documented On 12-Mar-2015 13:30 Appointment; Miasel Colbert M.D. Encounter Diagnosis: Problem not documented [...] not documented On 13:30 Appointment; Chan Webb M.D.|Nathaniel.C.S.|Marita,BEREKET|Marita,BEREKET, Encounter Diagnosis: Problem not documented On 16-Aug-2014 07:00 Appointment; Carlos Neville M.D. Encounter Diagnosis: Problem not documented On 02-Aug-2014 11:15 Appointment; Chan Webb M.D.|Logan.Nataly.C.S.|Marita,BEREKET|Marita,BEREKET, Encounter Diagnosis: Problem not documented On 10-Jul-2014 [...] documented On 21-May-2014 13:45 Appointment; Chan Webb M.D.|Baldomero|BEREKET Kirkland|Marita,BEREKET, Encounter Diagnosis: Problem not documented On 17-May-2014 [...]
--- OUTSIDE RECORDS SUMMARY | 2016-07-01 17:35 | XMS REPORT ---
Author Author [employer], SYSTEM Organization Unknown Address Unknown Phone Unavailable Care Team Providers Care Appraiser Timber Name Role Phone MD DEGROOT TIMOTHY PP [phone] Reason For Visit Chief Complaint CRISIS Social History Functional Status Vital Signs Results [...] of Care Procedures * Completed Procedure Code: 6559083 Procedure Name: not valued, on 03/31/2016 12: 00 AM * Completed Procedure Code: 4533322 Procedure Name: not valued, on 03/24/2016 12:00 AM * Completed Procedure Code: 5H3191C Procedure Name: not valued, on 12/30/2015 12 :00 AM * Completed Screening Colonoscopy, by MD FERNIE BRIDGES, on 09/23/2015 8:34 AM * Completed Procedure Code: 40360 Procedure Name: not valued, on 09/23/2015 12: 00 AM * Completed suprapubic catheter insertion, by MD REZA LERMA, on 2013 11:01 AM * Completed Procedure Code: 99659 Procedure Name: not valued, on 02/08/2014 12: 00 AM * Completed , on 10/21/2012 12:00 AM * Completed , on 10/21/2012 12:00 AM Immunizations * Influenza, seasonal, injectable ([employer] PHARM, Lot # [id number]); Administered 12/29 2:10 [...]
--- OUTSIDE RECORDS SUMMARY | 2016-07-01 17:35 | XMS REPORT | Summary of Care ---
Author Author Kelin Kirkland, Carlos Ingram Organization Unknown Address [address], [place] [address] Phone Unavailable Care Team Providers Care Service Center Representative Name Role Phone Jon Kirkland, BEREKET, ,, M Unavailable Unavailable Emil VEGAS, Archana Unavailable Unavailable Mena Kirkland, Ritesh Unavailable Unavailable Kelin Kirkland, A Unavailable Unavailable Nixon Kirkland, Lance Unavailable Unavailable Nic Kirkland, G Unavailable Unavailable Paresh Kirkland, T Unavailable Unavailable Carlos Neville Unavailable Unavailable [facility] ([place]) Unavailable Unavailable Unavailable Unavailable Functional Status Name [...] 15-Mar-2013 Flulaval Quadrivalent Intramuscular Suspension Lot #: [id number] on: 26-Dec-2013 Zostavax 12367 UNT/0.65ML Subcutaneous Solution Reconstituted Lot #: [id number] on: 26-Dec-2013 Prevnar 13 Intramuscular Suspension Lot #: [id number] on: 21-May-2014 Tdap (Adacel) Lot #: [id number] on: 07-Aug-2015 Family History Name Dates Details [...] Location: ; Position: Temperature 98 f Status: Heart Rate 83 /min Status: Comments: Location: ; Physical Findings 18 Status: Comments: Respiration Weight 328.3 lb Status: Body Mass Index Calculated 43.31 kg/m2 Status: Body Surface Area Calculated 2.66 m2 Status: 10-Feb-2016 12:58 BP Systolic 130 mm[Hg] Status: [...] IN HOUSECALL FOLDER. TO BE DRAWN AT [facility] WBC 5.9 K/uL Range: 4.5-11.0 RBC 4.89 [...] IN HOUSECALL FOLDER. [facility] REACTIVE PROTEIN 2.7 mg/dL (Above high threshold) Range: 0.0-0.9 09:02 VANCOMYCIN 3016 Comments: SIGNED ORDER FILED IN HOUSECALL FOLDER. [facility] VANCOM[facility]IN 10.1 ng/mL Range: 0.0-50.0 Comments: TROUGH RANGE: 5-10 ng/mLA wider trough reference range of 5-20 may be appropriate in some clinical situations.----- 09:02 BASIC METABOLIC PROFILE 1210 Comments: SIGNED ORDER FILED IN HOUSECALL FOLDER. [facility] SODIUM 138 mmol/L Range: 133-144 POTASSIUM 3.8 mmol/L Range: 3.5-5.1 CHLORIDE 100 mmol/L Range: 98-110 CARBON DIOXIDE 30.8 mmol/L Range: 23.0-33.0 ANION GAP 7 mmol/L Range: 6-16 BUN 13 mg/dL Range: 7-18 CREATININE, SERUM 0.85 mg/dL Range: 0.70-1.30 EST GFR, >60 ml/min Range: >60 EST GFR, NON-AFR LATVIAN >60 ml/min Range: >60 Comments: EST GFR is reported in ml/min per 1.73 m2 of body surface area. ----- BUN:CREATININE RATIO 15 GLUCOSE 87 mg/dL Range: 70-100 CALCIUM 8.7 mg/dL Range: 8.5-10.1 09:08 ERYTHROCYTE SED RATE 7800 Comments: SIGNED ORDER FILED IN HOUSECALL FOLDER. [facility] ERYTHROCYTE SED RATE 6 mm/60 min. Range: 0-15 10-Feb-2016 08:12 ERYTHROCYTE SED RATE 7800 Comments: SIGNED ORDER FILED IN HOUSECALL FOLDER; [facility] PATIENT IS SKILLED - SEND LAB REQ TO BUSINESS OFFICE; COPY TO DR. KELIN HUANG Fastin hours ERYTHROCYTE SED RATE 6 mm/60 min. Range: 0-15 08:13 CBC w/ Manual Diff 7225 Comments: SIGNED ORDER FILED IN HOUSECALL FOLDER; TO BE DRAWN AT [facility] ([facility]) PATIENT IS SKILLED - SEND LAB REQ [...] IN HOUSECALL FOLDER; TO BE DRAWN AT [facility] ([facility]) PATIENT IS SKILLED - SEND LAB REQ TO BUSINESS OFFICE; COPY TO DR. KELIN HUANG Fastin hours C REACTIVE PROTEIN 0.9 mg/dL Range: 0.0-0.9 Comments: Variance from previous testing noted.----- 08:28 VANCOMYCIN 3016 Comments: SIGNED ORDER FILED IN HOUSECALL FOLDER; TO BE DRAWN AT [facility] (CC'D) PATIENT IS SKILLED - SEND LAB REQ TO BUSINESS OFFICE; COPY TO DR. KELIN HUANG Fastin hours VANCOMYCIN 13.1 ng/mL Range: 0.0-50.0 Comments: Called to [facility] RANGE: 5-10 ng/mLA wider trough reference range [...] >60 ml/min Range: >60 EST GFR, NON-AFR LATVIAN >60 ml/min Range: >60 Comments: EST GFR [...] On 08-Jun-2016 13:15 Appointment; Provider: Chan Webb M.D.|Baldomero|Marita,BEREKET|BEREKET Kirkland, On 04-May-2016 11:15 Appointment; Provider: Calos Yoder M.D. On 30-Apr-2016 13:30 Appointment; Provider: Carmine Geronimo DPM On 17-Apr-2016 11:30 Appointment; Provider: Chan Webb M.D.|HarveySBEREKET Garnett|Marita,BEREKET, On 02-Mar-2016 17:15 Instructions Name Dates Details Instructions not documented Encounters Appointment; Carlos Neville M.D. Encounter Diagnosis: Problem not documented On 10-Feb-2016 13:00 Appointment; Carmine Geronimo DPM Encounter Diagnosis: Problem not documented On 07-Feb-2016 08:00 Appointment; Carmine Geronimo DPM Encounter Diagnosis: Problem not documented On 31-Jan-2016 13:30 Appointment; Chan Webb M.D.|CarlCAkhilSBEREKET Garnett|BEREKET Kirkland, Encounter Diagnosis: Problem not documented On 27-Jan-2016 13:30 Appointment; Carlos Neville M.D. Encounter Diagnosis: Problem not documented On 14-Jan-2016 13:30 Appointment; Chan Webb M.D.|F.A.C.S.|MAkhilDAkhil,BEREKET|Marita,FACS, Encounter Diagnosis: Problem not documented On 23-Dec-2015 13:30 Appointment; Carlos Neville M.D. Encounter Diagnosis: Problem not documented On 03-Dec-2015 13:30 Appointment; Carlos Neville M.D. Encounter Diagnosis: Problem not documented On 18-Nov-2015 14:15 Appointment; Chan Webb M.D.|F.A.C.S.|MEun,BEREKET|Marita,FACS, Encounter Diagnosis: Problem not documented On 18-Nov-2015 [...] documented On 10-Jul-2015 13:00 Appointment; Chan Webb M.D.|F.A.C.S.|M.D.,BEREKET|MEun,FACS, Encounter Diagnosis: Problem not documented On 08-Jul-2015 13:30 Appointment; Carlos Neville M.D. Encounter Diagnosis: Problem not documented On 17-Jun-2015 13:00 Appointment; Jvai Lucero M.D. Encounter Diagnosis: Problem not documented [...] documented On 04-Mar-2015 15:55 Appointment; Chan Webb M.D.|F.A.C.S.|M.DAkhil,BEREKET|Marita,FACS, Encounter Diagnosis: Problem not documented On 28-Feb-2015 [...] documented On 23-Nov-2014 17:15 Appointment; Chan Webb M.D.|F.A.C.S.|MAkhilDAkhil,BEREKET|Marita,BEREKET, Encounter Diagnosis: Problem not documented On 12:45 [...] documented On 23-Apr-2014 13:15 Appointment; Chan Webb M.D.|CarlCAkhilSAkhil|Marita,BEREKET|Marita,FACS, Encounter Diagnosis: Problem not documented On 10-Apr-2014 14:00"
--- OUTSIDE RECORDS SUMMARY | 2016-07-01 17:36 | XMS REPORT ---
Author Author GENERATED, SYSTEM Organization Unknown Address Unknown Phone Unavailable Care Team Providers Care Guidance And Control System Engineer Name Role Phone MD BRYSON, RUDI [phone] Reason For Visit Reason for Visit from [...] MG/DL (65-99 MG/DL) GFR EST NON AFR MALAWIAN >90 ML/MIN GFRA EST AFR AMER >90 [...] - CT CEREBRAL W/O CONTRAST CPT Code(s): 26397-; ; ; INDICATION / CLINICAL HISTORY: Seizure. Suicidal. COMPARISON: July 08, 2013. FINDINGS: The ventricles are normal in size and configuration. There is no mass effect or midline shift. No intracranial hemorrhage or abnormal extraaxial fluid collections are demonstrated. The visualized paranasal sinuses are well aerated. IMPRESSION: Negative head CT. Problems Encounter Diagnosis * Bipolar Disorder Status:Active. * Congestive Heart Failure Status:Active. * Depression Status:Active. * History of Deep Vein Thrombosis Status:Active. * History of Hypothyroidism Status:Active. Additional Problems * Candidiasis Comment:Problem resolved by [...] Status:Resolved. Encounters Encounter Diagnosis * Bipolar Disorder Status:Active. * Congestive Heart Failure Status:Active. * Depression Status:Active. * History of Deep Vein Thrombosis Status:Active. * History of Hypothyroidism Status:Active. Plan of Care Treatment Plan from 03/11/2014 [...] 2013 11:01 AM * Completed Procedure Code: 48553 Procedure Name: not valued, on 02/08/2014 12: 00 AM * Completed Procedure Code: 90782 Procedure Name: not valued, on 02/08/2014 12: [...] the responsibility of the patient or patient pharmaceutical specialty representative to confirm the list of medications [...] * gabapentin 300 mg Capsule, Ordered By: RUID MASSEY MD Directions: 2 capsule oral three [...]
--- OUTSIDE RECORDS SUMMARY | 2016-07-01 17:36 | XMS REPORT | Summary of Care ---
Author Author Kelin Kirkland, Carlos Ingram Organization Unknown Address [address], [place] [id number] Phone Unavailable Care Team Providers Care Pick And Shovel Man Name Role Phone Jon Kirkland, BEREKET, ,, M Unavailable Unavailable Emil VEGAS, Archana Unavailable Unavailable Mena Kirkland, Ritesh Unavailable Unavailable Kelin Kirkland, A Unavailable Unavailable Nixon Kirkland, Lance Unavailable Unavailable Nic Kirkland, G Unavailable Unavailable Paresh Kirkland, T Unavailable Unavailable Carlos Neville Unavailable Unavailable [facility] ([place]) Unavailable Unavailable Unavailable Unavailable Functional Status Name [...] 15-Mar-2013 Flulaval Quadrivalent Intramuscular Suspension Lot #: [id number] on: 26-Dec-2013 Zostavax 53657 UNT/0.65ML Subcutaneous Solution Reconstituted Lot #: [id number] on: 26-Dec-2013 Prevnar 13 Intramuscular Suspension Lot #: [id number] on: 21-May-2014 Tdap (Adacel) Lot #: [id number] on: 07-Aug-2015 Family History Name Dates Details [...] Body Surface Area Calculated 2.62 m2 Status: 14-Jan-2016 13:19 BP Systolic 114 mm[Hg] Status: Comments: Location: ; Position: BP Diastolic 68 mm[Hg] Status: Comments: Location: ; Position: Heart Rate 90 /min Status: Comments: Location: ; Physical Findings 96 Status: Comments: O2 Saturation Results Date Description Value Details 03-Feb-2016 08:51 CBC w/ Manual Diff 7225 Comments: SIGNED ORDER FILED IN HOUSECALL FOLDER. TO BE DRAWN AT [facility] WBC 5.9 K/uL Range: 4.5-11.0 RBC [...] HOUSECALL FOLDER. TO BE DRAWN AT [facility] C REACTIVE PROTEIN 2.7 mg/dL (Above high [...] >60 ml/min Range: >60 EST GFR, NON-AFR GIBRALTARIAN >60 ml/min Range: >60 Comments: EST GFR [...] IN HOUSECALL FOLDER; TO BE DRAWN AT [facility] (CC'D) PATIENT IS SKILLED - SEND LAB REQ TO BUSINESS OFFICE; COPY TO DR. NEVILLE - CC'D Fastin hours ERYTHROCYTE SED RATE 6 mm/60 min. Range: 0-15 08:13 CBC w/ Manual Diff 7225 Comments: SIGNED ORDER FILED IN HOUSECALL FOLDER; TO BE DRAWN AT [facility] ([facility]) PATIENT IS SKILLED - SEND LAB [...] IN HOUSECALL FOLDER; TO BE DRAWN AT [facility] ([facility]) PATIENT IS SKILLED - SEND LAB REQ TO BUSINESS OFFICE; COPY TO DR. KELIN HUANG Fastin hours C REACTIVE PROTEIN 0.9 mg/dL Range: 0.0-0.9 Comments: Variance from previous testing noted.----- 08:28 VANCOMYCIN 3016 Comments: SIGNED ORDER FILED IN HOUSECALL FOLDER; TO BE DRAWN AT [facility] ([facility]) PATIENT IS SKILLED - SEND LAB REQ TO BUSINESS OFFICE; COPY TO DR. KELIN HUANG Fastin hours VANCOMYCIN 13.1 ng/mL Range: 0.0-50.0 Comments: Called to [facility] RANGE: 5-10 ng/mLA wider trough [...] >60 ml/min Range: >60 EST GFR, NON-AFR GIBRALTARIAN >60 ml/min Range: >60 Comments: EST GFR [...] Observations CBC w/ Auto Diff 7150 On 09-Jun-2016 Intent Comprehensive Metabolic Panel 1212 On 09-Jun-2016 Intent HEMOGLOBIN A1C 3507 On 09-Jun-2016 Intent Planned Goals not documented Planned Encounters Appointment; Provider: Carlos Neville M.D. On 08-Jun-2016 13:15 Appointment; Provider: Chan Webb M.D.|JOHANNE Estrada FACS, On 04-May-2016 11:15 Appointment; Provider: Calos Yoder M.D. On 30-Apr-2016 13:30 Appointment; Provider: Carmine Geronimo DPM On 17-Apr-2016 11:30 Appointment; Provider: Chan Webb M.D.|JOHANNE Estrada FACS, On 02-Mar-2016 17:15 Instructions Name Dates Details Instructions not documented Encounters Appointment; Carmine Geronimo DPM Encounter Diagnosis: Problem not documented On 07-Feb-2016 08:00 Appointment; Carmine Geronimo DPM Encounter Diagnosis: Problem not documented On 31-Jan-2016 13:30 Appointment; Chan Webb M.D.|HarveySAkhil|JOHANNE Kirkland FACS, Encounter Diagnosis: Problem not documented On 27-Jan-2016 13:30 Appointment; Carlos Neville M.D. Encounter Diagnosis: Problem not documented On 14-Jan-2016 13:30 Appointment; Chan Webb M.D.|CarlCAkhilSAkhil|JOHANNE Kirkland FACS, Encounter [...] not documented On 09:30 Appointment; Chan Webb M.D.|F.A.C.S.|M.DAkhil,BEREKET|Marita,FACS, Encounter Diagnosis: Problem not documented On 17:00 [...] not documented On 14:45 Appointment; Chan Webb M.D.|F.A.C.S.|Marita,BEREKET|Marita,BEREEKT, Encounter Diagnosis: Problem not documented On 07:15 [...] documented On 21-May-2014 13:45 Appointment; Chan Webb M.D.|CarlC.SAkhil|Marita,BEREKET|Mariat,FACS, Encounter Diagnosis: Problem not documented On 17-May-2014 [...]
--- OUTSIDE RECORDS SUMMARY | 2016-07-01 17:36 | XMS REPORT | Summary of Care ---
Author Author Carlos Neville M.D. Organization Unknown Address [address], [place] [address] Phone Unavailable Care Team Providers Care Health Care Coordinator Name Role Phone Jon Kirkland, FACS, ,, M Unavailable Unavailable Mena Kirkland, Ritesh Unavailable Unavailable Kelin Kikrland, Nataly Unavailable Unavailable Lena Fountain, Andreia Unavailable Unavailable Nic Kirkland, G Unavailable Unavailable Paresh Kirkland, T Unavailable Unavailable Carlos Neville PP Unavailable [facility] ([place]) Unavailable Unavailable Unavailable Functional Status Functional [...] Lesion Sacral Comprehensive Metabolic Panel 1212 Ordered:17-Jun-2015 Comprehensive Metabolic Panel 1212 Ordered:02-Jul-2015 Immunization Name Dates Details Pneumo (Pneumovax) Administered on:15-Mar-2013 Flulaval Quadrivalent Intramuscular Suspension Lot #: [id number] Administered on:26-Dec-2013 Zostavax 91361 UNT/0.65ML Subcutaneous Solution Reconstituted Lot #: [id number] Administered on:26-Dec-2013 Prevnar 13 Intramuscular Suspension Lot #: [id number] Administered on:21-May-2014 Family History Mother* Name Dates [...] Lucero On 07-Aug-2015 13:45 * Appointment; Provider: Chan Webb On 05-Aug-2015 13:30 * Appointment; Provider: Carlos Neville On 10-Jul-2015 13:00 * Appointment; Provider: Nadiya Dinh On 11-Apr-2015 [...]
--- NOTE | 2016-07-01 17:37 | NUR ---
TO XRAY ON 02 SATURATION MONITOR. THIS RN ACCOMPANYING. PER CART.
--- OUTSIDE RECORDS SUMMARY | 2016-07-01 17:37 | XMS REPORT | Summary of Care ---
Author Author Nic Kirkland, Javi Harrison Unknown Address [address], [place] [address] Phone Unavailable Care Team Providers Care Data Services Developer Name Role Phone Jon Kirkland, FACS, ,, M Unavailable Unavailable Mena Kirkland, Ritesh Unavailable Unavailable Kelin Kirkland, A Unavailable Unavailable Lena Fountain, Andreia Unavailable Unavailable Nic Kirkland, Henry Unavailable Unavailable Paresh Kirkland, T Unavailable Unavailable Carlos Neville PP Unavailable [facility] ([place]) Unavailable Unavailable Unavailable Functional Status Functional [...] on:15-Mar-2013 Flulaval Quadrivalent Intramuscular Suspension Lot #: [id number] Administered on:26-Dec-2013 Zostavax 47171 UNT/0.65ML Subcutaneous Solution Reconstituted Lot #: [id number] Administered on:26-Dec-2013 Prevnar 13 Intramuscular Suspension Lot #: [id number] Administered on:21-May-2014 Family History Mother* Name Dates [...] ml/min (Better) Range: >60 EST GFR, NON-AFR CROATIAN >60 ml/min (Better) Range: >60 Comments: EST GFR is reported in ml/min per 1.73 m2 of body surface area. For -Mosotho, please multiple result by 1.2.----- GLUCOSE 110 [...] ml/min (Better) Range: >60 EST GFR, NON-AFR CROATIAN >60 ml/min (Better) Range: >60 Comments: EST GFR is reported in ml/min per 1.73 m2 of body surface area. For -Mosotho, please multiple result by 1.2.----- GLUCOSE 99 [...] Problem not documented On 09:00 Appointment; Ritesh aSn Encounter Diagnosis: Problem not documented On 10:00 Appointment; Ritesh San Encounter Diagnosis: Problem not documented On 16-Aug-2013 10:30 Appointment; Ritesh San Encounter Diagnosis: Problem not documented On 10-Aug-2013 11:15
--- OUTSIDE RECORDS SUMMARY | 2016-07-01 17:37 | XMS REPORT ---
Author Author GENERATED, SYSTEM Organization Unknown Address Unknown Phone Unavailable Care Team Providers Care Extension Service Agent Name Role Phone MD BRYSON, RUDI PP [phone] Reason For Visit Reason for Visit from [...] MG/DL (65-99 MG/DL) GFR EST NON AFR VENEZUELAN >90 ML/MIN GFRA EST AFR AMER >90 [...] H (65-99 MG/DL) GFR EST NON AFR VENEZUELAN >90 ML/MIN GFRA EST AFR AMER >90 [...] 5-10 /HPF A (0-5 /HPF) Microbiology from 02/23/2014 5:15 PM* MRSA NASAL Specimen Number: [id number] Sample Collection Date/Time: 02/23/2014 5:15 PM Specimen Source: Nares DX Radiology from 02/26/2014 7:53 AMCHEST 1 VIEW DATE OF EXAM: Feb 26 2014 8: 03AM Proc: DG 0066 - CHEST 1 VIEW CPT Code(s): 20202-; ; ; INDICATION / CLINICAL HISTORY: \E\seizure [...] - MRI BRAIN W/O_W/ CONTRAST CPT Code(s): 89556-; ; ; INDICATION / CLINICAL HISTORY: Seizures. [...] brain. Problems Encounter Diagnosis * Bipolar Disorder Status:Active. * Candidiasis Status:Active. * Generalized-onset Seizures Status:Active. Additional Problems * Dizziness Comment:Problem resolved by [facility] Workflow upon Discharge, Status: Resolved. * Edema Comment:Problem resolved by [facility] Workflow upon Discharge, Status: Resolved. * Edema of Lower Extremity Comment:Problem resolved by [facility] Workflow upon Discharge, Status:Resolved. * General Health Deterioration Comment:Problem resolved by [facility] Workflow upon Discharge, Status:Resolved. Encounters Encounter Diagnosis * Bipolar Disorder Status:Active. * Candidiasis Status:Active. * Generalized-onset Seizures Status:Active. Plan of Care Treatment Plan from 02/26/2014 1:13 PM:* Care Management Note : Met with patient and spouse regarding discharge plan. Patient states he has a scheduled back surgery for tomorrow in [place] and hoping to be discharged today so he can make appointment. Patient stated Dr. San aware of this and it is their understanding if all tests come back clear then he'll be discharged home today. supports this plan. No discharge needs voiced. Treatment Plan from 02/25/2014 2:20 PM:* Care Management Note : MANISH attempted to visit with pt or family regarding dc planning. RN providing pt care on 5199 informed SW pt will be tx to [...] Discharge Diet : Diet as directed by dismantler,Modification as given by physician * Specific Discharge Teaching Instructions provided: : No * Discharge on Warfarin : No Allergies, Adverse Reactions, Alerts * nystatin causes Severe Hives. * Latex causes Unknown. Onset unsure. * Keflex causes unspecified. * Novocain causes unspecified. * No IV Contrast Allergy. * No Known Food Allergies. Medication It is the responsibility of the patient or patient retail service representative to confirm the list of medications with either the patient's personal care provider or the patient's follow-up care provider to ensure the patient has an appropriate list of medications to take at home. Preliminary list - medication reconciliation not completed. Discharge medications New medications* VANCOMYCIN 1G/250ML NS [...] oral three times a day * cranberry njlw-T-xqjpcklb coag (Azo Cranberry + Probiotic) 250 mg-30 mg-50 million cell Tablet Directions: 1 tablet oral three times a day Additional Instructions: AUTOSUB
--- OUTSIDE RECORDS SUMMARY | 2016-07-01 17:37 | XMS REPORT | Summary of Care ---
Author Author Nic Kirkland, Javi Harrison Unknown Address [address], [place] [id number] Phone Unavailable Care Team Providers Care Supervisor Prop Making Name Role Phone Jon Kirkland, FACS, ,, M Unavailable Unavailable Mena Kirkland, Ritesh Unavailable Unavailable Kelin Kirkland, A Unavailable Unavailable Lena Fountain, Andreia Unavailable Unavailable Nic Kirkland, Henry Unavailable Unavailable Paresh Kirkland, T Unavailable Unavailable Carlos Neville PP Unavailable [facility] ([place]) RP Unavailable Unavailable Unavailable Functional Status Functional [...] on:15-Mar-2013 Flulaval Quadrivalent Intramuscular Suspension Lot #: [id number] Administered on:26-Dec-2013 Zostavax 41323 UNT/0.65ML Subcutaneous Solution Reconstituted Lot #: [id number] Administered on:26-Dec-2013 Prevnar 13 Intramuscular Suspension Lot #: [id number] Administered on:21-May-2014 Family History Mother* Name Dates [...] not documented On 02-Aug-2014 11:15 Appointment; Chan Wbeb Encounter Diagnosis: Problem not documented On 10-Jul-2014 [...]
--- OUTSIDE RECORDS SUMMARY | 2016-07-01 17:38 | XMS REPORT ---
Author Author GENERATED, SYSTEM Organization Unknown Address Unknown Phone Unavailable Care Team Providers Care Casino Surveillance Officer Name Role Phone MD BRYSON, RUDI PP [phone] Reason For Visit Reason for Visit from [...] Oriented To : Person,Place,Time,Event Functional Status from 03/20/2014 8:03 PM:* LOC [...] Thurs 10:30-3:30 * Address # 1 : [facility]: [address], [address], [place] - Procedures * Completed suprapubic catheter insertion, by MD REZA LERMA, on 2013 11:01 AM * Completed Procedure Code: 30521 Procedure Name: not valued, on 02/08/2014 12: 00 AM * Completed Procedure Code: 40232 Procedure Name: not valued, on 02/08/2014 12: [...] the responsibility of the patient or patient leather goods sales representative to confirm the list of [...] HYDROmorphone (Dilaudid) 8 mg Tablet, Ordered By: MAURISIO GUSMAN, PAC Directions: 1 tablet oral every six hours [...]
--- OUTSIDE RECORDS SUMMARY | 2016-07-01 17:38 | XMS REPORT ---
Author Author GENERATED, SYSTEM Organization Unknown Address Unknown Phone Unavailable Care Team Providers Care Tile Installer Name Role Phone MD BRYSON, RUDI PP [phone] Reason For Visit Chief Complaint LEFT KNEE BUCKLED, KNEE PAIN Social History Functional Status Vital Signs [...] 2013 11:01 AM * Completed Procedure Code: 15967 Procedure Name: not valued, on 02/08/2014 12: [...]
--- OUTSIDE RECORDS SUMMARY | 2016-07-01 17:38 | XMS REPORT ---
Author Author GENERATED, SYSTEM Organization Unknown Address Unknown Phone Unavailable Care Team Providers Care Spirits Model Name Role Phone UNASSIGNED DOCTOR MD FABIO DOCTOR PP [phone] Reason For Visit Reason for Visit from 06/18/2016 8:10 AM:* Pt Stated Reason for Adm : " suprapubic catheter placement" Chief Complaint URINARY RETENTION Social History Social History from 06/18/2016 12:17 PM:* Tobacco Use? : Former Smoker Social History from 06/18/2016 8:10 AM:* Tobacco Use? : Former Smoker Functional Status Functional Status from 06/18/2016 12:28 PM:* LOC : Alert Functional Status from 06/18/2016 12:18 PM:* LOC : Alert Functional Status from 06/18/2016 11:40 AM:* LOC : Sedated Functional Status from 06/18/2016 8:10 AM:* LOC : Alert * Oriented To : Person,Place,Time,Event * Weight Bearing Status : Full * Assist Level : Independent * # Assists : Independent Vital Signs Hospital Vital Signs from 06/18/2016 1:30 PM:* Temp : 98.2 * Heart Rate : 65 * Resp Rate : 18 * Systolic BP (mmHg) : 107 * Diastolic BP (mmHg) : 63 * O2 Saturation (%) : 98 Hospital Vital Signs from 06/18/2016 1:15 PM:* Heart Rate : 66 * Resp Rate : 18 * Systolic BP (mmHg) : 101 * Diastolic BP (mmHg) : 72 * O2 Saturation (%) : 97 Hospital Vital Signs from 06/18/2016 1:00 PM:* Heart Rate : 62 * Resp Rate : 18 * Systolic BP (mmHg) : 113 * Diastolic BP (mmHg) : 71 * O2 Saturation (%) : 98 Hospital Vital Signs from 06/18/2016 12:45 PM:* Heart Rate : 57 * Resp Rate : 18 * Systolic BP (mmHg) : 103 * Diastolic BP (mmHg) : 81 * O2 Saturation (%) : 98 Hospital Vital Signs from 06/18/2016 12:30 PM:* Temp : 98.1 * Heart Rate : 56 * Resp Rate : 18 * Systolic BP (mmHg) : 108 * Diastolic BP (mmHg) : 69 * O2 Saturation (%) : 97 Hospital Vital Signs from 06/18/2016 12:22 PM:* Height : 6/0 ft,in * Pulse : 56 * Respirations : 16 * BP : 115/73 Hospital Vital Signs from 06/18/2016 12:10 PM:* Pulse : 61 * Respirations : 16 * BP : 115/74 Hospital Vital Signs from 06/18/2016 12:05 PM:* Pulse : 62 * Respirations : 16 * BP : 114/72 Hospital Vital Signs from 06/18/2016 12:00 PM:* Temp : 97.5 * Heart Rate : 67 * Resp Rate : 18 * Systolic BP (mmHg) : 112 * Diastolic BP (mmHg) : 86 * Mean BP (mmHg) : 67 * O2 Saturation (%) : 94 Hospital Vital Signs from 06/18/2016 11:55 AM:* Heart Rate : 64 * Resp Rate : 18 * Systolic BP (mmHg) : 111 * Diastolic BP (mmHg) : 91 * Mean BP (mmHg) : 64 * O2 Saturation (%) : 96 Hospital Vital Signs from 06/18/2016 11:50 AM:* Heart Rate : 64 * Resp Rate : 18 * Systolic BP (mmHg) : 121 * Diastolic BP (mmHg) : 71 * Mean BP (mmHg) : 101 * O2 Saturation (%) : 97 Hospital Vital Signs from 06/18/2016 11:45 AM:* Heart Rate : 73 * Resp Rate : 16 * Systolic BP (mmHg) : 141 * Diastolic BP (mmHg) : 37 * Mean BP (mmHg) : 51 * O2 Saturation (%) : 98 Hospital Vital Signs from 06/18/2016 11:40 AM:* Temp : 97.3 * Heart Rate : 56 * Resp Rate : 16 * Systolic BP (mmHg) : 112 * Diastolic BP (mmHg) : 60 * O2 Saturation (%) : 97 Hospital Vital Signs from 06/18/2016 8:43 AM:* Weight : 149.6/ kg * Height : 6/0 ft,in * Temperature : 98.7 F * Pulse : 74 * Respirations : 10 * BP : 115/77 Hospital Vital Signs from 06/18/2016 8:10 AM:* Weight : 149.6/ kg * Height : 6/ ft,in Results Problems Encounter Diagnosis * Fall [...] Status:Active. Plan of Care Follow-up Appointments from 06/18/2016 12:17 PM:* #1 Office appointment: : Dr. Carbajal * #1 Date/Time : 07/27/2016 9:15 AM * Address # 1 : [facility]: [facility] [place]- [phone] or Procedures * Completed Procedure Code: 8314131 Procedure Name: not valued, on 03/31/2016 12: 00 AM * Completed Procedure Code: 8406072 Procedure Name: not valued, on 03/24/2016 12:00 AM * Completed Procedure Code: [id number] Procedure Name: not valued, on 12/30/2015 12 :00 AM * Completed Screening Colonoscopy, by MD FERNIE BRIDGES, on 09/23/2015 8:34 AM * Completed Procedure Code: 81434 Procedure Name: not valued, on 09/23/2015 12: 00 AM * Completed suprapubic catheter insertion, by MD REZA LERMA, on 2013 11:01 AM * Completed Procedure Code: 96884 Procedure Name: not valued, on 02/08/2014 12: 00 AM * Completed , on 10/21/2012 12:00 AM * Completed , on 10/21/2012 12:00 AM Immunizations * Influenza, seasonal, injectable ([employer] PHARM, Lot # [id number]); Administered 12/29 2:10 PM; 1 DOSE=0.5 ML, INTRAMUSCL Hospital Course Hospital Discharge Instructions How to care for yourself at home from 06/18/2016 12:17 PM:* Discharge Activity : May Shower,Do not engage in sports, heavy work or heavy lifting until your physician gives permission * Discharge Diet : As before hospitalization * Discharge Wound Care : Keep dressings dry,Change dressings as necessary, Notify your physician if the following develops: redness, swelling, drainage or color of drainage changes, odor or increased pain. * Call your doctor if: : Fever over 101 F or severe chills,Chest pain or other unexplained symptoms,Tingling or numbness develops,A sudden increase or decrease in weight,You have persistent or worsening symptoms * Specific Discharge Teaching Instructions provided: : No * Discharge on Warfarin : No Allergies, Adverse Reactions, Alerts * Seroquel causes loss of consciousness, tremors. * Pristiq causes loss of consciousness, tremors. * Haldol causes loss of consciuosness. * acetaminophen causes Unknown. * naproxen causes Moderate Diarrhea. Onset moderate. [...]
--- OUTSIDE RECORDS SUMMARY | 2016-07-01 17:38 | XMS REPORT | Summary of Care ---
Author Author Nic Kirkland, Javi Harrison Unknown Address [address], [place] [id number] Phone Unavailable Care Team Providers Care Polygraph Examiner Name Role Phone Jon Kirkland, FACS, ,, M Unavailable Unavailable Mena Kirkland, Ritesh Unavailable Unavailable Kelin Kirkland, A Unavailable Unavailable Lena Fountain, Andreia Unavailable Unavailable Nic Kirkland, Henry Unavailable Unavailable Paresh Kirkland, T Unavailable Unavailable Carlos Neville PP Unavailable [facility] ([place]) RP Unavailable Unavailable Unavailable Functional Status Functional [...] on:15-Mar-2013 Flulaval Quadrivalent Intramuscular Suspension Lot #: [id number] Administered on:26-Dec-2013 Zostavax 21626 UNT/0.65ML Subcutaneous Solution Reconstituted Lot #: [id number] Administered on:26-Dec-2013 Prevnar 13 Intramuscular Suspension Lot #: [id number] Administered on:21-May-2014 Family History Mother* Name Dates [...] 13:45 * Appointment; Provider: Chan Webb On 08-Jul-2015 13:30 * Appointment; Provider: Carlos Neville On 17-Jun-2015 13:00 * Appointment; Provider: Nadiya Dinh On [...] Problem not documented On 20-Nov-2013 11:00 Appointment; Jaiv Lucero Encounter Diagnosis: Problem not documented On [...]
--- OUTSIDE RECORDS SUMMARY | 2016-07-01 17:38 | XMS REPORT | Summary of Care ---
Author Author Kelin Kirkland, Carlos Ingram Organization Unknown Address [address], [place] [id number] Phone Unavailable Care Team Providers Care Needle Loom Setter Name Role Phone Jon Kirkland, FACS, ,, M Unavailable Unavailable Emil VEGAS, Archana Unavailable Unavailable Mena Kirkland, Ritesh Unavailable Unavailable Kelin Kirkland, A Unavailable Unavailable Lena Fountain, Andreia Unavailable Unavailable Nixon Kirkland, Lance Unavailable Unavailable Nic Kirkland, G Unavailable Unavailable Paresh Kirkland, T Unavailable Unavailable Carlos Neville Unavailable Unavailable [facility]) Unavailable Unavailable Unavailable Unavailable Functional Status [...] Sacral CBC w/ Auto Diff 7150 Ordered: 21-Nov-2015 Comprehensive Metabolic Panel 1212 Ordered: 21-Nov-2015 PROTIME PANEL 7000 Ordered: 21-Nov-2015 PTT 7500 Ordered: 21-Nov-2015 Urinalysis, Reflex to Microscopic or Culture PRN 8005 Ordered: 21-Nov-2015 Immunization Name Dates Details Pneumo (Pneumovax) on: 15-Mar-2013 Flulaval Quadrivalent Intramuscular Suspension Lot #: [id number] on: 26-Dec-2013 Zostavax 96373 UNT/0.65ML Subcutaneous Solution Reconstituted Lot #: [id number] on: 26-Dec-2013 Prevnar 13 Intramuscular Suspension Lot #: [id number] on: 21-May-2014 Tdap (Adacel) Lot #: [id number] on: 07-Aug-2015 Family History Name Dates Details [...] 03-Dec-2015 12:39 ECG/ EKG Preop Electro CardioGram ECG waiting for interpretation, click ImageLink button to view/confirm the study. Plan of Care Name Dates Details Planned Observations CBC w/ Auto Diff 7150 On 22-Nov-2015 Intent Comprehensive Metabolic Panel 1212 On 22-Nov-2015 Intent PROTIME PANEL 7000 On 22-Nov-2015 Intent PTT 7500 On 22-Nov-2015 Intent Urinalysis, Reflex to Microscopic or Culture PRN 8005 On 22-Nov-2015 Intent Planned Goals not documented Planned Encounters Appointment; Provider: Chan Webb M.D.|Baldomero|Marita,FACS|Marita,FACS, On 04-May-2016 11:15 Appointment; Provider: Calos Yoder M.D. On 30-Apr-2016 13:30 Appointment; Provider: Carlos Neville M.D. On 10-Feb-2016 13:00 Appointment; Provider: Carlos Neville M.D. On 30-Dec-2015 13:30 Appointment; Provider: Chan Webb M.D.|F.A.C.S.|MEun,BEREKET|MEun,FACS, On 23-Dec-2015 13:30 Appointment; Provider: Carlos Neville M.D. On 03-Dec-2015 13:30 Instructions Name Dates Details Instructions not documented Encounters Appointment; Carlos Neville M.D. Encounter Diagnosis: Problem not documented On 18-Nov-2015 14:15 Appointment; Chan Webb M.D.|F.A.C.S.|MEun,BEREKET|MEun,FACS, Encounter Diagnosis: Problem not documented On 18-Nov-2015 13:30 Appointment; Chan Webb M.D.|F.A.C.S.|M.DAkhil,FACS|MAkhilDAkhil,FACS, Encounter Diagnosis: Problem not documented On 10:45 Appointment; Chan Webb M.D.|F.A.C.S.|M.DAkhil,BEREKET|MEun,FACS, Encounter Diagnosis: Problem not documented On 06:45 Appointment; Carlos Neville M.D. Encounter Diagnosis: Problem not documented On 14:00 Appointment; Chan Webb M.D.|F.A.C.S.|M.DAkhil,FACS|MAkhilDAkhil,FACS, Encounter Diagnosis: Problem not documented On 09:30 Appointment; Chan Webb M.D.|F.A.C.S.|MAkhilDAkhil,BEREKET|MAkhilDAkhil,FACS, Encounter Diagnosis: Problem not documented On 17:00 [...] not documented On 14:45 Appointment; Chan Webb M.D.|F.A.C.S.|MEun,BEREKET|Marita,BEREKET, Encounter Diagnosis: Problem not documented On 07:15 [...] documented On 02-Aug-2014 11:15 Appointment; Chan Webb M.D.|F.A.C.S.|ArtemioDAkhil,BEREKET|Marita,BEREKET, Encounter Diagnosis: Problem not documented On 10-Jul-2014 [...]
[2016-07-01] MEDS ORDERED: BACL20TA PO (17:39)
--- OUTSIDE RECORDS SUMMARY | 2016-07-01 17:39 | XMS REPORT | Summary of Care ---
Author Author Nadiya Timmons Unknown Address [address] [place], [place] [phone] Phone Unavailable Care Team Providers Care Safe Technician Name Role Phone Jon Kirkland, FACS, ,, M Unavailable Unavailable Mena Kirkland, Ritesh Unavailable Unavailable Kelin Kirkland, A Unavailable Unavailable Lena Fountain, Andreia Unavailable Unavailable Nic Kirkland, G Unavailable Unavailable Paresh Kirkland, T Unavailable Unavailable Carlos Neville PP Unavailable [facility]) Unavailable Unavailable Unavailable Functional Status Functional [...] on:15-Mar-2013 Flulaval Quadrivalent Intramuscular Suspension Lot #: [id number] Administered on:26-Dec-2013 Zostavax 62804 UNT/0.65ML Subcutaneous Solution Reconstituted Lot #: [id number] Administered on:26-Dec-2013 Prevnar 13 Intramuscular Suspension Lot #: [id number] Administered on:21-May-2014 Family History Mother* Name Dates [...] 22-Apr-2015 11:38 Drug Screen PM, Alcohol Metabolites [id number] Comments: [employer] [facility] , [address] [place] [address], [address], [address], Medical Transcription Radiology: Kiersten Zuluaga Ph.D.[facility] Collection Date/Time: [id number] Results Received Date/Time: [id number] Reported Date/Time: Alcohol Metabolites NEGATIVE ng/mL (Better) Range: <500 Comments: [AP]----- Please note: SEE NOTE (Better) Comments: * These results are for medical treatment only Analysis was performed as non-forensic testing *For assistance with interpreting these drug results,please contact a [employer] ToxicologySpecialist: [phone] ( ),M-F, 8am-6pm EST.[AP]----- 15:24 PROTIME PANEL 7000 PROTIME 15.1 secs (Above high threshold) Range: 12.0-14.9 INR 1.20 (Better) 16:47 Drug Screen PM, Tramadol [id number] Comments: [facility] at: [facility], [address] [place] [address], [address], [place], [address], Medical Transcription Radiology: Kiersten Zuluaga Ph.D.[facility] Collection Date/Time: [id number] Results Received Date/Time : [id number] Reported Date/Time: [id number] performed at: [facility], [address] [place] [address], [address], [place], [address], Medical Transcription Radiology: Kiersten Zuluaga Ph.D.[facility] Collection Date/Time: [id number] Results Received Date/Time : [id number] Reported Date/Time: [id number] Desmethyltramadol NEGATIVE ng/mL (Better) Range: <100 Comments: [AP]----- Tramadol NEGATIVE ng/mL (Better) Range: <100 Comments: [AP]----- 23-Apr-2015 08:36 Drug Screen PM, Meperidine [id number] Comments: [facility] performed at: [facility], [address] [place] [address], [address], [place], [address] [place] [address], Medical Transcription Radiology: Kiersten Pfeiffer Zuluaga Ph.D.[facility] Collection Date/Time: [id number] Results Received Date/Time: [id number] Reported Date/Time: [id number] performed at: [facility], [address] [place] [address], [address], [place], [address], Medical Transcription Radiology: Kiersten Pfeiffer Zuluaga Ph.D.[facility] Collection Date/Time: [id number] Results Received Date/Time: [id number] Reported Date/Time: [id number] performed at: [facility], [address] [place] [address], [address], [place], [address], Medical Transcription Radiology: Kiersten Pfeiffer Zuluaga Ph.D.[facility] Collection Date/Time: [id number] Results Received Date/Time: [id number] Reported Date/Time: [id number] Meperidine NEGATIVE ng/mL (Better) Range: <100 Comments: [AP]----- Normeperidine NEGATIVE ng/mL (Better) Range: <100 Comments: [AP]----- 14:55 Drug Screen PM, Fentanyl [id number] Comments: [facility] performed at: [facility], [address] [place] [address], [address], [place], [address], Medical Transcription Radiology: Kiersten Pfeiffer Massive Damage Ph.D.[facility] Collection Date/Time: [id number] Results Received Date/Time : [id number] Reported Date/Time: [id number] performed at: , [facility], [address] [place] [address], [address], [place], [address], Medical Transcription Radiology: Kiersten Zuluaga Ph.D.[facility] Collection Date/Time: [id number] Results Received Date/Time : [id number] Reported Date/Time: [id number] performed at: , [facility], [address] [place] [address], [address], [place], [address], Medical Transcription Radiology: Kiersten Zuluaga Ph.D.[facility] Collection Date/Time: [id number] Results Received Date/Time : [id number] Reported Date/Time: [id number] performed at: , [facility], [address] [place] [address], [address], [place], [address], Medical Transcription Radiology: Kiersten Zuluaga Ph.D.[facility] Collection Date/Time: [id number] Results Received Date/Time : [id number] Reported Date/Time: [id number] Fentanyl NEGATIVE ng/mL (Better) Range: <0.5 Comments: [AP]----- Norfentanyl NEGATIVE ng/mL (Better) Range: <0.5 Comments: [AP]----- 24-Apr-2015 09:01 Drug Screen PM Profile 1 [id number] Comments: [facility] performed at: [facility], [address] [place] [address], [address], [place], [address], Medical Transcription Radiology: Kiersten Zuluaga Ph.D.[facility] Collection Date/Time: [id number] Results Received Date/Time: [id number] Reported Date/Time: [id number] performed at: , [facility], [address] [place] [address], [address], [place], [address], Medical Transcription Radiology: Kiersten Zuluaga Ph.D.[facility] Collection Date/Time: [id number] Results Received Date/Time: [id number] Reported Date/Time: [id number] performed at: , [facility], [address] [place] [address], [address], [place], [address] [place] [address], Medical Transcription Radiology: Kiersten Zuluaga Ph.D.[facility] Collection Date/Time: [id number] Results Received Date/Time: [id number] Reported Date/Time: [id number] performed at: , [facility], [address] [place] [address], [address], [place], [address], Medical Transcription Radiology: Kiersten Zuluaga Ph.D.[facility] Collection Date/Time: [id number] Results Received Date/Time: [id number] Reported Date/Time: [id number] performed at: , [facility], [address] [place] [address], [address], [place], [address] [place] [address], Medical Transcription Radiology: Kiersten Zuluaga Ph.D.[facility] Date/Time: [id number] Results Received Date/Time: [id number] Reported Date/Time: [id number] Management Profile 1 w/ Confirmation, Urine Drug [...] not documented On 29-Jun-2014 13:15 Appointment; Chan Wbeb Encounter Diagnosis: Problem not documented On 21-Jun-2014 [...]
--- OUTSIDE RECORDS SUMMARY | 2016-07-01 17:39 | XMS REPORT | Summary of Care ---
Author Author Grazyna HUNTER, Carmine [facility] Unknown Address [address] [place], [place] [address] Phone Unavailable Care Team Providers Care Devulcanizer Operator Name Role Phone Musa Webb Unavailable Unavailable Emil VEGAS, Archana Unavailable Unavailable Mena Kirkland, Ritesh Unavailable Unavailable Kelin Kirkland, A Unavailable Unavailable Nixon Kirkland, Lance Unavailable Unavailable Carmine Geronimo DPM Unavailable Unavailable Nic Kirkland, G Unavailable Unavailable Paresh Kirkland, T Unavailable Unavailable Carlos Neville Unavailable Unavailable [facility] Unavailable Unavailable Unavailable Unavailable Functional Status Name [...] DIRECTED. * Quantity: 1 Refills: 0 Nixon Kirkland Lance * Start Active 30 ML Bottle Bethanechol Chloride 25 MG Oral Tablet Take one tablet three times daily * Quantity: 270 Refills: 3 Emil VEGASArchana * Start 02-Aug-2014 Active Morphine Sulfate ER 15 MG Oral [...] Quantity: 60 Refills: 0 Kelin Kirkland, Carlos A * Start 18-Apr-2015 Active HYDROmorphone HCl - 4 MG Oral Tablet 1 TABLET DAILY (MID-DAY) * Quantity: 30 Refills: 0 Kelin Kirkland, Carlos A * Start 07-Aug-2015 Active Allergies and Adverse [...] 15-Mar-2013 Flulaval Quadrivalent Intramuscular Suspension Lot #: [id number] on: 26-Dec-2013 Zostavax 32033 UNT/0.65ML Subcutaneous Solution Reconstituted Lot #: [id number] on: 26-Dec-2013 Prevnar 13 Intramuscular Suspension Lot #: [id number] on: 21-May-2014 Tdap (Adacel) Lot #: [id number] on: 07-Aug-2015 Family History Name Dates Details [...] Chan Webb M.D., FACS, On 06-May-2016 07:30 Instructions Name Dates Details Instructions not documented [...] not documented On 10:45 Appointment; Chan Webb M.D.,EBREKET, Encounter Diagnosis: Problem not documented On 06:45 [...] not documented On 13:15 Appointment; Andreia Paredes PSean Encounter Diagnosis: Problem not documented On 11:30 [...]
--- OUTSIDE RECORDS SUMMARY | 2016-07-01 17:39 | XMS REPORT ---
Author Author [employer], SYSTEM Organization Unknown Address Unknown Phone Unavailable Care Team Providers Care Java Analyst Name Role Phone MD BRYSON, RUDI [phone] Reason For Visit Reason for Visit from 12/13/2013 5:20 PM:* Pt Stated Reason for Adm : Dizzniness Chief Complaint DIZZINESS Social History Social History from 12/18/2013 10:41 AM:* Tobacco Use? : Former Smoker Social History from 12/13/2013 5:20 PM:* Tobacco Use? : Former Smoker Functional Status Functional Status from 12/18/2013 7:52 AM:* LOC : Alert * Oriented To : Person,Place * Weight Bearing Status : Full * Assist Level : Partial * # Assists : 1 Functional Status from 12/17/2013 8:20 PM:* LOC : Confused * Oriented To : Person,Place,Time,Event * Weight Bearing Status : Full * Assist Level : Partial * # Assists : 2 Functional Status from 12/17/2013 7:30 AM:* LOC : Drowsy * Oriented To : Person,Place,Time,Event * Weight Bearing Status : Full * Assist Level : Dependent * # Assists : 2 Functional Status from 12/16/2013 7:46 PM:* LOC : Alert * Oriented To : Person,Place,Time * Weight Bearing Status : Full * Assist Level : Dependent * # Assists : 2 Functional Status from 12/16/2013 7:30 AM:* LOC : Drowsy * Oriented To : Person,Place,Time,Event * Weight Bearing Status : Full * Assist Level : Dependent * # Assists : 2 Functional Status from 12/15/2013 7:44 PM:* LOC : Alert * Oriented To : Person,Place * Weight Bearing Status : Full * Assist Level : Partial * # Assists : 1 Functional Status from 12/15/2013 3:05 PM:* Oriented To : Person,Place Functional Status from 12/15/2013 2:02 PM:* # Assists : 2 Functional Status from 12/15/2013 8:00 AM:* LOC : Alert * Oriented To : Person,Place,Event * Weight Bearing Status : Full * Assist Level : Partial * # Assists : 2 Functional Status from 12/14/2013 7:45 PM:* LOC : Alert * Oriented To : Person,Place,Time,Event * Weight Bearing Status : Full * Assist Level : Partial * # Assists : 1 Functional Status from 12/14/2013 2:23 PM:* Oriented To : Person,Place,Time,Event Functional Status from 12/14/2013 8:14 AM:* LOC : Alert * Oriented To : Person,Place,Time,Event * Weight Bearing Status : Full * Assist Level : Dependent * # Assists : 1 Functional Status from 12/13/2013 7:45 PM:* LOC : Alert * Oriented To : Person,Place,Time,Event * Weight Bearing Status : Full * Assist Level : Partial * # Assists : 1 Functional Status from 12/13/2013 5:20 PM:* LOC : Alert * Oriented To : Person,Place,Time * Weight Bearing Status : Full * Assist Level : Independent * # Assists : 1 Vital Signs Hospital Vital Signs from 12/18/2013 12:09 PM:* Height : 6/1 ft,in * Temperature : 96.7 F * Pulse : 77 * Respirations : 18 * BP : 109/54 Hospital Vital Signs from 12/18/2013 8:02 AM:* Height : 6/1 ft,in Hospital Vital Signs from 12/18/2013 6:06 AM:* Height : 6/1 ft,in * Temperature : 97.8 F * Pulse : 64 * Respirations : 18 * BP : 113/71 Hospital Vital Signs from 12/18/2013 4:07 AM:* Height : 6/1 ft,in * Respirations : 16 * BP : 117/65 Hospital Vital Signs from 12/17/2013 11:26 PM:* Height : 6/1 ft,in * Temperature : 97.3 F * Pulse : 58 * Respirations : 16 * BP : 98/62 Hospital Vital Signs from 12/17/2013 8:23 PM:* Height : 6/1 ft,in * Temperature : 96.7 F * Pulse : 84 * Respirations : 18 * BP : 99/64 Hospital Vital Signs from 12/17/2013 8:20 PM:* Heart Rate : 85 Hospital Vital Signs from 12/17/2013 7:30 AM:* Heart Rate : 65 Hospital Vital Signs from 12/17/2013 7:28 AM:* Height : 6/1 ft,in * Temperature : 98.1 F * Pulse : 76 * Respirations : 18 * BP : 96/62 Hospital Vital Signs from 12/17/2013 4:03 AM:* Height : 6/1 ft,in * BP : 95/61 Hospital Vital Signs from 12/17/2013 4:02 AM:* Height : 6/1 ft,in * Temperature : 98.2 F * Pulse : 67 * Respirations : 18 * BP : 89/59 Hospital Vital Signs from 12/16/2013 10:15 PM:* Height : 6/1 ft,in * Temperature : 97.8 F * Pulse : 76 * Respirations : 20 * BP : 101/60 Hospital Vital Signs from 12/16/2013 7:46 PM:* Heart Rate : 90 Hospital Vital Signs from 12/16/2013 6:56 PM:* Height : 6/1 ft,in * Temperature : 98.1 F * Pulse : 81 * Respirations : 18 * BP : 104/58 Hospital Vital Signs from 12/16/2013 4:00 PM:* Height : 6/1 ft,in * Temperature : 97.3 F * Pulse : 77 * Respirations : 18 * BP : 88/53 Hospital Vital Signs from 12/16/2013 12:22 PM:* Height : 6/1 ft,in * Temperature : 97.0 F * Pulse : 52 * Respirations : 18 * BP : 112/53 Hospital Vital Signs from 12/16/2013 7:34 AM:* Height : 6/1 ft,in * Temperature : 96.2 F * Pulse : 45 * Respirations : 20 * BP : 113/75 Hospital Vital Signs from 12/16/2013 7:30 AM:* Heart Rate : 70 Hospital Vital Signs from 12/16/2013 3:00 AM:* Height : 6/1 ft,in * Temperature : 96.3 F * Pulse : 50 * Respirations : 20 * BP : 108/72 Hospital Vital Signs from 12/15/2013 10:04 PM:* Height : 6/1 ft,in * Temperature : 96.2 F * Pulse : 63 * Respirations : 18 * BP : 109/66 Hospital Vital Signs from 12/15/2013 7:44 PM:* Heart Rate : 75 Hospital Vital Signs from 12/15/2013 7:04 PM:* Height : 6/1 ft,in * Temperature : 96.7 F * Pulse : 91 * Respirations : 18 * BP : 90/54 Hospital Vital Signs from 12/15/2013 10:54 AM:* Height : 6/1 ft,in * Temperature : 97.2 F * Pulse : 69 * Respirations : 18 * BP : 109/70 Hospital Vital Signs from 12/15/2013 7:07 AM:* Height : 6/1 ft,in * Temperature : 97.6 F * Pulse : 68 * Respirations : 18 * BP : 116/78 Hospital Vital Signs from 12/14/2013 10:47 PM:* Height : 6/1 ft,in Hospital Vital Signs from 12/14/2013 10:45 PM:* Height : 6/1 ft,in * Temperature : 96.5 F * Pulse : 83 * Respirations : 18 * BP : 126/71 Hospital Vital Signs from 12/14/2013 7:57 PM:* Height : 6/1 ft,in * Temperature : 97.0 F * Pulse : 78 * Respirations : 18 * BP : 111/64 Hospital Vital Signs from 12/14/2013 7:45 PM:* Heart Rate : 66 Hospital Vital Signs from 12/14/2013 11:29 AM:* Height : 6/1 ft,in * Temperature : 96.4 F * Pulse : 72 * Respirations : 18 * BP : 104/60 Hospital Vital Signs from 12/14/2013 8:14 AM:* Heart Rate : 85 Hospital Vital Signs from 12/14/2013 7:02 AM:* Height : 6/1 ft,in * Temperature : 97.2 F * Pulse : 68 * Respirations : 18 * BP : 113/58 Hospital Vital Signs from 12/14/2013 6:52 AM:* Height : 6/1 ft,in Hospital Vital Signs from 12/14/2013 3:31 AM:* Height : 6/1 ft,in * Temperature : 96.8 F * Pulse : 67 * Respirations : 18 * BP : 122/70 Hospital Vital Signs from 12/13/2013 11:43 PM:* Height : 6/1 ft,in * Temperature : 96.6 F * Pulse : 67 * Respirations : 18 * BP : 133/73 Hospital Vital Signs from 12/13/2013 5:20 PM:* Weight : 111/ kg * Height : 6/1 ft,in Hospital Vital Signs from 12/13/2013 5:16 PM:* Weight : 111/ kg * Height : 6/1 ft,in * Temperature : 98.0 F * Pulse : 68 * Respirations : 18 * BP : 110/77 Results Chemistry from 12/16/2013 6:50 AMSODIUM 138 MMOL/L (136-145 MMOL/L) POTASSIUM 3.7 MMOL/L (3.5-5.1 MMOL/L) CHLORIDE 99 MMOL/L (98-107 MMOL/L) TCO2 33.7 MMOL/L H (21.0-32.0 MMOL/L) ANION GAP 5.3 MMOL/L L (8.0-16.0 MMOL/L) BUN 13 MG/DL (7-18 MG/DL) CREATININE 0.78 MG/DL (0.63-1.13 MG/DL) BUN/CREATININE RATIO 16.7 (9.1-17.0 ) GLUCOSE 90 MG/DL (65-99 MG/DL) GFR EST NON AFR [place] >90 ML/MIN GFRA EST AFR AMER >90 ML/MIN CALCIUM 9.0 MG/DL (8.5-10.1 MG/DL) BILIRUBIN TOTAL 0.37 MG/DL (0.20-1.00 MG/DL) TOTAL PROTEIN 6.5 GM/DL (6.4-8.2 GM/DL) ALBUMIN 3.2 GM/DL L (3.4-5.0 GM/DL) GLOBULIN 3.3 GM/DL (2.3-3.5 GM/DL) A/G RATIO 1.0 MG/DL L (1.5-2.2 MG/DL) ALK PHOS 64 U/L (46-116 U/L) ALT (SGPT) 23 U/L (12-78 U/L) AST (SGOT) 12 U/L L (15-37 U/L) MAGNESIUM 2.1 MG/DL (1.8-2.4 MG/DL) Hematology from 12/16/2013 6:50 AMWBC 6.0 X10e3/UL (3.6-11.2 X10e3/UL) RBC 4.46 X10e6/UL (4.06-5.63 X10e6/UL) HEMOGLOBIN 13.7 G/DL (12.5-16.3 G/DL) HEMATOCRIT 39.8 % (36.7-47.1 %) MCV 89.3 FL (80.0-100.0 FL) MCH 30.8 PG (27.0-33.0 PG) MCHC 34.5 G/DL (32.0-36.0 G/DL) RDW 16.0 % (12.3-17.0 %) RDWSD 49.4 H (37.1-47.8 ) PLATELET 164 X10e3/UL (159-386 X10e3/UL) MPV 8.8 FL (7.4-10.4 FL) AUTOMATED DIFF PERFORMED SEGS 49.7 % LYMPHOCYTES 36.9 % MONOCYTES 10.1 % EOSINOPHILS 2.9 % BASOPHILS 0.4 % ABSOLUTE NEUTROPHILS 3.0 X10e3/UL (1.8-7.8 X10e3/UL) ABSOLUTE LYMPHOCYTES 2.2 X10e3/UL (1.0-3.0 X10e3/UL) ABSOLUTE MONOCYTES 0.6 X10e3/UL (0.3-1.0 X10e3/UL) ABSOLUTE EOSINOPHILS 0.2 X10e3/UL (0.0-0.5 X10e3/UL) ABSOLUTE BASOPHILS 0.0 X10e3/UL (0.0-0.2 X10e3/UL) Problems Encounter Diagnosis * Dizziness Comment:Problem resolved by [facility] upon Discharge, Status: Resolved. * General Health Deterioration Comment:Problem resolved by [facility] upon Discharge, Status:Resolved. Additional Problems * Edema Status:Active. * Edema of Lower Extremity Status:Active. Encounters Encounter Diagnosis * Dizziness Comment:Problem resolved by [facility] upon Discharge, Status: Resolved. * General Health Deterioration Comment:Problem resolved by [facility] upon Discharge, Status:Resolved. Plan of Care Follow-up Appointments from 12/18/2013 10:41 AM:* #1 Office appointment: : Dr. San * #1 Date/Time : 12/26/2013 2:30 PM * #2 Office appointment: : Dr. Glass * #2 Date/Time : 02/05/2014 2:15 PM Treatment Plan from 12/15/2013 3:16 PM:* Care Management Note : Patient continues to have syncopal episodes, continues on IV antibiotics, and waiting on BC x2. Dr San was changed patient to inpatient, waiting on further workup for syncope. LOS >2 midnights, will continue to follow. Treatment Plan from 12/15/2013 3:04 PM:* Care Management Note : Spoke with patient and spouse regarding discharge needs. They plan for patient to return home at discharge. Patient currently has [facility] for home health and plan for this to resume. They deny need for any additional services at home, stating needs are being met. Treatment Plan from 12/14/2013 1:42 PM:* Care Management Note : Attempted to visit with patient regarding discharge planning but informed by nursing patient not feeling well, had a unresponsive episode for brief moment. not currently present. Will follow up in a.m. Treatment Plan from 12/14/2013 9:40 AM:* Care Management Note : Patient admitted as outpatient d/t dizziness. POC is to consult cardio, PT/OT, an ECHO ordered, BC x2 pending, IV Vanco and IV fluids started. Patient is outpatient appropriate at this time, will continue to follow. Procedures * Completed , on 10/21/2012 12:00 AM * Completed , on 10/21/2012 12:00 AM * Completed , on 10/21/2012 12:00 AM * Completed , on 10/21/2012 12:00 AM Immunizations No immunizations administered or ordered. Hospital Course Hospital Discharge Instructions How to care for yourself at home from 12/18/2013 10:41 AM:* Discharge Activity : Activity as tolerated * Discharge Diet : Diet as tolerated * Call your doctor if: : Fever over 101 F or severe chills,Chest pain or other unexplained symptoms,Tingling or numbness develops,A sudden increase or decrease in weight,You have persistent or worsening symptoms,If you have Heart Failure and you gain 3 pounds within 1 week or your symptoms worsen. (Weigh at home tomorrow morning) * Specific Discharge Teaching Instructions provided: : Yes * Discharge on Warfarin : No Allergies, Adverse Reactions, Alerts * nystatin causes Severe Hives. * Latex causes Unknown. Onset unsure. * Keflex causes unspecified. * Novocain causes unspecified. * No IV Contrast Allergy. * No Known Food Allergies. Medication It is the responsibility of the patient or patient patient representative to confirm the list of medications with either the patient's personal care provider or the patient's follow-up care provider to ensure the patient has an appropriate list of medications to take at home. Discharge medications New medications* LORazepam 1 mg Tablet, Ordered By: RUDI SAN MD Directions: 1 tablet oral daily at bedtime PRN insomnia * polyethylene glycol 3350 17 gram Powder in Packet, Ordered By: RUDI SAN MD Directions: 1 each oral twice a day * sulfamethoxazole-trimethoprim 800 mg-160 mg Tablet, Ordered By: RUDI SAN MD Directions: 1 tablet oral every twelve hours Additional Instructions: GIVE WITH A FULL GLASS OF WATER. Continued medications* atorvastatin 20 mg Tablet, Ordered By: RUDI SAN MD Directions: 1 tablet oral daily at bedtime * baclofen 10 mg Tablet, Ordered By: RUDI SAN MD Directions: 1 tablet oral three times a day * bethanechol chloride 25 mg Tablet, Ordered By: RUDI SAN MD Directions: 1 tablet oral four times daily * divalproex (Depakote ER) 500 mg Tablet Extended Release 24 hr, Ordered By: RUDI SAN MD Directions: 2 tablet oral daily at bedtime * furosemide 80 mg Tablet, Ordered By: RUDI SAN MD Directions: 1 tablet oral twice a day * gabapentin 300mg Tablet, Ordered By: RUDI SAN MD Directions: 1 tablet oral three times a day * HYDROmorphone 4 mg Tablet, Ordered By: RUDI SAN MD Directions: 1 tablet oral three times a day * levothyroxine 50 mcg Tablet, Ordered By: RUDI SAN MD Directions: 1 tablet oral daily before breakfast * morphine (MS Contin) 15 mg Tablet Extended Release, Ordered By: RUDI SAN MD Directions: 1 tablet oral daily at bedtime * potassium chloride (Klor-Con M20) 20 mEq tablet,ER particles/crystals, Ordered By: RUDI SAN MD Directions: 1 tablet oral daily with breakfast * rivaroxaban (Xarelto) 20 mg Tablet, Ordered By: RUDI SAN MD Directions: 1 tablet oral daily before dinner * spironolactone 25 mg Tablet, Ordered By: RUDI SAN MD Directions: 1 tablet oral twice a day * tamsuLOSIN 0.4 mg capsule,extended release 24hr, Ordered By: RUDI SAN MD Directions: 1 capsule oral daily * traZODone 50 mg Tablet, Ordered By: RUDI SAN MD Directions: 1 tablet oral daily at bedtime * zolpidem 12.5 mg Tablet,Ext Release Multiphase, Ordered By: RUDI SAN MD Directions: 1 tablet oral daily at bedtime PRN insomnia Stopped medications* amitiza 24 mg by mouth twice daily * ondansetron 4 mg tablet,disintegrating Directions: 1 tablet oral Every 8 hours as needed
--- OUTSIDE RECORDS SUMMARY | 2016-07-01 17:40 | XMS REPORT | Continuity of care Document ---
[...] the responsibility of the patient or patient surgical device sales representative to confirm the list of medications with either the patient's personal care provider or the patient's follow-up care provider to ensure the patient has an appropriate list of medications to take at home. Take These Medications* atorvastatin 20 mg Tablet, Ordered By: BENJAMIN LOPEZ RN Directions: 1 tablet oral daily at bedtime * baclofen 20 mg Tablet, Ordered By: BENJAMIN LOPEZ RN Directions: 1 tablet oral three times a day * clonazePAM 2 mg Tablet, Ordered By: BENJAMIN LOPEZ RN Directions: 2 tablet oral at bedtime * divalproex (Depakote ER) 500 mg Tablet Extended Release 24 hr, Ordered By: BENJAMIN LOPEZ RN Directions: 2 tablet oral daily at bedtime * lansoprazole (PrevACID) 30 mg capsule,delayed release(DR/EC), Ordered By: BENJAMIN LOPEZ RN Directions: 1 capsule oral daily * polyethylene glycol 3350 (Miralax) 17 gram Powder in Packet, Ordered By: BENJAMIN LOPEZ RN Directions: 1 packet oral daily * potassium chloride (Klor-Con M20) 20 mEq tablet,ER particles/crystals, Ordered By: BENJAMIN LOPEZ RN Directions: 1 tablet oral daily with breakfast * tamsuLOSIN 0.4 mg capsule,extended release 24hr, Ordered By: BENJAMIN LOPEZ RN Directions: 1 capsule oral daily * zolpidem 12.5 mg Tablet,Ext Release Multiphase, Ordered By: BENJAMIN LOPEZ RN Directions: 1 tablet oral daily at bedtime PRN insomnia * morphine (MS Contin) 15 mg Tablet Extended Release, Ordered By: BENJAMIN LOPEZ RN Directions: 1 tablet oral twice a day * HYDROmorphone 8 mg Tablet, Ordered By: BENJAMIN LOPEZ RN Directions: 1 tablet oral three times a day * gabapentin 600 mg Tablet, Ordered By: BENJAMIN LOPEZ RN Directions: 1 tablet oral three times a day * ondansetron 4 mg tablet,disintegrating, Ordered By: BENJAMIN LOPEZ RN Directions: 1 tablet oral Every 8 hours as needed * bethanechol chloride 25 mg Tablet, Ordered By: BENJAMIN LOPEZ RN Directions: 1 tablet oral four times daily * spironolactone 25 mg Tablet, Ordered By: BENJAMIN LOPEZ RN Directions: 1 tablet oral twice a day * levothyroxine 50 mcg Tablet, Ordered By: BENJAMIN LOPEZ RN Directions: 1 tablet oral daily before breakfast * rivaroxaban (Xarelto) 10 mg Tablet, Ordered By: BENJAMIN LOPEZ RN Directions: 2 tablet oral daily every morning and afternoon Additional Instructions: *DO NOT CRUSH* *GIVE WITH EVENING MEAL* * amitiza 24 mcg daily * furosemide 80 mg Tablet, Ordered By: BENJAMIN LOPEZ RN Directions: 1 tablet oral twice a day Stop Taking These Medications* None Results Chemistry from 08/10/2013 2:15 PMTHYROXINE FREE 0.67 NG/DL (0.59-1.19 NG/DL) TSH 6.68 UIU/ML H (0.34-4.82 UIU/ML) VALPROIC ACID 76 MCG/ML (50-100 MCG/ML) Chemistry from 08/11/2013 4:42 AMANION GAP 6.7 MMOL/L L (8.0-16.0 MMOL/L) ALBUMIN 3.4 GM/DL (3.4-5.0 GM/DL) BUN/CREATININE RATIO 10.1 (9.1-17.0 ) BUN 11 MG/DL (7-18 MG/DL) CALCIUM 8.4 MG/DL L (8.5-10.1 MG/DL) CHLORIDE 98 MMOL/L (98-107 MMOL/L) CREATININE 1.09 MG/DL (0.63-1.13 MG/DL) GFRA EST AFR AMER 90 ML/MIN GFR EST NON AFR [place] 77 ML/MIN GLUCOSE 149 MG/DL H (65-99 MG/DL) POTASSIUM 3.6 MMOL/L (3.5-5.1 MMOL/L) SODIUM 138 MMOL/L (136-145 MMOL/L) TCO2 33.3 MMOL/L H (21.0-32.0 MMOL/L) PHOSPHORUS 3.3 MG/DL (2.5-4.9 MG/DL) DX Radiology from 08/10/2013 2:08 PMCHEST 1 VIEW DATE OF EXAM: Aug 10 2013 2: 26PM Proc: DG 0066 - CHEST 1 VIEW CPT Code(s): 17130-; ; ; INDICATION / CLINICAL HISTORY: CHF COMPARISON: Single view of the chest was obtained. No prior study is available for comparison. FINDINGS: The heart size is mildly enlarged. The pulmonary vasculature is within normal limits. No consolidating infiltrate, pleural effusion or pneumothorax is seen. IMPRESSION: Mild cardiomegaly without acute abnormality. Urinalysis from 08/10/2013 3:51 PMURINE APPEARANCE CLEAR (CLEAR ) URINE COLOR YELLOW (STRAW/YELL/DK YELL ) URINE SPECIFIC GRAVITY <=1.005 (<=1.005->=1.030 ) URINE BILIRUBIN NEGATIVE (NEGATIVE ) URINE BLOOD NEGATIVE (NEGATIVE ) URINE GLUCOSE NEGATIVE MG/DL (NEGATIVE MG/DL) URINE KETONES NEGATIVE MG/DL (NEGATIVE MG/DL) *URINE LEUKOCYTES NEGATIVE (NEGATIVE ) URINE NITRITES NEGATIVE (NEGATIVE ) URINE PH 6.0 (5.0-8.0 ) URINE PROTEIN NEGATIVE MG/DL (NEGATIVE MG/DL) URINE UROBILINOGEN 0.2 EU/DL (0.2-1.0 EU/DL)
--- OUTSIDE RECORDS SUMMARY | 2016-07-01 17:40 | XMS REPORT | Summary of Care ---
Author Author Kelin Kirkland, Carlos Ingram Organization Unknown Address [address], [place] [id number] Phone Unavailable Care Team Providers Care Drill Runner Name Role Phone Jon Kirkland, BEREKET, ,, M Unavailable Unavailable Emil VEGAS, Archana Unavailable Unavailable Mena Kirkland, Ritesh Unavailable Unavailable Kelin Kirkland, A Unavailable Unavailable Nixon Kirkland, Lance Unavailable Unavailable Nic Kirkland, G Unavailable Unavailable Paresh Kirkland, T Unavailable Unavailable Carlos Neville Unavailable Unavailable [facility] ([place] Unavailable Unavailable Unavailable Unavailable Functional Status Name [...] 15-Mar-2013 Flulaval Quadrivalent Intramuscular Suspension Lot #: [id number] on: 26-Dec-2013 Zostavax 87219 UNT/0.65ML Subcutaneous Solution Reconstituted Lot #: [id number] on: 26-Dec-2013 Prevnar 13 Intramuscular Suspension Lot #: [id number] on: 21-May-2014 Tdap (Adacel) Lot #: [id number] on: 07-Aug-2015 Family History Name Dates Details [...] On 10-Feb-2016 13:00 Appointment; Provider: Chan Webb M.D.|CarlC.SAkhil|JOHANNE Kirkland FACS, On 27-Jan-2016 13:30 Instructions Name Dates Details Instructions not documented Encounters Appointment; Chan Webb M.D.|Nathaniel.C.S.|Marita,JOHANNE,BEREKET, Encounter Diagnosis: Problem not documented On 23-Dec-2015 13:30 Appointment; Carlos Neville M.D. Encounter Diagnosis: Problem not documented On 03-Dec-2015 13:30 Appointment; Carlos Neville M.D. Encounter Diagnosis: Problem not documented On 18-Nov-2015 14:15 Appointment; Chan Webb M.D.|Nathaniel.C.S.|Marita,JOHANNE,BEREKET, Encounter Diagnosis: Problem not documented On 18-Nov-2015 13:30 Appointment; Chan Webb M.D.|Logan.Nataly.C.S.|Marita,JOHANNE,BEREKET, Encounter Diagnosis: Problem not documented On 10:45 Appointment; Chan Webb M.D.|Logan.A.C.S.|Marita,JOHANNE,BEREKET, Encounter Diagnosis: Problem not documented On 06:45 Appointment; Carlos Neville M.D. Encounter Diagnosis: Problem not documented On 14:00 Appointment; Chan Webb M.D.|Logan.A.C.S.|MEun,BEREKET|Marita,FACS, Encounter Diagnosis: Problem not documented On 09:30 Appointment; Chan Webb M.D.|F.A.C.S.|Marita,BEREKET|Marita,BEREKET, Encounter Diagnosis: Problem not documented On 17:00 Appointment; Elijah Dang D.O. Encounter Diagnosis: Problem not documented On 10:25 Appointment; Carlos Neville M.D. Encounter Diagnosis: Problem not documented On 07-Aug-2015 13:30 Appointment; Chan Webb M.D.|Logan.A.C.S.|Marita,BEREKET|Marita,BEREKET, Encounter Diagnosis: Problem not documented On 05-Aug-2015 17:00 Appointment; Carlos Neville M.D. Encounter Diagnosis: Problem not documented On 10-Jul-2015 13:00 Appointment; Chan Webb M.D.|Logan.Nataly.C.S.|Marita,BEREKET|Marita,BEREKET, Encounter Diagnosis: Problem not documented On 08-Jul-2015 13:30 Appointment; Carlos Neville M.D. Encounter Diagnosis: Problem not documented On 17-Jun-2015 13:00 Appointment; Javi Lucero M.D. Encounter Diagnosis: Problem not documented On 11-Jun-2015 13:30 Appointment; Chan Webb M.D.|Logan.Nataly.C.S.|Marita,JOHANNE,BEREKET, Encounter Diagnosis: Problem not documented On 11-Jun-2015 [...] documented On 28-Feb-2015 07:15 Appointment; Chan Webb M.D.|F.A.C.S.|M.D.,BEREKET|Marita,FACS, Encounter Diagnosis: Problem not documented On 29-Jan-2015 16:45 Appointment; Carlos Neville M.D. Encounter Diagnosis: Problem not documented On 07-Jan-2015 13:30 Appointment; Chan Webb M.D.|F.A.C.S.|MEun,BEREKET|Marita,FACS, Encounter Diagnosis: Problem not documented On 25-Dec-2014 07:00 Appointment; Andreia Paredes P.A. Encounter Diagnosis: Problem not documented On 04-Dec-2014 11:30 Appointment; Chan Webb M.D.|F.A.C.S.|MAkhilDAkhil,BEREKET|MEun,FACS, Encounter Diagnosis: Problem not documented On 23-Nov-2014 [...] documented On 21-May-2014 13:45 Appointment; Chan Webb M.D.|F.Nataly.C.S.|Marita,BEREKET|Marita,BEREKET, Encounter Diagnosis: Problem not documented On 17-May-2014 [...]
--- OUTSIDE RECORDS SUMMARY | 2016-07-01 17:40 | XMS REPORT ---
Author Author [facility] Organization Unknown Address Unknown Phone Unavailable Care Team Providers Care Cnc Operator Programmer Name Role Phone UNASSIGNED DOCTOR , DOCTOR PP [phone] Reason For Visit Chief Complaint LT LOWER [...] /LPF) *BACTERIA MODERATE /HPF A (NEGATIVE /HPF) Microbiology from 06/11/2016 4:10 PM* CULTURE URINE Specimen Number: [id number] Sample Collection Date/Time: 06/11/2016 4:10 PM Specimen Source: Urine Clean Catch CULTURE URINE: Pseudomonas aeruginosa 50,000-100,000 cfu/ml *ISOLATE1: Pseudomonas aeruginosa 1 Comment Result Value Pseudomonas aeruginosa Result Status Final Result Cefepime =2 S Ceftazidime =4 S Gentamicin =8 I Levofloxacin =2 S Meropenem <=0.25 S Piperacillin/tazobactam <=4 S Tobramycin <=1 S Problems Encounter Diagnosis No relevant problems [...] of Care Procedures * Completed Procedure Code: 3241728 Procedure Name: not valued, on 03/31/2016 12: 00 AM * Completed Procedure Code: 8559084 Procedure Name: not valued, on 03/24/2016 12:00 AM * Completed Procedure Code: 0M3401M Procedure Name: not valued, on 12/30/2015 12 :00 AM * Completed Screening Colonoscopy, by MD KENA BRIDGESBHAKAR, on 09/23/2015 8:34 AM * Completed Procedure Code: 57205 Procedure Name: not valued, on 09/23/2015 12: 00 AM * Completed suprapubic catheter insertion, by MD REZA LERMA, on 2013 11:01 AM * Completed Procedure Code: 42713 Procedure Name: not valued, on 02/08/2014 12: 00 AM * Completed , on 10/21/2012 12:00 AM * Completed , on 10/21/2012 12:00 AM Immunizations * Influenza, seasonal, injectable (Fanium PHARM, Lot # [id number]); Administered 12/29 2:10 PM; 1 DOSE=0.5 ML, INTRAMUSCL Hospital Course Hospital Discharge Instructions Allergies, Adverse Reactions, Alerts * Seroquel causes [...]
--- OUTSIDE RECORDS SUMMARY | 2016-07-01 17:40 | XMS REPORT | Summary of Care ---
Author Author Carlos Neville M.D. Organization Unknown Address [address], [place] [id number] Phone Unavailable Care Team Providers Care Medical Lab Director Name Role Phone Jon Kirkland, FACS, ,, M Unavailable Unavailable Mena Kirkland, Ritesh Unavailable Unavailable Kelin Kirkland, Nataly Unavailable Unavailable Lena Fountain, Andreia Unavailable Unavailable Nic Kirkland, G Unavailable Unavailable Paresh Kirkland, T Unavailable Unavailable Carlos Neville PP Unavailable [facility] ([place]) Unavailable Unavailable Unavailable Functional Status Functional Status [...] on:15-Mar-2013 Flulaval Quadrivalent Intramuscular Suspension Lot #: [id number] Administered on:26-Dec-2013 Zostavax 27629 UNT/0.65ML Subcutaneous Solution Reconstituted Lot #: [id number] Administered on:26-Dec-2013 Prevnar 13 Intramuscular Suspension Lot #: [id number] Administered on:21-May-2014 Tdap (Adacel) Lot #: [id number] Administered on:07-Aug-2015 Family History Mother* Name Dates [...] ml/min (Better) Range: >60 EST GFR, NON-AFR BULGARIAN >60 ml/min (Better) Range: >60 Comments: EST GFR is reported in ml/min per 1.73 m2 of body surface area. For -Guyanese, please multiple result by 1.2.----- GLUCOSE 99 [...] Problem not documented On 11-Jun-2015 13:30 Appointment; Cahn Webb Encounter Diagnosis: Problem not [...]
--- OUTSIDE RECORDS SUMMARY | 2016-07-01 17:40 | XMS REPORT ---
Author Author GENERATED, SYSTEM Organization Unknown Address Unknown Phone Unavailable Care Team Providers Care Reliner Name Role Phone MD MIKAYLA BHAKTI PP [phone] Reason For Visit Chief Complaint LT LOWER [...] of Care Procedures * Completed Procedure Code: [id number] Procedure Name: not valued, on 03/24/2016 12:00 AM * Completed Procedure Code: [id number] Procedure Name: not valued, on 12/30/2015 12 :00 AM * Completed Screening Colonoscopy, by MD FERNIE BRIDGES, on 09/23/2015 8:34 AM * Completed Procedure Code: 08094 Procedure Name: not valued, on 09/23/2015 12: 00 AM * Completed suprapubic catheter insertion, by MD REZA LERMA, on 2013 11:01 AM * Completed Procedure Code: 38807 Procedure Name: not valued, on 02/08/2014 12: 00 AM * Completed , on 10/21/2012 12:00 AM * Completed , on 10/21/2012 12:00 AM Immunizations * Influenza, seasonal, injectable (Reelation PHARM, Lot # [id number]); Administered 12/29 2:10 [...]
[2016-07-01] MEDS ORDERED: PROP10TA10 PO (17:41)
--- OUTSIDE RECORDS SUMMARY | 2016-07-01 17:41 | XMS REPORT | Summary of Care ---
Author Author Kelin Kirkland, Carlos Ingram Organization Unknown Address [address], [place] [id number] Phone Unavailable Care Team Providers Care Mission Worker Name Role Phone Jon Kirkland, FACS, ,, M Unavailable Unavailable Mena Kirkland, Ritesh Unavailable Unavailable Kelin Kirkland, A Unavailable Unavailable Lena Fountain, Andreia Unavailable Unavailable Nixon Kirkland, Lance Unavailable Unavailable Nic Kirkland, G Unavailable Unavailable Paresh Kirkland, T Unavailable Unavailable Carlos Neville PP Unavailable [facility] ([place]) Unavailable Unavailable Unavailable Functional Status Functional [...] Refills: 0 Lance Alicea M.D.* Started 19-Aug-2015 [id number] ML Bottle PEG 3350/Electrolytes 240 GM Oral Solution Reconstituted TAKE DIRECTED. * Quantity: 1 Refills: 0 Lance Alicea M.D.* Started [id number] ML Bottle Simethicone 40 MG/0.6ML Oral Suspension TAKE DIRECTED. * Quantity: 1 Refills: 0 Lance Alicea M.D.* Started Yhikkt66 ML Bottle Allergies and Adverse Reactions Name [...] on:15-Mar-2013 Flulaval Quadrivalent Intramuscular Suspension Lot #: [id number] Administered on:26-Dec-2013 Zostavax 54392 UNT/0.65ML Subcutaneous Solution Reconstituted Lot #: [id number] Administered on:26-Dec-2013 Prevnar 13 Intramuscular Suspension Lot #: [id number] Administered on:21-May-2014 Tdap (Adacel) Lot #: [id number] Administered on:07-Aug-2015 Family History Mother* Name Dates [...] ml/min (Better) Range: >60 EST GFR, NON-AFR CENTRAL AFRICAN >60 ml/min (Better) Range: >60 Comments: EST GFR is reported in ml/min per 1.73 m2 of body surface area. For -Marshallese, please multiple result by 1.2.----- GLUCOSE 177 [...] ml/min (Better) Range: >60 EST GFR, NON-AFR CENTRAL AFRICAN >60 ml/min (Better) Range: >60 Comments: EST GFR is reported in ml/min per 1.73 m2 of body surface area. For -Marshallese, please multiple result by 1.2.----- GLUCOSE 103 [...] 13:30 * Appointment; Provider: Carlos Neville On 10-Feb-2016 13:00 * Appointment; Provider: Chan Webb On 10:45 [...] Neville Encounter Diagnosis: Problem not documented On 14:00 Appointment; Chan Webb Encounter Diagnosis: Problem not documented On 09:30 Appointment; Chan Webb Encounter Diagnosis: Problem not documented On 17:00 Appointment; Elijah Dang Encounter Diagnosis: Problem not documented On 10:25 Appointment; Calros Neville Encounter Diagnosis: Problem not documented On [...] not documented On 28-Feb-2015 07:15 Appointment; Chan Wbeb Encounter Diagnosis: Problem not documented On 29-Jan-2015 [...]
--- OUTSIDE RECORDS SUMMARY | 2016-07-01 17:41 | XMS REPORT | Summary of Care ---
Author Author Nic Kirkland, Javi Harrison Unknown Address [address], [place] [id number] Phone Unavailable Care Team Providers Care Auto Mechanic Supervisor Name Role Phone Jon Kirkland, FACS, ,, M Unavailable Unavailable Mena Kirkland, Ritesh Unavailable Unavailable Kelin Kirkland, A Unavailable Unavailable Lena Fountain, Andreia Unavailable Unavailable Nic Kirkland, Henry Unavailable Unavailable Paresh Kirkland, T Unavailable Unavailable Carlos Neville PP Unavailable [facility] ([place]) RP Unavailable Unavailable Unavailable Functional Status Functional [...] on:15-Mar-2013 Flulaval Quadrivalent Intramuscular Suspension Lot #: [id number] Administered on:26-Dec-2013 Zostavax 97612 UNT/0.65ML Subcutaneous Solution Reconstituted Lot #: [id number] Administered on:26-Dec-2013 Prevnar 13 Intramuscular Suspension Lot #: [id number] Administered on:21-May-2014 Family History Mother* Name Dates [...] ml/min (Better) Range: >60 EST GFR, NON-AFR BARBADIAN >60 ml/min (Better) Range: >60 Comments: EST GFR is reported in ml/min per 1.73 m2 of body surface area. For -Kenyan, please multiple result by 1.2.----- GLUCOSE 110 [...]
--- OUTSIDE RECORDS SUMMARY | 2016-07-01 17:41 | XMS REPORT ---
Author Author GENERATED, SYSTEM Organization Unknown Address Unknown Phone Unavailable Care Team Providers Care Satellite Project Site Monitor Name Role Phone MD BRYSON, RUDI PP [phone] Reason For Visit Chief Complaint BACK PAIN [...] 2013 11:01 AM * Completed Procedure Code: 67640 Procedure Name: not valued, on 02/08/2014 12: [...]
--- OUTSIDE RECORDS SUMMARY | 2016-07-01 17:42 | XMS REPORT | Summary of Care ---
Author Author Nic Kirkland, Javi Figueroa Organization Unknown Address [address], [place] [id number] Phone Unavailable Care Team Providers Care Parts Picker Name Role Phone Jon Kirkland, BEREKET, ,, M Unavailable Unavailable Mena Kirkland, Ritesh Unavailable Unavailable Andreia Castellano Unavailable Unavailable Nic Kirkland, G Unavailable Unavailable [...] Heartburn Frequently (Weekly / Daily) Status: Active Constipation (564.00, K59.00) Status: Active Anemia (285.9, D64.9) Status: Active Meningitis (322.9, G03.9) Status: Active Shortness of breath (786.05, R06.02) Status: Active Hyperlipidemia (272.4, E78.5) Status: Active Deep vein thrombosis of lower extremity (453.40, I82.409) Status: Active Hypothyroidism (244.9, E03.9) Status: Active Latex allergy, contact dermatitis (692.4, L25.3) Status: Active CHF (congestive heart failure) (428.0, I50.9) Status: Active Esophageal reflux (530.81, K21.9) Status: Active BPH (benign prostatic hyperplasia) (600.00, N40.0) Status: Active Insomnia (780.52, G47.00) Status: Active Left knee pain (719.46, M25.562) Status: Active Spinal cord stimulator status (V45.89, Z98.89) Status: Active Cognitive impairment (294.9, R41.89) Status: Active DVT (deep venous thrombosis) (453.40, I82.409) Status: Active Edema (782.3, R60.9) Status: Active Pre-operative exam (V72.84, Z01.818) Status: Active Depression (311, F32.9) Status: Active Urinary retention (788.20, R33.9) Status: Active Chronic pain (338.29, G89.29) Status: Active Cough (786.2, R05) Status: Active Respiratory tract infection (519.8, J98.8) Status: Active Affective bipolar disorder (296.80, F31.9) Status: Active Anticoagulant long-term use (V58.61, Z79.01) Status: Active Hypertension (401.9, I10) Status: Active Neurogenic bladder (596.54, N31.9) Status: Active Pain, low back (724.2, M54.5) Status: Active Medications Name Dates Details Levothyroxine Sodium 50 MCG Oral Tablet take one tablet by mouth every day Quantity: 1 Ritesh San M.D.* Started 20-Dec-2012 Afrzbd84 Tablet Bottle Divalproex Sodium ER 500 MG Oral Tablet Extended Release 24 Hour TAKE TWO TABLETS BY MOUTH EVERY DAY * Quantity: 60 Refills: 2 Ritesh San M.D.* Started 20-Dec-2012 ActiveTamsulosin HCl - 0.4 MG Oral Capsule TAKE ONE CAPSULE BY MOUTH EVERY DAY * Quantity: 30 Refills: 2 Ritesh San M.D.* Started 20-Dec-2012 ActiveAtorvastatin Calcium 20 MG Oral Tablet take one tablet by mouth every day * Quantity: 30 Refills: 10 Ritesh San M.D.* Started 20-Dec-2012 ActiveHYDROmorphone HCl - 4 MG Oral Tablet Si PO every 6-8 hours prn with a max of 3 per day.Script must last 30 days. May fill on or after 05/23/14.Managed by Dr. Lucero. * Quantity: 90 Refills: 0 Andreia Paredes* Started 01-Feb-2013 ActiveKlor-Con M20 20 MEQ Oral Tablet Extended Release TAKE 1 TABLET DAILY. * Quantity: 30 Refills: 11 Ritesh San M.D.* Started 15-Mar-2013 ActiveZolpidem Tartrate ER 12.5 MG Oral Tablet Extended Release TAKE ONE TABLET BY MOUTH EVERY NIGHT AT BEDTIME NEEDED FOR SLEEP * Quantity: 30 Refills: 0 Ritesh San M.D.* Started 15-Mar-2013 ActiveGabapentin 300 MG Oral Capsule TAKE TWO CAPSULES BY MOUTH THREE TIMES A DAY * Quantity: 180 Refills: 2 Ritesh San M.D.* Started 03-May-2013 ActiveFurosemide 80 MG Oral Tablet Take 1 tablet twice daily * Quantity: 60 Refills: 11 Ritesh San M.D.* Started 19-Jun-2013 ActiveXarelto 20 MG Oral Tablet take one tablet by mouth every day * Quantity: 30 Refills: 2 Ritesh San M.D.* Started ActiveZostavax 58863 UNT/0.65ML Subcutaneous Solution Reconstituted INJECT 1 ML Once * Quantity: 1 Refills: 0 Ritesh San M.D.* Started 26-Dec-2013 ActiveMorphine Sulfate ER 15 MG Oral Tablet Extended Release Si PO every 12 hours with a max of 2 per day. Script must last 30 days. Fill on or after 05/23/14Managed by Dr. Lucero. * Quantity: 60 Refills: 0 Andreia Paredes* Started 15-Jan-2014 ActiveBaclofen 20 MG Oral Tablet TAKE ONE TABLET BY MOUTH THREE TIMES A DAY NEEDED * Quantity: 90 Refills: 0 Javi Lucero M.D.* Started 13-Feb-2014 ActivePrevacid 30 MG Oral Capsule Delayed Release TAKE 1 CAPSULE DAILY. * Refills: 0 Calos Yoder M.D.* Started 20-Feb-2014 ActiveAmitiza 24 MCG Oral Capsule TAKE 1 CAPSULE TWICE DAILY WITH FOOD. * Quantity: 60 Refills: 6 Calos Yoder M.D.* Started 20-Feb-2014 ActiveMethenamine Hippurate 1 GM Oral Tablet TAKE 1 TABLET TWICE DAILY. * Quantity: 180 Refills: 3 Chan Webb M.D., BEREKET, , * Started 10-Apr-2014 ActiveVitamin C 500 MG Oral Tablet TAKE 1 TABLET 3 times daily * Quantity: 270 Refills: 3 Chan Webb M.D., BEREKET, , * Started 10-Apr-2014 ActiveTamiflu 75 MG Oral Capsule Take 1 capsule twice daily * Quantity: 10 Refills: 0 Ritesh San M.D.* Started 03-May-2014 ActiveMucinex 600 MG Oral Tablet Extended Release 12 Hour TAKE 1 TABLET TWICE DAILY. * Quantity: 1 Refills: 6 Ritesh San M.D.* Started 03-May-2014 Dzoddr03 Tablet Extended Release 12 Hour Bottle Levofloxacin 500 MG Oral Tablet Take 1 tablet daily * Quantity: 5 Refills: 0 Ritesh San M.D.* Started 03-May-2014 ActiveEscitalopram Oxalate 10 MG Oral Tablet TAKE 1 TABLET DAILY. * Quantity: 90 Refills: 0 Ritesh San M.D.* Started 04-May-2014 Active Allergies and Adverse Reactions Name Dates [...] of Laminectomy, Excision Intradural Intraspinal Lesion Sacral RENAL PROFILE 1240 Ordered:04-May-2014 CBC w/ Auto Diff 7150 Ordered:21-May-2014 Comprehensive Metabolic Panel 1212 Ordered:21-May-2014 MAGNESIUM 1260 Ordered:21-May-2014 Immunization Name Dates Details Pneumo (Pneumovax) Administered on:15-Mar-2013 Flulaval Quadrivalent Intramuscular Suspension Lot #: [id number] Administered on:26-Dec-2013 Zostavax 01220 UNT/0.65ML Subcutaneous Solution Reconstituted Lot #: [id number] Administered on:26-Dec-2013 Prevnar 13 Intramuscular Suspension Lot #: [id number] Administered on:21-May-2014 Family History Mother* Name Dates Details Family history of malignant neoplasm of breast (V16.3, Z80.3) Status: Active Father* Name Dates Details Family history of acute myocardial infarction (V17.3, Z82.49) Status: Active Family history of Prostate cancer (185, C61) Status: Active Social History Name Dates Details Smoking Status* Former smoker Vital Signs Date Test Result Details 21-May-2014 14:21 BP Systolic 122 mm[Hg] Status: BP Diastolic 80 mm[Hg] Status: Heart Rate 82 /min Status: Temperature 97.9 f Status: Weight 249.9 lb Status: O2 SAT 98 % Status: 03-May-2014 14:03 BP Systolic 100 mm[Hg] Status: BP Diastolic 70 mm[Hg] Status: Heart Rate 87 /min Status: Temperature 97.5 f Status: O2 SAT 96 % Status: Results Date Description Value Details 03-May-2014 14:07 INFLUENZA A/B ANTIGEN 5320 Comments: *Negative results do not exclude Influenza viral infection and could be confirmed with viral culture or Influenza molecular assays. Physician order would be required.* Testing performed by [facility], [address] [place] [address] *INFLUENZA A/B ANTIGEN Negative (Better) Range: Negative 14:57 CBC w/ Auto Diff 7150 WBC 4.7 K/uL (Better) Range: 4.5-11.0 RBC 4.87 mil/uL (Better) Range: 4.20-5.40 HGB 14.6 g/dL (Better) Range: 14.0-18.0 HCT 43.3 % (Better) Range: 42.0-53.0 MCV 89.0 fL (Better) Range: 80.0-99.0 MCH 29.9 pg (Better) Range: 27.3-32.5 MCHC 33.6 % (Better) Range: 32.0-36.0 RDW 13.8 % (Better) Range: 11.6-14.8 PLATELETS 252 K/uL (Better) Range: 150-400 MPV 8.2 fL (Better) Range: 6.0-11.0 %NEUTRO 63.7 % (Better) Range: 37.0-80.0 %LYMPHS 24.1 % (Better) Range: 13.0-50.0 %MONO 6.8 % (Better) Range: 0.0-12.0 %EOS 3.5 % (Better) Range: 0.0-7.0 %BASO 0.6 % (Better) Range: 0.0-2.5 %ENDY 1.4 % (Better) Range: 0.0-5.0 NEUTRO 3.0 K/uL (Better) Range: 2.0-6.9 LYMPHS 1.1 K/uL (Better) Range: 0.6-3.4 MONOS 0.3 K/uL (Better) Range: 0.0-0.9 EOS 0.2 K/uL (Better) Range: 0.0-0.7 BASO 0.0 K/uL (Better) Range: 0.0-0.2 15:09 XRay CHEST-PA & LAT Comments: Exam Date: 14:24Dictation Date: 15:09 X CHEST PA & LAT (Better) 15:21 Comprehensive Metabolic Panel 1212 Comments: Critical result called to Jodie by Yojana Cox on 05/03/2014 at 3:26 PM (K) SODIUM 138 mmol/L (Better) Range: 133-144 POTASSIUM 2.6 mmol/L (Low alert) Range: 3.5-5.1 Comments: Critical result called to Jodie by Yojana Cox on 05/03/2014 at 3:26 PMVerified by Repeat Analysis----- CHLORIDE 95 mmol/L (Below low threshold) Range: 98-110 CARBON DIOXIDE 33.2 mmol/L (Above high threshold) Range: 23.0-33.0 ANION GAP 10 mmol/L (Better) Range: 6-16 BUN 8 mg/dL (Better) Range: 7-18 CREATININE, SERUM 0.85 mg/dL (Better) Range: 0.43-1.13 BUN:CREATININE RATIO 9 (Better) EST GFR, >60 ml/min (Better) Range: >60 EST GFR, NON-AFR [place] >60 ml/min (Better) Range: >60 Comments: EST GFR is reported in ml/min per 1.73 m2 of body surface area. For -Wallisian, please multiple result by 1.2.----- GLUCOSE 143 mg/dL (Above high threshold) Range: 70-100 ALK PHOSPHATASE 86 U/L (Better) Range: 46-116 Comments: Please Note: New Reference Range effective 2013.----- TOTAL BILIRUBIN 0.70 mg/dL (Better) Range: 0.20-1.00 AST 10 U/L (Better) Range: 8-35 ALT 17 U/L (Better) Range: 12-78 ALBUMIN 3.4 g/dL (Better) Range: 3.4-5.0 TOTAL PROTEIN 7.2 g/dL (Better) Range: 6.4-8.2 A/G RATIO 0.9 units (Below low threshold) Range: 1.0-1.8 CALCIUM 8.7 mg/dL (Better) Range: 8.5-10.1 Plan of Care Planned Observations* Name Dates Details Planned Goals not documented Goal Planned Encounters* Appointment; Provider: Chan Webb On 12:45 * Appointment; Provider: Carlos Neville On 29-Jun-2014 13:15 * Appointment; Provider: Chan Webb On 21-Jun-2014 07:15 * Appointment; Provider: Carlos Neville On 19-Jun-2014 14:00 * Appointment; Provider: Andreia Paredes On 05-Jun-2014 10:15 * Appointment; Provider: Chan Webb On 08-Feb-2014 [...] Diagnosis: Problem not documented On 07-Mar-2013 10:00 Appointment; Zack Paredes Encounter Diagnosis: Problem not documented On 22-Feb-2013 10:15 Appointment; Ritesh San Encounter Diagnosis: Problem not documented On 13-Feb-2013 13:45 Appointment; Ritesh San Encounter Diagnosis: Problem not documented On 01-Feb-2013 09:30 Appointment; Ritesh San Encounter Diagnosis: Problem not documented On 27-Dec-2012 15:30 Appointment; Ritesh San Encounter Diagnosis: Problem not documented On 20-Dec-2012 14:15
--- OUTSIDE RECORDS SUMMARY | 2016-07-01 17:42 | XMS REPORT | Summary of Care ---
Author Author eKlin Kirkland, Carlos Ingram Organization Unknown Address [address], [place] [id number] Phone Unavailable Care Team Providers Care Sheet Roller Operator Name Role Phone Musa Webb Unavailable Unavailable Archana Stein PA-C Unavailable Unavailable Mena Kirkland, Ritesh Unavailable Unavailable Kelin Kirkland, Nataly Unavailable Unavailable Nixon Kirkland, Lance Unavailable Unavailable Nic Kirkland, G Unavailable Unavailable Paresh Kirkland, T Unavailable Unavailable Carlos Neville Unavailable Unavailable [facility] ([place]) Unavailable Unavailable Unavailable Unavailable Functional Status Name [...] 15-Mar-2013 Flulaval Quadrivalent Intramuscular Suspension Lot #: [id number] on: 26-Dec-2013 Zostavax 08438 UNT/0.65ML Subcutaneous Solution Reconstituted Lot #: [id number] on: 26-Dec-2013 Prevnar 13 Intramuscular Suspension Lot #: [id number] on: 21-May-2014 Tdap (Adacel) Lot #: [id number] on: 07-Aug-2015 Family History Name Dates Details [...] not documented On 25-Dec-2014 07:00 Appointment; Andreia Pareeds, PAkhilAAkhil Encounter Diagnosis: Problem not documented On 04-Dec-2014 11:30 Appointment; Chan Webb M.D.,BEREKET, Encounter Diagnosis: Problem not documented On 23-Nov-2014 17:15 Appointment; Chan Webb M.D., FACS, Encounter Diagnosis: Problem not documented On 12:45 Appointment; Carlos Neville M.D. Encounter Diagnosis: Problem not documented On 14:45 Appointment; Chan Webb M.D., FACS, Encounter Diagnosis: Problem not documented On 07:15 Appointment; Andreia Paredes PkAhilAAkhil Encounter Diagnosis: Problem not documented On 13:15 [...]
--- OUTSIDE RECORDS SUMMARY | 2016-07-01 17:45 | XMS REPORT ---
Author Author GENERATED, SYSTEM Organization Unknown Address Unknown Phone Unavailable Care Team Providers Care Plant Operations Worker Name Role Phone MD BRYSON, RUDI DAVID [phone] Reason For Visit Reason for Visit from [...] 12:41 PM:* #1 Office appointment: : Dr. Lemra * #1 Date/Time : 03/20/2014 1:00 PM * Address # 1 : [facility]: [facility] [address], [place], [place]- or Procedures * Completed suprapubic catheter [...]
--- OUTSIDE RECORDS SUMMARY | 2016-07-01 17:45 | XMS REPORT | Continuity of Care Document ---
Author Author [facility] Organization [facility] Address Unknown Phone Unavailable Allergies Active Description Code Type Severity Reaction Onset Reported/Identified Relationship to Patient Clinical Status Yes NKA Drug Allergy N/A N/A Yes KEFLEX 36264 Skin Rashes/Hives 09/19/2012 Yes NOVOCAIN 23439 3 cardiac arrest 09/19/2012 Yes Keflex Drug Allergy Moderate Urticaria (hives) 09/29/2012 Yes No Known Food Allergies Food Allergy N/A N/A 09/29/2012 Yes Novocain Drug Allergy Severe Anaphylaxis 09/29/2012 Yes LATEX 76105 3 Skin Rashes/Hives 06/01/2013 Yes NYSTATIN 66697 2 Skin Rashes/Hives 06/01/2013 Yes ABILIFY 98105 TREMORS 12/25/2015 Yes ASA 38981 2 CONTRAINDICATED WITH XARELTO 12/25/2015 Yes BACTRIM 64601 3 Skin Rashes/Hives 12/25/2015 Yes DOXYCYCLINE 82145 3 Skin Rashes/Hives 12/25/2015 Yes IBUPROFEN 11400 2 CONTRAINDICATED WITH XARELTO 12/25/2015 Yes PAXIL 06065 3 TREMORS 12/25/2015 Yes ZITHROMAX 36485 3 Skin Rashes/Hives 12/25/2015 Yes ZOLOFT 96943 3 TREMORS 12/25/2015 Medications Medication Packaging Start [...] 100ML/HR BISACODYL 10MG SUPPOS. SUP 01/02/2016 01/01/2017 MN* PRN LORazepam 0.5MG TABLET TAB 01/02/2016 01/01/2017 PO Q4HPRN FAMOTIDINE 20 MG TABLET TAB 01/02/2016 01/01/2017 PO BIDPRNN BISACODYL 5MG TABLET TAB 01/02/2016 01/01/2017 PO PRN METOCLOPRAMIDE 10MG/2ML INJ VL 01/02/2016 01/01/2017 IVP [id number] SODIUM CHLORIDE 0.9% 10ML FLUSH SYRINGE SYR 01/02/20162016 IVP PRN SODIUM CHLORIDE 0.9% 5ML FLUSH SYRINGE SYR 01/02/20162016 IVP PRN CEPACOL (BENZOCAINE/MENTHOL) LOZENGE LORRAINE 01/02/2016 01/02/2016 BC Q4HPRN diphenhydrAMINE 50MG/1ML INJ VL 01/02/2016 01/01/2017 IVP Q6HPRN ACETAMINOPHEN 325MG TABLET TAB 01/02/2016 01/01/2017 PO Q4HPRN PHENOL 1.4% THROAT SPRAY [118ML] EA 01/02/2016 01/01/2017 PO PRN hydroMORPHONE 2MG/1ML INJ ML 01/02/2016 01/01/2017 IV [id number] * Ready to Reconcile EA 01/02/2016 01/02/2016 [...] Final 599.0 URINARY TRACT INF NOS 09/29/2012 Javi Cox MD Final 788.20 RETENTION OF URINE [...] TORRES DF 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 01/03/2016 OCHOA TORRES DF I87.8 Other specified disorders of veins 01/03/2016 OCHOA TORRES DF K21.9 Gastro-esophageal reflux disease without 01/03/2016 OCHOA TORRES DF Z45.42 Encounter for adjustment and management 01/03/2016 OCHOA TORRES DF Z68.41 Body mass index (BMI) 40.0-44.9, adult Procedures Code Description Performed By Performed On SPINAL STRUCT REPAIR NEC Javi Cox MD 10/02/2012 03.02 REOPEN LAMINECTOMY SITE Javi Cox MD 10/11/2012 62829 02/20/2015 05091 02/20/2015 06928 02/20/2015 95697 02/20/2015 87743 02/20/2015 42697 02/20/2015 81998 02/20/2015 A9270 02/20/2015 A9270 02/21/2015 [id number] Insertion of Single Array Stimulator Gen OCHOA TORRES Rene 01/02/2016 [id number] Removal of Stimulator Generator from Isai TORRES [...] Status Pt. Type Provider Facility Loc./Unit Complaint [id number] 03/11/2012 00:00:00 2011 00:00:00 JESU Brenner MD [facility] JUAN A [id number] 01/13/2012 00:00:00 2011 00:00:00 JESU Brenner MD [facility] JUAN A
--- OUTSIDE RECORDS SUMMARY | 2016-07-01 17:46 | XMS REPORT ---
Author Author GENERATED, SYSTEM Organization Unknown Address Unknown Phone Unavailable Care Team Providers Care Bark Scaler Name Role Phone MD BRYSON, RUDI [phone] Reason For Visit Reason for Visit from [...] MG/DL (65-99 MG/DL) GFR EST NON AFR [place] >90 ML/MIN GFRA EST AFR AMER >90 [...] MG/DL (65-99 MG/DL) GFR EST NON AFR [place] >90 ML/MIN GFRA EST AFR AMER >90 [...] PM* CULTURE URINE (Preliminary Result) Specimen Number: [id number] Sample Collection Date/Time: 02/21/2014 10:00 PM Specimen [...] * Completed suprapubic catheter insertion, by MD REAZ LERMA on 2013 11:01 AM * Completed [...] the responsibility of the patient or patient route sales representative to confirm the list of [...] TO AREA AND LET DRY * cranberry doof-R-faryhevm coag (Azo Cranberry + Probiotic) 250 mg-30 [...] rivaroxaban (Xarelto) 20 mg Tablet, Ordered By: SIERAR MISHRA RN Directions: 1 tablet oral daily [...]
--- OUTSIDE RECORDS SUMMARY | 2016-07-01 17:47 | XMS REPORT ---
Author Author GENERATED, SYSTEM Organization Unknown Address Unknown Phone Unavailable Care Team Providers Care Production Controller Name Role Phone MD NEVILLE TIMOTHY [phone] Reason For Visit Reason for Visit from [...] MG/DL (65-99 MG/DL) *GFR EST NON AFR COLOMBIAN >90 ML/MIN *GFR EST AFR AMER >90 [...] MG/DL (65-99 MG/DL) *GFR EST NON AFR COLOMBIAN 80 ML/MIN *GFR EST AFR AMER >90 [...] MG/DL (65-99 MG/DL) *GFR EST NON AFR COLOMBIAN 90 ML/MIN *GFR EST AFR AMER >90 [...] MG/DL (65-99 MG/DL) *GFR EST NON AFR COLOMBIAN >90 ML/MIN *GFR EST AFR AMER >90 [...] H (65-99 MG/DL) *GFR EST NON AFR COLOMBIAN >90 ML/MIN *GFR EST AFR AMER >90 [...] Dr Neville * Address # 1 : [facility]: [facility] [address]- [phone] or * #2 Office appointment: : Dr Simmons Treatment Plan from 12/30/2015 12:15 PM:* Care Management Note : still have yet to get [place] orders back. 2nd message left for Dr Neville. Treatment Plan from 12/30/2015 10:45 AM:* Care Management Note : Patient scheduled discharge today to [facility] in [place]. Patient and his spouse aware of discharge plan and spouse plans to provide transportation when patient is able to discharge. MANISH phoned and spoke with Tari at [facility] who also in aware of discharge and gave MANISH a fax number of [phone] which was relayed to ammunition components inspector. No other needs or concerns at this time. Patient is a high risk for hospital readmit. Treatment Plan from 12/30/2015 9:53 AM:* Care Management Note : Dr Neville is discharging back to the [place]. Elizabeth FUNES stopped IV antibiotics. [place] orders faxed to Dr Neville's office and [...] spouse per phone call regarding options for skilled nursing placement. Plan at this time would be for patient to return to [facility] as that is where patient is from currently. Spouse requested that SW look for placement closer to [place] as the distance was wearing on them both. SW phoned all facilities in [facility], [facility], [facility] and received a no response from them. SW made multiple calls to [facility] with no call back. Spouse aware of situation and will continue with plan at this time for patient to return to [place] at discharge. Contact information remains in room, [...] stated that he was a resident at [facility] and he plans to return there at discharge. SW phoned [facility] and spoke with Tair Greene who stated they anticipated being able [...] 09/23/2015 8:34 AM * Completed Procedure Code: 91650 Procedure Name: not valued, on 09/23/2015 12: 00 AM * Completed suprapubic catheter insertion, by MD REZA LERMA, on 2013 11:01 AM * Completed Procedure Code: 93758 Procedure Name: not valued, on 02/08/2014 12: 00 AM * Completed , on 10/21/2012 12:00 AM * Completed , on 10/21/2012 12:00 AM Immunizations * INFLUEN VACC 2015-(GLAXO) (FLUARIX 2015-17 (GLAXO), [employer] PHARM, Lot # [id number]); Administered 12/30/2015 2:10 [...] the responsibility of the patient or patient eligibility services representative to confirm the list of medications [...] tablet oral daily with dinner Changed medications* ctgshzdn-bvjrwxxwnXq-vrhxaqvtK (Triple Antibiotic) 3.5 mg- 400 unit-5,000 unit/gram [...]
--- OUTSIDE RECORDS SUMMARY | 2016-07-01 17:47 | XMS REPORT ---
Author Author GENERATED, SYSTEM Organization Unknown Address Unknown Phone Unavailable Care Team Providers Care Structural Layout Worker Name Role Phone MD DEGROOT TIMOTHY [phone] Reason For Visit Chief Complaint LT LOWER LEG Social History Functional Status Vital Signs Results Microbiology from 03/18/2016 9:14 AM* CULTURE WOUND Specimen Number: [id number] Sample Collection Date/Time: 03/18/2016 9:14 AM Specimen [...] <=20 S * *GRAM STAIN Specimen Number: [id number] Sample Collection Date/Time: 03/18/2016 9:14 AM Specimen [...] of Care Procedures * Completed Procedure Code: [id number] Procedure Name: not valued, on 12/30/2015 12 :00 AM * Completed Screening Colonoscopy, by MD FERNIE BRIDGES, on 09/23/2015 8:34 AM * Completed Procedure Code: 26880 Procedure Name: not valued, on 09/23/2015 12: 00 AM * Completed suprapubic catheter insertion, by MD REZA LERMA on 2013 11:01 AM * Completed Procedure Code: 12671 Procedure Name: not valued, on 02/08/2014 12: 00 AM * Completed , on 10/21/2012 12:00 AM * Completed , on 10/21/2012 12:00 AM Immunizations * Influenza, seasonal, injectable ([employer] PHARM, Lot # [id number]); Administered 12/29 2:10 [...]
--- OUTSIDE RECORDS SUMMARY | 2016-07-01 17:47 | XMS REPORT ---
Author Author GENERATED, SYSTEM Organization Unknown Address Unknown Phone Unavailable Care Team Providers Care Truck Body Repairer Name Role Phone MD MIKAYLA BHAKTI PP [phone] Reason For Visit Chief Complaint PROBLEMS WITH [...] of Care Procedures * Completed Procedure Code: 3845651 Procedure Name: not valued, on 03/31/2016 12: 00 AM * Completed Procedure Code: 1979198 Procedure Name: not valued, on 03/24/2016 12:00 AM * Completed Procedure Code: 3S2177H Procedure Name: not valued, on 12/30/2015 12 :00 AM * Completed Screening Colonoscopy, by MD YULIANA FERNIE, on 09/23/2015 8:34 AM * Completed Procedure Code: 32876 Procedure Name: not valued, on 09/23/2015 12: 00 AM * Completed suprapubic catheter insertion, by MD REZA LERMA, on 2013 11:01 AM * Completed Procedure Code: 86891 Procedure Name: not valued, on 02/08/2014 12: [...]
--- OUTSIDE RECORDS SUMMARY | 2016-07-01 17:52 | XMS REPORT | Continuity of care Document ---
[...] performed. Results [facility] DATE OF EXAM: Jul 08 2013 3:08AM Proc: CT 0001 - CT CEREBRAL W/O CONTRAST CPT Code(s): 95239-; ; ; INDICATION / CLINICAL HISTORY: \E\Head [...] the head. CT Scan from 07/08/2013 3:35 [facility] SPINE LUMBAR W/O CONTRAST DATE OF EXAM: Jul 08 2013 4:25AM Proc: CT 0062 - CT SPINE LUMBAR W/O CONTRAST CPT Code(s): 21992-; ; ; INDICATION / CLINICAL HISTORY: Fall [...] CT SPINE THORACIC W/O CONTRAST CPT Code(s): 29045-; ; ; INDICATION / CLINICAL HISTORY: Fall [...] 0084 - PELVIS 1/2 VIEWS CPT Code(s): 94427-; ; ; INDICATION / CLINICAL HISTORY: Fall FINDINGS: There are postsurgical changes of bilateral hip arthroplasties, which appear intact. No acute fracture or dislocation is seen. There are also postsurgical changes of lumbosacral spinal fusion. IMPRESSION: 1. No evidence of acute fracture or dislocation. 2. Intact bilateral hip arthroplasty.
--- OUTSIDE RECORDS SUMMARY | 2016-07-01 17:52 | XMS REPORT ---
Author Author GENERATED, SYSTEM Organization Unknown Address Unknown Phone Unavailable Care Team Providers Care Systems Test Technician Name Role Phone MD NEVILLE TIMOTHY [phone] Reason For Visit Reason for Visit from [...] MG/DL (65-99 MG/DL) *GFR EST NON AFR CITIZEN [place] >90 ML/MIN *GFR EST AFR AMER >90 [...] MG/DL (65-99 MG/DL) *GFR EST NON AFR CITIZEN [place] 80 ML/MIN *GFR EST AFR AMER >90 [...] MG/DL (65-99 MG/DL) *GFR EST NON AFR CITIZEN [place] 90 ML/MIN *GFR EST AFR AMER >90 [...] MG/DL (65-99 MG/DL) *GFR EST NON AFR CITIZEN [place] >90 ML/MIN *GFR EST AFR AMER >90 [...] H (65-99 MG/DL) *GFR EST NON AFR CITIZEN [place] >90 ML/MIN *GFR EST AFR AMER >90 [...] spouse per phone call regarding options for senior living placement. Plan at this time would be for patient to return to [facility] as that is where patient is from currently. Spouse requested that SW look for placement closer to [place] as the distance was wearing on them both. MANISH phoned all facilities in [facility], [facility] and received a no response from them. MANISH made multiple calls to [facility] with no call back. Spouse aware of situation and will continue with plan at this time for patient to return to [place] at discharge. Contact information remains in room, [...] stated that he was a resident at [facility] and he plans to return there at discharge. MANISH phoned [facility] and spoke with Tari Greene who stated [...] 09/23/2015 8:34 AM * Completed Procedure Code: 38765 Procedure Name: not valued, on 09/23/2015 12: 00 AM * Completed suprapubic catheter insertion, by MD REZA LERMA, on 2013 11:01 AM * Completed Procedure Code: 48891 Procedure Name: not valued, on 02/08/2014 12: [...] of the patient or patient entry level sales representative to confirm the list of [...] tablet oral daily with dinner Changed medications* umnqawpp-dftrcjlnmXx-dlevirivA (Triple Antibiotic) 3.5 mg- 400 unit-5,000 unit/gram [...]
--- OUTSIDE RECORDS SUMMARY | 2016-07-01 17:53 | XMS REPORT ---
Author Author GENERATED, SYSTEM Organization Unknown Address Unknown Phone Unavailable Care Team Providers Care Vortex Operator Name Role Phone MD BRYSON, RUDI PP [phone] Reason For Visit Chief Complaint DISLODGED CATHETER [...]
--- OUTSIDE RECORDS SUMMARY | 2016-07-01 17:54 | XMS REPORT ---
Author Author GENERATED, SYSTEM Organization Unknown Address Unknown Phone Unavailable Care Team Providers Care Heel Cover Softener Name Role Phone MD DEGROOT TIMOTHY [phone] Reason For Visit Reason for Visit from [...] 2013 11:01 AM * Completed Procedure Code: 21114 Procedure Name: not valued, on 02/08/2014 12: [...]
--- OUTSIDE RECORDS SUMMARY | 2016-07-01 17:55 | XMS REPORT ---
Author Author GENERATED, SYSTEM Organization Unknown Address Unknown Phone Unavailable Care Team Providers Care Pharmacy Intake Coordinator Name Role Phone MD DEGROOT TIMOTHY PP [phone] Reason For Visit Chief Complaint LT LOWER [...] of Care Procedures * Completed Procedure Code: 6333406 Procedure Name: not valued, on 03/31/2016 12: 00 AM * Completed Procedure Code: 4743604 Procedure Name: not valued, on 03/24/2016 12:00 AM * Completed Procedure Code: 4T4884V Procedure Name: not valued, on 12/30/2015 12 :00 AM * Completed Screening Colonoscopy, by MD FERNIE BRIDGES, on 09/23/2015 8:34 AM * Completed Procedure Code: 20355 Procedure Name: not valued, on 09/23/2015 12: 00 AM * Completed suprapubic catheter insertion, by MD REZA LERMA, on 2013 11:01 AM * Completed Procedure Code: 82847 Procedure Name: not valued, on 02/08/2014 12: 00 AM * Completed , on 10/21/2012 12:00 AM * Completed , on 10/21/2012 12:00 AM Immunizations * Influenza, seasonal, injectable ([employer] PHARM, Lot # [id number]); Administered 12/29 2:10 [...]
--- OUTSIDE RECORDS SUMMARY | 2016-07-01 17:56 | XMS REPORT ---
Author Author GENERATED, SYSTEM Organization Unknown Address Unknown Phone Unavailable Care Team Providers Care Easement Man Name Role Phone MD BRYSON, RUDI [phone] Reason For Visit Reason for Visit from [...] MG/DL (65-99 MG/DL) GFR EST NON AFR ITALIAN >90 ML/MIN GFRA EST AFR AMER >90 [...] - CT CEREBRAL W/O CONTRAST CPT Code(s): 40258-; ; ; INDICATION / CLINICAL HISTORY: Seizure. [...] 2013 11:01 AM * Completed Procedure Code: 60322 Procedure Name: not valued, on 02/08/2014 12: 00 AM * Completed Procedure Code: 87996 Procedure Name: not valued, on 02/08/2014 12: [...] responsibility of the patient or patient patient care representative to confirm the list of medications [...]
--- OUTSIDE RECORDS SUMMARY | 2016-07-01 17:56 | XMS REPORT ---
Author Author GENERATED, SYSTEM Organization Unknown Address Unknown Phone Unavailable Care Team Providers Care Material Handler Name Role Phone MD BRYSON, RUDI PP [phone] Reason For Visit Reason for Visit from [...] Thurs 10:30-3:30 * Address # 1 : [facility]: [address], [address], [place] - Procedures * Completed suprapubic catheter insertion, by MD REZA LERMA, on 2013 11:01 AM * Completed Procedure Code: 92904 Procedure Name: not valued, on 02/08/2014 12: 00 AM * Completed Procedure Code: 01646 Procedure Name: not valued, on 02/08/2014 12: [...]
--- OUTSIDE RECORDS SUMMARY | 2016-07-01 17:58 | XMS REPORT ---
Author Author GENERATED, SYSTEM Organization Unknown Address Unknown Phone Unavailable Care Team Providers Care Furnace Repairer Helper Name Role Phone MD MIKAYLA, BHAKTI PP [phone] Reason For Visit Chief Complaint UNRESPONSIVE Social [...] H (65-99 MG/DL) *GFR EST NON AFR SRI LANKAN >90 ML/MIN *GFRA EST AFR AMER >90 [...] 2013 11:01 AM * Completed Procedure Code: 33610 Procedure Name: not valued, on 02/08/2014 12: [...]
--- OUTSIDE RECORDS SUMMARY | 2016-07-01 17:59 | XMS REPORT ---
Author Author GENERATED, SYSTEM Organization Unknown Address Unknown Phone Unavailable Care Team Providers Care Comprehensive Ophthalmologist Name Role Phone MD BRYSON, RUDI PP [phone] Reason For Visit Chief Complaint BACK PAIN [...] 2013 11:01 AM * Completed Procedure Code: 08969 Procedure Name: not valued, on 02/08/2014 12: [...]
--- OUTSIDE RECORDS SUMMARY | 2016-07-01 17:59 | XMS REPORT | Continuity of care Document ---
[...] the responsibility of the patient or patient passenger relations representative to confirm the list of medications [...] minocycline 100 mg Capsule, Ordered By: RUDI MASSYE MD Directions: 1 capsule oral twice a [...] AMER >=90 ML/MIN GFR EST NON AFR BERMUDIAN >=90 ML/MIN GLOBULIN 3.2 GM/DL (2.3-3.5 GM/DL) [...] AMER >=90 ML/MIN GFR EST NON AFR BERMUDIAN >=90 ML/MIN GLOBULIN 3.4 GM/DL (2.3-3.5 GM/DL) [...] AMER >=90 ML/MIN GFR EST NON AFR BERMUDIAN >=90 ML/MIN GLOBULIN 3.6 GM/DL H (2.3-3.5 [...] PM* CULTURE BLOOD (Preliminary Result) Specimen Number: [id number] Specimen Source: Sample Collection Date/Time: 07/24/2013 8:39 PM CULTURE BLOOD: No Growth after 48 hours of initial incubation, testing to continue for additional 72 hours. Microbiology from 07/24/2013 8:46 PM* CULTURE BLOOD (Preliminary Result) Specimen Number: [id number] Specimen Source: Sample Collection Date/Time: 07/24/2013 8:46 PM CULTURE BLOOD: No Growth after 48 hours of initial incubation, testing to continue for additional 72 hours. Microbiology from 07/24/2013 9:50 PM* TEST CANCEL MICRO Specimen Number: [id number] Specimen Source: Sample Collection Date/Time: 07/24/2013 9:50 PM TEST CANCEL MICRO: Single swab, unable to process gram stain. Report Status: FINAL * CULTURE URINE Specimen Number: [id number] Specimen Source: Sample Collection Date/Time: 07/24/2013 9:50 PM CULTURE URINE: No growth at 48 hrs Report Status: FINAL * CULTURE WOUND Specimen Number: [id number] Specimen Source: Sample Collection Date/Time: 07/24/2013 9:50 [...]
--- NOTE | 2016-07-01 18:00 | NUR ---
BACK FROM XRAY RATES PAIN 10/10.
--- OUTSIDE RECORDS SUMMARY | 2016-07-01 18:00 | XMS REPORT ---
Author Author GENERATED, SYSTEM Organization Unknown Address Unknown Phone Unavailable Care Team Providers Care Operations Administrator Name Role Phone MD BRYSON, RUDI PP [phone] Reason For Visit Reason for Visit from [...] MG/DL (65-99 MG/DL) GFR EST NON AFR SUDANESE >90 ML/MIN GFRA EST AFR AMER >90 [...] H (65-99 MG/DL) GFR EST NON AFR SUDANESE >90 ML/MIN GFRA EST AFR AMER >90 [...] AM* CULTURE URINE (Preliminary Result) Specimen Number: [id number] Sample Collection Date/Time: 02/26/2014 10:50 AM Specimen Source: Urine Catheter Microbiology from 02/23/2014 5:15 PM* MRSA NASAL Specimen Number: [id number] Sample Collection Date/Time: 02/23/2014 5:15 PM Specimen Source: Nares DX Radiology from 02/26/2014 7:53 AMCHEST 1 VIEW DATE OF EXAM: Feb 26 2014 8: 03AM Proc: TANA 0066 - CHEST 1 VIEW CPT Code(s): 82127-; ; ; INDICATION / CLINICAL HISTORY: \E\seizure [...] - MRI BRAIN W/O_W/ CONTRAST CPT Code(s): 33185-; ; ; INDICATION / CLINICAL HISTORY: Seizures. [...] a scheduled back surgery for tomorrow in [place] and hoping to be discharged today so [...] 2013 11:01 AM * Completed Procedure Code: 42268 Procedure Name: not valued, on 02/08/2014 12: [...] Discharge Diet : Diet as directed by visual designer,Modification as given by physician * Call your [...] responsibility of the patient or patient sales service representative to confirm the list of [...] oral three times a day * cranberry aaei-D-tknkhelw coag (Azo Cranberry + Probiotic) 250 mg-30 mg-50 million cell Tablet Directions: 1 tablet oral three times a day Additional Instructions: AUTOSUB
--- OUTSIDE RECORDS SUMMARY | 2016-07-01 18:01 | XMS REPORT | Continuity of care Document ---
[...] AM* CULTURE URINE (Preliminary Result) Specimen Number: [id number] Specimen Source: Sample Collection Date/Time: 08/16/2013 8:25 AM CULTURE URINE: No growth at 24 hrs
--- OUTSIDE RECORDS SUMMARY | 2016-07-01 18:02 | XMS REPORT ---
Author Author GENERATED, SYSTEM Organization Unknown Address Unknown Phone Unavailable Care Team Providers Care Dance Therapist Name Role Phone MD MIKAYLA, BHAKTI PP [phone] Reason For Visit Chief Complaint FEVER KNEE [...] H (65-99 MG/DL) *GFR EST NON AFR ITALIAN 84 ML/MIN *GFRA EST AFR AMER >90 [...] 2013 11:01 AM * Completed Procedure Code: 54632 Procedure Name: not valued, on 02/08/2014 12: [...]
--- OUTSIDE RECORDS SUMMARY | 2016-07-01 18:04 | XMS REPORT ---
Author Author [place], [facility] - Organization Unknown Address Unknown Phone [...] the responsibility of the patient or patient underwriting account representative to confirm the list of medications with either the patient's personal care provider or the patient's follow-up care provider to ensure the patient has an appropriate list of medications to take at home. Discharge medications* atorvastatin (Lipitor) 20 mg Tablet, Ordered By: Katerine Hernandez Directions: 1 tablet oral daily at bedtime * baclofen 20 mg Tablet, Ordered By: Katreine Hernandez Directions: 1 tablet oral three times a day * clonazePAM (KlonoPIN) 1 mg Tablet, Ordered By: Katerine Hernandez Directions: 1-2 tablet oral twice a day * divalproex (Depakote) 500 mg tablet,delayed release (DR/EC), Ordered By: Katerine Hernandez Directions: 1 tablet oral twice a day * furosemide (LaSIX) 40 mg Tablet, Ordered By: Ktaerine Hernandez Directions: 2 tablet oral daily * [...] Stopped medications* A) Refer to MAR from [facility]. Results LAB--BEDSIDE TESTING from 09/30/2012 6:33 AMGlucose [...] 16:18 Site: Received : 10/01/12 16:22 Order#: [id number] Shiga toxin test FINAL 10/03/12 07:45 Unable to perform. No growth in enrichment broth. Stool Culture FINAL 10/04/12 08:03 No aerobic gram negative bacilli isolated No Salmonella, Shigella or Campylobacter isolated GARCIA FOR RESULTS: * - NEW RESULT - RESULT WAS MODIFIED AFTER FINAL STATUS SET Cryptosporidium Antigen, Stool Source: Stool Collected: 10/01/12 16:18 Site: Received : 10/01/12 16:22 Order#: [id number] Cryptosporidium Antigen FINAL 10/01/12 16:56 Negative GARCIA FOR RESULTS: * - NEW RESULT - RESULT WAS MODIFIED AFTER FINAL STATUS SET C. difficile Toxin B Source: Stool Collected: 09/08 16:18 Site: Received : 10/01/12 16:21 Order#: [id number] C. difficile toxin B by PCR FINAL 10/01/12 22:27 Negative - C. difficile toxin B not detected by PCR GARCIA FOR RESULTS: * - NEW RESULT - RESULT WAS MODIFIED AFTER FINAL STATUS SET Fecal Leucocyte Stain (Stool WBC) Source: Stool Collected: 10/01/12 16:18 Site: Received : 10/01/12 16:21 Order#: [id number] Fecal Leucocyte Stain FINAL 10/01/12 16:50 No white blood cells observed GARCIA FOR RESULTS: * - NEW RESULT - RESULT WAS MODIFIED AFTER FINAL STATUS SET LAB--MICROBIOLOGY from 10/02/2012 10:30 PMFungal Culture and smear (Preliminary Result) Source: Surgical-Wound Collected: 10/02/12 22:30 Site: lumbar wound Received : 10/02/12 22:30 Order#: [id number] Calcofluor White Stain FINAL 10/03/12 14:20 No fungal elements seen Fungal Culture PRELIM 10/10/12 04:42 Culture in progress No growth after 1 week of incubation. GARCIA FOR RESULTS: * - NEW RESULT - RESULT WAS MODIFIED AFTER FINAL STATUS SET Wnd/Abscess Culture (Aerobic and Anaerobic) with Smear A Source: Surgical- Wound Collected: 10/02/12 22:30 Site: Lumbar wound Received : 10/02/12 22:30 Order#: [id number] Gram Stain FINAL 10/02/12 22:36 OIF=Oil Immersion [...] #1 Source: Blood Collected: 10/05/12 15:38 Site: [facility] Received : 10/05/12 15:51 Order#: [id number] Blood Culture #1 FINAL 10/11/12 04:15 No growth after 5 days of incubation. GARCIA FOR RESULTS: * - NEW RESULT - RESULT WAS MODIFIED AFTER FINAL STATUS SET LAB--MICROBIOLOGY from 10/05/2012 3:45 PMBlood Culture #2 Source: Blood Collected: 10/05/12 15:45 Site: [facility] Received : 10/05/12 15:51 Order#: [id number] Blood Culture #2 FINAL 10/11/12 04:15 No growth after 5 days of incubation. GARCIA FOR RESULTS: * - NEW RESULT - RESULT WAS MODIFIED AFTER FINAL STATUS SET LAB--MICROBIOLOGY from 10/05/2012 6:25 PMC. difficile Toxin B Source: Stool Collected: 10/05/12 18:25 Site: Received : 10/05/12 18:49 Order#: [id number] C. difficile toxin B by PCR FINAL 10/05/12 21:57 Negative - C. difficile toxin B not detected by PCR GARCIA FOR RESULTS: * - NEW RESULT - RESULT WAS MODIFIED AFTER FINAL STATUS SET LAB--MICROBIOLOGY from 10/11/2012 7:43 AMAFB (Acid Fast) Culture and smear ( Preliminary Result) Source: Surgical-Wound Collected: 07:43 Site: Lumbar Wound swabs Received : 10/11/12 07:45 Order#: [id number] Stain, Acid Fast FINAL 10/11/12 13:16 No acid fast bacilli seen AFB Culture PRELIM 10/19/12 05:19 Culture in progress No growth after 1 week of incubation. GARCIA FOR RESULTS: * - NEW RESULT - RESULT WAS MODIFIED AFTER FINAL STATUS SET Fungal Culture and smear (Preliminary Result) Source: Surgical-Wound Collected: 10/11/12 07:43 Site: Lumbar Wound swabs Received : 10/11/12 07:45 Order#: [id number] Calcofluor White Stain FINAL 10/11/12 13:46 No fungal elements seen Fungal Culture PRELIM 10/19/12 04:42 Culture in progress No growth after 1 week of incubation. GARCIA FOR RESULTS: * - NEW RESULT - RESULT WAS MODIFIED AFTER FINAL STATUS SET Wnd/Abscess Culture (Aerobic and Anaerobic) with Smear A Source: Surgical- Wound Collected: 10/11/12 07:43 Site: Lumbar Wound Swabs Received : 10/11/12 07:45 Order#: [id number] Gram Stain FINAL 10/11/12 09:06 OIF=Oil Immersion [...] (5.0-8.0 ) Protein Negative (Negative ) Specific [place] 1.012 (1.003-1.030 ) Collection Type: Clean Catch Urobilinogen Negative mg/dL (-<1.0 mg/dL)
--- OUTSIDE RECORDS SUMMARY | 2016-07-01 18:05 | XMS REPORT ---
Author Author GENERATED, SYSTEM Organization Unknown Address Unknown Phone Unavailable Care Team Providers Care Cloth Desizing Range Operator Chief Name Role Phone MD DEGROOT TIMOTHY PP [phone] Reason For Visit Chief Complaint CRISIS Social [...] of Care Procedures * Completed Procedure Code: 7793426 Procedure Name: not valued, on 03/31/2016 12: 00 AM * Completed Procedure Code: 2239795 Procedure Name: not valued, on 03/24/2016 12:00 AM * Completed Procedure Code: 9J3019Q Procedure Name: not valued, on 12/30/2015 12 :00 AM * Completed Screening Colonoscopy, by MD FERNIE BIRDGES, on 09/23/2015 8:34 AM * Completed Procedure Code: 70717 Procedure Name: not valued, on 09/23/2015 12: 00 AM * Completed suprapubic catheter insertion, by MD REZA LERMA, on 2013 11:01 AM * Completed Procedure Code: 85529 Procedure Name: not valued, on 02/08/2014 12: 00 AM * Completed , on 10/21/2012 12:00 AM * Completed , on 10/21/2012 12:00 AM Immunizations * Influenza, seasonal, injectable ([employer] PHARM, Lot # [id number]); Administered 12/29 2:10 [...]
--- OUTSIDE RECORDS SUMMARY | 2016-07-01 18:05 | XMS REPORT ---
Author Author GENERATED, SYSTEM Organization Unknown Address Unknown Phone Unavailable Care Team Providers Care Pricing Supervisor Name Role Phone MD MIKAYLA BHAKTI PP [phone] Reason For Visit Chief Complaint MULTIPLE SYNCOPE [...] 2013 11:01 AM * Completed Procedure Code: 17446 Procedure Name: not valued, on 02/08/2014 12: [...]
--- OUTSIDE RECORDS SUMMARY | 2016-07-01 18:06 | XMS REPORT ---
Author Author GENERATED, SYSTEM Organization Unknown Address Unknown Phone Unavailable Care Team Providers Care Real Estate Subagent Name Role Phone MD BRYSON, RUDI [phone] Reason For Visit Reason for Visit from [...] MG/DL (65-99 MG/DL) GFR EST NON AFR LEBANESE >90 ML/MIN GFRA EST AFR AMER >90 [...] - CT CEREBRAL W/O CONTRAST CPT Code(s): 34143-; ; ; INDICATION / CLINICAL HISTORY: Seizure. [...] 2013 11:01 AM * Completed Procedure Code: 23261 Procedure Name: not valued, on 02/08/2014 12: 00 AM * Completed Procedure Code: 90236 Procedure Name: not valued, on 02/08/2014 12: [...] the responsibility of the patient or patient public service representative to confirm the list of [...]
--- OUTSIDE RECORDS SUMMARY | 2016-07-01 18:07 | XMS REPORT ---
Author Author GENERATED, SYSTEM Organization Unknown Address Unknown Phone Unavailable Care Team Providers Care Industrial Accountant Name Role Phone MD BRYSON, RUDI PP [phone] Reason For Visit Reason for Visit from [...] MG/DL (65-99 MG/DL) GFR EST NON AFR PERUVIAN >90 ML/MIN GFRA EST AFR AMER >90 [...] H (65-99 MG/DL) GFR EST NON AFR PERUVIAN >90 ML/MIN GFRA EST AFR AMER >90 [...] 02/23/2014 5:15 PM* MRSA NASAL Specimen Number: [id number] Sample Collection Date/Time: 02/23/2014 5:15 PM Specimen Source: Nares DX Radiology from 02/26/2014 7:53 AMCHEST 1 VIEW DATE OF EXAM: Feb 26 2014 8: 03AM Proc: DG [id number] - CHEST 1 VIEW CPT Code(s): 17163-; ; ; INDICATION / CLINICAL HISTORY: \E\seizure [...] - MRI BRAIN W/O_W/ CONTRAST CPT Code(s): 88332-; ; ; INDICATION / CLINICAL HISTORY: Seizures. [...] a scheduled back surgery for tomorrow in [place] and hoping to be discharged today so [...] Discharge Diet : Diet as directed by manufacturing mechanic,Modification as given by physician * Specific Discharge Teaching Instructions provided: : No * Discharge on Warfarin : No Allergies, Adverse Reactions, Alerts * nystatin causes Severe Hives. * Latex causes Unknown. Onset unsure. * Keflex causes unspecified. * Novocain causes unspecified. * No IV Contrast Allergy. * No Known Food Allergies. Medication It is the responsibility of the patient or patient customer field representative to confirm the list of medications [...] oral three times a day * cranberry clnv-C-ngghvpxu coag (Azo Cranberry + Probiotic) 250 mg-30 mg-50 million cell Tablet Directions: 1 tablet oral three times a day Additional Instructions: AUTOSUB
--- OUTSIDE RECORDS SUMMARY | 2016-07-01 18:08 | XMS REPORT ---
Author Author GENERATED, SYSTEM Organization Unknown Address Unknown Phone Unavailable Care Team Providers Care Scada Operator Name Role Phone MD BRYSON, RUDI PP [phone] Reason For Visit Chief Complaint LEFT KNEE [...] 2013 11:01 AM * Completed Procedure Code: 32181 Procedure Name: not valued, on 02/08/2014 12: [...]
--- OUTSIDE RECORDS SUMMARY | 2016-07-01 18:08 | XMS REPORT ---
Author Author GENERATED, SYSTEM Organization Unknown Address Unknown Phone Unavailable Care Team Providers Care Associate Director Of Biostatistics Name Role Phone UNASSIGNED DOCTOR MD FABIO DOCTOR PP [phone] Reason For Visit Reason for Visit from [...] 9:15 AM * Address # 1 : [facility]: [facility] [place]- or Procedures * Completed Procedure Code: [id number] Procedure Name: not valued, on 03/31/2016 12: 00 AM * Completed Procedure Code: [id number] Procedure Name: not valued, on 03/24/2016 12:00 AM * Completed Procedure Code: [id number] Procedure Name: not valued, on 12/30/2015 12 :00 AM * Completed Screening Colonoscopy, by MD FERNIE BRIDGES, on 09/23/2015 8:34 AM * Completed Procedure Code: 21296 Procedure Name: not valued, on 09/23/2015 12: 00 AM * Completed suprapubic catheter insertion, by MD REZA LERMA, on 2013 11:01 AM * Completed Procedure Code: 08140 Procedure Name: not valued, on 02/08/2014 12: 00 AM * Completed , on 10/21/2012 12:00 AM * Completed , on 10/21/2012 12:00 AM Immunizations * Influenza, seasonal, injectable ([employer] PHARM, Lot # [id number]); Administered 12/29 2:10 [...]
--- OUTSIDE RECORDS SUMMARY | 2016-07-01 18:08 | XMS REPORT ---
Author Author GENERATED, SYSTEM Organization Unknown Address Unknown Phone Unavailable Care Team Providers Care Hr Administrative Assistant Name Role Phone MD BRYSON, RUDI PP [phone] Reason For Visit Reason for Visit from [...] Thurs 10:30-3:30 * Address # 1 : [facility]: [address], [address], [place] - Procedures * Completed suprapubic catheter insertion, by MD REZA LERMA, on 2013 11:01 AM * Completed Procedure Code: 58268 Procedure Name: not valued, on 02/08/2014 12: 00 AM * Completed Procedure Code: 94383 Procedure Name: not valued, on 02/08/2014 12: [...] the responsibility of the patient or patient community service representative to confirm the list of [...]
--- OUTSIDE RECORDS SUMMARY | 2016-07-01 18:09 | XMS REPORT ---
Author Author GENERATED, SYSTEM Organization Unknown Address Unknown Phone Unavailable Care Team Providers Care Languages And Literature Instructor Name Role Phone UNASSIGNED DOCTOR , DOCTOR PP [phone] Reason For Visit Chief Complaint LT LOWER [...] 06/11/2016 4:10 PM* CULTURE URINE Specimen Number: [id number] Sample Collection Date/Time: 06/11/2016 4:10 PM Specimen [...] of Care Procedures * Completed Procedure Code: [id number] Procedure Name: not valued, on 03/31/2016 12: 00 AM * Completed Procedure Code: 3683468 Procedure Name: not valued, on 03/24/2016 12:00 AM * Completed Procedure Code: [id number] Procedure Name: not valued, on 12/30/2015 12 :00 AM * Completed Screening Colonoscopy, by MD KENA BRIDGESBHAKAR, on 09/23/2015 8:34 AM * Completed Procedure Code: 83931 Procedure Name: not valued, on 09/23/2015 12: 00 AM * Completed suprapubic catheter insertion, by MD REZA LERMA, on 2013 11:01 AM * Completed Procedure Code: 45096 Procedure Name: not valued, on 02/08/2014 12: 00 AM * Completed , on 10/21/2012 12:00 AM * Completed , on 10/21/2012 12:00 AM Immunizations * Influenza, seasonal, injectable ([employer] PHARM, Lot # [id number]); Administered 12/29 2:10 [...]
--- OUTSIDE RECORDS SUMMARY | 2016-07-01 18:09 | XMS REPORT ---
Author Author GENERATED, SYSTEM Organization Unknown Address Unknown Phone Unavailable Care Team Providers Care Edi Architect Name Role Phone MD BRYSON, RUDI [phone] Reason For Visit Reason for Visit from [...] MG/DL (65-99 MG/DL) GFR EST NON AFR KENYAN >90 ML/MIN GFRA EST AFR AMER >90 [...] the responsibility of the patient or patient parts representative to confirm the list of medications [...]
--- OUTSIDE RECORDS SUMMARY | 2016-07-01 18:10 | XMS REPORT | Continuity of care Document ---
[...] the responsibility of the patient or patient national sales representative to confirm the list of [...] AMER 90 ML/MIN GFR EST NON AFR LIBERIAN 77 ML/MIN GLUCOSE 149 MG/DL H (65-99 MG/DL) POTASSIUM 3.6 MMOL/L (3.5-5.1 MMOL/L) SODIUM 138 MMOL/L (136-145 MMOL/L) TCO2 33.3 MMOL/L H (21.0-32.0 MMOL/L) PHOSPHORUS 3.3 MG/DL (2.5-4.9 MG/DL) DX Radiology from 08/10/2013 2:08 PMCHEST 1 VIEW DATE OF EXAM: Aug 10 2013 2: 26PM Proc: DG 0066 - CHEST 1 VIEW CPT Code(s): 97840-; ; ; INDICATION / CLINICAL HISTORY: CHF [...]
--- OUTSIDE RECORDS SUMMARY | 2016-07-01 18:10 | XMS REPORT ---
Author Author GENERATED, SYSTEM Organization Unknown Address Unknown Phone Unavailable Care Team Providers Care Technical Advisor Name Role Phone MD MIKAYLA BHAKTI PP [phone] Reason For Visit Chief Complaint LT LOWER [...] of Care Procedures * Completed Procedure Code: [id number] Procedure Name: not valued, on 03/24/2016 12:00 AM * Completed Procedure Code: 7V1443S Procedure Name: not valued, on 12/30/2015 12 :00 AM * Completed Screening Colonoscopy, by MD FERNIE BRIDGSE, on 09/23/2015 8:34 AM * Completed Procedure Code: 84784 Procedure Name: not valued, on 09/23/2015 12: 00 AM * Completed suprapubic catheter insertion, by MD REZA LERMA, on 2013 11:01 AM * Completed Procedure Code: 76429 Procedure Name: not valued, on 02/08/2014 12: 00 AM * Completed , on 10/21/2012 12:00 AM * Completed , on 10/21/2012 12:00 AM Immunizations * Influenza, seasonal, injectable ([employer] PHARM, Lot # [id number]); Administered 12/29 2:10 [...]
--- OUTSIDE RECORDS SUMMARY | 2016-07-01 18:10 | XMS REPORT ---
Author Author GENERATED, SYSTEM Organization Unknown Address Unknown Phone Unavailable Care Team Providers Care Cte Teacher Name Role Phone MD BRYSON, RUDI PP [phone] Reason For Visit Chief Complaint BACK PAIN [...] 2013 11:01 AM * Completed Procedure Code: 05282 Procedure Name: not valued, on 02/08/2014 12: [...]
--- NOTE | 2016-07-01 18:15 | NUR ---
STATUS PATIENT ASKS, "CAN THE DOCTOR ORDER ME ANYMORE PAIN MEDS?" THIS RN NOTIFIED DR Patria ODELL.
[2016-07-01] MEDS ORDERED: HYDROMORPHONE 2 MG TABLET PO ONE (18:45)
--- NOTE | 2016-07-01 18:45 | NUR ---
REPORT CALLED TO NURSE AT [facility] [place]. SHE IS TO ARRANGE TRANSPORT.
--- NOTE | 2016-07-01 20:25 | NUR ---
TRANSFER PER NURSE AT [facility], PATIENT WILL HAVE TO BE TRANSFERRED BY EMS. SHE STATED THAT SHE WOULD ATTEMPT TO ARRANGE EMS TRANSFER.
--- NOTE | 2016-07-01 20:32 | NUR ---
FOOD PATIENT GIVEN 2 TURKEY SANDWICHES WITH KETCHUP AND GAYLE. ICE WATER SUPPLIED.
--- NOTE | 2016-07-01 21:01 | NUR ---
TRANSPORT PER NURSE AT [facility], THEY WILL SEND A VAN TO PICK PATIENT UP.
--- NOTE | 2016-07-01 21:15 | NUR ---
ACTIVITY PATIENT ABLE TO TRANSFER TO / FROM BED WITH ASSIST OF 2 AND WITHOUT ANY DIFFICULTIES. 700 ML EMPTIED FROM URINAL.
[2016-07-01 21:33] VITALS: BP 125/64; PULSE 80; RESP 16; TEMP 97.9; O2SAT 95
--- NOTE | 2016-07-01 21:33 | NUR ---
DISMISSAL PATIENT CARE IS ASSUMED BY TRANSPORT WARES SORTER AND STAFF MEMBER FROM [facility]. PATIENT IS TRANSFERRED TO [facility]C WITHOUT DIFFICULTIES. PATIENT IS ASSISTED TO [facility] WITHOUT DIFFICULTIES.
--- NOTE | 2016-07-02 08:03 | DI ---
Indication: ITS.REASON: fall, pain, hx replacement PROCEDURE: HIP LEFT 2 VIEW: Encounter: Initial Comparison: February 16, 2012 Findings: There is no acute fracture, dislocation or malalignment identified. Left hip replacement appears intact. Impression: No acute osseous abnormality. .
--- NOTE | 2016-07-02 08:05 | DI ---
Indication: ITS.REASON: fall, pain PROCEDURE: CT LUMBAR SPINE W/O CONTRAST: Encounter: Initial Comparison: May 31, 2013 Technique: Axial noncontrast CT imaging of the lumbar spine was performed with coronal and sagittal two-dimensional reformats. Automated Exposure Control and Iterative Reconstruction dose reducing techniques were utilized. FINDINGS: Posterior L4-S1 spinal fusion is again seen with bilateral pedicle screws and rods. No evidence of hardware failure or loosening. The alignment of the lumbar spine is normal for the patient's age. Alignment is stable. No acute fracture. Mild degenerative changes, similar to the comparison. Left renal stone. Diaz catheter in the bladder. The paraspinal soft tissues and spinal canal are otherwise unremarkable in appearance. IMPRESSION: No evidence for acute traumatic injury of the lumbar spine. There is a preliminary report by virtual radiologic. .
== END 2016-07-01 21:32 | disposition home or self-care (01) ==
LOC: ED 17:03
DX: S70.02XA Contusion of left hip, initial encounter (principal); M54.5 Low back pain; W07.XXXA Fall from chair, initial encounter; Y93.89 Activity, other specified; Y92.122 Bedroom in nursing home as the place of occurrence of the external cause; Y99.8 Other external cause status
CPT/HCPCS: 72131; 73502; 96361; 96374; 96375; 99284; A9270; J1170; J2405; J7030